=== PATIENT | female | born 1960 | race Caucasian/White ===

== ENCOUNTER → 2017-08-12 09:31 | Outpatient (CLI) | payer OTHER, SELFPAY ==
--- NOTE | 2017-08-12 10:00 | ECHOD_ITS ---
Reason For Study: Arryhthmia Procedure This was a 2D Doppler, Color Flow transthoracic echocardiogram. Exam performed in department. Left Ventricle Normal LV size. Left ventricular systolic function is normal. The estimated ejection fraction is 60 %. No regional wall motion abnormalities noted. Right Ventricle Normal RV size. Normal systolic function. Atria Normal left atrium. Normal right atrium. Mitral Valve Normal mitral valve. Tricuspid Valve Normal tricuspid valve. Aortic Valve Normal aortic valve. Trisinus/trileaflet aortic valve. Mild (1+) eccentric aortic valve insufficiency. Pulmonic Valve Normal pulmonic valve. Great Vessels Normal aortic root. The pulmonary artery is normal size. Normal inferior vena cava. Pericardium/Pleural No pericardial effusion. MMode/2D Measurements & Calculations LVIDd: 4.5 cm IVSd: 1.0 cm Ao root diam: 3.0 cm LVIDs: 3.2 cm LVPWd: 1.1 cm LA dimension: 3.4 cm RVDd: 2.8 cm FS: 29.5 % LAV(MOD-bp): 25.3 ml LA A4 area: 11.1 cm2 RA A4 area: 10.2 cm2 LAV(MOD-bp) Indexed: 14.0 ml/m2 LAV(MOD-sp2): 27.6 ml LAV(MOD-sp4): 23.0 ml Doppler Measurements & Calculations MV E max lloyd: 83.0 cm/sec Lat Peak E' Lloyd: 9.8 cm/sec Med Peak E' Lloyd: 7.6 cm/sec MV A max lloyd: 71.2 cm/sec E/E' lat: 8.5 E/E' med: 10.9 MV E/A: 1.2 Ao V2 max: 179.9 cm/sec AI max lloyd: 416.7 cm/sec LV V1 max: 126.9 cm/sec Ao max P.9 mmHg AI max P.5 mmHg LV V1 max P.4 mmHg Ao V2 mean: 124.8 cm/sec AI dec slope: 243.2 cm/sec2 Ao mean P.9 mmHg AI P1/2t: 501.8 msec Ao V2 VTI: 37.3 cm PA V2 max: 103.4 cm/sec Interpretation Summary Normal LV size. Left ventricular systolic function is normal. The estimated ejection fraction is 60 %. Mild (1+) eccentric aortic valve insufficiency. Ordering Physician: Santiago Hernandez Referring Physician: Momo Bucio Performed By: Brea Conte RDCS, RVT
== END ==
PROVIDERS: Family Provider Family Medicine; PCP Family Medicine; Visit Provider Internal Medicine Cardiovascular Disease
DX: R00.2 Palpitations (principal)
CPT/HCPCS: 93225; 93226; 93306

== ENCOUNTER → 2017-08-30 13:44 | Outpatient (CLI) | payer OTHER, SELFPAY ==
--- NOTE | 2017-08-30 13:46 | CT_ITS ---
STUDY: CTA NECK WITH CONTRAST REASON FOR EXAM: Female, 57 years old. CAROTID STENOSIS, DIZZY, F/U DOPPLER RADIATION DOSAGE (If Supplied By Facility): CTDIvol = ( 13.41 ) mGy, DLP = ( 612.69 ) mGycm TECHNIQUE: CT angiography with multi-detector data acquisition was performed from the aortic arch to the skull base following intravenous administration of 100 ml of Isovue 370 contrast. MIP images were reconstructed from the axial data set. Post-processing of the angiographic images was performed, with multiplanar reformation and 3D reconstruction. COMPARISON: None. FINDINGS: AORTIC ARCH: There is atherosclerotic calcific plaque formation of the aortic arch and great vessels arising from the aortic arch, without a hemodynamically significant stenosis. There is a normal origin of the brachiocephalic, left common carotid, and left subclavian arteries. Normal origins of the brachiocephalic, left common carotid, and left subclavian arteries. RIGHT CAROTID ARTERIES: Normal right common carotid artery (CCA). Normal right common carotid bulb. Normal origin of the right internal carotid (ICA) artery without a hemodynamically significant stenosis. Normal visualized cervical portion of the right internal carotid artery. Normal origin of the right external carotid artery (ECA). LEFT CAROTID ARTERIES: Normal left common carotid artery (CCA). Normal left common carotid bulb. Normal origin of the left internal carotid (ICA) artery without a hemodynamically significant stenosis. Normal visualized cervical portion of the left internal carotid artery. Normal origin of the left external carotid artery (ECA). 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 Normal-appearing right vertebral artery. 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 Normal-appearing right vertebral artery. There is no hemodynamically significant stenosis of the ICAs. Electronically Signed: En Maynard MD at 22:40 EST , Service support ,
== END ==
PROVIDERS: Family Provider Family Medicine; PCP Family Medicine; Visit Provider Family Medicine
DX: I65.22 Occlusion and stenosis of left carotid artery (principal)
CPT/HCPCS: 70498; Q9967

== ENCOUNTER → 2018-07-19 13:41 | Outpatient (CLI) | payer OTHER, SELFPAY ==
--- NOTE | 2018-07-19 14:24 | NEURO ---
NCS and/or EMG Patient Report Ordering Doctor: Alex Zendejas DATE OF SERVICE: 07/19/18 Vanessa Velez is a 57 year old female who presents for electrodiagnostic testing of the upper limbs. She has complaints of numbness in both hands and a burning pain in the left arm. Electrodiagnostic findings: Left median motor nerve demonstrates prolonged distal latency with normal amplitude and conduction velocity. Right median motor nerve demonstrates prolonged distal latency with normal amplitude and conduction velocity. Normal ulnar motor response bilaterally, including conduction across the elbow. Normal median and ulnar F waves. Prolonged median sensory latency is noted bilaterally. On needle EMG, 1+ fibrillations noted in the left pronator teres, left triceps and left lower cervical paraspinals. Motor unit action potentials are of normal amplitude and duration. Electrodiagnostic assessment: This is an abnormal study in the upper limbs. 1. Electrodiagnostic findings demonstrate bilateral median mononeuropathy. This is consistent with a mild bilateral carpal tunnel syndrome. 2. Letter diagnostic findings consistent with acute left-sided C7 radiculopathy. Consider correlation with cervical spine imaging. If there are any further questions, please do not hesitate to contact me.
== END ==
PROVIDERS: Family Provider Family Medicine; PCP Family Medicine; Referring Provider Physician Assistant Surgical; Visit Provider Physician Assistant Surgical
DX: R20.2 Paresthesia of skin (principal)
CPT/HCPCS: 95886; 95913

== ENCOUNTER → 2018-08-04 14:40 | Outpatient (CLI) | payer OTHER, SELFPAY ==
--- NOTE | 2018-08-04 14:46 | CT_ITS ---
CT of the temporal bones. CLINICAL HISTORY: Dizziness. PROCEDURE: The study was done without contrast and presented in 2 planes. FINDINGS: The right temporal bone: Normal except for earwax in the external auditory canal and occasional areas of mastoiditis The left temporal bone: External auditory canal: Canal size: Normal Canal lim: Normal. No erosions. Canal lumen: Clear. No abnormal attenuations Tympanic membrane: Intact. Scutum: Normal. No erosions Tympanic annulus: Normal Middle ear: Prussak's space: Clear Cochlear promontory: Normal Ossicular structures: Normal Tegmen tympani and arcuate eminence: Intact. No dehiscence. Tegmen mastoideum, aditus ad antrum, mastoid antrum and mastoid air cells:. Inflammatory changes involving some of the mastoid air cells. This is slightly more on the left than the right Facial recess,. pyramidal eminence, sinus tympani: Normal. Inner Ear: (Vestibulocochlear apparatus) Round window: Normal Oval window: Normal Semicircular canals: Normal Vestibule (utricle and sacule): Normal Vestibular aqueduct: Normal Cochlea: Normal. Internal auditory canal: Ann-Marie falciformis: Normal Internal auditory canal: No abnormal attenuation Cerebellopontine angle: Normal Facial nerve: Tympanic, labyrinthine and mastoid segments: Normal Petrous apex: Normal CT/Orb Sella Post Fossa Ear w/o IMPRESSION: The right temporal bone shows mild earwax in the right external auditory canal. Mild right-sided mastoiditis. A mild left-sided mastoiditis Electronically Signed: Domingo Welch MD at 2:01 EST Tel , Service support ,
--- NOTE | 2018-08-04 14:46 | CT_ITS ---
STUDY: CT BRAIN WITH AND WITHOUT CONTRAST REASON FOR EXAM: Female, 58 years old. Dizziness. Hypertension. RADIATION DOSAGE (If Supplied By Facility): CTDIvol = ( 52.52 ) mGy, DLP = ( 09897.79 ) mGycm TECHNIQUE: Transaxial CT imaging of the brain was performed pre and post contrast administration. The examination was performed with intravenous administration of 50ml ml of Isovue 370 contrast material. Individualized dose optimization techniques were used for this CT. COMPARISON: None. FINDINGS: Normal soft tissue structures. Normal calvarium. Normal size ventricles and extra-axial spaces for the patient's age. Normal white matter tracts of the cerebral hemispheres. Normal basal ganglia and thalami. Normal brainstem. Normal cerebellum. There is no intracranial hemorrhage. There are no findings of an acute ischemic infarction. Normal visualized paranasal sinuses. CT/Brain/Head W/WO Contrast IMPRESSION: Normal unenhanced and enhanced CT scan of the brain. Electronically Signed: Eren Trimble MD at 16:12 EST , Service support ,
--- OUTSIDE RECORDS SUMMARY | 2018-10-09 05:01 | XMS RPT_ITS ---
:1960 Author Organization OHIP Care Team Providers Name Role Phone JESSICA CROSS III Referring Unavailable SUZANNE CHANG (METAL TILE SETTER) Attending Unavailable CASSANDRA DUMONT (PT) Attending Unavailable CEBUL III, JESSICA A Referring Unavailable CEBUL III, JESSICA A Referring Unavailable CEBUL III, JESSICA A Referring Unavailable CEBUL III, JESSICA A Referring Unavailable CEBUL III, JESSICA A Referring Unavailable SALENA BURGOS (PA) Referring Unavailable CASSANDRA DUMONT (PT) Attending Unavailable CEBUL III, JESSICA A Referring Unavailable SUZANNE CHANG (METAL TILE SETTER) Attending Unavailable SUZANNE CHANG (METAL TILE SETTER) Attending Unavailable SUZANNE CHANG (METAL TILE SETTER) Referring Unavailable AURELIANOUSHA Godoy (BOTANY TECHNICIAN) Attending Unavailable USHA BEDOYA (BOTANY TECHNICIAN) Referring Unavailable CEBUL III, JESSICA A Attending Unavailable SUZANNE CHANG (METAL TILE SETTER) Referring Unavailable CEBUL III, JESSICA A Referring Unavailable CEBUL III, JESSICA A Attending Unavailable CEBUL III, JESSICA A Referring Unavailable CEBUL III, JESSICA A Referring Unavailable HERBERT THOMAS ([place]) Attending Unavailable EshenaurAlex PA-C Attending Unavailable Eshenaur, Alex OLIVO Referring Unavailable Cebul III, Jessica Primary Care Unavailable Gregory Sandoval Attending Unavailable Gregory Sandoval Referring Unavailable Cebul III, Jessica Primary Care Unavailable Santiago Hernandez Attending Unavailable Cebul III, Jessica Referring Unavailable Cebul III, Jessica Primary Care Unavailable [place], [place] Attending Unavailable Cebul III, Jessica Referring Unavailable Cebul III, Jessica Primary Care Unavailable Edouard Conte Attending Unavailable Cebul III, Jessica Referring Unavailable Cebul III, Jessica Attending Unavailable Cebul III, Jessica Referring Unavailable Cebul III, Jessica Primary Care Unavailable PROBLEMS PROBLEMS DATE TYPE CONDITION / CODE ATTENDING STATUS SOURCE 07/21/2018 Active Unknown / JON, Active [facility] UNK(Unknown) HERBERT ([place]) [facility] [place] Rep[facility] 06/06/2018 Active Other spondylosis NA Active [facility] with [facility] [place] radiculopathy, Repository thoracic region / M47.24(ICD-10) 05/22/2018 Active Encounter for NA Active [facility] therapeutic drug [facility] [place] level monitoring / Repository Z51.81(ICD-10) 04/06/2018 Unknown R00.2 - Mary, Santiago Active [facility] Palpitations / Community R00.2(ICD-10) Hospital Repository 04/06/2018 Unknown I10 - Essential Mary, [place] Active [facility] (primary) [facility] hypertension / Hospital I10(ICD-10) Repository 01/12/2018 Active Encounter for NA Active [facility] screening [facility] [place] mammogram for Repository malignant neoplasm of breast / Z12.31(ICD-10) 10/17/2017 Active Cough / NA Active [facility] R05(ICD-10) [facility] [place] Rep[facility] 08/16/2017 Active Paresthesia of NA Active [facility] skin / [facility] [place] R20.2(ICD-10) Repository 08/16/2017 Active Unspecified NA Active [facility] disturbances of [facility] [place] skin sensation / Repository R20.9(ICD-10) 07/29/2017 Unknown R07.89 - Other Mary, Santiago Active [facility] chest pain / Community R07.89(ICD-10) Hospital Repository 07/29/2017 Unknown R07.8 - Other Mary, [place] Active [facility] chest pain / Community R07.8(ICD-10) Hospital Repository PROCEDURES PROCEDURES No Procedure Records FoundRESULTS RESULTS BRAIN/HEAD W/WO Observed: 08/04/2018 Status: F Source: [place] CONTRAST 2:46 PM [facility] REPOSITORY [facility] Imaging Services [address] [place] [id number] Brain/Head W/WO Contrast MR#: [id number] Acct: [id number] Name: CHAPIN VELEZ V Rep #: [id number] : 1960 F 58 From: Eren Trimble MD PCP: Jessiac Cross III, MD Status: REG CLI Study: Brain/Head W/WO Contrast Date of Exam: 08/04/18 Exam# [id number] Ordering Dr: Gregory Sandoval MD STUDY: CT BRAIN WITH AND WITHOUT CONTRAST REASON FOR EXAM: Female, 58 years old. Dizziness. Hypertension. RADIATION DOSAGE (If Supplied By Facility): CTDIvol = ( 52.52 ) mGy, DLP = ( 56986.79 ) mGycm TECHNIQUE: Transaxial CT imaging of the brain was performed pre and post contrast administration. The examination was performed with intravenous administration of 50ml ml of Isovue 370 contrast material. Individualized dose optimization techniques were used for this CT. COMPARISON: None. FINDINGS: Normal soft tissue structures. Normal calvarium. Normal size ventricles and extra-axial spaces for the patient's age. Normal white matter tracts of the cerebral hemispheres. Normal basal ganglia and thalami. Normal brainstem. Normal cerebellum. There is no intracranial hemorrhage. There are no findings of an acute ischemic infarction. Normal visualized paranasal sinuses. CT/Brain/Head W/WO Contrast IMPRESSION: Normal unenhanced and enhanced CT scan of the brain. Electronically Signed: Eren Trimble MD at 16:12 EST , Service support , CC: Pj Sandoval MD; Jessica Cross III, MD Metal Dealer: Signed ORB SELLA POST Observed: 08/04/2018 Status: F Source: [place] EAR W/O 2:46 PM [facility] REPOSITORY [facility] Imaging Services [address] [place] [id number] Orb Sella Post Fossa Ear w/o MR#: [id number] Acct: [id number] Name: CHAPIN VELEZ V Rep #: [id number] : 1960 F 58 From: Domingo Welch MD PCP: Jessica Cross III, MD Status: REG CLI Study: Orb Sella Post Fossa Ear w/o Date of Exam: 08/04/18 Exam# [id number] Ordering Dr: Gregory Sandoval MD CT of the temporal bones. CLINICAL HISTORY: Dizziness. PROCEDURE: The study was done without contrast and presented in 2 planes. FINDINGS: The right temporal bone: Normal except for earwax in the external auditory canal and occasional areas of mastoiditis The left temporal bone: External auditory canal: Canal size: Normal Canal lim: Normal. No erosions. Canal lumen: Clear. No abnormal attenuations Tympanic membrane: Intact. Scutum: Normal. No erosions Tympanic annulus: Normal Middle ear: Prussak's space: Clear Cochlear promontory: Normal Ossicular structures: Normal Tegmen tympani and arcuate eminence: Intact. No dehiscence. Tegmen mastoideum, aditus ad antrum, mastoid antrum and mastoid air cells:. Inflammatory changes involving some of the mastoid air cells. This is slightly more on the left than the right Facial recess,. pyramidal eminence, sinus tympani: Normal. Inner Ear: (Vestibulocochlear apparatus) Round window: Normal Oval window: Normal Semicircular canals: Normal Vestibule (utricle and sacule): Normal Vestibular aqueduct: Normal Cochlea: Normal. Internal auditory canal: Ann-Marie falciformis: Normal Internal auditory canal: No abnormal attenuation Cerebellopontine angle: Normal Facial nerve: Tympanic, labyrinthine and mastoid segments: Normal Petrous apex: Normal CT/Orb Sella Post Fossa Ear w/o IMPRESSION: The right temporal bone shows mild earwax in the right external auditory canal. Mild right-sided mastoiditis. A mild left-sided mastoiditis Electronically Signed: Domingo Welch MD at 2:01 EST Tel , Service support , CC: Pj Sandoval MD; Jessica Cross III, MD Metal Dealer: Signed CNOV Observed: 07/21/2018 Status: COMPLETED Source: [place] 3:00 PM [facility] REPOSITORY Office Visit (FAMPWS) CHAPIN VELEZ V ([id number]) 1960 F Date Time Provider Department 07/21/18 3:00 PM CANDICE THOMAS) FAMPWS During your visit today, we recorded the following information about you: Temperature Pulse Respiration Blood pressure 97.2 degrees 72/minute 12/minute 138/70 Weight 73.5 kg HERBERT THOMAS PA-C 07/21/2018 3:31 PM Signed Chief Complaint Patient presents with: Dizziness: patient is here for dizziness/ no n/v; some vision changes; headaches behind her; saw eye doctors and everything checked out HPI Chapin Velez is a 57 year old female who presents here today for Above Complaints.. Patient has had these symptoms on and off for about a year. States that she will get episodes of lightheadedness and dizziness. In Jul 2017 she had Carotid artery US, EKG, and ECHO. Testing was overall normal. R carotid showed 20-40% stenosis. She has seen eye doctor who has ruled out vision related causes. She reports that over the past year she would have random symptoms however over the past month has been more consistent. Denies Earache Has hx of tinnitus No hearing loss. Some sinus symptoms that have improved. No chest pain or shortness of breath. Past medical history, appointments, medications, allergies reviewed. 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 10/26/2012 - Essential hypertension, benign 12/07/2013 - Lesion of pancreas 06/06/2018 7 mm lesion head of pancreas--unchanged between 2012 and Sep 06, 2016 - Lumbar degenerative disc disease 10/26/2012 - Lumbar disc disease with radiculopathy 12/07/2013 - Palpitations Previous Surgical History PAST SURGICAL HISTORY Procedure Laterality Date - COLONOSCOP W/ OR W/O BRSH SPEC 10/11/2013 Colonoscopy - EGD W/O OR W/BRUSH/WASH 05/05/15 EGD - INCISE FINGER TENDON SHEATH Left 10/13/2016 Left trigger thumb release - LAPAROSCOPIC CHOLEYCYSTECTOMY Cholecystectomy, lap - LIGATE FALLOPIAN TUBE Tubal ligation - TONSILLECTOMY HX unsure if adnoids removed - TYMPANOSTOMY LOCAL; UNILATERAL Family History FAMILY HISTORY Problem Relation Age of Onset - Diabetes Mother - Hypertension Mother - other (CHF) Mother - other (Pacemaker) Mother - Emphysema Father - Diabetes Sister - COPD Sister - COPD Paternal Aunt - Cancer Sister lymphoma - Breast Cancer Paternal Aunt - Ischemic Heart Disease Maternal Grandfather Patient Allergies ALLERGIES Allergen Reactions - Adhesive Tape (Nona* Hives Patient had reaction after trigger finger surgery. Coban specifically - Naproxen GI Upset Current Medications Current Outpatient Prescriptions on File Prior to Visit: losartan (COZAAR) 25 mg tablet Take 1 tablet by mouth once daily. Hydrochlorothiazide 12.5 mg capsule Take 1 capsule by mouth once daily. omeprazole (PRILOSEC) 20 mg capsule Take 1 capsule by mouth daily before breakfast. 1/2 hr before meal. hydrOXYzine HCl (ATARAX) 25 mg tablet Take 1 tablet by mouth every 6 hours as needed for Anxiety. ibuprofen (MOTRIN) 200 mg tablet Take 600 mg by mouth every 6 hours as needed for Pain. djkt-irlp-pnm#3-M-ncab-noah-bor (OSTEO BI-FLEX TRIPLE STRENGTH) 750 mg-644 mg- 30 mg-1 mg tab Take by mouth. MULTIVITAMIN TAB Take one(1) tablet daily. nystatin (MYCOSTATIN) 100,000 unit/mL suspension Take 5 mL by mouth four times daily. 1tsp swish in mouth for several minutes, then swallow (or expectorate) 4 times daily until gone. penicillin V potassium (V-CILLIN, VEETIDS) 500 mg tablet Take 1 tablet by mouth three times daily. (Patient not taking: Reported on 06/06/2018 ) albuterol (PROVENTIL) 2.5 mg /3 mL (0.083 %) nebulizer solution Use 3 mL via nebulizer one time only for 1 dose. Use over 5-15minutes. aspirin, enteric coated (ADULT ASPIRIN REGIMEN) 81 mg EC tablet Take 1 tablet by mouth once daily. No current facility-administered medications on file prior to visit. 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 General Appearance: Well appearing, alert, in no acute distress, well-hydrated, well nourished.. Eyes: Anicteric sclera. Pupils are equally round and reactive to light. Extraocular movements are intact. . Ears: External ears normal, canals clear, TMs with fluid and bulging b/l. Nose/Sinuses: Nares normal, septum midline, mucosa normal, no drainage or sinus tenderness. Oropharynx: Lips, mucosa, and tongue normal, teeth and gums normal, oropharynx normal. Neck: Supple, no adenopathy; thyroid symmetric, normal size, no bruits. Lungs: lungs clear to auscultation. No wheezing, rhonchi, rales. Heart: RRR without murmur, gallop, or rubs. No ectopy. Neurologic: Gait normal. Reflexes normal and symmetric. Sensation grossly intact.. sima hallpike neg. Health Maintenance List BP CONTROLLED (<130/80) due on 1979 ONE PNEUMOVAX PRIOR TO AGE 65 due on 1980 HEPATITIS C SCREENING due on 2005 DTAP,TDAP,TD(2 - Tdap) due on 10/05/2009 MAMMOGRAM due on 01/12/2019 ANNUAL PCP TEAM CHRONIC DISEASE VISIT due on 06/06/2019 PAP EVERY 5 YEARS due on 09/19/2019 HPV EVERY 5 YEARS due on 09/19/2019 DIABETES SCREEN due on 05/22/2021 LIPID SCREEN due on 08/02/2022 COLORECTAL CANCER SCREENING,SEE MODIFIER due on 10/12/2023 INFLUENZA Completed ASSESSMENT/PLAN: 1. Vertigo - ICD9: 780.4, ICD10: R42 Unclear etiology Will start medrol pack We discussed flonase- she has tried this in past but has hx of thrush. I asked patient to get rescheduled with her ENT for evaluation on her vertigo. Will follow up in 1 month or sooner if needed. HERBERT THOMAS PA-C Referring Provider: SELF [[id number]] Allergies As of Date: 07/21/2018 Noted Allergy Reaction ADHESIVE TAPE (ROSINS) 10/18/2016 4 - Hives Comments: Patient had reaction after trigger finger surgery. Coban specifically NAPROXEN 03/14/2015 8 - GI Upset Date Reviewed: 07/21/2018 Reviewed by: Neeta Brady Ma - Fully Assessed Reason for Visit: Dizziness [36] Cmt: patient is here for dizziness/ no n/v; some vision changes; headaches behind her; saw eye doctors and everything checked out Primary Visit Diagnosis:Vertigo [R42] Order(s):methylPREDNISolone (MEDROL, OLGA,) 4 mg Dose-PackFollow dosing instructions, take with food.Disp: 1 PackageRfl: 0 Prescriptions as of 07/21/2018 Sig: LOSARTAN 25 MG TABLET Take 1 tablet by mouth once d* HYDROCHLOROTHIAZIDE 12.5 MG C* Take 1 capsule by mouth once * OMEPRAZOLE 20 MG CAPSULE,JACQUES* Take 1 capsule by mouth daily* HYDROXYZINE HCL 25 MG TABLET Take 1 tablet by mouth every * IBUPROFEN 200 MG TABLET Take 600 mg by mouth every 6 * GLUCOSAMINE 750 MG-CHONDROITI* Take by mouth. * MULTIVITAMIN TABLET Take one(1) tablet daily. METHYLPREDNISOLONE 4 MG TABLE* Follow dosing instructions, t* NYSTATIN 100,000 UNIT/ML ORAL* Take 5 mL by mouth four times* PENICILLIN V POTASSIUM 500 MG* Take 1 tablet by mouth three * Patient not taking: Reported on 06/06/2018 ALBUTEROL SULFATE 2.5 MG/3 ML* Use 3 mL via nebulizer one ti* ASPIRIN 81 MG TABLET,DELAYED * Take 1 tablet by mouth once d* Problem List As Of Date 07/21/2018 Noted Resolved Palpitations [R00.2] INVALID FOR*06/06/2018 Dysmetabolic syndrome X [E88.81] INVALID FOR*06/06/2018 Plantar fasciitis [M72.2] INVALID FOR*06/06/2018 GERD (Gastroesophageal Reflux Disease) [K21.9] INVALID FOR* Tobacco Abuse [Z72.0] INVALID FOR* Calcaneal spur [M77.30] INVALID FOR*06/06/2018 Cervicalgia [M54.2] INVALID FOR*09/27/2012 Inclusion cyst of vulva [N90.7] INVALID FOR*06/06/2018 Cervical arthritis (HCC) [M47.812] INVALID FOR*10/01/2016 Microscopic hematuria [R31.29] INVALID FOR*10/01/2016 Adrenal adenoma [D35.00] INVALID FOR* More... Hematuria, microscopic [R31.29] INVALID FOR* Tobacco use disorder [F17.200] INVALID FOR* Urinary frequency [R35.0] INVALID FOR*06/06/2018 Urgency of urination [R39.15] INVALID FOR*06/06/2018 Degenerative arthritis of cervical spine with n*INVALID FOR* Lumbar degenerative disc disease [M51.36] INVALID FOR* PMB (postmenopausal bleeding) [N95.0] INVALID FOR*10/01/2016 Thickened endometrium [R93.89] INVALID FOR* Tongue coating [K14.3] INVALID FOR*06/06/2018 Glossitis [K14.0] INVALID FOR*06/06/2018 Degenerative arthritis of carpometacarpal joint*INVALID FOR* Essential hypertension, benign [I10] INVALID FOR* More... Lumbar disc disease with radiculopathy [M51.16] INVALID FOR*06/06/2018 Cervicalgia [M54.2] INVALID FOR*06/06/2018 Sciatica [M54.30] INVALID FOR*06/06/2018 Lumbar spondylosis [M47.816] INVALID FOR* Overactive bladder [N32.81] INVALID FOR*10/01/2016 NSAID induced gastritis [K29.60, T39.395A] INVALID FOR*06/06/2018 Hyperlipidemia [E78.5] INVALID FOR* Bilateral hand numbness [R20.0] INVALID FOR*06/06/2018 Trigger thumb of left hand [M65.312] INVALID FOR*06/06/2018 Chest pain [R07.9] INVALID FOR*06/06/2018 Chronic sinusitis [J32.9] INVALID FOR*06/06/2018 Lightheadedness [R42] INVALID FOR*06/06/2018 Harmful pattern of use of nicotine [Z72.0] INVALID FOR* Cervical radiculopathy [M54.12] INVALID FOR* Thoracic radiculopathy due to degenerative join*INVALID FOR* Lesion of pancreas [K86.9] INVALID FOR* More... Prescriptions ordered this encounter Disp Refills Start End METHYLPREDNISOLONE 4 MG TABLETS IN A* 1 Pa* 0 07/21/2018 07/27/2018 Sig: Follow dosing instructions, take with food. Disposition: Return in about 1 month (around 08/21/2018). Follow-up and Disposition History Recorded Encounter Status:Closed by HERBERT DOAN on 07/21/18 PROGRESS Observed: 07/21/2018 Status: COMPLETED Source: [place] 2:52 PM [facility] REPOSITORY HNO ID: [id number] Author: Nixon Thomas Service: (none) Author Type: Physician Alumina Refinery Operator Type: Progress Notes Filed: 07/21/2018 3:31 PM Note Text: Chief Complaint Patient presents with: Dizziness: patient is here for dizziness/ no n/v; some vision changes; headaches behind her; saw eye doctors and everything checked out HPI Chapin Velez is a 57 year old female who presents here today for Above Complaints.. Patient has had these symptoms on and off for about a year. States that she will get episodes of lightheadedness and dizziness. In Jul 2017 she had Carotid artery US, EKG, and ECHO. Testing was overall normal. R carotid showed 20-40% stenosis. She has seen eye doctor who has ruled out vision related causes. She reports that over the past year she would have random symptoms however over the past month has been more consistent. Denies Earache Has hx of tinnitus No hearing loss. Some sinus symptoms that have improved. No chest pain or shortness of breath. Past medical history, appointments, medications, allergies reviewed. 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 10/26/2012 - Essential hypertension, benign 12/07/2013 - Lesion of pancreas 06/06/2018 7 mm lesion head of pancreas--unchanged between 2012 and Sep 06, 2016 - Lumbar degenerative disc disease 10/26/2012 - Lumbar disc disease with radiculopathy 12/07/2013 - Palpitations Previous Surgical History PAST SURGICAL HISTORY Procedure Laterality Date - COLONOSCOP W/ OR W/O BRSH SPEC 10/11/2013 Colonoscopy - EGD W/O OR W/BRUSH/WASH 05/05/15 EGD - INCISE FINGER TENDON SHEATH Left 10/13/2016 Left trigger thumb release - LAPAROSCOPIC CHOLEYCYSTECTOMY Cholecystectomy, lap - LIGATE FALLOPIAN TUBE Tubal ligation - TONSILLECTOMY HX unsure if adnoids removed - TYMPANOSTOMY LOCAL; UNILATERAL Family History FAMILY HISTORY Problem Relation Age of Onset - Diabetes Mother - Hypertension Mother - other (CHF) Mother - other (Pacemaker) Mother - Emphysema Father - Diabetes Sister - COPD Sister - COPD Paternal Aunt - Cancer Sister lymphoma - Breast Cancer Paternal Aunt - Ischemic Heart Disease Maternal Grandfather Patient Allergies ALLERGIES Allergen Reactions - Adhesive Tape (Nona* Hives Patient had reaction after trigger finger surgery. Coban specifically - Naproxen GI Upset Current Medications Current Outpatient Prescriptions on File Prior to Visit: losartan (COZAAR) 25 mg tablet Take 1 tablet by mouth once daily. Hydrochlorothiazide 12.5 mg capsule Take 1 capsule by mouth once daily. omeprazole (PRILOSEC) 20 mg capsule Take 1 capsule by mouth daily before breakfast. 1/2 hr before meal. hydrOXYzine HCl (ATARAX) 25 mg tablet Take 1 tablet by mouth every 6 hours as needed for Anxiety. ibuprofen (MOTRIN) 200 mg tablet Take 600 mg by mouth every 6 hours as needed for Pain. vptt-yqas-ggj#6-C-lruz-noah-bor (OSTEO BI-FLEX TRIPLE STRENGTH) 750 mg-644 mg- 30 mg-1 mg tab Take by mouth. MULTIVITAMIN TAB Take one(1) tablet daily. nystatin (MYCOSTATIN) 100,000 unit/mL suspension Take 5 mL by mouth four times daily. 1tsp swish in mouth for several minutes, then swallow (or expectorate) 4 times daily until gone. penicillin V potassium (V-CILLIN, VEETIDS) 500 mg tablet Take 1 tablet by mouth three times daily. (Patient not taking: Reported on 06/06/2018 ) albuterol (PROVENTIL) 2.5 mg /3 mL (0.083 %) nebulizer solution Use 3 mL via nebulizer one time only for 1 dose. Use over 5-15minutes. aspirin, enteric coated (ADULT ASPIRIN REGIMEN) 81 mg EC tablet Take 1 tablet by mouth once daily. No current facility-administered medications on file prior to visit. 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 General Appearance: Well appearing, alert, in no acute distress, well-hydrated, well nourished.. Eyes: Anicteric sclera. Pupils are equally round and reactive to light. Extraocular movements are intact. . Ears: External ears normal, canals clear, TMs with fluid and bulging b/l. Nose/Sinuses: Nares normal, septum midline, mucosa normal, no drainage or sinus tenderness. Oropharynx: Lips, mucosa, and tongue normal, teeth and gums normal, oropharynx normal. Neck: Supple, no adenopathy; thyroid symmetric, normal size, no bruits. Lungs: lungs clear to auscultation. No wheezing, rhonchi, rales. Heart: RRR without murmur, gallop, or rubs. No ectopy. Neurologic: Gait normal. Reflexes normal and symmetric. Sensation grossly intact.. sima hallpike neg. Health Maintenance List BP CONTROLLED (<130/80) due on 1979 ONE PNEUMOVAX PRIOR TO AGE 65 due on 1980 HEPATITIS C SCREENING due on 2005 DTAP,TDAP,TD(2 - Tdap) due on 10/05/2009 MAMMOGRAM due on 01/12/2019 ANNUAL PCP TEAM CHRONIC DISEASE VISIT due on 06/06/2019 PAP EVERY 5 YEARS due on 09/19/2019 HPV EVERY 5 YEARS due on 09/19/2019 DIABETES SCREEN due on 05/22/2021 LIPID SCREEN due on 08/02/2022 COLORECTAL CANCER SCREENING,SEE MODIFIER due on 10/12/2023 INFLUENZA Completed ASSESSMENT/PLAN: 1. Vertigo - ICD9: 780.4, ICD10: R42 Unclear etiology Will start medrol pack We discussed flonase- she has tried this in past but has hx of thrush. I asked patient to get rescheduled with her ENT for evaluation on her vertigo. Will follow up in 1 month or sooner if needed. HERBERT THOMAS PA-C NCS AND/OR EMG Observed: 07/19/2018 Status: F Source: [place] PAT[place] 2:43 PM [facility] REPOSITORY [facility] Pulmonary Services/Neurology [address] [place] [address] MR#: [id number] Acct: [id number] Name: CHAPIN VELEZ V Rep #: [id number] : 1960 57 From: Michael Flores MD Referring Dr: Alex Mack Status: REG CLI Ordering Dr: Date: Location: N Sex: F C NCS and/or EMG Patient Report Ordering Doctor: Alex Zendejas DATE OF SERVICE: 07/19/18 Chapin Velez is a 57 year old female who presents for electrodiagnostic testing of the upper limbs. She has complaints of numbness in both hands and a burning pain in the left arm. Electrodiagnostic findings: Left median motor nerve demonstrates prolonged distal latency with normal amplitude and conduction velocity. Right median motor nerve demonstrates prolonged distal latency with normal amplitude and conduction velocity. Normal ulnar motor response bilaterally, including conduction across the elbow. Normal median and ulnar F waves. Prolonged median sensory latency is noted bilaterally. On needle EMG, 1+ fibrillations noted in the left pronator teres, left triceps and left lower cervical paraspinals. Motor unit action potentials are of normal amplitude and duration. Electrodiagnostic assessment: This is an abnormal study in the upper limbs. 1. Electrodiagnostic findings demonstrate bilateral median mononeuropathy. This is consistent with a mild bilateral carpal tunnel syndrome. 2. Letter diagnostic findings consistent with acute left- sided C7 radiculopathy. Consider correlation with cervical spine imaging. If there are any further questions, please do not hesitate to contact me. 07/19/18 7250 <Electronically signed by Michael Flores MD> Date Michael Flores MD CC: Michael Flores MD; Jessica Cross III, MD; Alex BABB Date Dictated: 07/19/18 1424 Date Transcribed: 07/19/18 1424 Metal Dealer: LILIBETH Signed PROGRESS Observed: 06/14/2018 Status: COMPLETED Source: [place] 6:41 PM [facility] [place] REPOSITORY HNO ID: [id number] Author: Jessica Cross III Service: (none) Author Type: Physician Type: Progress Notes Filed: 06/14/2018 6:41 PM Note Text: Chapin, there are degenerative changes seen at multiple levels of the spine. I suspect that you are experiencing nerve pain because of some of this degeneration. I recommend back stretching to improve the pain. If that is not successful, then I recommend evaluation by our physical therapist. Keep in touch as needed Jessica Cross III, MD, FAAFP XR THORACIC 3V Observed: 06/12/2018 Status: F Source: [place] AP/LAT/[place] 1:55 PM [facility] REPOSITORY * * *Final Report* * * DATE OF EXAM: Jun 12 2018 1:55PM WOX [id number] - XR THORACIC 3V AP/LAT/SWIMMERS / PROCEDURE REASON: Thoracic radiculopathy due to degenerative joint disease of spine * * * * Physician Interpretation * * * * PROCEDURE: Thoracic spine INDICATION: Thoracic radiculopathy due to degenerative joint disease of spine .Right sided upper back pain for years without injury. TECHNIQUE: XR THORACIC 3V AP/LAT/SWIMMERS COMPARISON: None FINDINGS: There is slight scoliotic curvature without fracture or subluxation. Mild vertebral body spurring is noted at most levels. Mild disc space narrowing at multiple levels in the lower thoracic spine. No pedicle erosion or paraspinal abnormality. Degenerative disc disease in the lower cervical spine. IMPRESSION: Degenerative changes Metal Dealer: ENDER Transcribe Date/Time: Jun 12 2018 2:44P Dictated by : NIALL GUPTA MD This examination was interpreted and the report reviewed and electronically signed by: NIALL GUPTA MD on Jun 12 2018 2:46PM EST [id number] PROGRESS Observed: 06/12/2018 Status: COMPLETED Source: [place] 1:44 PM [facility] [place] REPOSITORY HNO ID: [id number] Author: Sasha Farrell ([place] Service: (none) Author Type: Casino Gaming Inspector Type: Progress Notes Filed: 06/12/2018 1:55 PM Note Text: Radiology Service Progress Note PATIENT NAME: Chapin Velez DATE OF SERVICE: June 12, 2018 TIME: 1:44 PM PATIENT IDENTITY VERIFICATION COMPLETED USING TWO (2) METHODS: Patient confirmed name verbally and Date of . PATIENT GENDER DATA: Female. status: : No status: NO. PATIENT RELEVANT IMPLANT DATA REVIEWED: Not Applicable RADIOLOGY DEPARTMENT: General X-ray: Exam(s) Completed: Spine X-Ray(s): Thoracic PERIPHERAL IV DATA: Not applicable SIGNED BY: RT Alexx June 12, 2018 1:44 PM PROGRESS Observed: 06/06/2018 Status: COMPLETED Source: [place] 5:25 PM [facility] REPOSITORY O ID: [id number] Author: Jessica Cross III Service: (none) Author Type: Physician Type: Progress Notes Filed: 06/06/2018 8:44 PM Note Text: SUBJECTIVE: This is a 57 year old female that is here today for follow up radicular pain R ant -lat rib margin. Low-medium level aching, helped by ibuprofen. No rash and not tender to touch. Chart review shows that CT scan abdomen obtained 09/06/16 demonstrated a 7 mm lesion in the head of the pancreas that had not changed since 2012. Patient is also status post cholecystectomy. She denies pain in the lower thoracic spine area, though she does have pain in the upper back and in the lumbar region. He does a physical job and is also physically active with splitting wood and other physical outdoor work at home. She states that this discomfort in the right anterolateral rib margin does not feel like muscular strain. 2. Chart review as it she did have a CT angiogram of the neck in August, showing obstruction of the proximal left vertebral artery with reconstitution of normal flow. The right vertebral artery in both carotid arteries were patent. 3. CT angiogram of the chest (07/17/17) demonstrated thoracic degenerative disease but was not specific to the lower thoracic vertebrae ----- Results CT ABDOMEN W IVCON (Order [id number]) Patient Info Patient Name Sex Chapin Montero V ([id number]) Female 1960 09/06/2016 ?4:04 PM - Interface, Results In Impression IMPRESSION: No cause for left upper quadrant pain. Unchanged 7 mm low-attenuation lesion in pancreatic head which may represent sidebranch IPMN. Bilateral adrenal thickening with focal right nodule, unchanged. version 15 Metal Dealer: ENDER ? Transcribe Date/Time: Sep 06 2016 ?3:48P Dictated by : FRANKIE BRIONES MD This examination was interpreted and the report reviewed and electronically signed by: FRANKIE BRIONES MD on Sep 06 2016 ?3:58PM ?EST Results-Findings * * *Final Report* * * DATE OF EXAM: Sep 06 2016 ?3:36PM ? [facility] ? 0533 ?- ?CT ABDOMEN W IVCON ?/ PROCEDURE REASON: Left upper quadrant pain ?? ? * * * * Physician Interpretation * * * * RESULT: CT ABDOMEN WITH IV CONTRAST CLINICAL HISTORY: Left upper quadrant pain TECHNIQUE: CT of the abdomen was performed using standard technique. Contrast: IV: ?145 ml of Omnipaque 300 Oral: ?900 ml of 50ML Omnipaque [address] Radiation dose: Integrated Dose-length product (DLP) for this visit = ? 245 mGy*cm. COMPARISON: 10/06/2012 RESULT: Liver: No mass. Biliary: No bile duct dilation. ?Gallbladder is absent. Spleen: No mass. No splenomegaly. Pancreas: There is a 7 mm low-attenuation abnormality in the pancreatic head (3:45). ?This is unchanged from the prior exam. ?There is no pancreatic duct dilation. ?On coronal images, this appears to communicate with the pancreatic duct, suggesting that it represents a small IPMN. Adrenals: There is bilateral adrenal thickening. ?Focal nodule in the right lateral limb measures 1.4 x 0.9 cm (3:32) unchanged. ?Left adrenal is diffusely thickened. Kidneys: No mass or hydronephrosis.. There are subcentimeter probable renal cysts. ?As 1.4 cm unchanged lower pole cyst on the left. GI tract: No dilation or wall thickening. Lymph nodes: No abdominal lymphadenopathy. Mesentery/Peritoneum: No ascites or mass. Vasculature: ?The celiac axis and SMA are patent. The portal vein and branches, splenic vein, SMV, and hepatic veins are patent. Bones/Soft Tissues: No significant finding. Lung Bases: Unremarkable. Result History CT ABDOMEN W IVCON (Order #[id number]) on 09/06/2016 - Order Result History Report Current Outpatient Prescriptions on File Prior to Visit: nystatin (MYCOSTATIN) 100,000 unit/mL suspension Take 5 mL by mouth four times daily. 1tsp swish in mouth for several minutes, then swallow (or expectorate) 4 times daily until gone. losartan (COZAAR) 25 mg tablet Take 1 tablet by mouth once daily. Hydrochlorothiazide 12.5 mg capsule Take 1 capsule by mouth once daily. omeprazole (PRILOSEC) 20 mg capsule Take 1 capsule by mouth daily before breakfast. 1/2 hr before meal. hydrOXYzine HCl (ATARAX) 25 mg tablet Take 1 tablet by mouth every 6 hours as needed for Anxiety. aspirin, enteric coated (ADULT ASPIRIN REGIMEN) 81 mg EC tablet Take 1 tablet by mouth once daily. ibuprofen (MOTRIN) 200 mg tablet Take 600 mg by mouth every 6 hours as needed for Pain. woxd-rpus-pgr#2-T-hmvo-noah-bor (OSTEO BI-FLEX TRIPLE STRENGTH) 750 mg-644 mg- 30 mg-1 mg tab Take by mouth. MULTIVITAMIN TAB Take one(1) tablet daily. penicillin V potassium (V-CILLIN, VEETIDS) 500 mg tablet Take 1 tablet by mouth three times daily. (Patient not taking: Reported on 06/06/2018 ) albuterol (PROVENTIL) 2.5 mg /3 mL (0.083 %) nebulizer solution Use 3 mL via nebulizer one time only for 1 dose. Use over 5-15minutes. No current facility-administered medications on file prior to visit. PAST MEDICAL HISTORY Diagnosis Date - Adrenal adenoma 10/06/2012 bilateral--recheck CT in 1 yr - Cervical arthritis 09/27/2012 - Degenerative arthritis of carpometacarpal joint of thumb 12/07/2013 - Degenerative arthritis of cervical spine with nerve compression 10/26/2012 - Essential hypertension, benign 12/07/2013 - Lumbar degenerative disc disease 10/26/2012 - Lumbar disc disease with radiculopathy 12/07/2013 - Palpitations FAMILY HISTORY Problem Relation Age of Onset - Diabetes Mother - Hypertension Mother - other (CHF) Mother - other (Pacemaker) Mother - Emphysema Father - Diabetes Sister - COPD Sister - COPD Paternal Aunt - Cancer Sister lymphoma - Breast Cancer Paternal Aunt - Ischemic Heart Disease Maternal Grandfather Social History Substance Use Topics - Smoking status: Current Every Day Smoker Packs/day: 1.00 Types: Cigarettes Start date: 07/18/1977 - Smokeless tobacco: Never Used - Alcohol use No BP 136/72 Pulse 68 Resp 16 Wt 72.6 kg (160 lb) LMP 02/07/2012 BMI 26.22 kg/m? . OBJECTIVE: APPEARANCE Well appearing, alert, in no acute distress, well-hydrated, well nourished. NECK Supple, no adenopathy; thyroid symmetric, normal size, no bruits LUNG clear to auscultation. No tenderness along the right anterolateral rib margin. No localized tenderness of the lower thoracic vertebrae. No evidence of shingles. ABDOMEN soft, non-tender, non-distended, without organomegaly or palpable masses, , no tenderness to palpation ASSESSMENT: Radicular pain along the right anterolateral rib margin perhaps representing thoracic radiculopathy Suspect cervical degenerative disc disease with right cervical radiculopathy causing pain in the right upper extremity Arteriosclerosis of the proximal left vertebral artery with reconstitution?patient on chronic aspirin Hypertension?at goal Tobacco use disorder Nonspecific lesion of the head of the Pancreas?previously unchanging PLAN: thoracic xray consider CT abd to follow up 7 mm lesion head of pancreas(unchanged from 7015-2077) same medications await EMG results from ortho of C spine REMBERTO Emanuel MD, III MD CNOV Observed: 06/06/2018 Status: COMPLETED Source: [place] 4:40 PM [facility] REPOSITORY Office Visit (FAMPWS) CHAPIN VELEZ V ([id number]) 1960 F Date Time Provider Department 06/06/18 4:40 PM JESSICA CROSS III During your visit today, we recorded the following information about you: Pulse Respiration Blood pressure Weight 68/minute 16/minute 136/72 72.6 kg Jessica Cross III MD 06/06/2018 8:44 PM Signed SUBJECTIVE: This is a 57 year old female that is here today for follow up radicular pain R ant -lat rib margin. Low-medium level aching, helped by ibuprofen. No rash and not tender to touch. Chart review shows that CT scan abdomen obtained 09/06/16 demonstrated a 7 mm lesion in the head of the pancreas that had not changed since 2012. Patient is also status post cholecystectomy. She denies pain in the lower thoracic spine area, though she does have pain in the upper back and in the lumbar region. He does a physical job and is also physically active with splitting wood and other physical outdoor work at home. She states that this discomfort in the right anterolateral rib margin does not feel like muscular strain. 2. Chart review as it she did have a CT angiogram of the neck in August, showing obstruction of the proximal left vertebral artery with reconstitution of normal flow. The right vertebral artery in both carotid arteries were patent. 3. CT angiogram of the chest (07/17/17) demonstrated thoracic degenerative disease but was not specific to the lower thoracic vertebrae Results CT ABDOMEN W IVCON (Order [id number]) Patient Info Patient Name Sex Chapin Montero V ([id number]) Female 1960 09/06/2016 ?4:04 PM - Interface, Results In Impression IMPRESSION: No cause for left upper quadrant pain. Unchanged 7 mm low-attenuation lesion in pancreatic head which may represent sidebranch IPMN. Bilateral adrenal thickening with focal right nodule, unchanged. version 10.08.15 Metal Dealer: ENDER ? Transcribe Date/Time: Sep 06 2016 ?3:48P Dictated by : FRANKIE BRIONES MD This examination was interpreted and the report reviewed and electronically signed by: FRANKIE BRIONES MD on Sep 06 2016 ?3:58PM ?EST Results-Findings * * *Final Report* * * DATE OF EXAM: Sep 06 2016 ?3:36PM ? [facility] ? 0533 ?- ?CT ABDOMEN W IVCON ?/ PROCEDURE REASON: Left upper quadrant pain ?? ? * * * * Physician Interpretation * * * * RESULT: CT ABDOMEN WITH IV CONTRAST CLINICAL HISTORY: Left upper quadrant pain TECHNIQUE: CT of the abdomen was performed using standard technique. Contrast: IV: ?145 ml of Omnipaque 300 Oral: ?900 ml of 50ML Omnipaque [address] Radiation dose: Integrated Dose-length product (DLP) for this visit = ? 245 mGy*cm. COMPARISON: 10/06/2012 RESULT: Liver: No mass. Biliary: No bile duct dilation. ?Gallbladder is absent. Spleen: No mass. No splenomegaly. Pancreas: There is a 7 mm low-attenuation abnormality in the pancreatic head (3:45). ?This is unchanged from the prior exam. ?There is no pancreatic duct dilation. ?On coronal images, this appears to communicate with the pancreatic duct, suggesting that it represents a small IPMN. Adrenals: There is bilateral adrenal thickening. ?Focal nodule in the right lateral limb measures 1.4 x 0.9 cm (3:32) unchanged. ?Left adrenal is diffusely thickened. Kidneys: No mass or hydronephrosis.. There are subcentimeter probable renal cysts. ?As 1.4 cm unchanged lower pole cyst on the left. GI tract: No dilation or wall thickening. Lymph nodes: No abdominal lymphadenopathy. Mesentery/Peritoneum: No ascites or mass. Vasculature: ?The celiac axis and SMA are patent. The portal vein and branches, splenic vein, SMV, and hepatic veins are patent. Bones/Soft Tissues: No significant finding. Lung Bases: Unremarkable. Result History CT ABDOMEN W IVCON (Order #[id number]) on 09/06/2016 - Order Result History Report Current Outpatient Prescriptions on File Prior to Visit: nystatin (MYCOSTATIN) 100,000 unit/mL suspension Take 5 mL by mouth four times daily. 1tsp swish in mouth for several minutes, then swallow (or expectorate) 4 times daily until gone. losartan (COZAAR) 25 mg tablet Take 1 tablet by mouth once daily. Hydrochlorothiazide 12.5 mg capsule Take 1 capsule by mouth once daily. omeprazole (PRILOSEC) 20 mg capsule Take 1 capsule by mouth daily before breakfast. 1/2 hr before meal. hydrOXYzine HCl (ATARAX) 25 mg tablet Take 1 tablet by mouth every 6 hours as needed for Anxiety. aspirin, enteric coated (ADULT ASPIRIN REGIMEN) 81 mg EC tablet Take 1 tablet by mouth once daily. ibuprofen (MOTRIN) 200 mg tablet Take 600 mg by mouth every 6 hours as needed for Pain. yomt-kmjz-zvh#9-Z-zdkt-noah-bor (OSTEO BI-FLEX TRIPLE STRENGTH) 750 mg-644 mg- 30 mg-1 mg tab Take by mouth. MULTIVITAMIN TAB Take one(1) tablet daily. penicillin V potassium (V-CILLIN, VEETIDS) 500 mg tablet Take 1 tablet by mouth three times daily. (Patient not taking: Reported on 06/06/2018 ) albuterol (PROVENTIL) 2.5 mg /3 mL (0.083 %) nebulizer solution Use 3 mL via nebulizer one time only for 1 dose. Use over 5-15minutes. No current facility-administered medications on file prior to visit. PAST MEDICAL HISTORY Diagnosis Date - Adrenal adenoma 10/06/2012 bilateral--recheck CT in 1 yr - Cervical arthritis 09/27/2012 - Degenerative arthritis of carpometacarpal joint of thumb 12/07/2013 - Degenerative arthritis of cervical spine with nerve compression 10/26/2012 - Essential hypertension, benign 12/07/2013 - Lumbar degenerative disc disease 10/26/2012 - Lumbar disc disease with radiculopathy 12/07/2013 - Palpitations FAMILY HISTORY Problem Relation Age of Onset - Diabetes Mother - Hypertension Mother - other (CHF) Mother - other (Pacemaker) Mother - Emphysema Father - Diabetes Sister - COPD Sister - COPD Paternal Aunt - Cancer Sister lymphoma - Breast Cancer Paternal Aunt - Ischemic Heart Disease Maternal Grandfather Social History Substance Use Topics - Smoking status: Current Every Day Smoker Packs/day: 1.00 Types: Cigarettes Start date: 07/18/1977 - Smokeless tobacco: Never Used - Alcohol use No BP 136/72 Pulse 68 Resp 16 Wt 72.6 kg (160 lb) LMP 02/07/2012 BMI 26.22 kg/m? . OBJECTIVE: APPEARANCE Well appearing, alert, in no acute distress, well- hydrated, well nourished. NECK Supple, no adenopathy; thyroid symmetric, normal size, no bruits LUNG clear to auscultation. No tenderness along the right anterolateral rib margin. No localized tenderness of the lower thoracic vertebrae. No evidence of shingles. ABDOMEN soft, non-tender, non-distended, without organomegaly or palpable masses, , no tenderness to palpation ASSESSMENT: Radicular pain along the right anterolateral rib margin perhaps representing thoracic radiculopathy Suspect cervical degenerative disc disease with right cervical radiculopathy causing pain in the right upper extremity Arteriosclerosis of the proximal left vertebral artery with reconstitution?patient on chronic aspirin Hypertension?at goal Tobacco use disorder Nonspecific lesion of the head of the Pancreas?previously unchanging PLAN: thoracic xray consider CT abd to follow up 7 mm lesion head of pancreas(unchanged from ) same medications await EMG results from ortho of C spine REMBERTO Emanuel MD, III MD Frank A Cebul, III MD 06/06/2018 5:53 PM Signed PLAN: thoracic xray consider CT abd to follow up 7 mm lesion head of pancreas(unchanged from ) same medications await EMG results Jessica Cross III MD Referring Provider: JESSICA CROSS III [[id number]] Allergies As of Date: 06/06/2018 Noted Allergy Reaction ADHESIVE TAPE (ROSINS) 10/18/2016 4 - Hives Comments: Patient had reaction after trigger finger surgery. Coban specifically NAPROXEN 03/14/2015 8 - GI Upset Date Reviewed: 06/06/2018 Reviewed by: Dannielle ([facility]) ISSA Mathias - Fully Assessed Reason for Visit: Recheck [92] Cmt: Pain under armpit and on right ribcage Primary Visit Diagnosis:Thoracic radiculopathy due to degenerative joint disease of spine [M47.24] Other Visit Diagnoses:Essential hypertension, benign [I10] Lesion of pancreas [K86.9] Order(s):XR THORACIC GENERAL 3V AP/LAT/SWIMMERS [[id number]] Order #: [id number] FUTURE Prescriptions as of 06/06/2018 Sig: NYSTATIN 100,000 UNIT/ML ORAL* Take 5 mL by mouth four times* LOSARTAN 25 MG TABLET Take 1 tablet by mouth once d* HYDROCHLOROTHIAZIDE 12.5 MG C* Take 1 capsule by mouth once * OMEPRAZOLE 20 MG CAPSULE,JACQUES* Take 1 capsule by mouth daily* HYDROXYZINE HCL 25 MG TABLET Take 1 tablet by mouth every * ASPIRIN 81 MG TABLET,DELAYED * Take 1 tablet by mouth once d* IBUPROFEN 200 MG TABLET Take 600 mg by mouth every 6 * GLUCOSAMINE 750 MG-CHONDROITI* Take by mouth. * MULTIVITAMIN TABLET Take one(1) tablet daily. PENICILLIN V POTASSIUM 500 MG* Take 1 tablet by mouth three * Patient not taking: Reported on 06/06/2018 ALBUTEROL SULFATE 2.5 MG/3 ML* Use 3 mL via nebulizer one ti* Problem List As Of Date 06/06/2018 Noted Resolved Palpitations [R00.2] INVALID FOR*06/06/2018 Dysmetabolic syndrome X [E88.81] INVALID FOR*06/06/2018 Plantar fasciitis [M72.2] INVALID FOR*06/06/2018 GERD (Gastroesophageal Reflux Disease) [K21.9] INVALID FOR* Tobacco Abuse [Z72.0] INVALID FOR* Calcaneal spur [M77.30] INVALID FOR*06/06/2018 Cervicalgia [M54.2] INVALID FOR*09/27/2012 Inclusion cyst of vulva [N90.7] INVALID FOR*06/06/2018 Cervical arthritis (HCC) [M47.812] INVALID FOR*10/01/2016 Microscopic hematuria [R31.29] INVALID FOR*10/01/2016 Adrenal adenoma [D35.00] INVALID FOR* More... Hematuria, microscopic [R31.29] INVALID FOR* Tobacco use disorder [F17.200] INVALID FOR* Urinary frequency [R35.0] INVALID FOR*06/06/2018 Urgency of urination [R39.15] INVALID FOR*06/06/2018 Degenerative arthritis of cervical spine with n*INVALID FOR* Lumbar degenerative disc disease [M51.36] INVALID FOR* PMB (postmenopausal bleeding) [N95.0] INVALID FOR*10/01/2016 Thickened endometrium [R93.89] INVALID FOR* Tongue coating [K14.3] INVALID FOR*06/06/2018 Glossitis [K14.0] INVALID FOR*06/06/2018 Degenerative arthritis of carpometacarpal joint*INVALID FOR* Essential hypertension, benign [I10] INVALID FOR* More... Lumbar disc disease with radiculopathy [M51.16] INVALID FOR*06/06/2018 Cervicalgia [M54.2] INVALID FOR*06/06/2018 Sciatica [M54.30] INVALID FOR*06/06/2018 Lumbar spondylosis [M47.816] INVALID FOR* Overactive bladder [N32.81] INVALID FOR*10/01/2016 NSAID induced gastritis [K29.60, T39.395A] INVALID FOR*06/06/2018 Hyperlipidemia [E78.5] INVALID FOR* Bilateral hand numbness [R20.0] INVALID FOR*06/06/2018 Trigger thumb of left hand [M65.312] INVALID FOR*06/06/2018 Chest pain [R07.9] INVALID FOR*06/06/2018 Chronic sinusitis [J32.9] INVALID FOR*06/06/2018 Lightheadedness [R42] INVALID FOR*06/06/2018 Harmful pattern of use of nicotine [Z72.0] INVALID FOR* Cervical radiculopathy [M54.12] INVALID FOR* Thoracic radiculopathy due to degenerative join*INVALID FOR* Lesion of pancreas [K86.9] INVALID FOR* More... Other instructions from your clinician: PLAN: thoracic xray consider CT abd to follow up 7 mm lesion head of pancreas(unchanged from 9590-7798) same medications await EMG results Jessica Cross III MD Encounter Status:Closed by JESSICA CROSS III, MD on 06/06/18 PROGRESS Observed: 05/24/2018 Status: COMPLETED Source: [place] 1:50 PM [facility] [place] REPOSITORY HNO ID: [id number] Author: Jessica Cross III Service: (none) Author Type: Physician Type: Progress Notes Filed: 05/24/2018 1:50 PM Note Text: Chapin, The blood test results are fine. Jessica Cross III, MD, [facility] PROGRESS Observed: 05/24/2018 Status: COMPLETED Source: [place] 1:49 PM [facility] [place] REPOSITORY HNO ID: [id number] Author: Jessica Cross III Service: (none) Author Type: Physician Type: Progress Notes Filed: 05/24/2018 1:49 PM Note Text: Chapin, The urine is normal. Jessica Cross III, MD, FAAFP URINALYSIS WITH Collected: 05/22/2018 Status: F Source: [facility] 4:45 PM [facility] REPOSITORY TYPE CODE TESTS RESULT OUT OF RANGE REFERENCE UNITS LAB UCOL Yellow Color Yellow LAB [facility] Clear Clarity Clear LAB UGLUC Negative mg/dL Glucose, Urine Negative LAB UBIL Negative Bilirubin, Urine Negative LAB UKET Negative Ketones, Urine Negative LAB USPG 1.005-1.030 Specific Gilbert, Ur 1.005 LAB UHGB Negative Abnormal Hemoglobin/Blood, 1+ Alert Ur LAB UPH 4.5-8.0 pH 6.0 LAB UPROT Negative mg/dL Protein, Urine Negative LAB UUROB Normal Urobilinogen Normal LAB UNITR Negative Nitrites Negative LAB ULKEST Negative Leukest Negative LAB UCOM Comments SEE COMMENT Result Comment: N/A LAB UMCOM Urine SEE Lc Comment COMMENT Result Comment: N/A LAB UWBC 0-5 /HPF WBC 0-5 LAB URBC 0-3 /HPF RBC 0-3 Performed By: #### UAWMIC #### [facility] [address] [place] [address] COMP METABOLIC PANEL Collected: 05/22/2018 Status: F Source: [place] 4:40 PM [facility] REPOSITORY TYPE CODE TESTS RESULT OUT OF REFERENCE UNITS RANGE LAB TP 6.3-8.0 g/dL Protein, Total 7.6 LAB ALB 3.9-4.9 g/dL Albumin 4.5 LAB CA 8.5-10.2 mg/dL Calcium, Total 9.9 LAB TBIL 0.2-1.3 mg/dL Bilirubin, Total 0.3 LAB ALKP 34-123 U/L Alkaline Phosphatase 114 LAB AST 13-35 U/L AST 23 LAB GLU 74-99 mg/dL Low Glucose 73 Result Comment: The [place] [employer] (ADA) provides guidance for cutoff values for fasting glucose and random glucose. The ADA defines fasting as no caloric intake for at least 8 hours. Fas ting plasma glucose results between 100 to 125 mg/dL indicate increased risk for diabetes (prediabetes). Fasting plasma glucose results greater than or equal to 126 mg/dL meet the criteria for diagnosis of diabetes. In the absence of unequivocal hyperglycemia, results should be confirmed by repeat testing. In a patient with classic symptoms of hyperglycemia or hyperglycemic crisis, random plasma glucose results greater than or equal to 200 mg/dL meet the criteria for diagnosis of diabetes. Reference: Standards of Medical Care in Diabetes 2016, [place] [employer]. Diabetes Care. 2016.39(Suppl 1). LAB BUN 7-21 mg/dL BUN 12 LAB CRET 0.58-0.96 mg/dL Creatinine 0.73 LAB NA 136-144 mmol/L Sodium 142 LAB K 3.7-5.1 mmol/L Potassium 4.1 LAB CL 97-105 mmol/L Chloride High 106 LAB CO2 22-30 mmol/L Low CO2 21 LAB AGAP 9-18 mmol/L Anion Gap 15 LAB ALT 7-38 U/L ALT 14 LAB GFRAA eGFR- Amer. >60 LAB GFRNAA . eGFR-All Other Races >60 Result Comment: eGFR (Estimated GFR) Units of measure: mL/min/1.73 meters squared eGFR is derived from the reexpressed MDRD Study equation using the following parameters: serum creatinine, age, gender and race. The creatinine assay has been calibrated to be traceable to IDMS. An eGFR <60 mL/min/1.73m2 for >3 months is consistent with chronic kidney disease. Refer to KDOQI guidelines for clinical interpretation. In patients with unstable renal function, e.g. those with acute kidney injury, the eGFR may not accurately reflect actual GFR. Performed By: #### CMP #### [facility] [address], [place] [address] PROGRESS Observed: 05/22/2018 Status: COMPLETED Source: [place] 3:58 PM [facility] REPOSITORY HNO ID: [id number] Author: Jessica Cross III Service: (none) Author Type: Physician Type: Progress Notes Filed: 05/22/2018 7:16 PM Note Text: SUBJECTIVE: This is a 57 year old female that is here today for 1. hypertension--tolerates medication well 2. discussion re: ASA. No hx of ASHD, CVA, or angina 3. GERD on omeprazole for many yrs. 4. LUQ pain episodically with bloating that lasts for days. No specific food intolerance. Tried probiotics. Not assoc. with constip[ation or diarrhea. 5. raw feeling on the skin around R shoulder, R axilla--started in February. Seen in UC (note reviewed) with dx of shingles and tx with acyclovir--but no rash ever developed. Lots of heavy lifting at work and at home with cutting wood. 6. mild sinus congestion with pain in upper teeth, including with inhaling cool air. . Patric [facility] Gastrointestinal Endoscopy Patient Name: Chapin Velez Procedure Date: 10/11/2013 9:00 AM Date of : 1960 Admit Type: Ambulatory Age: 53 Gender: Female Note Status: Finalized Procedure: ? Colonoscopy Indications: ? Screening for colorectal malignant neoplasm, This is the ? patient's first colonoscopy Providers: ? Lan Ramachandran MD Referring Physician: abhijeet Allred MD Medicines: ? Fentanyl 50 micrograms IV, Midazolam 5 mg IV, ? Diphenhydramine 50 mg IV Complications: ? ? ? No immediate complications. Estimated blood loss: None. Requesting Provider: Procedure: ? Pre-Anesthesia Assessment: ? - Prior to the procedure, a History and Physical was ? performed, and patient medications and allergies were ? reviewed. The patient is competent. The risks and ? benefits of the procedure and the sedation options and ? risks were discussed with the patient. All questions ? were answered and informed consent was obtained. Patient ? identification and proposed procedure were verified by ? the physician in the procedure room. Mental Status ? Examination: normal. Airway Examination: normal ? oropharyngeal airway and neck mobility. Respiratory ? Examination: clear to auscultation. CV Examination: ? normal. Prophylactic Antibiotics: The patient does not ? require prophylactic antibiotics. Prior Anticoagulants: ? The patient has taken no previous anticoagulant or ? antiplatelet agents. ASA Grade Assessment: II - A ? patient with mild systemic disease. After reviewing the ? risks and benefits, the patient was deemed in ? satisfactory condition to undergo the procedure. The ? anesthesia plan was to use moderate sedation / analgesia ? (conscious sedation). Immediately prior to ? administration of medications, the patient was ? re-assessed for adequacy to receive sedatives. The heart ? rate, respiratory rate, oxygen saturations, blood ? pressure, adequacy of pulmonary ventilation, and ? response to care were monitored throughout the ? procedure. The physical status of the patient was ? re-assessed after the procedure. ? After I obtained informed consent, the scope was passed ? under direct vision. Throughout the procedure, the ? patient's blood pressure, pulse, and oxygen saturations ? were monitored continuously. The Colonoscope was ? introduced through the anus and advanced to the cecum, ? identified by appendiceal orifice and ileocecal valve. ? The colonoscopy was performed with ease. The patient ? tolerated the procedure well. The quality of the bowel ? preparation was excellent. Findings: ?? ? The colon (entire examined portion) appeared normal. Impression: ?- The entire examined colon is normal. Recommendation: ? ? ?- Discharge patient to home (ambulatory). ? - Repeat colonoscopy in 10 years for screening purposes. Attending Participation: ?? ? I personally performed the entire procedure. 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 losartan (COZAAR) 25 mg tablet Take 1 tablet by mouth once daily. hydrOXYzine HCl (ATARAX) 25 mg tablet Take 1 tablet by mouth every 6 hours as needed for Anxiety. aspirin, enteric coated (ADULT ASPIRIN REGIMEN) 81 mg EC tablet Take 1 tablet by mouth once daily. Hydrochlorothiazide 12.5 mg capsule Take 1 capsule by mouth once daily. ibuprofen (MOTRIN) 200 mg tablet Take 600 mg by mouth every 6 hours as needed for Pain. [id number]#6-M-akob-noah-bor (OSTEO BI-FLEX TRIPLE STRENGTH) 750 mg-644 mg- 30 mg-1 mg tab Take by mouth. MULTIVITAMIN TAB Take one(1) tablet daily. albuterol (PROVENTIL) 2.5 mg /3 mL (0.083 %) nebulizer solution Use 3 mL via nebulizer one time only for 1 dose. Use over 5-15minutes. No current facility-administered medications on file prior to visit. FAMILY HISTORY Problem Relation Age of Onset - Diabetes Mother - Hypertension Mother - other (CHF) Mother - other (Pacemaker) Mother - Emphysema Father - Diabetes Sister - COPD Sister - COPD Paternal Aunt - Cancer Sister lymphoma - Breast Cancer Paternal Aunt - Ischemic Heart Disease Maternal Grandfather Social History Substance Use Topics - Smoking status: Current Every Day Smoker Packs/day: 1.00 Types: Cigarettes Start date: 07/18/1977 - Smokeless tobacco: Never Used - Alcohol use No BP 136/86 Pulse 79 Resp 16 Ht 166.4 cm (5' 5.5) Wt 73.9 kg (163 lb) LMP 02/07/2012 BMI 26.71 kg/m? . OBJECTIVE: APPEARANCE Well appearing, alert, in no acute distress, well-hydrated, well nourished. EARS cerumen bilat. TMs normal NOSE/SINUS Nares normal. Septum midline. Mucosa normal. No drainage or sinus tenderness. THROAT normal, no erythema and recession of gums, some erythema of L upper gums NECK Supple, no adenopathy; thyroid symmetric, normal size, no bruits HEART RRR with normal S1 and S2, no murmurs, no gallops, no JVD appreciated LUNG clear to auscultation ABDOMEN soft, non-tender, non-distended, without organomegaly or palpable masses, no tenderness to palpation EXTREMITIES full painless ROM R shoulder . Normal right axilla without axillary nodes. No supraclavicular nodes bilaterally. ASSESSMENT: Suspect gingivitis and gum recession is caused of sinus/upper gum pain Right shoulder discomfort?possibly related to right cervical radiculopathy GERD?well controlled Hypertension?at goal Abdominal pain possibly related to diverticulosis, though colonoscopy normal 2013 PLAN: may try chlorhexidine containing mouth rinse for up to 4 wks penicillin VK 500mg three times/day x 10 days await EMG results regarding neck/shoulder pain reduce omeprazole 20mg daily--may be able to wean and discontinue omeprazole in the future. discontinue aspirin same other medications chew seeds and nuts thoroughly labs as ordered REMBERTO Emanuel MD Observed: 05/22/2018 Status: COMPLETED Source: [place] 3:20 PM [facility] REPOSITORY Office Visit (FAMPWS) CHAPIN VELEZ V ([id number]) 1960 F Date Time Provider Department 05/22/18 3:20 PM JESSICA CROSS III During your visit today, we recorded the following information about you: Pulse Respiration Blood pressure Weight 79/minute 16/minute 136/86 73.9 kg Height 1.664 m Jessica Cross III MD 05/22/2018 7:16 PM Signed SUBJECTIVE: This is a 57 year old female that is here today for 1. hypertension--tolerates medication well 2. discussion re: ASA. No hx of ASHD, CVA, or angina 3. GERD on omeprazole for many yrs. 4. LUQ pain episodically with bloating that lasts for days. No specific food intolerance. Tried probiotics. Not assoc. with constip[ation or diarrhea. 5. raw feeling on the skin around R shoulder, R axilla--started in February. Seen in UC (note reviewed) with dx of shingles and tx with acyclovir--but no rash ever developed. Lots of heavy lifting at work and at home with cutting wood. 6. mild sinus congestion with pain in upper teeth, including with inhaling cool air. . Patric [facility] Gastrointestinal Endoscopy Patient Name: Chapin Velez Procedure Date: 10/11/2013 9:00 AM Date of : 1960 Admit Type: Ambulatory Age: 53 Gender: Female Note Status: Finalized Procedure: ? Colonoscopy Indications: ? Screening for colorectal malignant neoplasm, This is the ? patient's first colonoscopy Providers: ? Lan Ramachandran MD Referring Physician: abhijeet Allred MD Medicines: ? Fentanyl 50 micrograms IV, Midazolam 5 mg IV, ? Diphenhydramine 50 mg IV Complications: ? ? ? No immediate complications. Estimated blood loss: None. Requesting Provider: Procedure: ? Pre-Anesthesia Assessment: ? - Prior to the procedure, a History and Physical was ? performed, and patient medications and allergies were ? reviewed. The patient is competent. The risks and ? benefits of the procedure and the sedation options and ? risks were discussed with the patient. All questions ? were answered and informed consent was obtained. Patient ? identification and proposed procedure were verified by ? the physician in the procedure room. Mental Status ? Examination: normal. Airway Examination: normal ? oropharyngeal airway and neck mobility. Respiratory ? Examination: clear to auscultation. CV Examination: ? normal. Prophylactic Antibiotics: The patient does not ? require prophylactic antibiotics. Prior Anticoagulants: ? The patient has taken no previous anticoagulant or ? antiplatelet agents. ASA Grade Assessment: II - A ? patient with mild systemic disease. After reviewing the ? risks and benefits, the patient was deemed in ? satisfactory condition to undergo the procedure. The ? anesthesia plan was to use moderate sedation / analgesia ? (conscious sedation). Immediately prior to ? administration of medications, the patient was ? re-assessed for adequacy to receive sedatives. The heart ? rate, respiratory rate, oxygen saturations, blood ? pressure, adequacy of pulmonary ventilation, and ? response to care were monitored throughout the ? procedure. The physical status of the patient was ? re-assessed after the procedure. ? After I obtained informed consent, the scope was passed ? under direct vision. Throughout the procedure, the ? patient's blood pressure, pulse, and oxygen saturations ? were monitored continuously. The Colonoscope was ? introduced through the anus and advanced to the cecum, ? identified by appendiceal orifice and ileocecal valve. ? The colonoscopy was performed with ease. The patient ? tolerated the procedure well. The quality of the bowel ? preparation was excellent. Findings: ?? ? The colon (entire examined portion) appeared normal. Impression: ?- The entire examined colon is normal. Recommendation: ? ? ?- Discharge patient to home (ambulatory). ? - Repeat colonoscopy in 10 years for screening purposes. Attending Participation: ?? ? I personally performed the entire procedure. 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 losartan (COZAAR) 25 mg tablet Take 1 tablet by mouth once daily. hydrOXYzine HCl (ATARAX) 25 mg tablet Take 1 tablet by mouth every 6 hours as needed for Anxiety. aspirin, enteric coated (ADULT ASPIRIN REGIMEN) 81 mg EC tablet Take 1 tablet by mouth once daily. Hydrochlorothiazide 12.5 mg capsule Take 1 capsule by mouth once daily. ibuprofen (MOTRIN) 200 mg tablet Take 600 mg by mouth every 6 hours as needed for Pain. [id number]-[id number]-[id number]#0-V-ebhs-noah-bor (OSTEO BI-FLEX TRIPLE STRENGTH) 750 mg-644 mg- 30 mg-1 mg tab Take by mouth. MULTIVITAMIN TAB Take one(1) tablet daily. albuterol (PROVENTIL) 2.5 mg /3 mL (0.083 %) nebulizer solution Use 3 mL via nebulizer one time only for 1 dose. Use over 5-15minutes. No current facility-administered medications on file prior to visit. FAMILY HISTORY Problem Relation Age of Onset - Diabetes Mother - Hypertension Mother - other (CHF) Mother - other (Pacemaker) Mother - Emphysema Father - Diabetes Sister - COPD Sister - COPD Paternal Aunt - Cancer Sister lymphoma - Breast Cancer Paternal Aunt - Ischemic Heart Disease Maternal Grandfather Social History Substance Use Topics - Smoking status: Current Every Day Smoker Packs/day: 1.00 Types: Cigarettes Start date: 07/18/1977 - Smokeless tobacco: Never Used - Alcohol use No BP 136/86 Pulse 79 Resp 16 Ht 166.4 cm (5' 5.5) Wt 73.9 kg (163 lb) LMP 02/07/2012 BMI 26.71 kg/m? . OBJECTIVE: APPEARANCE Well appearing, alert, in no acute distress, well- hydrated, well nourished. EARS cerumen bilat. TMs normal NOSE/SINUS Nares normal. Septum midline. Mucosa normal. No drainage or sinus tenderness. THROAT normal, no erythema and recession of gums, some erythema of L upper gums NECK Supple, no adenopathy; thyroid symmetric, normal size, no bruits HEART RRR with normal S1 and S2, no murmurs, no gallops, no JVD appreciated LUNG clear to auscultation ABDOMEN soft, non-tender, non-distended, without organomegaly or palpable masses, no tenderness to palpation EXTREMITIES full painless ROM R shoulder . Normal right axilla without axillary nodes. No supraclavicular nodes bilaterally. ASSESSMENT: Suspect gingivitis and gum recession is caused of sinus/upper gum pain Right shoulder discomfort?possibly related to right cervical radiculopathy GERD?well controlled Hypertension?at goal Abdominal pain possibly related to diverticulosis, though colonoscopy normal 2013 PLAN: may try chlorhexidine containing mouth rinse for up to 4 wks penicillin VK 500mg three times/day x 10 days await EMG results regarding neck/shoulder pain reduce omeprazole 20mg daily--may be able to wean and discontinue omeprazole in the future. discontinue aspirin same other medications chew seeds and nuts thoroughly labs as ordered REMBERTO Emanuel MD, III MD 05/22/2018 4:31 PM Signed PLAN: may try chlorhexidine containing mouth rinse for up to 4 wks penicillin VK 500mg three times/day x 10 days await EMG results regarding neck/shoulder pain reduce omeprazole 20mg daily discontinue aspirin same other medications chew seeds and nuts thoroughly labs as ordered Jessica Cross III MD Referring Provider: SUZANNE CHANG (METAL [employer]LE [employer]TER) [[id number]] Allergies As of Date: 05/22/2018 Noted Allergy Reaction ADHESIVE TAPE (ROSINS) 10/18/2016 4 - Hives Comments: Patient had reaction after trigger finger surgery. Coban specifically NAPROXEN 03/14/2015 8 - GI Upset Date Reviewed: 05/22/2018 Reviewed by: Dannielle ([facility]) ISSA Mathias - Fully Assessed Reason for Visit: F/U 6 months [1177] Cmt: BP Primary Visit Diagnosis:Essential hypertension, benign [I10] Other Visit Diagnoses:Gastroesophageal reflux disease, esophagitis presence not specified [K21.9] Medication monitoring encounter [Z51.81] Gingivitis [K05.10] Cervical radiculopathy [M54.12] Left upper quadrant pain [R10.12] Order(s):losartan (COZAAR) 25 mg tabletTake 1 tablet by mouth once daily.Disp: 30 tabletRfl: 11 Hydrochlorothiazide 12.5 mg capsuleTake 1 capsule by mouth once daily.Disp: 30 capsuleRfl: 11 COMP METABOLIC PANEL [SQCMP] Order #: [id number] FUTURE URINALYSIS WITH MICROSCOPIC [SQUAWMIC] Order #: [id number]. #:[id number] omeprazole (PRILOSEC) 20 mg capsuleTake 1 capsule by mouth daily before breakfast. 1/2 hr before meal.Disp: 30 capsuleRfl: 11 penicillin V potassium (V-CILLIN, VEETIDS) 500 mg tabletTake 1 tablet by mouth three times daily.Disp: 30 tabletRfl: 0 Prescriptions as of 05/22/2018 Sig: LOSARTAN 25 MG TABLET Take 1 tablet by mouth once d* HYDROCHLOROTHIAZIDE 12.5 MG C* Take 1 capsule by mouth once * HYDROXYZINE HCL 25 MG TABLET Take 1 tablet by mouth every * ASPIRIN 81 MG TABLET,DELAYED * Take 1 tablet by mouth once d* IBUPROFEN 200 MG TABLET Take 600 mg by mouth every 6 * GLUCOSAMINE 750 MG-CHONDROITI* Take by mouth. * MULTIVITAMIN TABLET Take one(1) tablet daily. OMEPRAZOLE 20 MG CAPSULE,JACQUES* Take 1 capsule by mouth daily* PENICILLIN V POTASSIUM 500 MG* Take 1 tablet by mouth three * ALBUTEROL SULFATE 2.5 MG/3 ML* Use 3 mL via nebulizer one ti* Problem List As Of Date 05/22/2018 Noted Resolved PALPITATIONS [R00.2] INVALID FOR* DYSMETABOLIC SYNDROME X [E88.81] INVALID FOR* Plantar Fasciitis [M72.2] INVALID FOR* GERD (Gastroesophageal Reflux Disease) [K21.9] INVALID FOR* Tobacco Abuse [Z72.0] INVALID FOR* Calcaneal spur [M77.30] INVALID FOR* Cervicalgia [M54.2] INVALID FOR*09/27/2012 Inclusion cyst of vulva [N90.7] INVALID FOR* Cervical arthritis (HCC) [M47.812] INVALID FOR*10/01/2016 Microscopic hematuria [R31.29] INVALID FOR*10/01/2016 Adrenal adenoma [D35.00] INVALID FOR* More... Hematuria, microscopic [R31.29] INVALID FOR* Tobacco use disorder [F17.200] INVALID FOR* Urinary frequency [R35.0] INVALID FOR* Urgency of urination [R39.15] INVALID FOR* Degenerative arthritis of cervical spine with n*INVALID FOR* Lumbar degenerative disc disease [M51.36] INVALID FOR* PMB (postmenopausal bleeding) [N95.0] INVALID FOR*10/01/2016 Thickened endometrium [R93.89] INVALID FOR* Tongue coating [K14.3] INVALID FOR* Glossitis [K14.0] INVALID FOR* Degenerative arthritis of carpometacarpal joint*INVALID FOR* Essential hypertension, benign [I10] INVALID FOR* More... Lumbar disc disease with radiculopathy [M51.16] INVALID FOR* Cervicalgia [M54.2] INVALID FOR* Sciatica [M54.30] INVALID FOR* Neck pain [M54.2] INVALID FOR* Cervical spondylosis without myelopathy [M47.81*INVALID FOR* Facet arthropathy, cervical [M47.812] INVALID FOR* Lumbosacral neuritis [M54.17] INVALID FOR* Lumbar spondylosis [M47.816] INVALID FOR* Overactive bladder [N32.81] INVALID FOR*10/01/2016 NSAID induced gastritis [K29.60, T39.395A] INVALID FOR* Hyperlipidemia [E78.5] INVALID FOR* Bilateral hand numbness [R20.0] INVALID FOR* Trigger thumb of left hand [M65.312] INVALID FOR* Arthritis of hand [M19.049] INVALID FOR* Chest pain [R07.9] INVALID FOR* Chronic sinusitis [J32.9] INVALID FOR* Lightheadedness [R42] INVALID FOR* Harmful pattern of use of nicotine [Z72.0] INVALID FOR* Other chest pain [R07.89] INVALID FOR* Cervical radiculopathy [M54.12] INVALID FOR* Other instructions from your clinician: PLAN: may try chlorhexidine containing mouth rinse for up to 4 wks penicillin VK 500mg three times/day x 10 days await EMG results regarding neck/shoulder pain reduce omeprazole 20mg daily discontinue aspirin same other medications chew seeds and nuts thoroughly labs as ordered Jessica Cross III MD Prescriptions ordered this encounter Disp Refills Start End LOSARTAN 25 MG TABLET 30 t* 11 05/22/2018 Route: ORAL Sig: Take 1 tablet by mouth once daily. HYDROCHLOROTHIAZIDE 12.5 MG CAPSULE 30 c* 11 05/22/2018 Route: ORAL Sig: Take 1 capsule by mouth once daily. OMEPRAZOLE 20 MG CAPSULE,DELAYED REL* 30 c* 11 05/22/2018 Route: ORAL Sig: Take 1 capsule by mouth daily before breakfast. 1/2 hr before meal. PENICILLIN V POTASSIUM 500 MG TABLET 30 t* 0 05/22/2018 Route: ORAL Sig: Take 1 tablet by mouth three times daily. Medications Discontinued During This Encounter Omeprazole (PRILOSEC) 40 mg capsule 30 c* 11 04/27/2018 05/22/2018 Route: ORAL Sig: Take 1 capsule by mouth once daily. Disc: Dosage adjustment losartan (COZAAR) 25 mg tablet 30 t* 5 11/17/2017 05/22/2018 Route: ORAL Sig: Take 1 tablet by mouth once daily. Disc: Reason for discontinue is not on file. Hydrochlorothiazide 12.5 mg capsule 30 c* 12 04/26/2017 05/22/2018 Route: ORAL Sig: Take 1 capsule by mouth once daily. Disc: Reason for discontinue is not on file. Encounter Status:Closed by JESSICA CROSS III, MD on 05/22/18 CARDIOLOGY VISIT Observed: 04/06/2018 Status: F Source: [facility] REPORT 1:46 PM [facility] REPOSITORY [facility] [address] [place] [address] OFFICE VISIT Date of Service: 04/06/18 MR#: [id number] Acct: [id number] Name: CHAPIN VELEZ V Rep #: [id number] : 1960 Provider: Santiago Hernandez MD Age/Sex: 57/F [place] [facility] [place] Status: Signed HPI HPI Chief Complaint: Follow-up visit. Details: CHAPIN VELEZ, is a 57 F who presents to the office today for a follow-up visit. She is a lady with a history of palpitations tobacco abuse who was previously evaluated with an echocardiogram demonstrating preserved ejection fraction and mild aortic regurgitation. She also had a moderate Holter monitor placed which did not reveal any concerning dysrhythmia. There was no atrial fibrillation noted of ventricular tachycardia. She says that she has had these palpitations on occasion the last up to 30 seconds there are no particular precipitating or relieving factors. She has not had any neck arm or jaw discomfort suggest angina. You do remember that she was on lisinopril for her high blood pressure which has been changed to losartan. She says these episodes of palpitations appear to be few and far between. Her physical exam today demonstrates clear lung mitchell regular rate and rhythm and no pedal edema. Intake Vital Signs04/06/18 Height 5 ft 6 in 04/06/18 Weight: 164 lb 04/06/18 Body Mass Index (BMI) 26.4 04/06/18 Blood Pressure 128/80 04/06/18 Blood Pressure Location Lt brachial Intake Visit Reasons: 6 M FU (pt r/s from -) Debubblizer Required: No Accompanied by: none Is patient in pain?: No Allergies No Known Allergies Allergy (Verified 09/05/17 14:10) Medications Hydrochlorothiazide [Hydrochlorothiazide] 12.5 mg PO DAILY 03/29/16 [History Confirmed 04/06/18] Omeprazole [Prilosec] 40 mg PO DAILY 03/29/16 [History Confirmed 04/06/18] glucosamine LCq-G5-Sjoigwdjb mercedez 1,500 mg-400 unit-100 mg tablet 1 tab PO QAM 07/27/17 [History Confirmed 04/06/18] inulin 2 gram chewable tablet g PO QDAY ea 07/27/17 [History Confirmed 04/06/18] lactobacillus combination no.4 3 billion cell capsule 3,000 mmu cells PO QDAY 07/27/17 [History Confirmed 04/06/18] multivitamin,ft-waxw-ellfyiva tablet 1 tab PO QDAY 07/27/17 [History Confirmed 04/06/18] aspirin 81 mg tablet,delayed release 81 mg PO QDAY tab 09/05/17 [History Confirmed 04/06/18] ibuprofen 200 mg tablet 600 mg PO TID PRN tab 09/05/17 [History Confirmed 04/06/18] PFSH Medical History Hypertension (Chronic) Nicotine abuse (Chronic) GERD (gastroesophageal reflux disease) (Chronic) Spinal stenosis (Chronic) Surgical History H/O tubal ligation (Chronic) Hx of cholecystectomy (Chronic) Status post trigger finger release (Chronic) history of epidural steroid injections (Chronic) Family History Mother CAD (coronary artery disease), Onset Age: 60 CHF CAD Stent Diabetes Sister Diabetes Sister Cancer Hx non Hodgkin's lymphoma Sister Fibromyalgia Social History Smoking Status: Current every day smoker alcohol intake: never substance use type: does not use caffeine: Yes (3 per day) Type: carbonated beverages what type of physical activity do you participate in: none seatbelt use: always do you feel safe at home: Yes ROS Const Const: Negative for fatigue, weakness, night sweats, excessive sweating, frequent falls, headache(s) or daytime sleepiness Eyes Eyes: Negative for loss of peripheral vision, transient loss of vision, blind spots, double vision or blurry vision ENT ENT: Negative for headache(s), dizziness, balance problems, Nosebleed/epistaxis, tongue swelling or lip swelling Cardio Chest Pain: No Palpitations: No Edema: None Muscle aches with walking: None Resp Respiratory: Negative for SOB at rest, SOB orthopnea\SOB lying down, Cough, paroxysmal nocturnal dyspnea or SOB with activity GI GI: Negative nausea, vomiting, heartburn, black,tarry stools or bright, red blood in stools : Negative for hematuria Musc Musc: Negative for balance problems, muscle aches/ myalgia, muscle weakness or joint pain Skin Skin: Negative non-healing lesions, unusual bruising or rash Neuro Neuro: Negative for weakness, frequent falls, headache(s), double vision, dizziness, lightheadedness, orthostatic symptoms, blurry vision or lack of coordination Brennen Hematologic/Lymphatic: Negative for easy bruising or easy bleeding Endo Endo: Negative for fatigue, excessive sweating, cold intolerance, heat intolerance, increased thirst/drinking or hair loss Psych Psych: Negative for anxiety or depression Allergy Allergy/Immunology: Negative for throat swelling, Negative for tongue swelling, Negative for hives, Negative for rash, Negative for lip swelling Cardiology Exam Const Appearance: cooperative, healthy appearing, well developed, well groomed and no acute distress Nutritional Appearance: well nourished and average body habitus Orientation: alert, awake and oriented x3 Head Head: normal to inspection, normocephalic and atraumatic Ears: hearing grossly normal bilaterally and external ears normal Nose: external nose normal, nasal mucous membranes and turbinates normal, nares normal, septum normal, no nasal discharge Face and Sinus: face symmetric Mouth: oral mucosae normal, tongue normal, oropharynx normal and moist mucous membranes Teeth and gingiva: dentition normal Throat: posterior oropharynx normal, tonsils normal and uvula midline Eyes General: appearance normal, both eyes and all related structures Eyelids: eyelids normal Conjunctivae: conjunctivae normal Pupils: PERRL, normal by confrontation and accommodation normal EOM: EOM intact bilaterally Neck Neck: normal visual inspection, trachea midline and no JVD JVD: +5 Carotids: normal carotid upstroke and bounding pulses Chest Chest inspection: normal inspection of the chest, symmetric chest movement and normal respiratory effort Auscultation: Bilateral: Clear to Auscultation Cardio Palpation: normal PMI Rate: regular rate Rhythm: regular rhythm Heart sounds: S1 normal, S2 normal and normal, physiologic split S2; negative rub, gallop or murmur GI GI: normal to inspection, soft, no hepatosplenomegaly and bowel sounds present Neuro General: alert, awake, oriented x3, no focal sensory deficit, gait normal and moves all extremities Skin Skin: no rashes or lesions noted Extremities Pulses: Normal: Right Femoral Pulse, Left Femoral Pulse, Right Dorsalis Pedis Pulse, Left Dorsalis Pedis Pulse, Right Posterior Tibial Pulse, Left Posterior Tibial Pulse, Right Radial Pulse, Left Radial Pulse Lower Extremity Edema: None: Bilateral Musculoskel Musculoskeletal: No joint tenderness Psych Psychological: normal affect Assessment AND Plan 1. Palpitations R00.2 Plan She continues unfortunately to have these palpitations albeit infrequently. With her preserved ejection fraction I am not inclined to work this up any further at this time. I have wondered whether some of this may be secondary to an adrenergic hyper drive. Due to the infrequency I would not place her on the beta-bryson for now but will continue to observe. Certainly if she has more episodes of the above she should not hesitate to get in contact with us. She does unfortunately consume a fair amount of Mountain Dew and have suggested that she reduce this amount and see whether to help with her symptoms. 2. Hypertension I10 Plan Her blood pressure appears to be under good control on her current ARB no changes will be made. I would like to see her again in approximately a year or sooner if she is having more symptoms. Plan Detail Follow Up 1 Year (jhr) Coding Level of Care Code Off vis,est,level 3 Diagnoses Palpitations R00.2 Hypertension I10 Coding Level of Care Code Off vis,est,level 3 Diagnoses Palpitations R00.2 Hypertension I10 04/06/18 1346 <Electronically signed by Santiago Hernandez MD> Date Santiago Hernandez MD Cosigner Signature: Date (if applicable) CC: Jessica Cross III, MD PROGRESS Observed: 02/24/2018 Status: COMPLETED Source: [place] 2:53 PM [facility] REPOSIT[facility] O ID: [id number] Author: Becky Damon Service: (none) Author Type: Nurse Practitioner Type: Progress Notes Filed: 02/24/2018 4:06 PM Note Text: Subjective HPI Pt presents with c/o burning/stinging feeling from right axilla to upper back. States felt like she had razor burn to right axilla but hadn't shaved. No rashes, redness or swelling noted. Pain then started to wrap around to back. Pain described as constant, deep, burning/stinging sensation. Touch, rubbing muscles does not reproduce pain. Denies recent/remote injury. No change in activity level. Denies fever, chills, myalgias. Hx chicken pox as a child. Has not received shingles vaccines. Review of Systems Constitutional: Negative for chills and fever. Respiratory: Negative for shortness of breath. Cardiovascular: Negative for chest pain and palpitations. Musculoskeletal: Negative for myalgias. Neurological: Negative for sensory change. Objective Physical Exam Constitutional: She is oriented to person, place, and time and well-developed, well-nourished, and in no distress. No distress. Musculoskeletal: Arms: No rash, erythema, heat, edema or muscle tightness/tenderness noted. Full ROM shoulder arm. Neurological: She is alert and oriented to person, place, and time. Skin: Skin is warm and dry. No rash noted. She is not diaphoretic. No erythema. BP 140/82 Pulse 84 Temp 36.6 ?C (97.8 ?F) (Tympanic) Wt 73.5 kg (162 lb) LMP 02/07/2012 BMI 26.55 kg/m? .Patient presents with: arm problem: RT arm amd RT armpit burning feeling X 3 days PAST MEDICAL HISTORY Diagnosis Date - Adrenal adenoma 10/06/2012 bilateral--recheck CT in 1 yr - Cervical arthritis (HCC) 09/27/2012 - Degenerative arthritis of carpometacarpal joint of thumb 12/07/2013 - Degenerative arthritis of cervical spine with nerve compression 10/26/2012 - Essential hypertension, benign 12/07/2013 - Lumbar degenerative disc disease 10/26/2012 - Lumbar disc disease with radiculopathy 12/07/2013 PAST SURGICAL HISTORY Procedure Laterality Date - [facility] Colonoscopy - EGD W/O OR W/BRUSH/WASH 05/05/15 EGD - INCISE FINGER TENDON SHEATH Left 10/13/2016 Left trigger thumb release - LAPAROSCOPIC CHOLEYCYSTECTOMY Cholecystectomy, lap - LIGATE FALLOPIAN TUBE Tubal ligation - TONSILLECTOMY HX unsure if adnoids removed - TYMPANOSTOMY LOCAL; UNILATERAL ALLERGIES Adhesive Tape (Rosins); Naproxen MEDICATIONS losartan (COZAAR) 25 mg tablet Take 1 tablet by mouth once daily. hydrOXYzine HCl (ATARAX) 25 mg tablet Take 1 tablet by mouth every 6 hours as needed for Anxiety. aspirin, enteric coated (ADULT ASPIRIN REGIMEN) 81 mg EC tablet Take 1 tablet by mouth once daily. Hydrochlorothiazide 12.5 mg capsule Take 1 capsule by mouth once daily. Omeprazole (PRILOSEC) 40 mg capsule Take 1 capsule by mouth once daily. ibuprofen (MOTRIN) 200 mg tablet Take 600 mg by mouth every 6 hours as needed for Pain. yufu-gaoq-ovc#7-L-smzp-noah-bor (OSTEO BI-FLEX TRIPLE STRENGTH) 750 mg-644 mg- 30 mg-1 mg tab Take by mouth. MULTIVITAMIN TAB Take one(1) tablet daily. acyclovir (ZOVIRAX) 800 mg tablet Take 1 tablet by mouth five times daily for 7 days. predniSONE (DELTASONE) 20 mg tablet Take 2 tablets by mouth once daily for 5 days. Take daily with food. albuterol (PROVENTIL) 2.5 mg /3 mL (0.083 %) nebulizer solution Use 3 mL via nebulizer one time only for 1 dose. Use over 5-15minutes. FAMILY HISTORY Problem Relation Age of Onset - Diabetes Mother - Hypertension Mother - CHF [OTHER] Mother - Pacemaker [OTHER] Mother - Emphysema Father - Diabetes Sister - COPD Sister - COPD Paternal Aunt - Cancer Sister lymphoma - Breast Cancer Paternal Aunt - Ischemic Heart Disease Maternal Grandfather Social History Substance Use Topics - Smoking status: Current Every Day Smoker Packs/day: 1.00 Types: Cigarettes Start date: 07/18/1977 - Smokeless tobacco: Never Used - Alcohol use No ASSESSMENT/PLAN: 1. Herpes zoster without complication - ICD9: 053.9, ICD10: B02.9 Suspect shinges. - ACYCLOVIR 800 MG TABLET - PREDNISONE 20 MG TABLET The patient is instructed to return or seek emergency treatment if symptoms become worse or with any acute change in condition. The patient verbalizes understanding and is in agreement with plan of care. Becky Damon CNP CNOV Observed: 02/24/2018 Status: COMPLETED Source: [place] 2:00 PM [facility] REPOSITORY Office Visit (WSTR) CHAPIN VELEZ V ([id number]) 1960 F Date Time Provider Department 02/24/18 2:00 PM BECKY DAMON [facility] During your visit today, we recorded the following information about you: Temperature Pulse Blood pressure Weight 97.8 degrees 84/minute 140/82 73.5 kg Becky Damon APRN.BOTANY TECHNICIAN 02/24/2018 2:24 PM Signed Herpes Zoster Infection (Shingles) Herpes zoster infection, also called shingles, is caused by the chickenpox virus. When a person has chickenpox, he or she is never completely cured of the virus. The virus lives at the base of nerves under the skin, and the body's immune system usually keeps the infection confined there. However, sometimes the virus becomes active again, and produces blisters. Pain is usually the first sign of shingles, followed by blisters most often located over one side of the chest and back, or on one side of the face or neck. However, shingles can occur almost anywhere on the body. The blisters of shingles usually heal in about 3 weeks. Several medications can hasten healing slightly if given within the first 2 to 3 days. These medications are acyclovir (Zovirax), famcyclovir (Famvir), and valacyclovir (Valtrex). Occasionally, the pain of shingles lasts after the skin has healed. This is called postherpetic neuralgia. People over about 60 years of age are at greatest risk of this. Postherpetic neuralgia can be treated with oral medications for pain, a cream called Zosqix, and tricyclic antidepressants such as amitriptyline (Elavil). These tricyclic antidepressants are not used for their antidepressant actions, but rather for their beneficial effects on healing inflamed nerves. Postherpetic neuralgia usually disappears within six months. Becky Damon APRN.BOTANY TECHNICIAN 02/24/2018 4:06 PM Signed Subjective HPI Pt presents with c/o burning/stinging feeling from right axilla to upper back. States felt like she had razor burn to right axilla but hadn't shaved. No rashes, redness or swelling noted. Pain then started to wrap around to back. Pain described as constant, deep, burning/stinging sensation. Touch, rubbing muscles does not reproduce pain. Denies recent/remote injury. No change in activity level. Denies fever, chills, myalgias. Hx chicken pox as a child. Has not received shingles vaccines. Review of Systems Constitutional: Negative for chills and fever. Respiratory: Negative for shortness of breath. Cardiovascular: Negative for chest pain and palpitations. Musculoskeletal: Negative for myalgias. Neurological: Negative for sensory change. Objective Physical Exam Constitutional: She is oriented to person, place, and time and well-developed, well-nourished, and in no distress. No distress. Musculoskeletal: Arms: No rash, erythema, heat, edema or muscle tightness/tenderness noted. Full ROM shoulder arm. Neurological: She is alert and oriented to person, place, and time. Skin: Skin is warm and dry. No rash noted. She is not diaphoretic. No erythema. BP 140/82 Pulse 84 Temp 36.6 ?C (97.8 ?F) (Tympanic) Wt 73.5 kg (162 lb) LMP 02/07/2012 BMI 26.55 kg/m? .Patient presents with: arm problem: RT arm amd RT armpit burning feeling X 3 days PAST MEDICAL HISTORY Diagnosis Date - Adrenal adenoma 10/06/2012 bilateral--recheck CT in 1 yr - Cervical arthritis (HCC) 09/27/2012 - Degenerative arthritis of carpometacarpal joint of thumb 12/07/2013 - Degenerative arthritis of cervical spine with nerve compression 10/26/2012 - Essential hypertension, benign 12/07/2013 - Lumbar degenerative disc disease 10/26/2012 - Lumbar disc disease with radiculopathy 12/07/2013 PAST SURGICAL HISTORY Procedure Laterality Date - COLONOSCOP W/ OR W/O [facility] SPEC 10/11/2013 Colonoscopy - EGD W/O OR W/BRUSH/WASH 05/05/15 EGD - INCISE FINGER TENDON SHEATH Left 10/13/2016 Left trigger thumb release - LAPAROSCOPIC CHOLEYCYSTECTOMY Cholecystectomy, lap - LIGATE FALLOPIAN TUBE Tubal ligation - TONSILLECTOMY HX unsure if adnoids removed - TYMPANOSTOMY LOCAL; UNILATERAL ALLERGIES Adhesive Tape (Rosins); Naproxen MEDICATIONS losartan (COZAAR) 25 mg tablet Take 1 tablet by mouth once daily. hydrOXYzine HCl (ATARAX) 25 mg tablet Take 1 tablet by mouth every 6 hours as needed for Anxiety. aspirin, enteric coated (ADULT ASPIRIN REGIMEN) 81 mg EC tablet Take 1 tablet by mouth once daily. Hydrochlorothiazide 12.5 mg capsule Take 1 capsule by mouth once daily. Omeprazole (PRILOSEC) 40 mg capsule Take 1 capsule by mouth once daily. ibuprofen (MOTRIN) 200 mg tablet Take 600 mg by mouth every 6 hours as needed for Pain. jnjm-recx-tre#2-D-orqf-noah-bor (OSTEO BI-FLEX TRIPLE STRENGTH) 750 mg-644 mg- 30 mg-1 mg tab Take by mouth. MULTIVITAMIN TAB Take one(1) tablet daily. acyclovir (ZOVIRAX) 800 mg tablet Take 1 tablet by mouth five times daily for 7 days. predniSONE (DELTASONE) 20 mg tablet Take 2 tablets by mouth once daily for 5 days. Take daily with food. albuterol (PROVENTIL) 2.5 mg /3 mL (0.083 %) nebulizer solution Use 3 mL via nebulizer one time only for 1 dose. Use over 5-15minutes. FAMILY HISTORY Problem Relation Age of Onset - Diabetes Mother - Hypertension Mother - CHF [OTHER] Mother - Pacemaker [OTHER] Mother - Emphysema Father - Diabetes Sister - COPD Sister - COPD Paternal Aunt - Cancer Sister lymphoma - Breast Cancer Paternal Aunt - Ischemic Heart Disease Maternal Grandfather Social History Substance Use Topics - Smoking status: Current Every Day Smoker Packs/day: 1.00 Types: Cigarettes Start date: 07/18/1977 - Smokeless tobacco: Never Used - Alcohol use No ASSESSMENT/PLAN: 1. Herpes zoster without complication - ICD9: 053.9, ICD10: B02.9 Suspect shinges. - ACYCLOVIR 800 MG TABLET - PREDNISONE 20 MG TABLET The patient is instructed to return or seek emergency treatment if symptoms become worse or with any acute change in condition. The patient verbalizes understanding and is in agreement with plan of care. Becky Damon, SYED Referring Provider: SELF [[id number]] Allergies As of Date: 02/24/2018 Noted Allergy Reaction ADHESIVE TAPE (ROSINS) 10/18/2016 4 - Hives Comments: Patient had reaction after trigger finger surgery. Coban specifically NAPROXEN 03/14/2015 8 - GI Upset Date Reviewed: 02/24/2018 Reviewed by: Mercedes Phillips Ma - Fully Assessed Reason for Visit: arm problem [Other] Cmt: RT arm amd RT armpit burning feeling X 3 days Reason For Visit History Recorded Primary Visit Diagnosis:Herpes zoster without complication [B02.9] Order(s):acyclovir (ZOVIRAX) 800 mg tabletTake 1 tablet by mouth five times daily for 7 days.Disp: 35 tabletRfl: 0 predniSONE (DELTASONE) 20 mg tabletTake 2 tablets by mouth once daily for 5 days. Take daily with food.Disp: 10 tabletRfl: 0 Prescriptions as of 02/24/2018 Sig: LOSARTAN 25 MG TABLET Take 1 tablet by mouth once d* HYDROXYZINE HCL 25 MG TABLET Take 1 tablet by mouth every * ASPIRIN 81 MG TABLET,DELAYED * Take 1 tablet by mouth once d* HYDROCHLOROTHIAZIDE 12.5 MG C* Take 1 capsule by mouth once * OMEPRAZOLE 40 MG CAPSULE,JACQUES* Take 1 capsule by mouth once * IBUPROFEN 200 MG TABLET Take 600 mg by mouth every 6 * GLUCOSAMINE 750 MG-CHONDROITI* Take by mouth. * MULTIVITAMIN TABLET Take one(1) tablet daily. ACYCLOVIR 800 MG TABLET Take 1 tablet by mouth five t* PREDNISONE 20 MG TABLET Take 2 tablets by mouth once * ALBUTEROL SULFATE 2.5 MG/3 ML* Use 3 mL via nebulizer one ti* Problem List As Of Date 02/24/2018 Noted Resolved PALPITATIONS [R00.2] INVALID FOR* DYSMETABOLIC SYNDROME X [E88.81] INVALID FOR* Plantar Fasciitis [M72.2] INVALID FOR* GERD (Gastroesophageal Reflux Disease) [K21.9] INVALID FOR* Tobacco Abuse [Z72.0] INVALID FOR* Calcaneal spur [M77.30] INVALID FOR* Cervicalgia [M54.2] INVALID FOR*09/27/2012 Inclusion cyst of vulva [N90.7] INVALID FOR* Cervical arthritis (HCC) [M46.92] INVALID FOR*10/01/2016 Microscopic hematuria [R31.29] INVALID FOR*10/01/2016 Adrenal adenoma [D35.00] INVALID FOR* More... Hematuria, microscopic [R31.29] INVALID FOR* Tobacco use disorder [F17.200] INVALID FOR* Urinary frequency [R35.0] INVALID FOR* Urgency of urination [R39.15] INVALID FOR* Degenerative arthritis of cervical spine with n*INVALID FOR* Lumbar degenerative disc disease [M51.36] INVALID FOR* PMB (postmenopausal bleeding) [N95.0] INVALID FOR*10/01/2016 Thickened endometrium [R93.8] INVALID FOR* Tongue coating [K14.3] INVALID FOR* Glossitis [K14.0] INVALID FOR* Degenerative arthritis of carpometacarpal joint*INVALID FOR* Essential hypertension, benign [I10] INVALID FOR* More... Lumbar disc disease with radiculopathy [M51.16] INVALID FOR* Cervicalgia [M54.2] INVALID FOR* Sciatica [M54.30] INVALID FOR* Neck pain [M54.2] INVALID FOR* Cervical spondylosis without myelopathy [M47.81*INVALID FOR* Facet arthropathy, cervical [M46.92] INVALID FOR* Lumbosacral neuritis [M54.17] INVALID FOR* Lumbar spondylosis [M47.816] INVALID FOR* Overactive bladder [N32.81] INVALID FOR*10/01/2016 NSAID induced gastritis [K29.60, T39.395A] INVALID FOR* Hyperlipidemia [E78.5] INVALID FOR* Bilateral hand numbness [R20.0] INVALID FOR* Trigger thumb of left hand [M65.312] INVALID FOR* Arthritis of hand [M19.049] INVALID FOR* Chest pain [R07.9] INVALID FOR* Chronic sinusitis [J32.9] INVALID FOR* Lightheadedness [R42] INVALID FOR* Harmful pattern of use of nicotine [Z72.0] INVALID FOR* Other chest pain [R07.89] INVALID FOR* Other instructions from your clinician: Herpes Zoster Infection (Shingles) Herpes zoster infection, also called shingles, is caused by the chickenpox virus. When a person has chickenpox, he or she is never completely cured of the virus. The virus lives at the base of nerves under the skin, and the body's immune system usually keeps the infection confined there. However, sometimes the virus becomes active again, and produces blisters. Pain is usually the first sign of shingles, followed by blisters most often located over one side of the chest and back, or on one side of the face or neck. However, shingles can occur almost anywhere on the body. The blisters of shingles usually heal in about 3 weeks. Several medications can hasten healing slightly if given within the first 2 to 3 days. These medications are acyclovir (Zovirax), famcyclovir (Famvir), and valacyclovir (Valtrex). Occasionally, the pain of shingles lasts after the skin has healed. This is called postherpetic neuralgia. People over about 60 years of age are at greatest risk of this. Postherpetic neuralgia can be treated with oral medications for pain, a cream called Zosqix, and tricyclic antidepressants such as amitriptyline (Elavil). These tricyclic antidepressants are not used for their antidepressant actions, but rather for their beneficial effects on healing inflamed nerves. Postherpetic neuralgia usually disappears within six months. Prescriptions ordered this encounter Disp Refills Start End ACYCLOVIR 800 MG TABLET 35 t* 0 02/24/2018 03/03/2018 Route: ORAL Sig: Take 1 tablet by mouth five times daily for 7 days. PREDNISONE 20 MG TABLET 10 t* 0 02/24/2018 03/01/2018 Route: ORAL Sig: Take 2 tablets by mouth once daily for 5 days. Take daily with food. Encounter Status:Closed by BECKY DAMON CNP on 02/24/18 CNCO Observed: 01/12/2018 Status: COMPLETED Source: [place] 11:47 AM [facility] REPOSITORY [facility] ID: [id number] Author: Mammography Coordinator Service: (none) Author Type: Physician Type: Letter Filed: 01/16/2018 11:31 PM Note Text: January 12, 2018 PID: [id number] Chapin Velez [address] [place] [address] Dear Ms. Velez, We are pleased to inform you that the results of your recent breast imaging exam on 01/12/2018 are normal. Early detection of cancer is very important. We also understand recommendations regarding breast cancer screening are controversial. Please discuss with your primary care provider which strategy is best for you and whether a mammogram is right for you. Your imaging studies and report will be kept on file at [facility] as part of your permanent medical record and are available for your continuing care. Thank you for allowing us to help in meeting your health care needs. Sincerely, Dr. Shaw Interpreting Radiologist [facility] (Normal over 40) [facility] SCREENING Observed: 01/12/2018 Status: F Source: [place] 9:28 AM [facility] REPOSITORY * * *Final Report* * * DATE OF EXAM: Jan 12 2018 9:28AM W [id number] - [facility] SCREENING / PROCEDURE REASON: Encounter for screening mammogram for malignant neoplasm of breast * * * * Physician Interpretation * * * * RESULT: #[id number] - [facility] SCREENING BILATERAL DIGITAL SCREENING MAMMOGRAM WITH CAD: 01/12/2018 HISTORY: Encounter For Screening Mammogram For Malignant Neoplasm Of Breast /Screening Mammogram - patient reports NO breast symptoms /Priors available for comparison. RESULT: TECHNIQUE: The study was acquired using full field digital technology and interpreted from soft copy. Current study was also evaluated with a Computer Aided Detection (CAD). Comparison is made to exams dated: 12/29/2016 mammogram - [facility], 12/02/2016 mammogram, 10/01/2015 mammogram, and 09/18/2014 mammogram - [facility]. There are scattered fibroglandular elements in both breasts. No significant masses, calcifications, or other findings are seen in either breast. There has been no significant interval change. IMPRESSION: NEGATIVE There is no mammographic evidence of malignancy.A 1 year screening mammogram is recommended. Deborah Shaw M.D., mc/jeovanny:01/12/2018 11:47:44 Dean For Student Affairs: [place] DOLAN)(Pranav), [facility] letter sent: Normal over 41 Mammogram BI-RADS: 1 Negative Metal Dealer: Jeovanny Transcribe Date/Time: Jan 12 2018 9:05A Dictated by: DEBORAH ONEIL MD This examination was interpreted and the report reviewed and electronically signed by: DEBORAH ONEIL MD on Jan 12 2018 11:47AM EST [id number] PROGRESS Observed: 01/12/2018 Status: COMPLETED Source: [place] 8:01 AM [facility] [place] REPOSITORY HNO ID: [id number] Author: Usha Bedoya Service: (none) Author Type: Nurse Practitioner Type: Progress Notes Filed: 01/12/2018 8:30 AM Note Text: Chapin Velez is a 57 year old who presents for her annual gynecologic exam without complaints. Postmenopausal: Yes HRT use: No. Last Pap: 2014 normal HPV: 2014 negative History of abnormal pap: Yes Last mammogram: 2016 abnormal benign History of abnormal mammogram: Yes Sexually active: Yes Pain with intercourse: Yes Postcoital bleeding: No Hot flashes: Yes Night sweats: Yes Vaginal dryness: Yes Obstetric History T0 L3 SAB1 TAB0 Ectopic0 Multiple0 Live Births0 PAST MEDICAL HISTORY Diagnosis Date - Adrenal adenoma 10/06/2012 bilateral--recheck CT in 1 yr - Cervical arthritis (HCC) 09/27/2012 - Degenerative arthritis of carpometacarpal joint of thumb 12/07/2013 - Degenerative arthritis of cervical spine with nerve compression 10/26/2012 - Essential hypertension, benign 12/07/2013 - Lumbar degenerative disc disease 10/26/2012 - Lumbar disc disease with radiculopathy 12/07/2013 PAST SURGICAL HISTORY Procedure Laterality Date - COLONOSCOP W/ OR W/O BRSH SPEC 10/11/2013 Colonoscopy - COLONOSCOP W/ OR W/O BRSH SPEC Colonoscopy - EGD W/O OR W/BRUSH/WASH 05/05/15 EGD - INCISE FINGER TENDON SHEATH Left 10/13/2016 Left trigger thumb release - LAPAROSCOPIC CHOLEYCYSTECTOMY Cholecystectomy, lap - LIGATE FALLOPIAN TUBE Tubal ligation - TONSILLECTOMY HX unsure if adnoids removed - TYMPANOSTOMY LOCAL; UNILATERAL FAMILY HISTORY Problem Relation Age of Onset - Diabetes Mother - Hypertension Mother - CHF [OTHER] Mother - Pacemaker [OTHER] Mother - Emphysema Father - Diabetes Sister - COPD Sister - COPD Paternal Aunt - Cancer Sister lymphoma - Breast Cancer Paternal Aunt - Ischemic Heart Disease Maternal Grandfather SOCIAL HISTORY Social History Substance Use Topics - Smoking status: Current Every Day Smoker Packs/day: 1.00 Types: Cigarettes Start date: 07/18/1977 - Smokeless tobacco: Never Used - Alcohol use No REVIEW OF SYSTEMS Abdomen: No abdominal pain, nausea, vomiting, diarrhea, or constipation. No bloating, early satiety, indigestion, or increased flatulence. IBS issue Bladder: No dysuria, gross hematuria, urinary urgency, or incontinence. Urinary frequency Breast: No breast lumps, nipple d/c, overlying skin changes, redness or skin retraction Allergies and current medication updated:Yes EXAM: LMP 02/07/2012 GENERAL: pleasant, female in no apparent distress HEENT: Normocephalic, atraumatic, mucus membranes moist and no lesions NECK: Supple, full range of motion, no adenopathy and thyroid normal DERMATOLOGY: Normal, without lesions, non-icteric and non-hirsute BREAST: soft, non-tender, symmetric, no dominant mass, normal nipple-areolar complex, no lymphadenopathy and no nipple discharge CHEST: Normal inspiratory effort ABDOMEN: soft, non-tender and no masses PELVIC: external genitalia normal, normal Bartholin's glands, urethra, Alger's glands, no vulvar lesions, no cervical lesions, good vaginal support, physiologic discharge present, normal appearing perineal body and perianal region, well estrogenized BIMANUAL: uterus normal size, shape and consistency, no adnexal masses, non-tender and no cervical motion tenderness RECTOVAGINAL: deferred. NEURO: alert and oriented x3,exam grossly non-focal EXTREMITIES: normal ASSESSMENT/PLAN: 1) Health maintenance: Pap/HPV up to date. Mammogram ordered Nutrition, exercise and routine health maintenance exams reviewed. Calcium/Vitamin D supplementation information provided. 2) Follow up one year or sooner as needed Usha Bedoya APRN.SYED CNOV Observed: 01/12/2018 Status: COMPLETED Source: [place] 8:00 AM [facility] REPOSITORY Office Visit (WOOB) CHAPIN VELEZ V ([id number]) 1960 F Date Time Provider Department 01/12/18 8:00 AM USHA BEDOYA) WOOB During your visit today, we recorded the following information about you: Blood pressure Weight Height 138/84 75.7 kg 1.664 m Usha Bedoya APRN.CNP 01/12/2018 8:30 AM Signed Chapin Velez is a 57 year old who presents for her annual gynecologic exam without complaints. Postmenopausal: Yes HRT use: No. Last Pap: 2014 normal HPV: 2014 negative History of abnormal pap: Yes Last mammogram: 2016 abnormal benign History of abnormal mammogram: Yes Sexually active: Yes Pain with intercourse: Yes Postcoital bleeding: No Hot flashes: Yes Night sweats: Yes Vaginal dryness: Yes Obstetric History T0 L3 SAB1 TAB0 Ectopic0 Multiple0 Live Births0 PAST MEDICAL HISTORY Diagnosis Date - Adrenal adenoma 10/06/2012 bilateral--recheck CT in 1 yr - Cervical arthritis (HCC) 09/27/2012 - Degenerative arthritis of carpometacarpal joint of thumb 12/07/2013 - Degenerative arthritis of cervical spine with nerve compression 10/26/2012 - Essential hypertension, benign 12/07/2013 - Lumbar degenerative disc disease 10/26/2012 - Lumbar disc disease with radiculopathy 12/07/2013 PAST SURGICAL HISTORY Procedure Laterality Date - COLONOSCOP W/ OR W/O BRSH SPEC 10/11/2013 Colonoscopy - COLONOSCOP W/ OR W/O [facility] SPEC Colonoscopy - EGD W/O OR W/BRUSH/WASH 05/05/15 EGD - INCISE FINGER TENDON SHEATH Left 10/13/2016 Left trigger thumb release - LAPAROSCOPIC CHOLEYCYSTECTOMY Cholecystectomy, lap - LIGATE FALLOPIAN TUBE Tubal ligation - TONSILLECTOMY HX unsure if adnoids removed - TYMPANOSTOMY LOCAL; UNILATERAL FAMILY HISTORY Problem Relation Age of Onset - Diabetes Mother - Hypertension Mother - CHF [OTHER] Mother - Pacemaker [OTHER] Mother - Emphysema Father - Diabetes Sister - COPD Sister - COPD Paternal Aunt - Cancer Sister lymphoma - Breast Cancer Paternal Aunt - Ischemic Heart Disease Maternal Grandfather SOCIAL HISTORY Social History Substance Use Topics - Smoking status: Current Every Day Smoker Packs/day: 1.00 Types: Cigarettes Start date: 07/18/1977 - Smokeless tobacco: Never Used - Alcohol use No REVIEW OF SYSTEMS Abdomen: No abdominal pain, nausea, vomiting, diarrhea, or constipation. No bloating, early satiety, indigestion, or increased flatulence. IBS issue Bladder: No dysuria, gross hematuria, urinary urgency, or incontinence. Urinary frequency Breast: No breast lumps, nipple d/c, overlying skin changes, redness or skin retraction Allergies and current medication updated:Yes EXAM: LMP 02/07/2012 GENERAL: pleasant, female in no apparent distress HEENT: Normocephalic, atraumatic, mucus membranes moist and no lesions NECK: Supple, full range of motion, no adenopathy and thyroid normal DERMATOLOGY: Normal, without lesions, non-icteric and non-hirsute BREAST: soft, non-tender, symmetric, no dominant mass, normal nipple-areolar complex, no lymphadenopathy and no nipple discharge CHEST: Normal inspiratory effort ABDOMEN: soft, non-tender and no masses PELVIC: external genitalia normal, normal Bartholin's glands, urethra, Alger's glands, no vulvar lesions, no cervical lesions, good vaginal support, physiologic discharge present, normal appearing perineal body and perianal region, well estrogenized BIMANUAL: uterus normal size, shape and consistency, no adnexal masses, non-tender and no cervical motion tenderness RECTOVAGINAL: deferred. NEURO: alert and oriented x3,exam grossly non-focal EXTREMITIES: normal ASSESSMENT/PLAN: 1) Health maintenance: Pap/HPV up to date. Mammogram ordered Nutrition, exercise and routine health maintenance exams reviewed. Calcium/Vitamin D supplementation information provided. 2) Follow up one year or sooner as needed Usha Bedoya, ASAD.SYED Referring Provider: SELF [[id number]] Allergies As of Date: 01/12/2018 Noted Allergy Reaction ADHESIVE TAPE (ROSINS) 10/18/2016 4 - Hives Comments: Patient had reaction after trigger finger surgery. Coban specifically NAPROXEN 03/14/2015 8 - GI Upset Date Reviewed: 01/12/2018 Reviewed by: Usha (Syed) Aureliano - Fully Assessed Reason for Visit: Well Woman [[id number]] Primary Visit Diagnosis:Encounter for gynecological examination (general) (routine) without abnormal findings [Z01.419] Other Visit Diagnosis:Visit for screening mammogram [Z12.31] Order(s):[facility] SCREENING [[id number]] Order #: [id number] FUTURE Prescriptions as of 01/12/2018 Sig: LOSARTAN 25 MG TABLET Take 1 tablet by mouth once d* HYDROXYZINE HCL 25 MG TABLET Take 1 tablet by mouth every * ASPIRIN 81 MG TABLET,DELAYED * Take 1 tablet by mouth once d* HYDROCHLOROTHIAZIDE 12.5 MG C* Take 1 capsule by mouth once * OMEPRAZOLE 40 MG CAPSULE,JACQUES* Take 1 capsule by mouth once * IBUPROFEN 200 MG TABLET Take 600 mg by mouth every 6 * GLUCOSAMINE 750 MG-CHONDROITI* Take by mouth. * MULTIVITAMIN TABLET Take one(1) tablet daily. ALBUTEROL SULFATE 2.5 MG/3 ML* Use 3 mL via nebulizer one ti* Problem List As Of Date 01/12/2018 Noted Resolved PALPITATIONS [R00.2] INVALID FOR* DYSMETABOLIC SYNDROME X [E88.81] INVALID FOR* Plantar Fasciitis [M72.2] INVALID FOR* GERD (Gastroesophageal Reflux Disease) [K21.9] INVALID FOR* Tobacco Abuse [Z72.0] INVALID FOR* Calcaneal spur [M77.30] INVALID FOR* Cervicalgia [M54.2] INVALID FOR*09/27/2012 Inclusion cyst of vulva [N90.7] INVALID FOR* Cervical arthritis (HCC) [M46.92] INVALID FOR*10/01/2016 Microscopic hematuria [R31.29] INVALID FOR*10/01/2016 Adrenal adenoma [D35.00] INVALID FOR* More... Hematuria, microscopic [R31.29] INVALID FOR* Tobacco use disorder [F17.200] INVALID FOR* Urinary frequency [R35.0] INVALID FOR* Urgency of urination [R39.15] INVALID FOR* Degenerative arthritis of cervical spine with n*INVALID FOR* Lumbar degenerative disc disease [M51.36] INVALID FOR* PMB (postmenopausal bleeding) [N95.0] INVALID FOR*10/01/2016 Thickened endometrium [R93.8] INVALID FOR* Tongue coating [K14.3] INVALID FOR* Glossitis [K14.0] INVALID FOR* Degenerative arthritis of carpometacarpal joint*INVALID FOR* Essential hypertension, benign [I10] INVALID FOR* More... Lumbar disc disease with radiculopathy [M51.16] INVALID FOR* Cervicalgia [M54.2] INVALID FOR* Sciatica [M54.30] INVALID FOR* Neck pain [M54.2] INVALID FOR* Cervical spondylosis without myelopathy [M47.81*INVALID FOR* Facet arthropathy, cervical [M46.92] INVALID FOR* Lumbosacral neuritis [M54.17] INVALID FOR* Lumbar spondylosis [M47.816] INVALID FOR* Overactive bladder [N32.81] INVALID FOR*10/01/2016 NSAID induced gastritis [K29.60, T39.395A] INVALID FOR* Hyperlipidemia [E78.5] INVALID FOR* Bilateral hand numbness [R20.0] INVALID FOR* Trigger thumb of left hand [M65.312] INVALID FOR* Arthritis of hand [M19.049] INVALID FOR* Chest pain [R07.9] INVALID FOR* Chronic sinusitis [J32.9] INVALID FOR* Lightheadedness [R42] INVALID FOR* Harmful pattern of use of nicotine [Z72.0] INVALID FOR* Other chest pain [R07.89] INVALID FOR* Medications Discontinued During This Encounter albuterol HFA (VENTOLIN HFA) 90 mcg/* 1 In* 0 10/18/2017 01/12/2018 Route: INHALATION Sig: Inhale 2 Puffs as instructed every 4 hours as needed for Wheezing/Shortness of Breath. Patient not taking: Reported on 01/12/2018 Disc: Reason for discontinue is not on file. estradiol (ESTRACE) 0.01 % (0.1 mg/g* 1 Tu* 0 09/18/2014 01/12/2018 Sig: Use 1 gram vaginally at night for two weeks, then use 1/2gram 1-3 times weekly for maintenance therapy. Patient not taking: Reported on 01/12/2018 Disc: Reason for discontinue is not on file. fluticasone (FLONASE) 50 mcg/actuati* 1 [place]* 11 10/25/2017 01/12/2018 Route: EACH NOSTRIL Sig: Use 2 Sprays in each nostril once daily. Rinse mouth after use. Patient not taking: Reported on 01/12/2018 Disc: Reason for discontinue is not on file. Disposition: Return in 1 year (on 01/12/2019) for Annual Exam. Follow-up and Disposition History Recorded Encounter Status:Closed by USHA BEDOYA on 01/12/18 PROGRESS Observed: 11/17/2017 Status: COMPLETED Source: [place] 3:45 PM [facility] RE[facility] HNO ID: [id number] Author: Suzanne Chang (Pony Cylinder Press Operator) Service: (none) Author Type: Nurse Practitioner Type: Progress Notes Filed: 11/17/2017 4:49 PM Note Text: Patient presents with: Recheck: follow up medication change Chapin Velez is a 57 year old female who presents in follow up of HTN and was last seen 3 weeks ago. BP med switched from Lisinopril to Losartan due to persistent cough. Reports cough has completely resolved. Did have URI sx same time, however after sx resolved cough persisted and is now resolved. HTN: Ms. Velez indicates that she is feeling well and denies any symptoms referable to elevated blood pressure. Specifically denies headache, chest pain, palpitations, dyspnea and peripheral edema. Patient denies any side effects of her medication(s) and is compliant with their regimen. She does check BP's away from this office with average BP's in the 120-130/70-80 range. Chapin gets minimal exercise. She watches her diet for sodium, low fat and low cholesterol some of the time. Last 3 Encounter BP Readings: Date: BP: 11/17/2017 118/80 10/25/2017 130/74 10/17/2017 132/72 Also still having left ear pain with discomfort noted down into her neck. Pointing to eustachian tube area. + PND. She stopped flonase while on Prednisone. Has not resumed Also due to OA in hips she has started taking Extra-strength Tylenol 2 tabs and one 200 mg Ibuprofen 2-3 times/day with benefit. Wanting to know if OK. Past Medical, Surgical, Family and Social Histories reviewed and updated today in the History tab of [facility]. Current Medications and allergies reviewed. PAST MEDICAL HISTORY Diagnosis Date - Adrenal adenoma 10/06/2012 bilateral--recheck CT in 1 yr - Cervical arthritis (HCC) 09/27/2012 - Degenerative arthritis of carpometacarpal joint of thumb 12/07/2013 - Degenerative arthritis of cervical spine with nerve compression 10/26/2012 - Essential hypertension, benign 12/07/2013 - Lumbar degenerative disc disease 10/26/2012 - Lumbar disc disease with radiculopathy 12/07/2013 PAST SURGICAL HISTORY Procedure Laterality Date - COLONOSCOP W/ OR W/O [facility] SPEC 10/11/2013 Colonoscopy - COLONOSCOP W/ OR W/O [facility] SPEC Colonoscopy - EGD W/O OR W/BRUSH/WASH 05/05/15 EGD - INCISE FINGER TENDON SHEATH Left 10/13/2016 Left trigger thumb release - LAPAROSCOPIC CHOLEYCYSTECTOMY Cholecystectomy, lap - LIGATE FALLOPIAN TUBE Tubal ligation - TONSILLECTOMY HX unsure if adnoids removed - TYMPANOSTOMY LOCAL; UNILATERAL ACTIVE PROBLEM LIST Palpitations Dysmetabolic Syndrome X Plantar Fasciitis Gerd (Gastroesophageal Reflux Disease) Tobacco Abuse Calcaneal Spur Inclusion Cyst of Vulva Adrenal Adenoma Hematuria, Microscopic Tobacco Use Disorder Urinary Frequency Urgency of Urination Degenerative Arthritis of Cervical Spine With Nerve Compression Lumbar Degenerative Disc Disease Thickened Endometrium Tongue Coating Glossitis Degenerative Arthritis of Carpometacarpal Joint of Thumb Essential Hypertension, Benign Lumbar Disc Disease With Radiculopathy Cervicalgia Sciatica Neck Pain Cervical Spondylosis Without Myelopathy Facet Arthropathy, Cervical (Hcc) Lumbosacral Neuritis Lumbar Spondylosis Nsaid Induced Gastritis Hyperlipidemia Bilateral Hand Numbness Trigger Thumb of Left Hand Arthritis of Hand Chest Pain Chronic Sinusitis Lightheadedness Harmful Pattern of Use of Nicotine Other Chest Pain ALLERGIES: Adhesive Tape (Rosins); Naproxen PHYSICAL EXAM: BP 118/80 (BP Site: Left Arm, BP Position: Sitting, BP Cuff Size: Regular Adult) Pulse 76 Temp 36.8 ?C (98.2 ?F) (Tympanic) Resp 16 Wt 74.4 kg (164 lb) LMP 02/07/2012 BMI 26.47 kg/m? General appearance: healthy, Alert, cooperative, pleasant, in no acute distress Head: Normocephalic, atraumatic Eyes: conjunctiva/corneas normal, PERRL, EOMI Oropharynx: moist without lesions, teeth in good repair Nose/Sinuses: Nares normal, septum midline, mucosa normal, no drainage or sinus tenderness, Positive findings: nasal septal deviation to Left. Neck: supple, no adenopathy, thyroid normal size, non-tender, without nodularity and no bruits Heart: regular rate and rhythm, without murmur Lungs: clear to auscultation, without rales or wheeze, good air exchange ASSESSMENT/PLAN: 1. Essential hypertension, benign - ICD9: 401.1, ICD10: I10 (primary diagnosis) - good control - Continue current medication(s) - Recommended regular aerobic exercise. - Recommend home blood pressure monitoring, to bring results in on next visit - Recheck in 6 months, sooner should new symptoms or problems arise. - Goal of BP <130/80 - LOSARTAN 25 MG TABLET - COMP METABOLIC PANEL 2. Eustachian tube dysfunction, left - ICD9: 381.81, ICD10: H69.82 - she will resume Flonase and use regularly for next month. If still having pain then will refer to ENT. Has seen Dr. Roman in the past 3. Osteoarthritis of both hips, unspecified osteoarthritis type - ICD9: 715.95, ICD10: M16.0 -Reassured, Current Tylenol and Ibuprofen regimen is OK, not to exceed 3000 mg in 24 hours. 4. Cough - ICD9: 786.2, ICD10: R05 Likely due to ACEI. Will stay off Lisinopril. Suzanne Chang, MSN TECHNOLOGY ASSISTANT.BOTANY TECHNICIAN CNOV Observed: 11/17/2017 Status: COMPLETED Source: [place] 3:20 PM [facility] REPOSITORY Office Visit (FAMPWS) CHAPIN VELEZ V ([id number]) 1960 F Date Time Provider Department 11/17/17 3:20 PM SUZANNE CHANG (METAL TILE SETTER) FAMPWS During your visit today, we recorded the following information about you: Temperature Pulse Respiration Blood pressure 98.2 degrees 76/minute 16/minute 118/80 Weight 74.4 kg Suzanne Chang (Pony Cylinder Press Operator) 11/17/2017 4:49 PM Signed Patient presents with: Recheck: follow up medication change Chapin Velez is a 57 year old female who presents in follow up of HTN and was last seen 3 weeks ago. BP med switched from Lisinopril to Losartan due to persistent cough. Reports cough has completely resolved. Did have URI sx same time, however after sx resolved cough persisted and is now resolved. HTN: Ms. Velez indicates that she is feeling well and denies any symptoms referable to elevated blood pressure. Specifically denies headache, chest pain, palpitations, dyspnea and peripheral edema. Patient denies any side effects of her medication(s) and is compliant with their regimen. She does check BP's away from this office with average BP's in the 120-130/70-80 range. Chapin gets minimal exercise. She watches her diet for sodium, low fat and low cholesterol some of the time. Last 3 Encounter BP Readings: Date: BP: 11/17/2017 118/80 10/25/2017 130/74 10/17/2017 132/72 Also still having left ear pain with discomfort noted down into her neck. Pointing to eustachian tube area. + PND. She stopped flonase while on Prednisone. Has not resumed Also due to OA in hips she has started taking Extra-strength Tylenol 2 tabs and one 200 mg Ibuprofen 2-3 times/day with benefit. Wanting to know if OK. Past Medical, Surgical, Family and Social Histories reviewed and updated today in the History tab of [facility]. Current Medications and allergies reviewed. PAST MEDICAL HISTORY Diagnosis Date - Adrenal adenoma 10/06/2012 bilateral--recheck CT in 1 yr - Cervical arthritis (HCC) 09/27/2012 - Degenerative arthritis of carpometacarpal joint of thumb 12/07/2013 - Degenerative arthritis of cervical spine with nerve compression 10/26/2012 - Essential hypertension, benign 12/07/2013 - Lumbar degenerative disc disease 10/26/2012 - Lumbar disc disease with radiculopathy 12/07/2013 PAST SURGICAL HISTORY Procedure Laterality Date - COLONOSCOP W/ OR W/O [facility] SPEC 10/11/2013 Colonoscopy - COLONOSCOP W/ OR W/O [facility] SPEC Colonoscopy - EGD W/O OR W/BRUSH/WASH 05/05/15 EGD - INCISE FINGER TENDON SHEATH Left 10/13/2016 Left trigger thumb release - LAPAROSCOPIC CHOLEYCYSTECTOMY Cholecystectomy, lap - LIGATE FALLOPIAN TUBE Tubal ligation - TONSILLECTOMY HX unsure if adnoids removed - TYMPANOSTOMY LOCAL; UNILATERAL ACTIVE PROBLEM LIST Palpitations Dysmetabolic Syndrome X Plantar Fasciitis Gerd (Gastroesophageal Reflux Disease) Tobacco Abuse Calcaneal Spur Inclusion Cyst of Vulva Adrenal Adenoma Hematuria, Microscopic Tobacco Use Disorder Urinary Frequency Urgency of Urination Degenerative Arthritis of Cervical Spine With Nerve Compression Lumbar Degenerative Disc Disease Thickened Endometrium Tongue Coating Glossitis Degenerative Arthritis of Carpometacarpal Joint of Thumb Essential Hypertension, Benign Lumbar Disc Disease With Radiculopathy Cervicalgia Sciatica Neck Pain Cervical Spondylosis Without Myelopathy Facet Arthropathy, Cervical (Hcc) Lumbosacral Neuritis Lumbar Spondylosis Nsaid Induced Gastritis Hyperlipidemia Bilateral Hand Numbness Trigger Thumb of Left Hand Arthritis of Hand Chest Pain Chronic Sinusitis Lightheadedness Harmful Pattern of Use of Nicotine Other Chest Pain ALLERGIES: Adhesive Tape (Rosins); Naproxen PHYSICAL EXAM: BP 118/80 (BP Site: Left Arm, BP Position: Sitting, BP Cuff Size: Regular Adult) Pulse 76 Temp 36.8 ?C (98.2 ?F) (Tympanic) Resp 16 Wt 74.4 kg (164 lb) LMP 02/07/2012 BMI 26.47 kg/m? General appearance: healthy, Alert, cooperative, pleasant, in no acute distress Head: Normocephalic, atraumatic Eyes: conjunctiva/corneas normal, PERRL, EOMI Oropharynx: moist without lesions, teeth in good repair Nose/Sinuses: Nares normal, septum midline, mucosa normal, no drainage or sinus tenderness, Positive findings: nasal septal deviation to Left. Neck: supple, no adenopathy, thyroid normal size, non-tender, without nodularity and no bruits Heart: regular rate and rhythm, without murmur Lungs: clear to auscultation, without rales or wheeze, good air exchange ASSESSMENT/PLAN: 1. Essential hypertension, benign - ICD9: 401.1, ICD10: I10 (primary diagnosis) - good control - Continue current medication(s) - Recommended regular aerobic exercise. - Recommend home blood pressure monitoring, to bring results in on next visit - Recheck in 6 months, sooner should new symptoms or problems arise. - Goal of BP <130/80 - LOSARTAN 25 MG TABLET - COMP METABOLIC PANEL 2. Eustachian tube dysfunction, left - ICD9: 381.81, ICD10: H69.82 - she will resume Flonase and use regularly for next month. If still having pain then will refer to ENT. Has seen Dr. Roman in the past 3. Osteoarthritis of both hips, unspecified osteoarthritis type - ICD9: 715.95, ICD10: M16.0 -Reassured, Current Tylenol and Ibuprofen regimen is OK, not to exceed 3000 mg in 24 hours. 4. Cough - ICD9: 786.2, ICD10: R05 Likely due to ACEI. Will stay off Lisinopril. Suzanne Chang, MSN TECHNOLOGY ASSISTANT.BOTANY TECHNICIAN Referring Provider: SUZANNE CHANG (METAL TILE SETTER) [[id number]] Allergies As of Date: 11/17/2017 Noted Allergy Reaction ADHESIVE TAPE (ROSINS) 10/18/2016 4 - Hives Comments: Patient had reaction after trigger finger surgery. Coban specifically NAPROXEN 03/14/2015 8 - GI Upset Date Reviewed: 11/17/2017 Reviewed by: Suzanne Chang (Pony Cylinder Press Operator) - Fully Assessed Reason for Visit: Recheck [92] Cmt: follow up medication change Primary Visit Diagnosis:Essential hypertension, benign [I10] Other Visit Diagnoses:Eustachian tube dysfunction, left [H69.82] Osteoarthritis of both hips, unspecified osteoarthritis type [M16.0] Cough [R05] Order(s):losartan (COZAAR) 25 mg tabletTake 1 tablet by mouth once daily.Disp: 30 tabletRfl: 5 COMP METABOLIC PANEL [SQCMP] Order #: [id number] FUTURE Prescriptions as of 11/17/2017 Sig: LOSARTAN 25 MG TABLET Take 1 tablet by mouth once d* FLUTICASONE 50 MCG/ACTUATION * Use 2 Sprays in each nostril * ALBUTEROL SULFATE HFA 90 MCG/* Inhale 2 Puffs as instructed * HYDROXYZINE HCL 25 MG TABLET Take 1 tablet by mouth every * ASPIRIN 81 MG TABLET,DELAYED * Take 1 tablet by mouth once d* HYDROCHLOROTHIAZIDE 12.5 MG C* Take 1 capsule by mouth once * OMEPRAZOLE 40 MG CAPSULE,JACQUES* Take 1 capsule by mouth once * IBUPROFEN 200 MG TABLET Take 600 mg by mouth every 6 * GLUCOSAMINE 750 MG-CHONDROITI* Take by mouth. ESTRADIOL 0.01% (0.1 MG/GRAM)* Use 1 gram vaginally at night* * MULTIVITAMIN TABLET Take one(1) tablet daily. ALBUTEROL SULFATE 2.5 MG/3 ML* Use 3 mL via nebulizer one ti* Problem List As Of Date 11/17/2017 Noted Resolved PALPITATIONS [R00.2] INVALID FOR* DYSMETABOLIC SYNDROME X [E88.81] INVALID FOR* Plantar Fasciitis [M72.2] INVALID FOR* GERD (Gastroesophageal Reflux Disease) [K21.9] INVALID FOR* Tobacco Abuse [Z72.0] INVALID FOR* Calcaneal spur [M77.30] INVALID FOR* Cervicalgia [M54.2] INVALID FOR*09/27/2012 Inclusion cyst of vulva [N90.7] INVALID FOR* Cervical arthritis (HCC) [M46.92] INVALID FOR*10/01/2016 Microscopic hematuria [R31.29] INVALID FOR*10/01/2016 Adrenal adenoma [D35.00] INVALID FOR* More... Hematuria, microscopic [R31.29] INVALID FOR* Tobacco use disorder [F17.200] INVALID FOR* Urinary frequency [R35.0] INVALID FOR* Urgency of urination [R39.15] INVALID FOR* Degenerative arthritis of cervical spine with n*INVALID FOR* Lumbar degenerative disc disease [M51.36] INVALID FOR* PMB (postmenopausal bleeding) [N95.0] INVALID FOR*10/01/2016 Thickened endometrium [R93.8] INVALID FOR* Tongue coating [K14.3] INVALID FOR* Glossitis [K14.0] INVALID FOR* Degenerative arthritis of carpometacarpal joint*INVALID FOR* Essential hypertension, benign [I10] INVALID FOR* More... Lumbar disc disease with radiculopathy [M51.16] INVALID FOR* Cervicalgia [M54.2] INVALID FOR* Sciatica [M54.30] INVALID FOR* Neck pain [M54.2] INVALID FOR* Cervical spondylosis without myelopathy [M47.81*INVALID FOR* Facet arthropathy, cervical [M46.92] INVALID FOR* Lumbosacral neuritis [M54.17] INVALID FOR* Lumbar spondylosis [M47.816] INVALID FOR* Overactive bladder [N32.81] INVALID FOR*10/01/2016 NSAID induced gastritis [K29.60, T39.395A] INVALID FOR* Hyperlipidemia [E78.5] INVALID FOR* Bilateral hand numbness [R20.0] INVALID FOR* Trigger thumb of left hand [M65.312] INVALID FOR* Arthritis of hand [M19.049] INVALID FOR* Chest pain [R07.9] INVALID FOR* Chronic sinusitis [J32.9] INVALID FOR* Lightheadedness [R42] INVALID FOR* Harmful pattern of use of nicotine [Z72.0] INVALID FOR* Other chest pain [R07.89] INVALID FOR* Prescriptions ordered this encounter Disp Refills Start End LOSARTAN 25 MG TABLET 30 t* 5 11/17/2017 Route: ORAL Sig: Take 1 tablet by mouth once daily. Medications Discontinued During This Encounter losartan (COZAAR) 25 mg tablet 30 t* 0 11/01/2017 11/17/2017 Route: ORAL Sig: Take 1 tablet by mouth once daily. Disc: Reason for discontinue is not on file. Disposition: Return in about 6 months (around 05/20/2018). Follow-up and Disposition History Recorded Encounter Status:Closed by SUZANNE CHANG BOTANY TECHNICIAN on 11/17/17 PROGRESS Observed: 10/25/2017 Status: COMPLETED Source: [place] 7:49 AM [facility] REPOSITORY HNO ID: [id number] Author: Suzanne Awan (Pony Cylinder Press Operator) Bernardo Service: (none) Author Type: Nurse Practitioner Type: Progress Notes Filed: 10/25/2017 9:35 AM Note Text: Chief Complaint Patient presents with: Recheck HPI Chapin Velez is a 57 year old female who presents here today for follow up UC with CC of cough. Has had dry, hacky cough for 3+ months. She was seen and treated for otitis media with Augmentin which she continues. She notes her cough is >75% improved. Still occasional loose cough which she attributes to smoking. No longer the constant, irritating cough that led to the visit in UC. She continues to smoke, considering quitting. BLADE cough was consideration due to length of time she has been coughing. CXR was clear. She denies any chest pain, SOB or wheezing. Does note intermittent eustachian tube discomfort bilaterally which is also better since taking Augmentin. Has had ENT eval due to pain, CT sinuses were reportedly OK. Past medical history, appointments, medications, allergies reviewed. Previous Medical History PAST MEDICAL HISTORY Diagnosis Date - Adrenal adenoma 10/06/2012 bilateral--recheck CT in 1 yr - Cervical arthritis (HCC) 09/27/2012 - Degenerative arthritis of carpometacarpal joint of thumb 12/07/2013 - Degenerative arthritis of cervical spine with nerve compression 10/26/2012 - Essential hypertension, benign 12/07/2013 - Lumbar degenerative disc disease 10/26/2012 - Lumbar disc disease with radiculopathy 12/07/2013 Previous Surgical History PAST SURGICAL HISTORY Procedure Laterality Date - COLONOSCOP W/ OR W/O [facility] SPEC 10/11/2013 Colonoscopy - COLONOSCOP W/ OR W/O [facility] SPEC Colonoscopy - EGD W/O OR W/BRUSH/WASH 05/05/15 EGD - INCISE FINGER TENDON SHEATH Left 10/13/2016 Left trigger thumb release - LAPAROSCOPIC CHOLEYCYSTECTOMY Cholecystectomy, lap - LIGATE FALLOPIAN TUBE Tubal ligation - TONSILLECTOMY HX unsure if adnoids removed - TYMPANOSTOMY LOCAL; UNILATERAL Family History FAMILY HISTORY Problem Relation Age of Onset - Diabetes Mother - Hypertension Mother - CHF [OTHER] Mother - Pacemaker [OTHER] Mother - Emphysema Father - Diabetes Sister - COPD Sister - COPD Paternal Aunt - Cancer Sister lymphoma - Breast Cancer Paternal Aunt - Ischemic Heart Disease Maternal Grandfather Patient Allergies ALLERGIES Allergen Reactions - Adhesive Tape (Nona* Hives Patient had reaction after trigger finger surgery. Coban specifically - Naproxen GI Upset Current Medications Current Outpatient Prescriptions on File Prior to Visit: albuterol HFA (VENTOLIN HFA) 90 mcg/actuation inhaler Inhale 2 Puffs as instructed every 4 hours as needed for Wheezing/Shortness of Breath. amoxicillin-clavulanic acid (AUGMENTIN) 875-125 mg per tablet Take 1 tablet by mouth twice daily for 10 days. albuterol (PROVENTIL) 2.5 mg /3 mL (0.083 %) nebulizer solution Use 3 mL via nebulizer one time only for 1 dose. Use over 5-15minutes. hydrOXYzine HCl (ATARAX) 25 mg tablet Take 1 tablet by mouth every 6 hours as needed for Anxiety. lisinopril (ZESTRIL, PRINIVIL) 20 mg tablet Take 0.5 tablets by mouth once daily. aspirin, enteric coated (ADULT ASPIRIN REGIMEN) 81 mg EC tablet Take 1 tablet by mouth once daily. Hydrochlorothiazide 12.5 mg capsule Take 1 capsule by mouth once daily. Omeprazole (PRILOSEC) 40 mg capsule Take 1 capsule by mouth once daily. ibuprofen (MOTRIN) 200 mg tablet Take 600 mg by mouth every 6 hours as needed for Pain. [id number]-awkm-klz#4-H-qlix-noah-bor (OSTEO BI-FLEX TRIPLE STRENGTH) 750 mg-644 mg- 30 mg-1 mg tab Take by mouth. MULTIVITAMIN TAB Take one(1) tablet daily. estradiol (ESTRACE) 0.01 % (0.1 mg/gram) vaginal cream Use 1 gram vaginally at night for two weeks, then use 1/2gram 1-3 times weekly for maintenance therapy. No current facility-administered medications on file prior to visit. 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 [employer] Social History Main Topics Smoking status: Current Every Day Smoker Packs/day: 1.00 Years: 0.00 Types: Cigarettes Start date: 07/18/1977 Smokeless status: Never Used Alcohol use: No Drug use: No Sexual activity: Yes Partners with: Male control/protection: Tubal Ligation Review of Symptoms REVIEW OF SYSTEMS GENERAL: No weight loss, malaise or fevers HEENT: Negative for frequent or significant headaches, No changes in hearing or vision, no nose bleeds or other nasal problems RESPIRATORY: Negative for cough, hemoptysis, wheezing, COPD, dyspnea or shortness of breath CARDIOVASCULAR: Negative for chest pain, leg swelling, hypertension, CHF or palpitations EXAM: BP 130/74 Pulse 84 Temp 36.4 ?C (97.6 ?F) (Tympanic) Resp 14 Wt 74.8 kg (165 lb) LMP 02/07/2012 BMI 26.63 kg/m2 General Appearance: Well appearing, alert, in no acute distress, well-hydrated, well nourished.. Eyes: Anicteric sclera. Pupils are equally round and reactive to light. Extraocular movements are intact. . Ears: External ears normal, canals clear, Positive findings: R TM: retracted and otosclerosis, L TM: dull, irregular and injected. Nose/Sinuses: Nares normal, septum midline, mucosa normal, no drainage or sinus tenderness, Positive findings: mucosa erythematous and swollen, nasal septal deviation to Left, clear rhinorrhea. Oropharynx: Lips, mucosa, and tongue normal, teeth and gums normal, oropharynx normal. Neck: Supple, no adenopathy; thyroid symmetric, normal size, no bruits. Lungs: Lungs clear to auscultation. No wheezing, rhonchi, rales. Heart: RRR without murmur, gallop, or rubs. No ectopy. Health Maintenance List ONE PNEUMOVAX PRIOR TO AGE 65 due on 1980 HEPATITIS C SCREENING due on 2005 TETANUS due on 10/05/2009 MAMMOGRAM due on 12/02/2017 DIABETES SCREEN due on 08/26/2019 PAP EVERY 5 YEARS due on 09/19/2019 HPV EVERY 5 YEARS due on 09/19/2019 LIPID SCREEN due on 08/02/2022 COLORECTAL CANCER SCREENING,SEE MODIFIER due on 10/12/2023 INFLUENZA Completed Data reviewed 10/17/2017 ?4:40 PM - Interface, Results In Impression IMPRESSION: No acute radiographic abnormality. 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 Transcribe Date/Time: Oct ?4:37P Dictated by : OLIVIER JACOBSON MD This examination was interpreted and the report reviewed and electronically signed by: OLIVIER JACOBSON MD on Oct ?4:38PM ?EST Results-Findings * * *Final Report* * * DATE OF EXAM: Oct ?4:35PM ? WOX ? [id number] ?- ?XR CHEST 2V FRONTAL/LAT ?/ PROCEDURE REASON: Cough ?? ? * * * * Physician Interpretation * * * * ?EXAMINATION: ?CHEST RADIOGRAPH (2 VIEW FRONTAL AND LATERAL) Clinical History: ?Cough MQ: ?XC2_5 Comparison: ?None RESULT: Lines, tubes, and devices: ?None. Lungs and pleura: ?No consolidation. No lung mass. No pleural effusion. Cardiomediastinal silhouette: ?Normal cardiomediastinal silhouette. Other: ?. Result History ASSESSMENT/PLAN: 1. Essential hypertension, benign - ICD9: 401.1, ICD10: I10 (primary diagnosis) - good control - Continue current medication(s) - Recommended regular aerobic exercise. - Recommend home blood pressure monitoring, to bring results in on next visit - Goal of BP <130/80 - LISINOPRIL 10 MG TABLET 2. Cough - ICD9: 786.2, ICD10: R05 - Improved with Augmentin, will add flonase nasal spray qhs to see if that helps. - She is instructed to call office if cough worsens. Would then change medications to Losartan - FLUTICASONE 50 MCG/ACTUATION NASAL SPRAY,SUSPENSION 3. Acute otitis media, left - ICD9: 382.9, ICD10: H66.92 - Resolving. Finish out Augmentin and will add Flonase as above. - FLUTICASONE 50 MCG/ACTUATION NASAL SPRAY,SUSPENSION Health Maintenance Addressed: Declines Pneumovax at this time. Suzanne Chang, MSN TECHNOLOGY ASSISTANT.SYED YOUSIFOV Observed: 10/25/2017 Status: COMPLETED Source: [place] 7:40 AM [facility] REPOSITORY Office Visit (FAMPWS) CHAPIN VELEZ V ([id number]) 1960 F Date Time Provider Department 10/25/17 7:40 AM SUZANNE CHANG (METAL TILE SETTER) [facility] During your visit today, we recorded the following information about you: Temperature Pulse Respiration Blood pressure 97.6 degrees 84/minute 14/minute 130/74 Weight 74.8 kg Suzanne Chang, MSN TECHNOLOGY ASSISTANT.BOTANY TECHNICIAN 10/25/2017 9:35 AM Signed Chief Complaint Patient presents with: Recheck HPI Chapin Grace Agustin is a 57 year old female who presents here today for follow up UC with CC of cough. Has had dry, hacky cough for 3+ months. She was seen and treated for otitis media with Augmentin which she continues. She notes her cough is ANDgt;75% improved. Still occasional loose cough which she attributes to smoking. No longer the constant, irritating cough that led to the visit in UC. She continues to smoke, considering quitting. BLADE cough was consideration due to length of time she has been coughing. CXR was clear. She denies any chest pain, SOB or wheezing. Does note intermittent eustachian tube discomfort bilaterally which is also better since taking Augmentin. Has had ENT eval due to pain, CT sinuses were reportedly ANDquot;OKANDquot;. Past medical history, appointments, medications, allergies reviewed. Previous Medical History PAST MEDICAL HISTORY Diagnosis Date - Adrenal adenoma 10/06/2012 bilateral--recheck CT in 1 yr - Cervical arthritis (HCC) 09/27/2012 - Degenerative arthritis of carpometacarpal joint of thumb 12/07/2013 - Degenerative arthritis of cervical spine with nerve compression 10/26/2012 - Essential hypertension, benign 12/07/2013 - Lumbar degenerative disc disease 10/26/2012 - Lumbar disc disease with radiculopathy 12/07/2013 Previous Surgical History PAST SURGICAL HISTORY Procedure Laterality Date - COLONOSCOP W/ OR W/O [facility] SPEC 10/11/2013 Colonoscopy - COLONOSCOP W/ OR W/O [facility] SPEC Colonoscopy - EGD W/O OR W/BRUSH/WASH 05/05/15 EGD - INCISE FINGER TENDON SHEATH Left 10/13/2016 Left trigger thumb release - LAPAROSCOPIC CHOLEYCYSTECTOMY Cholecystectomy, lap - LIGATE FALLOPIAN TUBE Tubal ligation - TONSILLECTOMY HX unsure if adnoids removed - TYMPANOSTOMY LOCAL; UNILATERAL Family History FAMILY HISTORY Problem Relation Age of Onset - Diabetes Mother - Hypertension Mother - CHF [OTHER] Mother - Pacemaker [OTHER] Mother - Emphysema Father - Diabetes Sister - COPD Sister - COPD Paternal Aunt - Cancer Sister lymphoma - Breast Cancer Paternal Aunt - Ischemic Heart Disease Maternal Grandfather Patient Allergies ALLERGIES Allergen Reactions - Adhesive Tape (Nona* Hives Patient had reaction after trigger finger surgery. Coban specifically - Naproxen GI Upset Current Medications Current Outpatient Prescriptions on File Prior to Visit: albuterol HFA (VENTOLIN HFA) 90 mcg/actuation inhaler Inhale 2 Puffs as instructed every 4 hours as needed for Wheezing/Shortness of Breath. amoxicillin-clavulanic acid (AUGMENTIN) 875-125 mg per tablet Take 1 tablet by mouth twice daily for 10 days. albuterol (PROVENTIL) 2.5 mg /3 mL (0.083 %) nebulizer solution Use 3 mL via nebulizer one time only for 1 dose. Use over 5-15minutes. hydrOXYzine HCl (ATARAX) 25 mg tablet Take 1 tablet by mouth every 6 hours as needed for Anxiety. lisinopril (ZESTRIL, PRINIVIL) 20 mg tablet Take 0.5 tablets by mouth once daily. aspirin, enteric coated (ADULT ASPIRIN REGIMEN) 81 mg EC tablet Take 1 tablet by mouth once daily. Hydrochlorothiazide 12.5 mg capsule Take 1 capsule by mouth once daily. Omeprazole (PRILOSEC) 40 mg capsule Take 1 capsule by mouth once daily. ibuprofen (MOTRIN) 200 mg tablet Take 600 mg by mouth every 6 hours as needed for Pain. lvhs-oquz-xny#2-F-lipc-noah-bor (OSTEO BI-FLEX TRIPLE STRENGTH) 750 mg-644 mg- 30 mg-1 mg tab Take by mouth. MULTIVITAMIN TAB Take one(1) tablet daily. estradiol (ESTRACE) 0.01 % (0.1 mg/gram) vaginal cream Use 1 gram vaginally at night for two weeks, then use 1/2gram 1-3 times weekly for maintenance therapy. No current facility-administered medications on file prior to visit. 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 [employer] Social History Main Topics Smoking status: Current Every Day Smoker Packs/day: 1.00 Years: 0.00 Types: Cigarettes Start date: 07/18/1977 Smokeless status: Never Used Alcohol use: No Drug use: No Sexual activity: Yes Partners with: Male control/protection: Tubal Ligation Review of Symptoms REVIEW OF SYSTEMS GENERAL: No weight loss, malaise or fevers HEENT: Negative for frequent or significant headaches, No changes in hearing or vision, no nose bleeds or other nasal problems RESPIRATORY: Negative for cough, hemoptysis, wheezing, COPD, dyspnea or shortness of breath CARDIOVASCULAR: Negative for chest pain, leg swelling, hypertension, CHF or palpitations EXAM: BP 130/74 Pulse 84 Temp 36.4 ?C (97.6 ?F) (Tympanic) Resp 14 Wt 74.8 kg (165 lb) LMP 02/07/2012 BMI 26.63 kg/m2 General Appearance: Well appearing, alert, in no acute distress, well-hydrated, well nourished.. Eyes: Anicteric sclera. Pupils are equally round and reactive to light. Extraocular movements are intact. . Ears: External ears normal, canals clear, Positive findings: R TM: retracted and otosclerosis, L TM: dull, irregular and injected. Nose/Sinuses: Nares normal, septum midline, mucosa normal, no drainage or sinus tenderness, Positive findings: mucosa erythematous and swollen, nasal septal deviation to Left, clear rhinorrhea. Oropharynx: Lips, mucosa, and tongue normal, teeth and gums normal, oropharynx normal. Neck: Supple, no adenopathy; thyroid symmetric, normal size, no bruits. Lungs: Lungs clear to auscultation. No wheezing, rhonchi, rales. Heart: RRR without murmur, gallop, or rubs. No ectopy. Health Maintenance List ONE PNEUMOVAX PRIOR TO AGE 65 due on 1980 HEPATITIS C SCREENING due on 2005 TETANUS due on 10/05/2009 MAMMOGRAM due on 12/02/2017 DIABETES SCREEN due on 08/26/2019 PAP EVERY 5 YEARS due on 09/19/2019 HPV EVERY 5 YEARS due on 09/19/2019 LIPID SCREEN due on 08/02/2022 COLORECTAL CANCER SCREENING,SEE MODIFIER due on 10/12/2023 INFLUENZA Completed Data reviewed 10/17/2017 ?4:40 PM - Interface, Results In Impression IMPRESSION: No acute radiographic abnormality. 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 Transcribe Date/Time: Oct ?4:37P Dictated by : OLIVIER JACOBSON MD This examination was interpreted and the report reviewed and electronically signed by: OLIVIER JACOBSON MD on Oct ?4:38PM ?EST Results-Findings * * *Final Report* * * DATE OF EXAM: Oct ?4:35PM ? WOX ? [id number] ?- ?XR CHEST 2V FRONTAL/LAT ?/ PROCEDURE REASON: Cough ?? ? * * * * Physician Interpretation * * * * ?EXAMINATION: ?CHEST RADIOGRAPH (2 VIEW FRONTAL ANDamp; LATERAL) Clinical History: ?Cough MQ: ?XC2_5 Comparison: ?None RESULT: Lines, tubes, and devices: ?None. Lungs and pleura: ?No consolidation. No lung mass. No pleural effusion. Cardiomediastinal silhouette: ?Normal cardiomediastinal silhouette. Other: ?. Result History ASSESSMENT/PLAN: 1. Essential hypertension, benign - ICD9: 401.1, ICD10: I10 (primary diagnosis) - good control - Continue current medication(s) - Recommended regular aerobic exercise. - Recommend home blood pressure monitoring, to bring results in on next visit - Goal of BP ANDlt;130/80 - LISINOPRIL 10 MG TABLET 2. Cough - ICD9: 786.2, ICD10: R05 - Improved with Augmentin, will add flonase nasal spray qhs to see if that helps. - She is instructed to call office if cough worsens. Would then change medications to Losartan - FLUTICASONE 50 MCG/ACTUATION NASAL SPRAY,SUSPENSION 3. Acute otitis media, left - ICD9: 382.9, ICD10: H66.92 - Resolving. Finish out Augmentin and will add Flonase as above. - FLUTICASONE 50 MCG/ACTUATION NASAL SPRAY,SUSPENSION Health Maintenance Addressed: Declines Pneumovax at this time. Suzanne Chang, MSN TECHNOLOGY ASSISTANT.BOTANY TECHNICIAN Suzanne Chang, MSN TECHNOLOGY ASSISTANT.BOTANY TECHNICIAN 10/25/2017 8:06 AM Signed SMOKING CESSATION Stopping smoking is the most important thing you can do to protect your current and future health, as well as that of your family. It is the most potent risk factor for the future development of coronary artery disease and heart attacks. Smoking is both an addiction and a learned behavior. The nicotine withdrawal takes anywhere from 2-4 weeks and results in symptoms such as irritability, fatigue, insomnia, coughing, dizziness, poor concentration, hunger and cigarette cravings. After the nicotine withdrawal period, the learned linkage between certain acts or situations and cigarette use remain. Strategies to deal with these must be developed along with new behaviors to ensure successful smoking cessation. STRATEGIES TOWARD SMOKING CESSATION - Make a list of the reasons why you want to quit, plus the benefits to be gained, and compare them to the reasons why you should continue to smoke. - Pick a specific quit date. - If you are interested in using nicotine patches or gum to assist with the nicotine withdrawal, let the staff know. - Inform friends, family, and co-workers that you are quitting and when your quit date is. Ask for their understanding and support. - Prepare your environment by removing all cigarettes prior to your quit date. - Prior to your quit date, avoid smoking in places where you spend a lot of time (such as the house, work, car). - From previous quit attempts, identify what helped you to stop smoking. - From previous quit attempts, identify what triggered relapse. How can you avoid that again? - What things (situations, emotions) do you anticipate will be most challenging, especially in the first few weeks, to your quitting effort? - What can you do to address these challenges? - Avoid (or limit) alcohol consumption during the quitting process. - If your spouse or close coworker currently smoke, consider quitting together or at the very least, develop specific plans to maintain your cigarette abstinence while in the home or at work. - Take each day, each hour, each craving, one at a time. Every step or action you take toward smoking cessation is a success. The only failure is the failure to try. - The health of you and your family, is worth the effort. STOP SMOKING CHECK LIST Preparing to Quit: ___ Make a personal pact with yourself to quit. ___ Pick a date for quitting completely. (My date to quit is ____.) ___ Write down on a card the three most important reasons for quitting. Carry the card with you from now on. Look at it several times a day. ___ Prior to quitting, eliminate smoking completely in 2 or 3 of your high risk situations. ___ Reduce consumption to one pack per day or less. ___ Change to a less desirable brand of cigarettes. ___ Discard your typewriter assembler. Use matches. Carry your cigarettes in a different place. ___ Spend a little time each day picturing in your mind stressful events occurring in the future and you not smoking. Actual Quitting: The First Two Weeks ___ Get rid of all cigarettes. Put away all smoking related objects such as ashtrays. Ask the people you live with not to smoke in your presence for the first two weeks. ___ Spend as much time as possible with non-smoking people. ___ Keep busy, especially on evenings and weekends. ___ Avoid high risk situations (large parties, bars, etc.). ___ Spend lots of time in places that prohibit or discourage smoking (e.g., theaters, libraries.) ___ Drink plenty of fluids. ___ Don't substitute food or sugar based products for cigarettes. Use approved substitutions. (... ice water, high bulk/low calorie foods, sugarless gum, mouthwash, brushing teeth.) ___ Begin or increase regular exercise program. ___ When experiencing withdrawal effects: 1. Remind yourself why you are quitting (from your card). 2. Remind yourself that whatever discomfort you are experiencing is only a tiny fraction of the probable discomfort associated with continued smoking. 3. Practice deep breathing or other relaxation techniques - tapes. ___ Remind yourself that you can free yourself from this unhealthy, expensive, messy habit and become a non-smoker. Maintenance of Quitting: After two weeks ___ Remind yourself that the desire to smoke is linked to a great many situations, people and emotional stress. ___ When you do have a desire to smoke, remember that it only lasts a few seconds: distract yourself and leave the situation if necessary. ___ After each desire to smoke has passed, pat yourself on the back, you have just made progress in breaking the habit forever. ___ Save the money on wasted on cigarettes in a ANDquot;special fundANDquot; and buy yourself something nice. Maintenance of Quitting: After Two Months ___ Be particularly vigilant when unusual life events occur. (.. weddings, holidays, vacations.) ___ Be particularly vigilant when stressful life events occur (e.g., relationship problems, financial or work problems.) ___ Remind yourself regularly that not smoking is completely within your personal control. ___ Never lull yourself into thinking you are out of danger and you can safely have a cigarette or two. -- you cannot!!!!! ___ If, by chance, you do slip and have one or more cigarettes, do not conclude that ANDquot;all is lostANDquot;. Return to complete abstinence immediately and learn from your experience. ___ If you have gained significant weight since quitting, now is the time to do something about it. ___ Each time you see a cigarettes advertisement, remind yourself of why you quit. Also remember that a powerful industry spends billions of dollars each year trying to get people like yourself ANDquot;re-hookedANDquot;. Recommend: [place] Tobacco Quit Line: 4-238-Yfxu-Now ( ) Or [place] [employer]: for help and tips to quit smoking Referring Provider: SELF [200] Allergies As of Date: 10/25/2017 Noted Allergy Reaction ADHESIVE TAPE (ROSINS) 10/18/2016 4 - Hives Comments: Patient had reaction after trigger finger surgery. Coban specifically NAPROXEN 03/14/2015 8 - GI Upset Date Reviewed: 10/25/2017 Reviewed by: Suzanne Awan (Rosaline) Bernardo - Fully Assessed Reason for Visit: Recheck [92] Primary Visit Diagnosis:Essential hypertension, benign [I10] Other Visit Diagnoses:Cough [R05] Acute otitis media, left [H66.92] Order(s):lisinopril (PRINIVIL) 10 mg tabletTake 1 tablet by mouth once daily.Disp: 30 tabletRfl: 11 fluticasone (FLONASE) 50 mcg/actuation nasal sprayUse 2 Sprays in each nostril once daily. Rinse mouth after use.Disp: 1 BottleRfl: 11 Prescriptions as of 10/25/2017 Sig: ALBUTEROL SULFATE HFA 90 MCG/* Inhale 2 Puffs as instructed * AMOXICILLIN 875 MG-POTASSIUM * Take 1 tablet by mouth twice * ALBUTEROL SULFATE 2.5 MG/3 ML* Use 3 mL via nebulizer one ti* HYDROXYZINE HCL 25 MG TABLET Take 1 tablet by mouth every * ASPIRIN 81 MG TABLET,DELAYED * Take 1 tablet by mouth once d* HYDROCHLOROTHIAZIDE 12.5 MG C* Take 1 capsule by mouth once * OMEPRAZOLE 40 MG CAPSULE,JACQUES* Take 1 capsule by mouth once * IBUPROFEN 200 MG TABLET Take 600 mg by mouth every 6 * GLUCOSAMINE 750 MG-CHONDROITI* Take by mouth. * MULTIVITAMIN TABLET Take one(1) tablet daily. LISINOPRIL 10 MG TABLET Take 1 tablet by mouth once d* FLUTICASONE 50 MCG/ACTUATION * Use 2 Sprays in each nostril * ESTRADIOL 0.01% (0.1 MG/GRAM)* Use 1 gram vaginally at night* Problem List As Of Date 10/25/2017 Noted Resolved PALPITATIONS [R00.2] INVALID FOR* DYSMETABOLIC SYNDROME X [E88.81] INVALID FOR* Plantar Fasciitis [M72.2] INVALID FOR* GERD (Gastroesophageal Reflux Disease) [K21.9] INVALID FOR* Tobacco Abuse [Z72.0] INVALID FOR* Calcaneal spur [M77.30] INVALID FOR* Cervicalgia [M54.2] INVALID FOR*09/27/2012 Inclusion cyst of vulva [N90.7] INVALID FOR* Cervical arthritis (HCC) [M46.92] INVALID FOR*10/01/2016 Microscopic hematuria [R31.29] INVALID FOR*10/01/2016 Adrenal adenoma [D35.00] INVALID FOR* More... Hematuria, microscopic [R31.29] INVALID FOR* Tobacco use disorder [F17.200] INVALID FOR* Urinary frequency [R35.0] INVALID FOR* Urgency of urination [R39.15] INVALID FOR* Degenerative arthritis of cervical spine with n*INVALID FOR* Lumbar degenerative disc disease [M51.36] INVALID FOR* PMB (postmenopausal bleeding) [N95.0] INVALID FOR*10/01/2016 Thickened endometrium [R93.8] INVALID FOR* Tongue coating [K14.3] INVALID FOR* Glossitis [K14.0] INVALID FOR* Degenerative arthritis of carpometacarpal joint*INVALID FOR* Essential hypertension, benign [I10] INVALID FOR* More... Lumbar disc disease with radiculopathy [M51.16] INVALID FOR* Cervicalgia [M54.2] INVALID FOR* Sciatica [M54.30] INVALID FOR* Neck pain [M54.2] INVALID FOR* Cervical spondylosis without myelopathy [M47.81*INVALID FOR* Facet arthropathy, cervical [M46.92] INVALID FOR* Lumbosacral neuritis [M54.17] INVALID FOR* Lumbar spondylosis [M47.816] INVALID FOR* Overactive bladder [N32.81] INVALID FOR*10/01/2016 NSAID induced gastritis [K29.60, T39.395A] INVALID FOR* Hyperlipidemia [E78.5] INVALID FOR* Bilateral hand numbness [R20.0] INVALID FOR* Trigger thumb of left hand [M65.312] INVALID FOR* Arthritis of hand [M19.049] INVALID FOR* Chest pain [R07.9] INVALID FOR* Chronic sinusitis [J32.9] INVALID FOR* Lightheadedness [R42] INVALID FOR* Harmful pattern of use of nicotine [Z72.0] INVALID FOR* Other chest pain [R07.89] INVALID FOR* Other instructions from your clinician: SMOKING CESSATION Stopping smoking is the most important thing you can do to protect your current and future health, as well as that of your family. It is the most potent risk factor for the future development of coronary artery disease and heart attacks. Smoking is both an addiction and a learned behavior. The nicotine withdrawal takes anywhere from 2-4 weeks and results in symptoms such as irritability, fatigue, insomnia, coughing, dizziness, poor concentration, hunger and cigarette cravings. After the nicotine withdrawal period, the learned linkage between certain acts or situations and cigarette use remain. Strategies to deal with these must be developed along with new behaviors to ensure successful smoking cessation. STRATEGIES TOWARD SMOKING CESSATION - Make a list of the reasons why you want to quit, plus the benefits to be gained, and compare them to the reasons why you should continue to smoke. - Pick a specific quit date. - If you are interested in using nicotine patches or gum to assist with the nicotine withdrawal, let the staff know. - Inform friends, family, and co-workers that you are quitting and when your quit date is. Ask for their understanding and support. - Prepare your environment by removing all cigarettes prior to your quit date. - Prior to your quit date, avoid smoking in places where you spend a lot of time (such as the house, work, car). - From previous quit attempts, identify what helped you to stop smoking. - From previous quit attempts, identify what triggered relapse. How can you avoid that again? - What things (situations, emotions) do you anticipate will be most challenging, especially in the first few weeks, to your quitting effort? - What can you do to address these challenges? - Avoid (or limit) alcohol consumption during the quitting process. - If your spouse or close coworker currently smoke, consider quitting together or at the very least, develop specific plans to maintain your cigarette abstinence while in the home or at work. - Take each day, each hour, each craving, one at a time. Every step or action you take toward smoking cessation is a success. The only failure is the failure to try. - The health of you and your family, is worth the effort. STOP SMOKING CHECK LIST Preparing to Quit: ___ Make a personal pact with yourself to quit. ___ Pick a date for quitting completely. (My date to quit is ____.) ___ Write down on a card the three most important reasons for quitting. Carry the card with you from now on. Look at it several times a day. ___ Prior to quitting, eliminate smoking completely in 2 or 3 of your high risk situations. ___ Reduce consumption to one pack per day or less. ___ Change to a less desirable brand of cigarettes. ___ Discard your typewriter assembler. Use matches. Carry your cigarettes in a different place. ___ Spend a little time each day picturing in your mind stressful events occurring in the future and you not smoking. Actual Quitting: The First Two Weeks ___ Get rid of all cigarettes. Put away all smoking related objects such as ashtrays. Ask the people you live with not to smoke in your presence for the first two weeks. ___ Spend as much time as possible with non-smoking people. ___ Keep busy, especially on evenings and weekends. ___ Avoid high risk situations (large parties, bars, etc.). ___ Spend lots of time in places that prohibit or discourage smoking (e.g., theaters, libraries.) ___ Drink plenty of fluids. ___ Don't substitute food or sugar based products for cigarettes. Use approved substitutions. (... ice water, high bulk/low calorie foods, sugarless gum, mouthwash, brushing teeth.) ___ Begin or increase regular exercise program. ___ When experiencing withdrawal effects: 1. Remind yourself why you are quitting (from your card). 2. Remind yourself that whatever discomfort you are experiencing is only a tiny fraction of the probable discomfort associated with continued smoking. 3. Practice deep breathing or other relaxation techniques - tapes. ___ Remind yourself that you can free yourself from this unhealthy, expensive, messy habit and become a non-smoker. Maintenance of Quitting: After two weeks ___ Remind yourself that the desire to smoke is linked to a great many situations, people and emotional stress. ___ When you do have a desire to smoke, remember that it only lasts a few seconds: distract yourself and leave the situation if necessary. ___ After each desire to smoke has passed, pat yourself on the back, you have just made progress in breaking the habit forever. ___ Save the money on wasted on cigarettes in a special fund and buy yourself something nice. Maintenance of Quitting: After Two Months ___ Be particularly vigilant when unusual life events occur. (.. weddings, holidays, vacations.) ___ Be particularly vigilant when stressful life events occur (e.g., relationship problems, financial or work problems.) ___ Remind yourself regularly that not smoking is completely within your personal control. ___ Never lull yourself into thinking you are out of danger and you can safely have a cigarette or two. -- you cannot!!!!! ___ If, by chance, you do slip and have one or more cigarettes, do not conclude that all is lost. Return to complete abstinence immediately and learn from your experience. ___ If you have gained significant weight since quitting, now is the time to do something about it. ___ Each time you see a cigarettes advertisement, remind yourself of why you quit. Also remember that a [employer] spends billions of dollars each year trying to get people like yourself re-hooked. Recommend: [place] Tobacco Quit Line: 2-091-Bjrk-Now ( ) Or [place] [employer]: for help and tips to quit smoking Prescriptions ordered this encounter Disp Refills Start End LISINOPRIL 10 MG TABLET 30 t* 11 10/25/2017 Route: ORAL Sig: Take 1 tablet by mouth once daily. FLUTICASONE 50 MCG/ACTUATION NASAL S* 1 [place]* 11 10/25/2017 Route: EACH NOSTRIL Sig: Use 2 Sprays in each nostril once daily. Rinse mouth after use. Medications Discontinued During This Encounter lisinopril (ZESTRIL, PRINIVIL) 20 mg* 30 t* 2 08/29/2017 10/25/2017 Class: Med Update Route: ORAL Sig: Take 0.5 tablets by mouth once daily. Disc: Changing Therapy/Dosage Form Encounter Status:Closed by SUZANNE CHANG CNP on 10/25/17 PROGRESS Observed: 10/19/2017 Status: COMPLETED Source: [place] 6:13 PM [facility] REPOSITORY HNO ID: [id number] Author: Cassandra (Pt) Tim Service: (none) Author Type: Physical Therapist Type: Progress Notes Filed: 10/19/2017 6:21 PM Note Text: Episode Visit Count: 5 Therapist That Will Oversee The Plan Of Care: Cassandra Dumont PT Start of Care Date: 09/22/17 Onset Date: 09/22/13 REHABILITATION AND SPORTS THERAPY PHYSICAL THERAPY DISCONTINUANCE OF CARE PLAN OF CARE UPDATE: Assessment: Chapin Velez is discontinued from Physical Therapy services due to maximal benefit.. Patient was seen for 5 visits from Start of Care Date: 09/22/17 to 10/19/2017 and treatment included: Therapeutic exercise, Manual therapy and Patient/Family/Caregiver Education. Patient has made minimal changes in her neck ROM and flexibility. She reports decreases in numbness and tingling of both arms. The neck pain still persists but it is not as intense. Patient to continue with her HEP independently. Goals updated on 10/19/2017. Wake in home exercise program.--MET Patient will decrease pain rating by 2 points to meet minimal clinical important difference for numeric pain rating scale.(Goal: 10/25)--MET Patient will increase active ROM of neck to minimal for cervical rotation and sidebending to allow pt to to achieve neutral postural alignment and improved performance of ADLs.--Not MET Patient will increase active ROM of R shoulder to equal L shoulder to allow pt to improved performance of ADLs. --PROGRESSING Patient will increase strength of shoulder muscles to 5/5 to allow for return to prior functional status and perform ADLs.--MET Perform sleeping with arm above head without pain.--MET Demonstrate improvement on functional score: Patient will improve his/her score on the Neck Disability Index by 7 points (14%) to indicate a Minimal Clinical Important Difference. (Goal: 2%)--Not MET SUBJECTIVE: Numbness and tingling less in both arms. Neck pain is still present, but feels the stretching exercises have helped. Working 12 hour shifts causes irritation of neck. Over Weekend was not as faithful in performing exercises and could tell, so returned to doing exercises. Started prednesione on Tuesday and feels better on the medication. Pain Score: 07/27 Pain Location: Neck - Right;Neck - Left Description: Sore Frequency: Continuous Post Treatment Pain Score: (Patient reported feeling looser) OBJECTIVE MEASURES WITH LEVEL OF FUNCTION: Cervical Spine AROM Cervical Protrusion: Normal Cervical Retraction: Minimal limitation Cervical Flexion: Normal Cervical Extension: Moderate limitation Cervical Side-Bend Right: Moderate limitation Cervical Side-Bend Left: Moderate limitation Cervical Rotation Right: Moderate limitation Cervical Rotation Left: Moderate limitataion UE AROM R Shoulder Flex: 125 Degrees R Shoulder ABduction: 128 Degrees R Shoulder External Rotation: (T2) UE Strength R Shoulder Abduction (C5): 5/5 R Shoulder External Rotation: 5/5 L Shoulder Flexion: 5/5 L Shoulder Abduction (C5): 5/5 TREATMENT: Therapeutic Exercise: 9: Clockwork without band x5 caused discomfort in R shoulder, so discontineud 10: *Bilateral ER x10 with no band 11: Verbally reviewed HEP: posterior shoulder rolls, scapular squeezes, B UT stretch, B levator scap stretch, cervical retraction, resistive scapular squeezes with blue theraband Skilled Intervention: Patient was educated in proper exercise technique and purpose for exercises. Reviewed and educated patient on additions/changes for home exercise program as above (*) Skilled judgment was provided in selection of appropriate interventions. Manual Therapy: 1: Lacrosse ball mobs B cervical , UT and levator scapular region with patient seated upright x 8 minutes. 2: Manual cervical traction x 10 minutes with pull to patient tolerance. 3: Suboccipital release x 10 minutes to patient tolerance. Skilled Intervention: Manual skills to improve joint mobility, ROM, and decrease pain. Utilized anatomy knowledge of the therapist, and assessment of patient's response to intervention. Billing: [facility]: Therapeutic Exercise ([id number]): 1:1 time: 12 minutes (1 unit: 8-22 mins) Manual Therapy ([id number]): 1:1 time: 28 minutes (2 units: 23- 37 mins) Total time: 40 minutes Cassandra Dumont PT CNTHERAPY Observed: 10/19/2017 Status: COMPLETED Source: [place] 3:30 PM [facility] REPOSITORY OT/PT/Speech Visit (PTWS) CHAPIN VELEZ V ([id number]) 1960 F Date Time Provider Department 10/19/17 3:30 PM CASSANDRA DUMONT (PT) PTWS Date Time Provider Department Center 10/19/2017 3:30 PM [id number], DIANA (PT)PTWS [facility] Reason for Visit: PT Progress Note [7056] PT Discharge [752] Reason For Visit History Recorded Primary Visit Diagnosis:Neck pain [M54.2] Allergies As of Date: 10/19/2017 Noted Allergy Reaction ADHESIVE TAPE (ROSINS) 10/18/2016 4 - Hives Comments: Patient had reaction after trigger finger surgery. Coban specifically NAPROXEN 03/14/2015 8 - GI Upset Date Reviewed: 10/17/2017 Reviewed by: Salena ([facility]) - Fully Assessed Prescriptions as of 10/19/2017 Sig: ALBUTEROL SULFATE HFA 90 MCG/* Inhale 2 Puffs as instructed * AMOXICILLIN 875 MG-POTASSIUM * Take 1 tablet by mouth twice * PREDNISONE 20 MG TABLET Take 2 tablets by mouth once * ALBUTEROL SULFATE 2.5 MG/3 ML* Use 3 mL via nebulizer one ti* HYDROXYZINE HCL 25 MG TABLET Take 1 tablet by mouth every * LISINOPRIL 20 MG TABLET Take 0.5 tablets by mouth onc* ASPIRIN 81 MG TABLET,DELAYED * Take 1 tablet by mouth once d* HYDROCHLOROTHIAZIDE 12.5 MG C* Take 1 capsule by mouth once * OMEPRAZOLE 40 MG CAPSULE,JACQUES* Take 1 capsule by mouth once * IBUPROFEN 200 MG TABLET Take 600 mg by mouth every 6 * GLUCOSAMINE 750 MG-CHONDROITI* Take by mouth. ESTRADIOL 0.01% (0.1 MG/GRAM)* Use 1 gram vaginally at night* * MULTIVITAMIN TABLET Take one(1) tablet daily. Progress Notes: Cassandra Dumont PT 10/19/2017 6:21 PM Signed Episode Visit Count: 5 Therapist That Will Oversee The Plan Of Care: Cassandra Dumont PT Start of Care Date: 09/22/17 Onset Date: 09/22/13 REHABILITATION AND SPORTS THERAPY PHYSICAL THERAPY DISCONTINUANCE OF CARE PLAN OF CARE UPDATE: Assessment: Chapin Velez is discontinued from Physical Therapy services due to maximal benefit.. Patient was seen for 5 visits from Start of Care Date: 09/22/17 to 10/19/2017 and treatment included: Therapeutic exercise, Manual therapy and Patient/Family/Caregiver Education. Patient has made minimal changes in her neck ROM and flexibility. She reports decreases in numbness and tingling of both arms. The neck pain still persists but it is not as intense. Patient to continue with her HEP independently. Goals updated on 10/19/2017. Wake in home exercise program.--MET Patient will decrease pain rating by 2 points to meet minimal clinical important difference for numeric pain rating scale.(Goal: 10/25)--MET Patient will increase active ROM of neck to minimal for cervical rotation and sidebending to allow pt to to achieve neutral postural alignment and improved performance of ADLs.--Not MET Patient will increase active ROM of R shoulder to equal L shoulder to allow pt to improved performance of ADLs. --PROGRESSING Patient will increase strength of shoulder muscles to 5/5 to allow for return to prior functional status and perform ADLs.--MET Perform sleeping with arm above head without pain.--MET Demonstrate improvement on functional score: Patient will improve his/her score on the Neck Disability Index by 7 points (14%) to indicate a Minimal Clinical Important Difference. (Goal: 2%)--Not MET SUBJECTIVE: Numbness and tingling less in both arms. Neck pain is still present, but feels the stretching exercises have helped. Working 12 hour shifts causes irritation of neck. Over Weekend was not as faithful in performing exercises and could tell, so returned to doing exercises. Started prednesione on Tuesday and feels better on the medication. Pain Score: 07/27 Pain Location: Neck - Right;Neck - Left Description: Sore Frequency: Continuous Post Treatment Pain Score: (Patient reported feeling looser) OBJECTIVE MEASURES WITH LEVEL OF FUNCTION: Cervical Spine AROM Cervical Protrusion: Normal Cervical Retraction: Minimal limitation Cervical Flexion: Normal Cervical Extension: Moderate limitation Cervical Side-Bend Right: Moderate limitation Cervical Side-Bend Left: Moderate limitation Cervical Rotation Right: Moderate limitation Cervical Rotation Left: Moderate limitataion UE AROM R Shoulder Flex: 125 Degrees R Shoulder ABduction: 128 Degrees R Shoulder External Rotation: (T2) UE Strength R Shoulder Abduction (C5): 5/5 R Shoulder External Rotation: 5/5 L Shoulder Flexion: 5/5 L Shoulder Abduction (C5): 5/5 TREATMENT: Therapeutic Exercise: 9: Clockwork without band x5 caused discomfort in R shoulder, so discontineud 10: *Bilateral ER x10 with no band 11: Verbally reviewed HEP: posterior shoulder rolls, scapular squeezes, B UT stretch, B levator scap stretch, cervical retraction, resistive scapular squeezes with blue theraband Skilled Intervention: Patient was educated in proper exercise technique and purpose for exercises. Reviewed and educated patient on additions/changes for home exercise program as above (*) Skilled judgment was provided in selection of appropriate interventions. Manual Therapy: 1: Lacrosse ball mobs B cervical , UT and levator scapular region with patient seated upright x 8 minutes. 2: Manual cervical traction x 10 minutes with pull to patient tolerance. 3: Suboccipital release x 10 minutes to patient tolerance. Skilled Intervention: Manual skills to improve joint mobility, ROM, and decrease pain. Utilized anatomy knowledge of the therapist, and assessment of patient's response to intervention. Billing: [facility]: Therapeutic Exercise ([id number]): 1:1 time: 12 minutes (1 unit: 8-22 mins) Manual Therapy ([id number]): 1:1 time: 28 minutes (2 units: 23- 37 mins) Total time: 40 minutes Cassandra Dumont PT XR CHEST 2V FRONTAL/LAT Observed: 10/17/2017 Status: F Source: [place] 4:35 PM [facility] REPOSITORY * * *Final Report* * * DATE OF EXAM: Oct 17 2017 4:35PM WOX [id number] - XR CHEST 2V FRONTAL/LAT / PROCEDURE REASON: Cough * * * * Physician Interpretation * * * * EXAMINATION: CHEST RADIOGRAPH (2 VIEW FRONTAL and LATERAL) Clinical History: Cough MQ: XC2_5 Comparison: None RESULT: Lines, tubes, and devices: None. Lungs and pleura: No consolidation. No lung mass. No pleural effusion. Cardiomediastinal silhouette: Normal cardiomediastinal silhouette. Other: . IMPRESSION: No acute radiographic abnormality. Metal Dealer: ENDER Transcribe Date/Time: Oct 17 2017 4:37P Dictated by : OLIVIER JACOBSON MD This examination was interpreted and the report reviewed and electronically signed by: OLIVIER JACOBSON MD on Oct 17 2017 4:38PM EST [id number] Observed: 10/17/2017 Status: COMPLETED Source: [place] 4:28 PM [facility] REPOSITORY HNO ID: [id number] Author: Merry Mcallister (Rt) Service: (none) Author Type: Casino Gaming Inspector Type: Progress Notes Filed: 10/17/2017 4:35 PM Note Text: Radiology Service Progress Note PATIENT NAME: Chapin Velez DATE OF SERVICE: October 17, 2017 TIME: 4:28 PM PATIENT IDENTITY VERIFICATION COMPLETED USING TWO (2) METHODS: Patient confirmed name verbally and Date of . PATIENT GENDER DATA: Female. status: : No status: NO. PATIENT RELEVANT IMPLANT DATA REVIEWED: Not Applicable RADIOLOGY DEPARTMENT: General X-ray: Exam(s) Completed: Chest X-Ray PERIPHERAL IV DATA: Not applicable SIGNED BY: RT Ary October 17, 2017 4:28 PM PROGRESS Observed: 10/17/2017 Status: COMPLETED Source: [place] 4:08 PM [facility] REPOSITORY HNO ID: [id number] Author: Salena Burgos Service: (none) Author Type: Nurse Practitioner Type: Progress Notes Filed: 10/17/2017 5:15 PM Note Text: Subjective HPI HPI Chapin Velez is a 57 year old female who presents today for CC of cough. This started 3 months ago. Has tried otc medications. Symptoms are worsened by nothing. Risk factors patient is long time smoker. .Patient presents with: Cough: x 3 months cough and chest discomfort Ear Pain: x 3 months PAST MEDICAL HISTORY Diagnosis Date - Adrenal adenoma 10/06/2012 bilateral--recheck CT in 1 yr - Cervical arthritis (HCC) 09/27/2012 - Degenerative arthritis of carpometacarpal joint of thumb 12/07/2013 - Degenerative arthritis of cervical spine with nerve compression 10/26/2012 - Essential hypertension, benign 12/07/2013 - Lumbar degenerative disc disease 10/26/2012 - Lumbar disc disease with radiculopathy 12/07/2013 PAST SURGICAL HISTORY Procedure Laterality Date - COLONOSCOP W/ OR W/O BRSH SPEC 10/11/2013 Colonoscopy - COLONOSCOP W/ OR W/O BRSH SPEC Colonoscopy - EGD W/O OR W/BRUSH/WASH 05/05/15 EGD - INCISE FINGER TENDON SHEATH Left 10/13/2016 Left trigger thumb release - LAPAROSCOPIC CHOLEYCYSTECTOMY Cholecystectomy, lap - LIGATE FALLOPIAN TUBE Tubal ligation - TONSILLECTOMY HX unsure if adnoids removed - TYMPANOSTOMY LOCAL; UNILATERAL ALLERGIES Adhesive Tape (Rosins); Naproxen MEDICATIONS hydrOXYzine HCl (ATARAX) 25 mg tablet Take 1 tablet by mouth every 6 hours as needed for Anxiety. lisinopril (ZESTRIL, PRINIVIL) 20 mg tablet Take 0.5 tablets by mouth once daily. aspirin, enteric coated (ADULT ASPIRIN REGIMEN) 81 mg EC tablet Take 1 tablet by mouth once daily. Hydrochlorothiazide 12.5 mg capsule Take 1 capsule by mouth once daily. Omeprazole (PRILOSEC) 40 mg capsule Take 1 capsule by mouth once daily. ibuprofen (MOTRIN) 200 mg tablet Take 600 mg by mouth every 6 hours as needed for Pain. odzb-mfxi-bnc#9-S-fhgn-noah-bor (OSTEO BI-FLEX TRIPLE STRENGTH) 750 mg-644 mg- 30 mg-1 mg tab Take by mouth. estradiol (ESTRACE) 0.01 % (0.1 mg/gram) vaginal cream Use 1 gram vaginally at night for two weeks, then use 1/2gram 1-3 times weekly for maintenance therapy. MULTIVITAMIN TAB Take one(1) tablet daily. FAMILY HISTORY Problem Relation Age of Onset - Diabetes Mother - Hypertension Mother - CHF [OTHER] Mother - Pacemaker [OTHER] Mother - Emphysema Father - Diabetes Sister - COPD Sister - COPD Paternal Aunt - Cancer Sister lymphoma - Breast Cancer Paternal Aunt - Ischemic Heart Disease Maternal Grandfather Social History Substance Use Topics - Smoking status: Current Every Day Smoker Packs/day: 1.00 Types: Cigarettes Start date: 07/18/1977 - Smokeless tobacco: Never Used - Alcohol use No Review of Systems Constitutional: Negative for chills, fever and weight loss. HENT: Positive for congestion and ear pain. Negative for nosebleeds and sore throat. Respiratory: Positive for cough. Negative for shortness of breath and wheezing. Musculoskeletal: Negative for neck pain. Objective Blood pressure 132/72, pulse 72, temperature 36.9 ?C (98.5 ?F), temperature source Left Tympanic, resp. rate 16, weight 74.8 kg (165 lb), last menstrual period 02/07/2012, SpO2 100 %. Physical Exam Constitutional: She is oriented to person, place, and time and well-developed, well-nourished, and in no distress. Non-toxic appearance. She does not have a sickly appearance. No distress. HENT: Head: Normocephalic and atraumatic. Right Ear: Hearing, tympanic membrane, external ear and ear canal normal. Left Ear: Hearing, external ear and ear canal normal. Tympanic membrane is erythematous and bulging. Tympanic membrane is not perforated. Nose: Nose normal. Mouth/Throat: Uvula is midline, oropharynx is clear and moist and mucous membranes are normal. Eyes: Conjunctivae and lids are normal. Pupils are equal, round, and reactive to light. Right eye exhibits no discharge. Left eye exhibits no discharge. No scleral icterus. Neck: Trachea normal and normal range of motion. Neck supple. Cardiovascular: Normal rate, regular rhythm and normal heart sounds. Pulmonary/Chest: Effort normal and breath sounds normal. Lymphadenopathy: She has no cervical adenopathy. Neurological: She is alert and oriented to person, place, and time. Skin: No rash noted. She is not diaphoretic. ASSESSMENT/PLAN: 1. Cough - ICD9: 786.2, ICD10: R05 (primary diagnosis) Xray clear -concerns are raised with recent initiation of BLADE inhibitor vs penitentiary hx of smoking -treat as below -will schedule f/u with pcp in 7 days for recheck -If you experience chest pain/shortness of breath go to ER - XR CHEST 2V FRONTAL/LAT - Dictated by : OLIVIER JACOBSON MD IMPRESSION: No acute radiographic abnormality. - PREDNISONE 20 MG TABLET - ALBUTEROL SULFATE 2.5 MG/3 ML (0.083 %) SOLUTION FOR NEBULIZATION 2. Acute otitis media, left - ICD9: 382.9, ICD10: H66.92 - Will begin treatment with Augmentin 875 mg PO BID for 10 days - Supportive care with plenty of fluids, rest, and analgesia prn. - Follow up in 3-5 days if symptoms persist or worsen. - AMOXICILLIN 875 MG-POTASSIUM CLAVULANATE 125 MG TABLET Prescription instructions reviewed with patient as applicable. Patient advised if symptoms do not improve or if symptoms worsen sooner, to contact the office for further evaluation by their primary care physician. Potential red flag symptoms discussed with the patient. Reviewed appropriate action plan to take if red flag symptoms occur. Patient agreeable to treatment plan. Salena Burgos APRN.SYED CNOV Observed: 10/17/2017 Status: COMPLETED Source: [place] 4:00 PM [facility] REPOSITORY Office Visit (WSTR) CHAPIN VELEZ V ([id number]) 1960 F Date Time Provider Department 10/17/17 4:00 PM SALENA BURGOS (SYED) [facility] During your visit today, we recorded the following information about you: Temperature Pulse Respiration Blood pressure 98.5 degrees 72/minute 16/minute 132/72 Weight 74.8 kg Salena Burgos APRN.CNP 10/17/2017 5:15 PM Signed Subjective HPI HPI Chapin Donatoadia is a 57 year old female who presents today for CC of cough. This started 3 months ago. Has tried otc medications. Symptoms are worsened by nothing. Risk factors patient is long time smoker. .Patient presents with: Cough: x 3 months cough and chest discomfort Ear Pain: x 3 months PAST MEDICAL HISTORY Diagnosis Date - Adrenal adenoma 10/06/2012 bilateral--recheck CT in 1 yr - Cervical arthritis (HCC) 09/27/2012 - Degenerative arthritis of carpometacarpal joint of thumb 12/07/2013 - Degenerative arthritis of cervical spine with nerve compression 10/26/2012 - Essential hypertension, benign 12/07/2013 - Lumbar degenerative disc disease 10/26/2012 - Lumbar disc disease with radiculopathy 12/07/2013 PAST SURGICAL HISTORY Procedure Laterality Date - COLONOSCOP W/ OR W/O BRSH SPEC 10/11/2013 Colonoscopy - COLONOSCOP W/ OR W/O BRSH SPEC Colonoscopy - EGD W/O OR W/BRUSH/WASH 05/05/15 EGD - INCISE FINGER TENDON SHEATH Left 10/13/2016 Left trigger thumb release - LAPAROSCOPIC CHOLEYCYSTECTOMY Cholecystectomy, lap - LIGATE FALLOPIAN TUBE Tubal ligation - TONSILLECTOMY HX unsure if adnoids removed - TYMPANOSTOMY LOCAL; UNILATERAL ALLERGIES Adhesive Tape (Rosins); Naproxen MEDICATIONS hydrOXYzine HCl (ATARAX) 25 mg tablet Take 1 tablet by mouth every 6 hours as needed for Anxiety. lisinopril (ZESTRIL, PRINIVIL) 20 mg tablet Take 0.5 tablets by mouth once daily. aspirin, enteric coated (ADULT ASPIRIN REGIMEN) 81 mg EC tablet Take 1 tablet by mouth once daily. Hydrochlorothiazide 12.5 mg capsule Take 1 capsule by mouth once daily. Omeprazole (PRILOSEC) 40 mg capsule Take 1 capsule by mouth once daily. ibuprofen (MOTRIN) 200 mg tablet Take 600 mg by mouth every 6 hours as needed for Pain. blrt-vkab-[id number]#6-A-kpju-noah-bor (OSTEO BI-FLEX TRIPLE STRENGTH) 750 mg-644 mg- 30 mg-1 mg tab Take by mouth. estradiol (ESTRACE) 0.01 % (0.1 mg/gram) vaginal cream Use 1 gram vaginally at night for two weeks, then use 1/2gram 1-3 times weekly for maintenance therapy. MULTIVITAMIN TAB Take one(1) tablet daily. FAMILY HISTORY Problem Relation Age of Onset - Diabetes Mother - Hypertension Mother - CHF [OTHER] Mother - Pacemaker [OTHER] Mother - Emphysema Father - Diabetes Sister - COPD Sister - COPD Paternal Aunt - Cancer Sister lymphoma - Breast Cancer Paternal Aunt - Ischemic Heart Disease Maternal Grandfather Social History Substance Use Topics - Smoking status: Current Every Day Smoker Packs/day: 1.00 Types: Cigarettes Start date: 07/18/1977 - Smokeless tobacco: Never Used - Alcohol use No Review of Systems Constitutional: Negative for chills, fever and weight loss. HENT: Positive for congestion and ear pain. Negative for nosebleeds and sore throat. Respiratory: Positive for cough. Negative for shortness of breath and wheezing. Musculoskeletal: Negative for neck pain. Objective Blood pressure 132/72, pulse 72, temperature 36.9 ?C (98.5 ?F), temperature source Left Tympanic, resp. rate 16, weight 74.8 kg (165 lb), last menstrual period 02/07/2012, SpO2 100 %. Physical Exam Constitutional: She is oriented to person, place, and time and well-developed, well-nourished, and in no distress. Non-toxic appearance. She does not have a sickly appearance. No distress. HENT: Head: Normocephalic and atraumatic. Right Ear: Hearing, tympanic membrane, external ear and ear canal normal. Left Ear: Hearing, external ear and ear canal normal. Tympanic membrane is erythematous and bulging. Tympanic membrane is not perforated. Nose: Nose normal. Mouth/Throat: Uvula is midline, oropharynx is clear and moist and mucous membranes are normal. Eyes: Conjunctivae and lids are normal. Pupils are equal, round, and reactive to light. Right eye exhibits no discharge. Left eye exhibits no discharge. No scleral icterus. Neck: Trachea normal and normal range of motion. Neck supple. Cardiovascular: Normal rate, regular rhythm and normal heart sounds. Pulmonary/Chest: Effort normal and breath sounds normal. Lymphadenopathy: She has no cervical adenopathy. Neurological: She is alert and oriented to person, place, and time. Skin: No rash noted. She is not diaphoretic. ASSESSMENT/PLAN: 1. Cough - ICD9: 786.2, ICD10: R05 (primary diagnosis) Xray clear -concerns are raised with recent initiation of BLADE inhibitor vs penitentiary hx of smoking -treat as below -will schedule f/u with pcp in 7 days for recheck -If you experience chest pain/shortness of breath go to ER - XR CHEST 2V FRONTAL/LAT - Dictated by : OLIVIER JACOBSON MD IMPRESSION: No acute radiographic abnormality. - PREDNISONE 20 MG TABLET - ALBUTEROL SULFATE 2.5 MG/3 ML (0.083 %) SOLUTION FOR NEBULIZATION 2. Acute otitis media, left - ICD9: 382.9, ICD10: H66.92 - Will begin treatment with Augmentin 875 mg PO BID for 10 days - Supportive care with plenty of fluids, rest, and analgesia prn. - Follow up in 3-5 days if symptoms persist or worsen. - AMOXICILLIN 875 MG-POTASSIUM CLAVULANATE 125 MG TABLET Prescription instructions reviewed with patient as applicable. Patient advised if symptoms do not improve or if symptoms worsen sooner, to contact the office for further evaluation by their primary care physician. Potential red flag symptoms discussed with the patient. Reviewed appropriate action plan to take if red flag symptoms occur. Patient agreeable to treatment plan. Salena Burgos APRN.SYED Burgos APRN.CNP 10/17/2017 4:56 PM Signed OTITIS MEDIA GENERAL INFORMATION: Otitis media is an infection of the middle ear. The middle ear sits behind the eardrum. This infection may be caused by a virus or bacteria and often follows a cold. Children often have repeat ear infections. Otitis media is not contagious. INSTRUCTIONS: 1. An antibiotic has been prescribed. It should be taken exactly as prescribed. Do not stop the medicine even if the symptoms go away. 2. Dldy-mwh-dzhkocg pain medication may be taken or other pain medication as prescribed by the doctor. 3. Nothing should be placed in the ear unless instructed by your doctor. 4. The patient may return to school/daycare or work when the temperature is normal (98.6 F or 37 C). 5. The patient should not swim while the ear is infected. CONTACT YOUR DOCTOR IF YOU OR YOUR CHILD: 1. Does not feel better within 36 hours. 2. Develops a temperature over 102E F (39E C). 3. Starts vomiting or has diarrhea. 4. Develops drainage from the affected ear. 5. Has any new problem that may be related to the medicine prescribed. RETURN TO THE ED IF: 1. You or your child has a severe headache or pain around the ear. 2. You or your child notice swelling around the ear. 3. You or your child has a seizure (convulsion), twitching of the facial muscles, or passes out. 4. You or your child is dizzy, has a stiff neck, or cannot walk or talk normally. 5. Your child becomes more irritable or listless (not interested in his or her surroundings, does not get soothed by you holding him or her). Referring Provider: JESSICA CROSS III [[id number]] Allergies As of Date: 10/17/2017 Noted Allergy Reaction ADHESIVE TAPE (ROSINS) 10/18/2016 4 - Hives Comments: Patient had reaction after trigger finger surgery. Coban specifically NAPROXEN 03/14/2015 8 - GI Upset Date Reviewed: 10/17/2017 Reviewed by: Salena (Syed) - Fully Assessed Reason for Visit: Cough [28] Cmt: x 3 months cough and chest discomfort Ear Pain [817] Cmt: x 3 months Primary Visit Diagnosis:Cough [R05] Other Visit Diagnosis:Acute otitis media, left [H66.92] Order(s):XR CHEST 2V FRONTAL/LAT [[id number]] Order #: [id number] FUTURE amoxicillin-clavulanic acid (AUGMENTIN) 875-125 mg per tabletTake 1 tablet by mouth twice daily for 10 days.Disp: 20 tabletRfl: 0 predniSONE (DELTASONE) 20 mg tabletTake 2 tablets by mouth once daily for 5 days.Disp: 10 tabletRfl: 0 albuterol (PROVENTIL) 2.5 mg /3 mL (0.083 %) nebulizer solutionUse 3 mL via nebulizer one time only for 1 dose. Use over 5-15minutes.Disp: 3 mLRfl: 0 Prescriptions as of 10/17/2017 Sig: HYDROXYZINE HCL 25 MG TABLET Take 1 tablet by mouth every * LISINOPRIL 20 MG TABLET Take 0.5 tablets by mouth onc* ASPIRIN 81 MG TABLET,DELAYED * Take 1 tablet by mouth once d* HYDROCHLOROTHIAZIDE 12.5 MG C* Take 1 capsule by mouth once * OMEPRAZOLE 40 MG CAPSULE,JACQUES* Take 1 capsule by mouth once * IBUPROFEN 200 MG TABLET Take 600 mg by mouth every 6 * GLUCOSAMINE 750 MG-CHONDROITI* Take by mouth. ESTRADIOL 0.01% (0.1 MG/GRAM)* Use 1 gram vaginally at night* * MULTIVITAMIN TABLET Take one(1) tablet daily. AMOXICILLIN 875 MG-POTASSIUM * Take 1 tablet by mouth twice * PREDNISONE 20 MG TABLET Take 2 tablets by mouth once * ALBUTEROL SULFATE 2.5 MG/3 ML* Use 3 mL via nebulizer one ti* Problem List As Of Date 10/17/2017 Noted Resolved PALPITATIONS [R00.2] INVALID FOR* DYSMETABOLIC SYNDROME X [E88.81] INVALID FOR* Plantar Fasciitis [M72.2] INVALID FOR* GERD (Gastroesophageal Reflux Disease) [K21.9] INVALID FOR* Tobacco Abuse [Z72.0] INVALID FOR* Calcaneal spur [M77.30] INVALID FOR* Cervicalgia [M54.2] INVALID FOR*09/27/2012 Inclusion cyst of vulva [N90.7] INVALID FOR* Cervical arthritis (HCC) [M46.92] INVALID FOR*10/01/2016 Microscopic hematuria [R31.29] INVALID FOR*10/01/2016 Adrenal adenoma [D35.00] INVALID FOR* More... Hematuria, microscopic [R31.29] INVALID FOR* Tobacco use disorder [F17.200] INVALID FOR* Urinary frequency [R35.0] INVALID FOR* Urgency of urination [R39.15] INVALID FOR* Degenerative arthritis of cervical spine with n*INVALID FOR* Lumbar degenerative disc disease [M51.36] INVALID FOR* PMB (postmenopausal bleeding) [N95.0] INVALID FOR*10/01/2016 Thickened endometrium [R93.8] INVALID FOR* Tongue coating [K14.3] INVALID FOR* Glossitis [K14.0] INVALID FOR* Degenerative arthritis of carpometacarpal joint*INVALID FOR* Essential hypertension, benign [I10] INVALID FOR* More... Lumbar disc disease with radiculopathy [M51.16] INVALID FOR* Cervicalgia [M54.2] INVALID FOR* Sciatica [M54.30] INVALID FOR* Neck pain [M54.2] INVALID FOR* Cervical spondylosis without myelopathy [M47.81*INVALID FOR* Facet arthropathy, cervical [M46.92] INVALID FOR* Lumbosacral neuritis [M54.17] INVALID FOR* Lumbar spondylosis [M47.816] INVALID FOR* Overactive bladder [N32.81] INVALID FOR*10/01/2016 NSAID induced gastritis [K29.60, T39.395A] INVALID FOR* Hyperlipidemia [E78.5] INVALID FOR* Bilateral hand numbness [R20.0] INVALID FOR* Trigger thumb of left hand [M65.312] INVALID FOR* Arthritis of hand [M19.049] INVALID FOR* Chest pain [R07.9] INVALID FOR* Chronic sinusitis [J32.9] INVALID FOR* Lightheadedness [R42] INVALID FOR* Harmful pattern of use of nicotine [Z72.0] INVALID FOR* Other chest pain [R07.89] INVALID FOR* Other instructions from your clinician: OTITIS MEDIA GENERAL INFORMATION: Otitis media is an infection of the middle ear. The middle ear sits behind the eardrum. This infection may be caused by a virus or bacteria and often follows a cold. Children often have repeat ear infections. Otitis media is not contagious. INSTRUCTIONS: 1. An antibiotic has been prescribed. It should be taken exactly as prescribed. Do not stop the medicine even if the symptoms go away. 2. Bbgs-etb-ojnwrxu pain medication may be taken or other pain medication as prescribed by the doctor. 3. Nothing should be placed in the ear unless instructed by your doctor. 4. The patient may return to school/daycare or work when the temperature is normal (98.6 F or 37 C). 5. The patient should not swim while the ear is infected. CONTACT YOUR DOCTOR IF YOU OR YOUR CHILD: 1. Does not feel better within 36 hours. 2. Develops a temperature over 102E F (39E C). 3. Starts vomiting or has diarrhea. 4. Develops drainage from the affected ear. 5. Has any new problem that may be related to the medicine prescribed. RETURN TO THE ED IF: 1. You or your child has a severe headache or pain around the ear. 2. You or your child notice swelling around the ear. 3. You or your child has a seizure (convulsion), twitching of the facial muscles, or passes out. 4. You or your child is dizzy, has a stiff neck, or cannot walk or talk normally. 5. Your child becomes more irritable or listless (not interested in his or her surroundings, does not get soothed by you holding him or her). Prescriptions ordered this encounter Disp Refills Start End AMOXICILLIN 875 MG-POTASSIUM CLAVULA* 20 t* 0 10/17/2017 10/27/2017 Route: ORAL Sig: Take 1 tablet by mouth twice daily for 10 days. PREDNISONE 20 MG TABLET 10 t* 0 10/17/2017 10/22/2017 Route: ORAL Sig: Take 2 tablets by mouth once daily for 5 days. ALBUTEROL SULFATE 2.5 MG/3 ML (0.083* 3 mL 0 10/17/2017 10/17/2017 Class: In Office Route: NEBULIZATION Sig: Use 3 mL via nebulizer one time only for 1 dose. Use over 5-15minutes. Encounter Status:Closed by SALENA BURGOS CNP on 10/17/17 PROGRESS Observed: 10/10/2017 Status: COMPLETED Source: [place] 4:31 PM [facility] [place] REPOSITORY HNO ID: [id number] Author: Cassandra (Pt) Tim Service: (none) Author Type: Physical Therapist Type: Progress Notes Filed: 10/11/2017 2:36 PM Note Text: Episode Visit Count: 4 Therapist That Will Oversee The Plan Of Care: Cassandra Dumont PT Start of Care Date: 09/22/17 Onset Date: 09/22/13 [facility] PHYSICAL THERAPY TREATMENT NOTE ASSESSMENT: Chapin Velez demonstrated improvements in pain with return to work after being off for 7 days. She had no increase pain with work the past 3 days. Patient continues to have tightness B upper trap region. The patient will continue to benefit from continued skilled physical therapy for postural strength, Cervical ROM and manual techniques for pain control. PLAN FOR NEXT VISIT: Add clockwork ex next visit. POC Update: 10/19/2017 SUBJECTIVE: Patient reports feeling better.She reports feeling really good after last therapy. She reports decrease numbness and tingling into arms. Patient reports working last 3 days after being off for 7 days and did not have increase pain. Pain Score: 4/10 Pain Location: Neck - Right;Neck - Left Description: Sore Frequency: Continuous Post Treatment Pain Score: No Change Post Treatment Pain Description: (looser with still 4/10 pain.) OBJECTIVE MEASURES WITH LEVEL OF FUNCTION: B upper trap with palpable tightness. TREATMENT: Therapeutic Exercise: 1: Posterior Shoulder rolls 1x15. 2: Scapular squeezes x10. 3: B UT stretch 2x30 seconds. 4: B levator scapula stretch 2x30 seconds. 5: B shoulder gordon flexion and abduction 2x10 in pain free range. 6: Cervical retraction 1x10. 7: UBE seat height 2, seat 5, legs 5 x 5 minutes. Spoke with patient regarding progression of exercise during this time. 8: Resistive scapular retraction with blue band 2x15 reps. Skilled Intervention: Patient was educated in proper exercise technique and purpose for exercises. Skilled judgment was provided in selection of appropriate interventions. Correct performance of therapeutic exercises was facilitated with verbal cuing. Manual Therapy: 1: Lacrosse ball mobs B cervical , UT and levator scapular region with patient seated upright x 8 minutes. 2: Manual cervical traction x 5 minutes with pull to patient tolerance. 3: Suboccipital release x 5 minutes to patient tolerance. Skilled Intervention: Manual skills to improve joint mobility, ROM, and decrease pain. Utilized anatomy knowledge of the therapist, and assessment of patient's response to intervention. Billing: [facility]: Therapeutic Exercise ([id number]): 1:1 time: 30 minutes (2 units: 23-37 mins) Manual Therapy ([id number]): 1:1 time: 18 minutes (1 unit: 8-22 mins) Total time: 48 minutes AWILDA Brooke PT CNTHERAPY Observed: 10/10/2017 Status: COMPLETED Source: [place] 3:30 PM [facility] REPOSITORY OT/PT/Speech Visit (PTWS) CHAPIN VELEZ V ([id number]) 1960 F Date Time Provider Department 10/10/17 3:30 PM TOM ORDOÑEZ (ASSISTANT PRODUCER) PTWS Date Time Provider Department Center 10/10/2017 3:30 PM [id number], NANCY (ASSISTANT PRODUCER) PTWS [facility] Reason for Visit: Physical Therapy [503] Primary Visit Diagnosis:Neck pain [M54.2] Allergies As of Date: 10/10/2017 Noted Allergy Reaction ADHESIVE TAPE (ROSINS) 10/18/2016 4 - Hives Comments: Patient had reaction after trigger finger surgery. Coban specifically NAPROXEN 03/14/2015 8 - GI Upset Date Reviewed: 09/16/2017 Reviewed by: Sally Lopes Program Associate - Fully Assessed Prescriptions as of 10/10/2017 Sig: HYDROXYZINE HCL 25 MG TABLET Take 1 tablet by mouth every * LISINOPRIL 20 MG TABLET Take 0.5 tablets by mouth onc* ASPIRIN 81 MG TABLET,DELAYED * Take 1 tablet by mouth once d* HYDROCHLOROTHIAZIDE 12.5 MG C* Take 1 capsule by mouth once * OMEPRAZOLE 40 MG CAPSULE,JACQUES* Take 1 capsule by mouth once * IBUPROFEN 200 MG TABLET Take 600 mg by mouth every 6 * GLUCOSAMINE 750 MG-CHONDROITI* Take by mouth. ESTRADIOL 0.01% (0.1 MG/GRAM)* Use 1 gram vaginally at night* * MULTIVITAMIN TABLET Take one(1) tablet daily. Progress Notes: Cassandra Dumont, PT 10/11/2017 2:36 PM Signed Episode Visit Count: 4 Therapist That Will Oversee The Plan Of Care: Cassandra Dumont PT Start of Care Date: 09/22/17 Onset Date: 09/22/13 RE[facility]ABIL[facility]ATION [facility]ORTS [facility]ERAP[facility] PHYSICAL THERAPY TREATMENT NOTE ASSESSMENT: Chapin Velez demonstrated improvements in pain with return to work after being off for 7 days. She had no increase pain with work the past 3 days. Patient continues to have tightness B upper trap region. The patient will continue to benefit from continued skilled physical therapy for postural strength, Cervical ROM and manual techniques for pain control. PLAN FOR NEXT VISIT: Add clockwork ex next visit. POC Update: 10/19/2017 SUBJECTIVE: Patient reports feeling better.She reports feeling really good after last therapy. She reports decrease numbness and tingling into arms. Patient reports working last 3 days after being off for 7 days and did not have increase pain. Pain Score: 4/10 Pain Location: Neck - Right;Neck - Left Description: Sore Frequency: Continuous Post Treatment Pain Score: No Change Post Treatment Pain Description: (looser with still 4/10 pain.) OBJECTIVE MEASURES WITH LEVEL OF FUNCTION: B upper trap with palpable tightness. TREATMENT: Therapeutic Exercise: 1: Posterior Shoulder rolls 1x15. 2: Scapular squeezes x10. 3: B UT stretch 2x30 seconds. 4: B levator scapula stretch 2x30 seconds. 5: B shoulder gordon flexion and abduction 2x10 in pain free range. 6: Cervical retraction 1x10. 7: UBE seat height 2, seat 5, legs 5 x 5 minutes. Spoke with patient regarding progression of exercise during this time. 8: Resistive scapular retraction with blue band 2x15 reps. Skilled Intervention: Patient was educated in proper exercise technique and purpose for exercises. Skilled judgment was provided in selection of appropriate interventions. Correct performance of therapeutic exercises was facilitated with verbal cuing. Manual Therapy: 1: Lacrosse ball mobs B cervical , UT and levator scapular region with patient seated upright x 8 minutes. 2: Manual cervical traction x 5 minutes with pull to patient tolerance. 3: Suboccipital release x 5 minutes to patient tolerance. Skilled Intervention: Manual skills to improve joint mobility, ROM, and decrease pain. Utilized anatomy knowledge of the therapist, and assessment of patient's response to intervention. Billing: [facility]: Therapeutic Exercise ([id number]): 1:1 time: 30 minutes (2 units: 23-37 mins) Manual Therapy ([id number]): 1:1 time: 18 minutes (1 unit: 8-22 mins) Total time: 48 minutes Tom Ordoñez PT-Jeremy Dumont PT Previous Version Follow-up and Disposition History Recorded CARDIOLOGY VISIT Observed: 10/05/2017 Status: F Source: [place] REPORT 3:58 PM [facility] REPOSITORY [facility] [address] [place] [address] OFFICE VISIT Date of Service: 07/27/17 MR#: [id number] Acct: [id number] Name: CHAPIN VELEZ V Rep #: [id number] : 1960 Provider: Santiago Hernandez MD Age/Sex: 57/F Location: [facility] Status: Signed HPI [facility] 07/15/17: Details: CHAPIN VELEZ, is a 57 F who presents to the office today for Intake Vital Signs07/27/17 Body Mass Index (BMI) 25.4 Intake Visit Reasons: [facility] 07/15/17 Allergies No Known Allergies Allergy (Verified 09/05/17 14:10) Medications Hydrochlorothiazide [Hydrochlorothiazide] 12.5 mg PO DAILY 03/29/16 [History Confirmed 09/05/17] Omeprazole [Prilosec] 40 mg PO DAILY 03/29/16 [History Confirmed 09/05/17] glucosamine [id number] mercedez 1,500 mg-400 unit-100 mg tablet 1 tab PO QAM 07/27/17 [History Confirmed 09/05/17] inulin 2 gram chewable tablet g PO QDAY ea 01/10/18 [History Confirmed 09/05/17] lactobacillus combination no.4 3 billion cell capsule 3,000 mmu cells PO QDAY 07/27/17 [History Confirmed 09/05/17] multivitamin,tm-sdbo-dvgnyuhi tablet 1 tab PO QDAY 07/27/17 [History Confirmed 09/05/17] aspirin 81 mg tablet,delayed release 81 mg PO QDAY tab 09/05/17 [History Confirmed 09/05/17] ibuprofen 200 mg tablet 600 mg PO TID PRN tab 09/05/17 [History Confirmed 09/05/17] lisinopril 20 mg tablet 10 mg PO DAILY tab 09/05/17 [History Confirmed 09/05/17] PFSH Medical History Lightheadedness (Acute) Hypertension (Chronic) Nicotine abuse (Chronic) Chest pain (Acute) Palpitations (Acute) GERD (gastroesophageal reflux disease) (Chronic) Spinal stenosis (Chronic) Palpitations (Inactive) Surgical History H/O tubal ligation (Chronic) Hx of cholecystectomy (Chronic) Status post trigger finger release (Chronic) history of epidural steroid injections (Chronic) Family History Mother CAD (coronary artery disease), Onset Age: 60 CHF CAD Stent Diabetes Sister Diabetes Social History Smoking Status: Current every day smoker alcohol intake: never substance use type: does not use caffeine: Yes (3 per day) Type: carbonated beverages what type of physical activity do you participate in: none seatbelt use: always do you feel safe at home: Yes ROS Const Const: Positive for other (Recently diagnosed with HTN 07/05/17); negative for fatigue, weakness, difficulty sleeping, frequent falls, headache(s) or excessive sweating Eyes Eyes: Negative for loss of peripheral vision, transient loss of vision or blurry vision ENT ENT: Negative for headache(s), Negative for balance problems Cardio Chest Pain: No Palpitations: Positive for Yes (new onset palpatations, chest tightness and lightheadedness) Edema: None Muscle aches with walking: None Resp Respiratory: Negative for SOB with activity, SOB at rest, SOB orthopnea\SOB lying down or paroxysmal nocturnal dyspnea Additional Details: Presently being treated for sinus infection GI GI: Negative nausea or heartburn : Negative for hematuria Musc Musc: Negative for muscle aches/ myalgia, muscle weakness, joint pain or balance problems Skin Skin: Negative non-healing lesions, unusual bruising or rash Neuro Neuro: Negative for weakness, Negative for frequent falls, Negative for headache(s), Negative for blurry vision Brennen Hematologic/Lymphatic: Negative for easy bruising Endo Endo: Negative for fatigue or excessive sweating Psych Psych: Negative for anxiety or depression Allergy Allergy/Immunology: Negative for hives, Negative for rash Assessment AND Plan Orders Orders: Plan Detail Follow Up 6 Weeks (mmm) Coding Level of Care Code Off vis,est,level 3 Coding Level of Care Code Off vis,est,level 3 10/05/17 1558 <Electronically signed by Santiago Hernandez MD> Date [facility] Signature: Date (if applicable) CC: Jessica Cross III, MD PROGRESS Observed: 10/05/2017 Status: COMPLETED Source: [place] 3:53 PM [facility] [place] REPOSITORY HNO ID: [id number] Author: Cassandra (Pt) Tim Service: (none) Author Type: Physical Therapist Type: Progress Notes Filed: 10/06/2017 11:21 AM Note Text: Episode Visit Count: 3 Therapist That Will Oversee The Plan Of Care: Cassandra Dumont PT Start of Care Date: 09/22/17 Onset Date: 09/22/13 REHABILITATION AND SPORTS THERAPY PHYSICAL THERAPY TREATMENT NOTE ASSESSMENT: Chapin Velez demonstrated difficulty with levator scapula stretch if she pushed too far with pain on contralateral side. Instructed patient to go in smaller ROM and this exercise was tolerated better with less discomfort. Advanced scapular stabilization and added manual cervical traction and suboccipital release with a reduction in pain noted by patient with active cervical movements. The patient will continue to benefit from continued skilled physical therapy for ROM, strengthening and manual therapy for pain control of cervical region. PLAN FOR NEXT VISIT: See if patient had longer lasting relief of pain with addition of manual cervical traction and suboccipital release. Continue with ROM and postural strengthening ex. SUBJECTIVE: Patient reports the neck is still sore. Patient reports she has been doing some painting and did not have increase pain with this. Patient reports no left arm symptoms recently. Pain Score: 5/10 Pain Location: Neck - Right;Neck - Left Description: Sore (with movement and no pain at rest) Frequency: Intermittent Post Treatment Pain Score: 3/10 Post Treatment Pain Description: Sore OBJECTIVE MEASURES WITH LEVEL OF FUNCTION: Improved B levator scapula stretch at end of therapy with decrease pain. TREATMENT: Therapeutic Exercise: 1: Posterior Shoulder rolls 1x15. 2: Scapular squeezes x10. 3: B UT stretch 2x30 seconds. 4: B levator scapula stretch 2x30 seconds. 5: B shoulder gordon flexion and abduction 2x10 in pain free range. 6: Cervical retraction 1x10. 7: UBE seat height 2, seat 5, legs 5 x 5 minutes. Spoke with patient regarding progression of exercise during this time. 8: *Resistive scapular retraction with orange Rep band 1x10, green 1x10 and blue 1x10. Vended blue band for HEP. Skilled Intervention: Patient was educated in proper exercise technique and purpose for exercises. Reviewed and educated patient on additions/changes for home exercise program as above (*) Skilled judgment was provided in selection of appropriate interventions. Manual Therapy: 1: Lacrosse ball mobs B cervical , UT and levator scapular region with patient seated upright x 8 minutes. 2: Manual cervical traction x 5 minutes with pull to patient tolerance. 3: Suboccipital release x 5 minutes to patient tolerance. Skilled Intervention: Manual skills to improve joint mobility, ROM, and decrease pain. Utilized anatomy knowledge of the therapist, and assessment of patient's response to intervention. 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 Coban specifically NAPROXEN 03/14/2015 8 - GI Upset Date Reviewed: 09/16/2017 Reviewed by: Sally Lopes Program Associate - Fully Assessed Prescriptions as of 10/05/2017 Sig: HYDROXYZINE HCL 25 MG TABLET Take 1 tablet by mouth every * LISINOPRIL 20 MG TABLET Take 0.5 tablets by mouth onc* ASPIRIN 81 MG TABLET,DELAYED * Take 1 tablet by mouth once d* HYDROCHLOROTHIAZIDE 12.5 MG C* Take 1 capsule by mouth once * OMEPRAZOLE 40 MG CAPSULE,JACQUES* Take 1 capsule by mouth once * IBUPROFEN 200 MG TABLET Take 600 mg by mouth every 6 * GLUCOSAMINE 750 MG-CHONDROITI* Take by mouth. ESTRADIOL 0.01% (0.1 MG/GRAM)* Use 1 gram vaginally at night* * MULTIVITAMIN TABLET Take one(1) tablet daily. Progress Notes: Cassandra Dumont PT 10/06/2017 11:21 AM Signed Episode Visit Count: 3 Therapist That Will Oversee The Plan Of Care: Cassandra Dumont PT Start of Care Date: 09/22/17 Onset Date: 09/22/13 REHABILITATION AND SPORTS THERAPY PHYSICAL THERAPY TREATMENT NOTE ASSESSMENT: Chapin Velez demonstrated difficulty with levator scapula stretch if she pushed too far with pain on contralateral side. Instructed patient to go in smaller ROM and this exercise was tolerated better with less discomfort. Advanced scapular stabilization and added manual cervical traction and suboccipital release with a reduction in pain noted by patient with active cervical movements. The patient will continue to benefit from continued skilled physical therapy for ROM, strengthening and manual therapy for pain control of cervical region. PLAN FOR NEXT VISIT: See if patient had longer lasting relief of pain with addition of manual cervical traction and suboccipital release. Continue with ROM and postural strengthening ex. SUBJECTIVE: Patient reports the neck is still sore. Patient reports she has been doing some painting and did not have increase pain with this. Patient reports no left arm symptoms recently. Pain Score: 5/10 Pain Location: Neck - Right;Neck - Left Description: Sore (with movement and no pain at rest) Frequency: Intermittent Post Treatment Pain Score: 3/10 Post Treatment Pain Description: Sore OBJECTIVE MEASURES WITH LEVEL OF FUNCTION: Improved B levator scapula stretch at end of therapy with decrease pain. TREATMENT: Therapeutic Exercise: 1: Posterior Shoulder rolls 1x15. 2: Scapular squeezes x10. 3: B UT stretch 2x30 seconds. 4: B levator scapula stretch 2x30 seconds. 5: B shoulder gordon flexion and abduction 2x10 in pain free range. 6: Cervical retraction 1x10. 7: UBE seat height 2, seat 5, legs 5 x 5 minutes. Spoke with patient regarding progression of exercise during this time. 8: *Resistive scapular retraction with orange Rep band 1x10, green 1x10 and blue 1x10. Vended blue band for HEP. Skilled Intervention: Patient was educated in proper exercise technique and purpose for exercises. Reviewed and educated patient on additions/changes for home exercise program as above (*) Skilled judgment was provided in selection of appropriate interventions. Manual Therapy: 1: Lacrosse ball mobs B cervical , UT and levator scapular region with patient seated upright x 8 minutes. 2: Manual cervical traction x 5 minutes with pull to patient tolerance. 3: Suboccipital release x 5 minutes to patient tolerance. Skilled Intervention: Manual skills to improve joint mobility, ROM, and decrease pain. Utilized anatomy knowledge of the therapist, and assessment of patient's response to intervention. Billing: [facility]: Therapeutic Exercise ([id number]): 1:1 time: 30 minutes (2 units: 23-37 mins) Manual Therapy ([id number]): 1:1 time: 18 minutes (1 unit: 8-22 mins) Total time: 48 minutes AWILDA Brooke PT Previous Version Follow-up and Disposition History Recorded PROGRESS Observed: 09/26/2017 Status: COMPLETED Source: [place] 4:25 PM [facility] [place] REPOSITORY HNO ID: [id number] Author: Cassandra (Pt) Tim Service: (none) Author Type: Physical Therapist Type: Progress Notes Filed: 09/26/2017 6:33 PM Note Text: Episode Visit Count: 2 Therapist That Will Oversee The Plan Of Care: Cassandra Dumont PT Start of Care Date: 09/22/17 Onset Date: 09/22/13 Patient Identified by Name and Date of : Yes REHABILITATION AND SPORTS THERAPY PHYSICAL THERAPY TREATMENT NOTE ASSESSMENT: Chapin Velez demonstrated improvements in tolerance for stretching and strengthening exercise today. No referred pain into arms today during treatment. Patient felt looser after exercise and lacrosse ball mobs. The patient will continue to benefit from continued skilled physical therapy for cervical ROM, postural strength, right shoulder ROM and pain control with manual therapy or possibly US. PLAN FOR NEXT VISIT: Monitor response to new ex, see how lacrosse mobs felt later in evening. Progress per patient tolerance. SUBJECTIVE: Patient reports her neck is sore today. Patient reports doing previously instructed ex off and on during the day at work. Pain Score: 5/10 Pain Location: Neck - Right;Neck - Left Description: Sore Frequency: Continuous Post Treatment Pain Score: 4/10 Post Treatment Pain Description: (looser and slight reduction in pain) OBJECTIVE MEASURES WITH LEVEL OF FUNCTION: Palpable tightness right upper trap and levator scapula region. TREATMENT: Therapeutic Exercise: 1: Posterior Shoulder rolls 1x15. 2: Scapular squeezes x10. 3: *B UT stretch 3x30 seconds. 4: *B levator scapula stretch 3x30 seconds. 5: B shoulder gordon flexion and abduction 2x10 in pain free range. 6: *Cervical retraction 1x10. 7: UBE seat height 2, seat 5, legs 5 x 5 minutes. Education on purpose of this exercise. Skilled Intervention: Patient was educated in proper exercise technique and purpose for exercises. Reviewed and educated patient on additions/changes for home exercise program as above (*) Skilled judgment was provided in selection of appropriate interventions. Provided written instruction for home exercise program to facilitate proper performance and compliance. Correct performance of therapeutic exercises was facilitated with verbal and visual cuing. Manual Therapy: 1: Lacrosse ball mobs B cervical , UT and levator scapular region with patient seated upright x 10 minutes. Skilled Intervention: Manual skills to improve joint mobility, ROM, and decrease pain. Utilized anatomy knowledge of the therapist, and assessment of patient's response to intervention. Billing: [facility]: Therapeutic Exercise ([id number]): 1:1 time: 32 minutes (2 units: 23-37 mins) Manual Therapy ([id number]): 1:1 time: 10 minutes (1 unit: 8-22 mins) Total time: 42 minutes AWILDA Brooke PT CNTHERAPY Observed: 09/26/2017 Status: COMPLETED Source: [place] 3:30 PM [facility] REPOSITORY OT/PT/Speech Visit (PTWS) CHAPIN VELEZ V ([id number]) 1960 F Date Time Provider Department 09/26/17 3:30 PM TOM ORDOÑEZ (ASSISTANT PRODUCER) PTWS Date Time Provider Department Center 09/26/2017 3:30 PM [id number], NANCY (ASSISTANT PRODUCER) PTWS [facility] Reason for Visit: Physical Therapy [503] Primary Visit Diagnosis:Neck pain [M54.2] Allergies As of Date: 09/26/2017 Noted Allergy Reaction ADHESIVE TAPE (ROSINS) 10/18/2016 4 - Hives Comments: Patient had reaction after trigger finger surgery. Coban specifically NAPROXEN 03/14/2015 8 - GI Upset Date Reviewed: 09/16/2017 Reviewed by: Sally Lopes Program Associate - Fully Assessed Prescriptions as of 09/26/2017 Sig: HYDROXYZINE HCL 25 MG TABLET Take 1 tablet by mouth every * LISINOPRIL 20 MG TABLET Take 0.5 tablets by mouth onc* ASPIRIN 81 MG TABLET,DELAYED * Take 1 tablet by mouth once d* HYDROCHLOROTHIAZIDE 12.5 MG C* Take 1 capsule by mouth once * OMEPRAZOLE 40 MG CAPSULE,JACQUES* Take 1 capsule by mouth once * IBUPROFEN 200 MG TABLET Take 600 mg by mouth every 6 * GLUCOSAMINE 750 MG-CHONDROITI* Take by mouth. ESTRADIOL 0.01% (0.1 MG/GRAM)* Use 1 gram vaginally at night* * MULTIVITAMIN TABLET Take one(1) tablet daily. Progress Notes: Cassandra Dumont PT 09/26/2017 6:33 PM Signed Episode Visit Count: 2 Therapist That Will Oversee The Plan Of Care: Cassandra Dumont PT Start of Care Date: 09/22/17 Onset Date: 09/22/13 Patient Identified by Name and Date of : Yes REHABILITATION AND SPORTS THERAPY PHYSICAL THERAPY TREATMENT NOTE ASSESSMENT: Chpain Velez demonstrated improvements in tolerance for stretching and strengthening exercise today. No referred pain into arms today during treatment. Patient felt looser after exercise and lacrosse ball mobs. The patient will continue to benefit from continued skilled physical therapy for cervical ROM, postural strength, right shoulder ROM and pain control with manual therapy or possibly US. PLAN FOR NEXT VISIT: Monitor response to new ex, see how lacrosse mobs felt later in evening. Progress per patient tolerance. SUBJECTIVE: Patient reports her neck is sore today. Patient reports doing previously instructed ex off and on during the day at work. Pain Score: 5/10 Pain Location: Neck - Right;Neck - Left Description: Sore Frequency: Continuous Post Treatment Pain Score: 4/10 Post Treatment Pain Description: (looser and slight reduction in pain) OBJECTIVE MEASURES WITH LEVEL OF FUNCTION: Palpable tightness right upper trap and levator scapula region. TREATMENT: Therapeutic Exercise: 1: Posterior Shoulder rolls 1x15. 2: Scapular squeezes x10. 3: *B UT stretch 3x30 seconds. 4: *B levator scapula stretch 3x30 seconds. 5: B shoulder gordon flexion and abduction 2x10 in pain free range. 6: *Cervical retraction 1x10. 7: UBE seat height 2, seat 5, legs 5 x 5 minutes. Education on purpose of this exercise. Skilled Intervention: Patient was educated in proper exercise technique and purpose for exercises. Reviewed and educated patient on additions/changes for home exercise program as above (*) Skilled judgment was provided in selection of appropriate interventions. Provided written instruction for home exercise program to facilitate proper performance and compliance. Correct performance of therapeutic exercises was facilitated with verbal and visual cuing. Manual Therapy: 1: Lacrosse ball mobs B cervical , UT and levator scapular region with patient seated upright x 10 minutes. Skilled Intervention: Manual skills to improve joint mobility, ROM, and decrease pain. Utilized anatomy knowledge of the therapist, and assessment of patient's response to intervention. Billing: [facility]: Therapeutic Exercise ([id number]): 1:1 time: 32 minutes (2 units: 23-37 mins) Manual Therapy ([id number]): 1:1 time: 10 minutes (1 unit: 8-22 mins) Total time: 42 minutes Tom Ordoñez PT-Jeremy Dumont PT Previous Version Follow-up and Disposition History Recorded PROGRESS Observed: 09/24/2017 Status: COMPLETED Source: [place] 8:31 PM [facility] [place] REPOSITORY HNO ID: [id number] Author: Cassandra Dumont Service: (none) Author Type: Physical Therapist Type: Progress Notes Filed: 09/24/2017 8:42 PM Note Text: Episode Visit Count: 1 Therapist That Will Oversee The Plan Of Care: Cassandra Dumont PT Start of Care Date: 09/22/17 Onset Date: 09/22/13 Patient Identified by Name and Date of : Yes REHABILITATION AND SPORTS THERAPY PHYSICAL THERAPY EVALUATION PLAN OF CARE: Assessment: Chapin Velez presents with the chief complaint of neck pain. She presents with impairments of ROM of neck, ROM of R shoulder, strength, and posture. She may benefit from skilled therapy services to improve impairments to sleep and turn head. Prognosis: Fair Fair due to: chronic nature of impairments;clinical presentation Goals for Episode of Care: created on 09/22/17 through 12/03/17 Wake in home exercise program. Patient will decrease pain rating by 2 points to meet minimal clinical important difference for numeric pain rating scale. Patient will increase active ROM of neck to minimal for cervical rotation and sidebending to allow pt to to achieve neutral postural alignment and improved performance of ADLs. Patient will increase active ROM of R shoulder to equal L shoulder to allow pt to improved performance of ADLs. Patient will increase strength of shoulder muscles to 5/5 to allow for return to prior functional status and perform ADLs. Perform sleeping with arm above head without pain. Demonstrate improvement on functional score: Improve Modified Oswestry Pain Demonstrate improvement on functional score: Patient will improve his/her score on the Neck Disability Index by 7 points (14%) to indicate a Minimal Clinical Important Difference. (Goal: 2%) Planned Interventions, Frequency, and Duration: Current Frequency: (1-2x a week based on pts work schedule) Duration: 10 weeks Total Number of Visits Planned: 9 Patient to be see for Planned Treatment Interventions: Therapeutic exercise;Neuromuscular re-education;Manual therapy;Therapeutic activities;Self-senior living management;Patient/Family/Caregiver Education;Modalities;Functional training;General Conditioning Modalities: Ultrasound PLAN FOR NEXT VISIT: see how exercises went, ROM for shoulder/neck, Ultrasound Patient demonstrates good understanding of plan of care and treatment. The above goals and plan of care were discussed and agreed upon by patient/family. SUBJECTIVE: Chapin Velez is a 57 year old female seen today for neck pain. Has had neck pain for 3-4 years. Came to PT for neck pain when first began. Did see a chiropractor for a while but has stopped due to increased soreness in neck. Has symptoms going down arms L>R. Has numbness and tingling in arms. For job has to do a lot of lifting and rasing arms to shoulder for the past 30 years. 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 Waking in the morning feels stiffness in neck with movement and chin tucks. Increased numbness and tingling over the last few months. Hot showers makes her feel good. Right handed; she also has R shoulder pain. Functional Limitations: (Can't sleep with arm up above head; turning head) Patient Goals: to get neck feeling better Intake Information: Prescription present Pain Score: 6/10 Pain Location: Neck (back of neck and upper traps) Description: Stiffness;Stabbing Frequency: Continuous (The sx in arms come and goes when relaxing/sitting) Post Treatment Pain Score: No Change OBJECTIVE MEASURES WITH LEVEL OF FUNCTION: Posture / Alignment Posture: Elevated shoulder -left;Rounded shoulders;Forward head Spine Observations Spine presents with: tightness of B Upper traps Cervical Spine AROM Cervical Protrusion: Normal Cervical Retraction: Minimal limitation Cervical Flexion: Normal Cervical Extension: Moderate limitation Cervical Side-Bend Right: Moderate limitation (pulling of muscles noted) Cervical Side-Bend Left: Moderate limitation (pulling of muscles noted) Cervical Rotation Right: Moderate limitation (pulling of muscles noted) Cervical Rotation Left: Moderate limitataion (pulling of muscles noted) UE AROM R Shoulder Flex: 90 Degrees (with tightness/pain) R Shoulder ABduction: 120 Degrees (tightness/pain) R Shoulder Internal Rotation: (L4) R Shoulder External Rotation: (T2--not a smooth motion) L Shoulder Flex: 180 Degrees L Shoulder ABduction: 180 Degrees L Shoulder Internal Rotation: (T9) L Shoulder External Rotation: (T2) UE Strength R Shoulder Shrug (C4): 5/5 R Shoulder Flexion: 5/5 R Shoulder Abduction (C5): 4/5 R Shoulder Internal Rotation: 5/5 R Shoulder External Rotation: 4/5 L Shoulder Shrug (C4): 5/5 L Shoulder Flexion: 4/5 L Shoulder Abduction (C5): 4/5 L Shoulder Internal Rotation: 5/5 L Shoulder External Rotation: 5/5 Special Tests - Cervical Cervical Special Tests: Cervical Compression;Cervical Distraction;Spurling Cervical Compression: Left Negative;Right Negative Cervical Distraction: Negative Spurling: Right Positive;Left Negative Education: Education Learning Preferences: Demonstration;Explanation;Performance;Printed Materials Barriers: None Learning/educational needs: Home exercise program;Plan of Care Education Provided: Yes, see treatment interventions for education provided Education Provided To: Patient Education Mode/Type: Demonstration;Explanation/Discussion;Literature/Printed Materials;Performance Response to Education/Teach Back: States/Identifies TREATMENT: Evaluation Therapeutic Exercise: 1: *Posterior Shoulder rolls x10 every hour 2: *Scapular squeezes x10 every hour 3: education oin the importance of posture when sitting or standing. Patinet to be more aware of her posture by keeing her shoulder blades in her back pocket. Skilled Intervention: Patient was educated in proper exercise technique and purpose for exercises. Reviewed and educated patient on additions/changes for home exercise program as above (*) Skilled judgment was provided in selection of appropriate interventions. Provided written instruction for home exercise program to facilitate proper performance and compliance. Correct performance of therapeutic exercises was facilitated with verbal, visual and tactile cuing. Patient education as noted. Billing: [facility]: Evaluation - Moderate Complexity ([id number]) Therapeutic Exercise ([id number]): 1:1 time: 25 minutes (2 units: 23-37 mins) Total time: 50 minutes Cassandra Dumont PT CNTHERAPY Observed: 09/22/2017 Status: COMPLETED Source: [place] 2:00 PM [facility] HOSPITAL REPOSITORY OT/PT/Speech Visit (PTWS) CHAPIN VELEZ V ([id number]) 1960 F Date Time Provider Department 09/22/17 2:00 PM CASSANDRA DUMONT (PT) PTWS Date Time Provider Department Center 09/22/2017 2:00 PM [id number], DIANA (PT)PTWS [facility] Reason for Visit: PT Eval [747] Patient Education [91] Primary Visit Diagnosis:Neck pain [M54.2] Allergies As of Date: 09/22/2017 Noted Allergy Reaction ADHESIVE TAPE (ROSINS) 10/18/2016 4 - Hives Comments: Patient had reaction after trigger finger surgery. Coban specifically NAPROXEN 03/14/2015 8 - GI Upset Date Reviewed: 09/16/2017 Reviewed by: Sally Lopes Program Associate - Fully Assessed Prescriptions as of 09/22/2017 Sig: HYDROXYZINE HCL 25 MG TABLET Take 1 tablet by mouth every * LISINOPRIL 20 MG TABLET Take 0.5 tablets by mouth onc* ASPIRIN 81 MG TABLET,DELAYED * Take 1 tablet by mouth once d* HYDROCHLOROTHIAZIDE 12.5 MG C* Take 1 capsule by mouth once * OMEPRAZOLE 40 MG CAPSULE,JACQUES* Take 1 capsule by mouth once * IBUPROFEN 200 MG TABLET Take 600 mg by mouth every 6 * GLUCOSAMINE 750 MG-CHONDROITI* Take by mouth. ESTRADIOL 0.01% (0.1 MG/GRAM)* Use 1 gram vaginally at night* * MULTIVITAMIN TABLET Take one(1) tablet daily. Progress Notes: Cassandra Dumont PT 09/24/2017 8:42 PM Signed Episode Visit Count: 1 Therapist That Will Oversee The Plan Of Care: Cassandra Dumont PT Start of Care Date: 09/22/17 Onset Date: 09/22/13 Patient Identified by Name and Date of : Yes REHABILITATION AND SPORTS THERAPY PHYSICAL THERAPY EVALUATION PLAN OF CARE: Assessment: Chapin Velez presents with the chief complaint of neck pain. She presents with impairments of ROM of neck, ROM of R shoulder, strength, and posture. She may benefit from skilled therapy services to improve impairments to sleep and turn head. Prognosis: Fair Fair due to: chronic nature of impairments;clinical presentation Goals for Episode of Care: created on 09/22/17 through 12/03/17 Wake in home exercise program. Patient will decrease pain rating by 2 points to meet minimal clinical important difference for numeric pain rating scale. Patient will increase active ROM of neck to minimal for cervical rotation and sidebending to allow pt to to achieve neutral postural alignment and improved performance of ADLs. Patient will increase active ROM of R shoulder to equal L shoulder to allow pt to improved performance of ADLs. Patient will increase strength of shoulder muscles to 5/5 to allow for return to prior functional status and perform ADLs. Perform sleeping with arm above head without pain. Demonstrate improvement on functional score: Improve Modified Oswestry Pain Demonstrate improvement on functional score: Patient will improve his/her score on the Neck Disability Index by 7 points (14%) to indicate a Minimal Clinical Important Difference. (Goal: 2%) Planned Interventions, Frequency, and Duration: Current Frequency: (1-2x a week based on pts work schedule) Duration: 10 weeks Total Number of Visits Planned: 9 Patient to be see for Planned Treatment Interventions: Therapeutic exercise;Neuromuscular re-education;Manual therapy;Therapeutic activities;Self-senior living management;Patient/Family/Caregiver Education;Modalities;Functional training;General Conditioning Modalities: Ultrasound PLAN FOR NEXT VISIT: see how exercises went, ROM for shoulder/neck, Ultrasound Patient demonstrates good understanding of plan of care and treatment. The above goals and plan of care were discussed and agreed upon by patient/family. SUBJECTIVE: Chapin Velez is a 57 year old female seen today for neck pain. Has had neck pain for 3-4 years. Came to PT for neck pain when first began. Did see a chiropractor for a while but has stopped due to increased soreness in neck. Has symptoms going down arms L>R. Has numbness and tingling in arms. For job has to do a lot of lifting and rasing arms to shoulder for the past 30 years. 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 Waking in the morning feels stiffness in neck with movement and chin tucks. Increased numbness and tingling over the last few months. Hot showers makes her feel good. Right handed; she also has R shoulder pain. Functional Limitations: (Can't sleep with arm up above head; turning head) Patient Goals: to get neck feeling better Intake Information: Prescription present Pain Score: 6/10 Pain Location: Neck (back of neck and upper traps) Description: Stiffness;Stabbing Frequency: Continuous (The sx in arms come and goes when relaxing/sitting) Post Treatment Pain Score: No Change OBJECTIVE MEASURES WITH LEVEL OF FUNCTION: Posture / Alignment Posture: Elevated shoulder -left;Rounded shoulders;Forward head Spine Observations Spine presents with: tightness of B Upper traps Cervical Spine AROM Cervical Protrusion: Normal Cervical Retraction: Minimal limitation Cervical Flexion: Normal Cervical Extension: Moderate limitation Cervical Side-Bend Right: Moderate limitation (pulling of muscles noted) Cervical Side-Bend Left: Moderate limitation (pulling of muscles noted) Cervical Rotation Right: Moderate limitation (pulling of muscles noted) Cervical Rotation Left: Moderate limitataion (pulling of muscles noted) UE AROM R Shoulder Flex: 90 Degrees (with tightness/pain) R Shoulder ABduction: 120 Degrees (tightness/pain) R Shoulder Internal Rotation: (L4) R Shoulder External Rotation: (T2--not a smooth motion) L Shoulder Flex: 180 Degrees L Shoulder ABduction: 180 Degrees L Shoulder Internal Rotation: (T9) L Shoulder External Rotation: (T2) UE Strength R Shoulder Shrug (C4): 5/5 R Shoulder Flexion: 5/5 R Shoulder Abduction (C5): 4/5 R Shoulder Internal Rotation: 5/5 R Shoulder External Rotation: 4/5 L Shoulder Shrug (C4): 5/5 L Shoulder Flexion: 4/5 L Shoulder Abduction (C5): 4/5 L Shoulder Internal Rotation: 5/5 L Shoulder External Rotation: 5/5 Special Tests - Cervical Cervical Special Tests: Cervical Compression;Cervical Distraction;Spurling Cervical Compression: Left Negative;Right Negative Cervical Distraction: Negative Spurling: Right Positive;Left Negative Education: Education Learning Preferences: Demonstration;Explanation;Performance;Printed Materials Barriers: None Learning/educational needs: Home exercise program;Plan of Care Education Provided: Yes, see treatment interventions for education provided Education Provided To: Patient Education Mode/Type: Demonstration;Explanation/Discussion;Literature/Printed Materials;Performance Response to Education/Teach Back: States/Identifies TREATMENT: Evaluation Therapeutic Exercise: 1: *Posterior Shoulder rolls x10 every hour 2: *Scapular squeezes x10 every hour 3: education oin the importance of posture when sitting or standing. Patinet to be more aware of her posture by keeing her shoulder blades in her back pocket. Skilled Intervention: Patient was educated in proper exercise technique and purpose for exercises. Reviewed and educated patient on additions/changes for home exercise program as above (*) Skilled judgment was provided in selection of appropriate interventions. Provided written instruction for home exercise program to facilitate proper performance and compliance. Correct performance of therapeutic exercises was facilitated with verbal, visual and tactile cuing. Patient education as noted. Billing: [facility]: Evaluation - Moderate Complexity ([id number]) Therapeutic Exercise ([id number]): 1:1 time: 25 minutes (2 units: 23-37 mins) Total time: 50 minutes Cassandra Dumont PT PROGRESS Observed: 09/16/2017 Status: COMPLETED Source: [place] 2:40 PM [facility] REPOSITORY HNO ID: [id number] Author: Suzanne Chang Service: (none) Author Type: Nurse Practitioner Type: Progress Notes Filed: 09/18/2017 11:42 AM Note Text: Chief Complaint Patient presents with: Recheck: F/U from Dr. Cross on 08.10.17 Dizziness: x 4 months HPI Chapin Velez is a 57 year old female who presents here today along with for follow up CTA neck results. Has several questions. Having intermittent anxious feeling, difficult to explain, describes as all over warm sensation and overwhelming feeling throughout her body. States only way to describe as feeling anxious. Sx have caused her to stop driving. She's had intermittent dizziness, denies true vertigo, intermittent left arm tingling and left arm weakness. Has had outpatient Cardiology eval with ECHO and Holter monitor for ongoing palpitations, light headedness. All evaluation has been unremarkable to date and has been cleared from Cardiology standpoint with continued observation of BP and smoking cessation recommended. 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 Normal appearing right vertebral artery. Known cervical disc disease, MRI reviewed from 10/2016. Previously under care of Spine Medicine. Provider has since left the practice. Report reviewed. The patient is RHD, notes left arm weakness is intermittent. Admits she is not sleeping well, anxious about testing and results. Daughter has h/o panic attacks and wonders if her sx due to anxiety. Past medical history, appointments, medications, allergies reviewed. Previous Medical History PAST MEDICAL HISTORY Diagnosis Date - Adrenal adenoma 10/06/2012 bilateral--recheck CT in 1 yr - Cervical arthritis (HCC) 09/27/2012 - Degenerative arthritis of carpometacarpal joint of thumb 12/07/2013 - Degenerative arthritis of cervical spine with nerve compression 10/26/2012 - Essential hypertension, benign 12/07/2013 - Lumbar degenerative disc disease 10/26/2012 - Lumbar disc disease with radiculopathy 12/07/2013 Previous Surgical History PAST SURGICAL HISTORY Procedure Laterality Date - COLONOSCOP W/ OR W/O BRSH SPEC 10/11/2013 Colonoscopy - COLONOSCOP W/ OR W/O BRSH SPEC Colonoscopy - EGD W/O OR W/BRUSH/WASH 05/05/15 EGD - INCISE FINGER TENDON SHEATH Left 10/13/2016 Left trigger thumb release - LAPAROSCOPIC CHOLEYCYSTECTOMY Cholecystectomy, lap - LIGATE FALLOPIAN TUBE Tubal ligation - TONSILLECTOMY HX unsure if adnoids removed - TYMPANOSTOMY LOCAL; UNILATERAL Family History FAMILY HISTORY Problem Relation Age of Onset - Diabetes Mother - Hypertension Mother - CHF [OTHER] Mother - Pacemaker [OTHER] Mother - Emphysema Father - Diabetes Sister - COPD Sister - COPD Paternal Aunt - Cancer Sister lymphoma - Breast Cancer Paternal Aunt - Ischemic Heart Disease Maternal Grandfather Patient Allergies ALLERGIES Allergen Reactions - Adhesive Tape (Nona* Hives Patient had reaction after trigger finger surgery. Coban specifically - Naproxen GI Upset Current Medications Current Outpatient Prescriptions on File Prior to Visit: lisinopril (ZESTRIL, PRINIVIL) 20 mg tablet Take 0.5 tablets by mouth once daily. aspirin, enteric coated (ADULT ASPIRIN REGIMEN) 81 mg EC tablet Take 1 tablet by mouth once daily. Hydrochlorothiazide 12.5 mg capsule Take 1 capsule by mouth once daily. Omeprazole (PRILOSEC) 40 mg capsule Take 1 capsule by mouth once daily. ibuprofen (MOTRIN) 200 mg tablet Take 600 mg by mouth every 6 hours as needed for Pain. azwr-zhfl-ctm#0-E-sqqm-noah-bor (OSTEO BI-FLEX TRIPLE STRENGTH) 750 mg-644 mg- 30 mg-1 mg tab Take by mouth. MULTIVITAMIN TAB Take one(1) tablet daily. fwupgpxcpam-Z6-Wokthzibe serr 1,500-400-100 mg-unit-mg tab EVERY MORNING inulin 2 gram chew every day levoFLOXacin (LEVAQUIN) 500 mg tablet Q24H dicyclomine (BENTYL) 20 mg tablet Take 1 tablet by mouth three times daily before meals. solifenacin (VESICARE) 10 mg tablet Take 1 tablet by mouth once daily. estradiol (ESTRACE) 0.01 % (0.1 mg/gram) vaginal cream Use 1 gram vaginally at night for two weeks, then use 1/2gram 1-3 times weekly for maintenance therapy. No current facility-administered medications on file prior to visit. 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 [employer] Social History Main Topics Smoking status: Current Every Day Smoker Packs/day: 1.00 Years: 0.00 Types: Cigarettes Start date: 07/18/1977 Smokeless status: Never Used Alcohol use: No Drug use: No Sexual activity: Yes Partners with: Male control/protection: Tubal Ligation Review of Symptoms REVIEW OF SYSTEMS GENERAL: No weight loss, malaise or fevers HEENT: Negative for frequent or significant headaches, No changes in hearing or vision, no nose bleeds or other nasal problems NECK: See HPI RESPIRATORY: Negative for cough, hemoptysis, wheezing, COPD, dyspnea or shortness of breath CARDIOVASCULAR: Negative for chest pain, leg swelling, hypertension, CHF or palpitations MUSCULOSKELETAL: Negative for joint pain or swelling, back pain or muscle pain EXAM: BP 102/69 Pulse 73 Temp 36.7 ?C (98 ?F) (Tympanic) Resp 14 Wt 72.8 kg (160 lb 9.6 oz) LMP 02/07/2012 BMI 25.92 kg/m2 General Appearance: Well appearing, alert, in no acute distress, well-hydrated, well nourished.. Eyes: Anicteric sclera. Pupils are equally round and reactive to light. Extraocular movements are intact. . Ears: External ears normal, canals clear, Positive findings: otosclerosis noted on left. Neck: Supple, no adenopathy; thyroid symmetric, normal size, no bruits. Full RANGE OF MOTION noted, however notes cracking in cervical spine with movement of her head/neck. Lungs: Lungs clear to auscultation. No wheezing, rhonchi, rales. Heart: RRR without murmur, gallop, or rubs. No ectopy. Neurologic: Gait normal. Reflexes normal and symmetric. Sensation grossly intact., Positive findings: reflexes - biceps: 2+/2+, motor strength symmetrical and 4/5 bilaterally. Health Maintenance List ONE PNEUMOVAX PRIOR TO AGE 65 due on 1980 HEPATITIS C SCREENING due on 2005 TETANUS due on 10/05/2009 MAMMOGRAM due on 12/02/2017 DIABETES SCREEN due on 08/26/2019 PAP EVERY 5 YEARS due on 09/19/2019 HPV EVERY 5 YEARS due on 09/19/2019 LIPID SCREEN due on 08/02/2022 COLORECTAL CANCER SCREENING,SEE MODIFIER due on 10/12/2023 INFLUENZA Completed Data reviewed CTA Neck with Contrast-08/30/17 10/28/2016 ?8:35 AM - Interface, Results In Impression IMPRESSION: Multilevel discogenic and facet and uncovertebral hypertrophic degenerative change as described above most pronounced at C4-C5 and C5-C6 where disc flattens the cord without evidence of cord edema or myelomalacia. ?Findings appear slightly progressed. Metal Dealer: ENDER ? Transcribe Date/Time: Oct 28 2016 ?8:21A Dictated by : YUDI AUGUSTE MD This examination was interpreted and the report reviewed and electronically signed by: YUDI AUGUSTE MD on Oct 28 2016 ?8:29AM ?EST Results-Findings * * *Final Report* * * DATE OF EXAM: Oct 28 2016 ?8:20AM ? WRM ? [id number] ?- ?MRI CERVICAL SPINE WO IVCON ?/ PROCEDURE REASON: multiple diagnoses ?? ? * * * * Physician Interpretation * * * * RESULT: EXAMINATION: ?MRI CERVICAL SPINE WO IVCON 10/28/2016 CLINICAL HISTORY: ?56-year-old female cervicalgia spondylosis without myelopathy or radiculopathy of the cervical region, anesthesia of skin TECHNIQUE: Routine cervical spine MR protocol without gadolinium. COMPARISON: MRI cervical spine 01/31/2014 showed degenerative change at multiple levels most pronounced at C4-C5. RESULT: Counting reference: ?Craniocervical junction. Alignment: ? ?Grade 1 anterolisthesis of C4 relative to C5 and retrolisthesis of C6 relative to C7 with resultant mild kyphosis, slightly progressed.. Craniocervical junction: ? ?Craniocervical junction is normal. Cord: ?The visualized cord is within normal limits of signal intensity and morphology except for the extradural defects detailed below. Bone marrow signal/fracture: ? ?No evidence of pathologic marrow infiltration. ?No evidence of prior fracture. Cervical soft tissues: ? ?The paraspinal soft tissues are within normal limits. Disc desiccation throughout the imaged spine. C2-C3: Tiny left central disc protrusion without significant canal stenosis. ?Uncovertebral hypertrophy with mild left foraminal narrowing, stable. C3-C4: Disc osteophyte complex flattens the ventral thecal sac without significant canal stenosis. ?Facet and uncovertebral hypertrophy mildly to moderately narrow the right and mildly narrow the left neural foramen without significant interval change. C4-C5: Disc osteophyte complex with central disc herniation flattens the ventral cord minimally. ?There is CSF posterior to the cord. ?Facet and uncovertebral hypertrophy moderately narrow the right foramen. ?Left foramen is patent. C5-C6: Disc osteophyte complex minimally flattens the left ventral cord with mild to moderate canal stenosis. ?Facet and uncovertebral hypertrophy are associated with moderate left foraminal stenosis. ?Right foramen is patent. ?Findings are slightly progressed. C6-C7: Disc osteophyte complex with right central disc herniation is slightly progressed and contacts but does not definitely compress or flatten the ventral cord. ?Disc and facet and uncovertebral hypertrophy and ligamentum flavum hypertrophy mildly to moderately narrow the canal. ? Foramina are patent. C7-T1: Canal and foramina are patent. Result History MRI CERVICAL SPINE [facility] ([place]) (Order #[id number]) on 10/28/2016 - Order Result History Report ASSESSMENT/PLAN: 1. Cervical radiculopathy - ICD9: 723.4, ICD10: M54.12 (primary diagnosis) - Discussed treatment options, including PHYSICAL THERAPY, pain management, vs returning to spine medicine. At this time patient wishes to resume PHYSICAL THERAPY, She will follow up as needed. 2. Anxiety - ICD9: 300.00, ICD10: F41.9 - Discussed options of treatment including counseling, prn medication with Hydroxyzine (warned of drowsy side effects), as well as adding SSRI to help control anxiety sx. Patient at this time wishes to try prn Hydroxyzine. She will contact the office if she wishes further treatment. Reviewed signs and sx of anxiety. - HYDROXYZINE HCL 25 MG TABLET During this patient visit I have spent approximately 40 minutes in counseling and/or education regarding treatment options, medications and test results and coordinating care. Suzanne Chang, MSN BOTANY TECHNICIAN CNOV Observed: 09/16/2017 Status: COMPLETED Source: [place] 2:20 PM [facility] REPOSITORY Office Visit (FAMPWS) CHAPIN VELEZ V ([id number]) 1960 F Date Time Provider Department 09/16/17 2:20 PM SUZANNE CHANG (METAL TILE SETTER) FAMPWS During your visit today, we recorded the following information about you: Temperature Pulse Respiration Blood pressure 98 degrees 73/minute 14/minute 102/69 Weight 72.8 kg Suzanne Chang, MSN BOTANY TECHNICIAN 09/18/2017 11:42 AM Signed Chief Complaint Patient presents with: Recheck: F/U from Dr. Cross on 08.10.17 Dizziness: x 4 months HPI Chapin Velez is a 57 year old female who presents here today along with for follow up CTA neck results. Has several questions. Having intermittent anxious feeling, difficult to explain, describes as all over warm sensation and overwhelming feeling throughout her body. States only way to describe as feeling anxious. Sx have caused her to stop driving. She's had intermittent dizziness, denies true vertigo, intermittent left arm tingling and left arm weakness. Has had outpatient Cardiology eval with ECHO and Holter monitor for ongoing palpitations, light headedness. All evaluation has been unremarkable to date and has been cleared from Cardiology standpoint with continued observation of BP and smoking cessation recommended. 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 Normal appearing right vertebral artery.ANDquot; Known cervical disc disease, MRI reviewed from 10/2016. Previously under care of Spine Medicine. Provider has since left the practice. Report reviewed. The patient is RHD, notes left arm weakness is intermittent. Admits she is not sleeping well, anxious about testing and results. Daughter has h/o panic attacks and wonders if her sx due to anxiety. Past medical history, appointments, medications, allergies reviewed. Previous Medical History PAST MEDICAL HISTORY Diagnosis Date - Adrenal adenoma 10/06/2012 bilateral--recheck CT in 1 yr - Cervical arthritis (HCC) 09/27/2012 - Degenerative arthritis of carpometacarpal joint of thumb 12/07/2013 - Degenerative arthritis of cervical spine with nerve compression 10/26/2012 - Essential hypertension, benign 12/07/2013 - Lumbar degenerative disc disease 10/26/2012 - Lumbar disc disease with radiculopathy 12/07/2013 Previous Surgical History PAST SURGICAL HISTORY Procedure Laterality Date - COLONOSCOP W/ OR W/O BRSH SPEC 10/11/2013 Colonoscopy - COLONOSCOP W/ OR W/O BRSH SPEC Colonoscopy - EGD W/O OR W/BRUSH/WASH 05/05/15 EGD - INCISE FINGER TENDON SHEATH Left 10/13/2016 Left trigger thumb release - LAPAROSCOPIC CHOLEYCYSTECTOMY Cholecystectomy, lap - LIGATE FALLOPIAN TUBE Tubal ligation - TONSILLECTOMY HX unsure if adnoids removed - TYMPANOSTOMY LOCAL; UNILATERAL Family History FAMILY HISTORY Problem Relation Age of Onset - Diabetes Mother - Hypertension Mother - CHF [OTHER] Mother - Pacemaker [OTHER] Mother - Emphysema Father - Diabetes Sister - COPD Sister - COPD Paternal Aunt - Cancer Sister lymphoma - Breast Cancer Paternal Aunt - Ischemic Heart Disease Maternal Grandfather Patient Allergies ALLERGIES Allergen Reactions - Adhesive Tape (Nona* Hives Patient had reaction after trigger finger surgery. Coban specifically - Naproxen GI Upset Current Medications Current Outpatient Prescriptions on File Prior to Visit: lisinopril (ZESTRIL, PRINIVIL) 20 mg tablet Take 0.5 tablets by mouth once daily. aspirin, enteric coated (ADULT ASPIRIN REGIMEN) 81 mg EC tablet Take 1 tablet by mouth once daily. Hydrochlorothiazide 12.5 mg capsule Take 1 capsule by mouth once daily. Omeprazole (PRILOSEC) 40 mg capsule Take 1 capsule by mouth once daily. ibuprofen (MOTRIN) 200 mg tablet Take 600 mg by mouth every 6 hours as needed for Pain. brdq-nnpc-lgu#0-V-kzwu-noah-bor (OSTEO BI-FLEX TRIPLE STRENGTH) 750 mg-644 mg- 30 mg-1 mg tab Take by mouth. MULTIVITAMIN TAB Take one(1) tablet daily. pobawtwzvsy-I7-Xwjqgpdvc serr 1,500-400-100 mg-unit-mg tab EVERY MORNING inulin 2 gram chew every day levoFLOXacin (LEVAQUIN) 500 mg tablet Q24H dicyclomine (BENTYL) 20 mg tablet Take 1 tablet by mouth three times daily before meals. solifenacin (VESICARE) 10 mg tablet Take 1 tablet by mouth once daily. estradiol (ESTRACE) 0.01 % (0.1 mg/gram) vaginal cream Use 1 gram vaginally at night for two weeks, then use 1/2gram 1-3 times weekly for maintenance therapy. No current facility-administered medications on file prior to visit. 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 [employer] Social History Main Topics Smoking status: Current Every Day Smoker Packs/day: 1.00 Years: 0.00 Types: Cigarettes Start date: 07/18/1977 Smokeless status: Never Used Alcohol use: No Drug use: No Sexual activity: Yes Partners with: Male control/protection: Tubal Ligation Review of Symptoms REVIEW OF SYSTEMS GENERAL: No weight loss, malaise or fevers HEENT: Negative for frequent or significant headaches, No changes in hearing or vision, no nose bleeds or other nasal problems NECK: See HPI RESPIRATORY: Negative for cough, hemoptysis, wheezing, COPD, dyspnea or shortness of breath CARDIOVASCULAR: Negative for chest pain, leg swelling, hypertension, CHF or palpitations MUSCULOSKELETAL: Negative for joint pain or swelling, back pain or muscle pain EXAM: BP 102/69 Pulse 73 Temp 36.7 ?C (98 ?F) (Tympanic) Resp 14 Wt 72.8 kg (160 lb 9.6 oz) LMP 02/07/2012 BMI 25.92 kg/m2 General Appearance: Well appearing, alert, in no acute distress, well-hydrated, well nourished.. Eyes: Anicteric sclera. Pupils are equally round and reactive to light. Extraocular movements are intact. . Ears: External ears normal, canals clear, Positive findings: otosclerosis noted on left. Neck: Supple, no adenopathy; thyroid symmetric, normal size, no bruits. Full RANGE OF MOTION noted, however notes cracking in cervical spine with movement of her head/neck. Lungs: Lungs clear to auscultation. No wheezing, rhonchi, rales. Heart: RRR without murmur, gallop, or rubs. No ectopy. Neurologic: Gait normal. Reflexes normal and symmetric. Sensation grossly intact., Positive findings: reflexes - biceps: 2+/2+, motor strength symmetrical and 4/5 bilaterally. Health Maintenance List ONE PNEUMOVAX PRIOR TO AGE 65 due on 1980 HEPATITIS C SCREENING due on 2005 TETANUS due on 10/05/2009 MAMMOGRAM due on 12/02/2017 DIABETES SCREEN due on 08/26/2019 PAP EVERY 5 YEARS due on 09/19/2019 HPV EVERY 5 YEARS due on 09/19/2019 LIPID SCREEN due on 08/02/2022 COLORECTAL CANCER SCREENING,SEE MODIFIER due on 10/12/2023 INFLUENZA Completed Data reviewed CTA Neck with Contrast-08/30/17 10/28/2016 ?8:35 AM - Interface, Results In Impression IMPRESSION: Multilevel discogenic and facet and uncovertebral hypertrophic degenerative change as described above most pronounced at C4-C5 and C5-C6 where disc flattens the cord without evidence of cord edema or myelomalacia. ?Findings appear slightly progressed. 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 Transcribe Date/Time: Oct 28 2016 ?8:21A Dictated by : YUDI AUGUSTE MD This examination was interpreted and the report reviewed and electronically signed by: YUDI AUGUSTE MD on Oct 28 2016 ?8:29AM ?EST Results-Findings * * *Final Report* * * DATE OF EXAM: Oct 28 2016 ?8:20AM ? WRM ? 0297 ?- ?MRI CERVICAL SPINE WO IVCON ?/ PROCEDURE REASON: multiple diagnoses ?? ? * * * * Physician Interpretation * * * * RESULT: EXAMINATION: ?MRI CERVICAL SPINE WO IVCON 10/28/2016 CLINICAL HISTORY: ?56-year-old female cervicalgia spondylosis without myelopathy or radiculopathy of the cervical region, anesthesia of skin TECHNIQUE: Routine cervical spine MR protocol without gadolinium. COMPARISON: MRI cervical spine 01/31/2014 showed degenerative change at multiple levels most pronounced at C4-C5. RESULT: Counting reference: ?Craniocervical junction. Alignment: ? ?Grade 1 anterolisthesis of C4 relative to C5 and retrolisthesis of C6 relative to C7 with resultant mild kyphosis, slightly progressed.. Craniocervical junction: ? ?Craniocervical junction is normal. Cord: ?The visualized cord is within normal limits of signal intensity and morphology except for the extradural defects detailed below. Bone marrow signal/fracture: ? ?No evidence of pathologic marrow infiltration. ?No evidence of prior fracture. Cervical soft tissues: ? ?The paraspinal soft tissues are within normal limits. Disc desiccation throughout the imaged spine. C2-C3: Tiny left central disc protrusion without significant canal stenosis. ?Uncovertebral hypertrophy with mild left foraminal narrowing, stable. C3-C4: Disc osteophyte complex flattens the ventral thecal sac without significant canal stenosis. ?Facet and uncovertebral hypertrophy mildly to moderately narrow the right and mildly narrow the left neural foramen without significant interval change. C4-C5: Disc osteophyte complex with central disc herniation flattens the ventral cord minimally. ?There is CSF posterior to the cord. ?Facet and uncovertebral hypertrophy moderately narrow the right foramen. ?Left foramen is patent. C5-C6: Disc osteophyte complex minimally flattens the left ventral cord with mild to moderate canal stenosis. ?Facet and uncovertebral hypertrophy are associated with moderate left foraminal stenosis. ?Right foramen is patent. ?Findings are slightly progressed. C6-C7: Disc osteophyte complex with right central disc herniation is slightly progressed and contacts but does not definitely compress or flatten the ventral cord. ?Disc and facet and uncovertebral hypertrophy and ligamentum flavum hypertrophy mildly to moderately narrow the canal. ? Foramina are patent. C7-T1: Canal and foramina are patent. Result History MRI CERVICAL SPINE [facility]AB[facility] [place] ([place]) (Order #[id number]) on 10/28/2016 - Order Result History Report ASSESSMENT/PLAN: 1. Cervical radiculopathy - ICD9: 723.4, ICD10: M54.12 (primary diagnosis) - Discussed treatment options, including PHYSICAL THERAPY, pain management, vs returning to spine medicine. At this time patient wishes to resume PHYSICAL THERAPY, She will follow up as needed. 2. Anxiety - ICD9: 300.00, ICD10: F41.9 - Discussed options of treatment including counseling, prn medication with Hydroxyzine (warned of drowsy side effects), as well as adding SSRI to help control anxiety sx. Patient at this time wishes to try prn Hydroxyzine. She will contact the office if she wishes further treatment. Reviewed signs and sx of anxiety. - HYDROXYZINE HCL 25 MG TABLET During this patient visit I have spent approximately 40 minutes in counseling and/or education regarding treatment options, medications and test results and coordinating care. Suzanne Chang, MSN BOTANY TECHNICIAN Referring Provider: SELF [200] Allergies As of Date: 09/16/2017 Noted Allergy Reaction ADHESIVE TAPE (ROSINS) 10/18/2016 4 - Hives Comments: Patient had reaction after trigger finger surgery. Coban specifically NAPROXEN 03/14/2015 8 - GI Upset Date Reviewed: 09/16/2017 Reviewed by: Sally Lopes Program Associate - Fully Assessed Reason for Visit: Recheck [92] Cmt: F/U from Dr. Cross on 08.10.17 Dizziness [36] Cmt: x 4 months Reason For Visit History Recorded Primary Visit Diagnosis:Cervical radiculopathy [M54.12] Other Visit Diagnosis:Anxiety [F41.9] Order(s):hydrOXYzine HCl (ATARAX) 25 mg tabletTake 1 tablet by mouth every 6 hours as needed for Anxiety.Disp: 20 tabletRfl: 1 Prescriptions as of 09/16/2017 Sig: LISINOPRIL 20 MG TABLET Take 0.5 tablets by mouth onc* ASPIRIN 81 MG TABLET,DELAYED * Take 1 tablet by mouth once d* HYDROCHLOROTHIAZIDE 12.5 MG C* Take 1 capsule by mouth once * OMEPRAZOLE 40 MG CAPSULE,JACQUES* Take 1 capsule by mouth once * IBUPROFEN 200 MG TABLET Take 600 mg by mouth every 6 * GLUCOSAMINE 750 MG-CHONDROITI* Take by mouth. * MULTIVITAMIN TABLET Take one(1) tablet daily. HYDROXYZINE HCL 25 MG TABLET Take 1 tablet by mouth every * ESTRADIOL 0.01% (0.1 MG/GRAM)* Use 1 gram vaginally at night* Problem List As Of Date 09/16/2017 Noted Resolved PALPITATIONS [R00.2] INVALID FOR* DYSMETABOLIC SYNDROME X [E88.81] INVALID FOR* Plantar Fasciitis [M72.2] INVALID FOR* GERD (Gastroesophageal Reflux Disease) [K21.9] INVALID FOR* Tobacco Abuse [Z72.0] INVALID FOR* Calcaneal spur [M77.30] INVALID FOR* Cervicalgia [M54.2] INVALID FOR*09/27/2012 Inclusion cyst of vulva [N90.7] INVALID FOR* Cervical arthritis (HCC) [M46.92] INVALID FOR*10/01/2016 Microscopic hematuria [R31.29] INVALID FOR*10/01/2016 Adrenal adenoma [D35.00] INVALID FOR* More... Hematuria, microscopic [R31.29] INVALID FOR* Tobacco use disorder [F17.200] INVALID FOR* Urinary frequency [R35.0] INVALID FOR* Urgency of urination [R39.15] INVALID FOR* Degenerative arthritis of cervical spine with n*INVALID FOR* Lumbar degenerative disc disease [M51.36] INVALID FOR* PMB (postmenopausal bleeding) [N95.0] INVALID FOR*10/01/2016 Thickened endometrium [R93.8] INVALID FOR* Tongue coating [K14.3] INVALID FOR* Glossitis [K14.0] INVALID FOR* Degenerative arthritis of carpometacarpal joint*INVALID FOR* Essential hypertension, benign [I10] INVALID FOR* More... Lumbar disc disease with radiculopathy [M51.16] INVALID FOR* Cervicalgia [M54.2] INVALID FOR* Sciatica [M54.30] INVALID FOR* Neck pain [M54.2] INVALID FOR* Cervical spondylosis without myelopathy [M47.81*INVALID FOR* Facet arthropathy, cervical [M46.92] INVALID FOR* Lumbosacral neuritis [M54.17] INVALID FOR* Lumbar spondylosis [M47.816] INVALID FOR* Overactive bladder [N32.81] INVALID FOR*10/01/2016 NSAID induced gastritis [K29.60, T39.395A] INVALID FOR* Hyperlipidemia [E78.5] INVALID FOR* Bilateral hand numbness [R20.0] INVALID FOR* Trigger thumb of left hand [M65.312] INVALID FOR* Arthritis of hand [M19.049] INVALID FOR* Chest pain [R07.9] INVALID FOR* Chronic sinusitis [J32.9] INVALID FOR* Lightheadedness [R42] INVALID FOR* Harmful pattern of use of nicotine [Z72.0] INVALID FOR* Other chest pain [R07.89] INVALID FOR* Prescriptions ordered this encounter Disp Refills Start End HYDROXYZINE HCL 25 MG TABLET 20 t* 1 09/16/2017 Route: ORAL Sig: Take 1 tablet by mouth every 6 hours as needed for Anxiety. Medications Discontinued During This Encounter levoFLOXacin (LEVAQUIN) 500 mg tablet 07/27/2017 09/16/2017 Class: Historical Med Sig: Q24H Disc: Course of therapy completed [id number]-T0-Dslrbvzsv serr 1,500-* 07/27/2017 09/16/2017 Class: Historical Med Sig: EVERY MORNING Disc: Duplicate Entry dicyclomine (BENTYL) 20 mg tablet 90 t* 3 08/26/2016 09/16/2017 Route: ORAL Sig: Take 1 tablet by mouth three times daily before meals. Disc: Discontinued by Patient solifenacin (VESICARE) 10 mg tablet 90 t* 4 06/18/2016 09/16/2017 Route: ORAL Sig: Take 1 tablet by mouth once daily. Disc: Discontinued by Patient inulin 2 gram chew 07/27/2017 09/16/2017 Class: Historical Med Sig: every day Disc: Course of therapy completed Disposition: Return if symptoms worsen or fail to improve. Follow-up and Disposition History Recorded Encounter Status:Closed by SUZANNE CHANG CNP on 09/18/17 CARDIOLOGY VISIT Observed: 09/07/2017 Status: F Source: [place] REPORT 11:35 AM [facility] REPOSITORY [facility] [address] [place] [address] OFFICE VISIT Date of Service: 09/05/17 MR#: [id number] Acct: [id number] Name: CHAPIN VELEZ V Rep #: [id number] : 1960 Provider: ROSALINE Conte Age/Sex: 57/F [place] [facility] [place] Status: Signed HPI HPI Details: CHAPIN VELEZ, is a 57 F who presents to the office today for a cardiovascular outpatient follow-up. Patient has a history of atypical chest pain, palpitations, and tobacco abuse. After last office visit she underwent echocardiogram which showed a preserved ejection fraction and mild aortic valve insufficiency. Her Holter monitor did not reveal any concerning dysrhythmia and was negative for atrial fibrillation and ventricular tachycardia. Pt. continues to have palpitations. She denies any secondary symptoms during these episodes. She states these occur at random times. She notices chest pain at intermittent times in the past, but has not had any episodes since last office visit. Pt denies arm, jaw, or neck discomfort. Her exercise tolerance is stable. Pt denies symptoms of CHF, dizziness, near syncopal or syncopal episodes. Pt denies edema or claudication issues. Pt. denies orthopnea, PND, fever, chills, blood in urine, blood in stool, myalgia, or unexplainable fatigue. She notices lightheadedness at random times. She states seeing a neurologist in the past for left arm numbness/weakness and was told that she had spinal stenosis. Intake Vital Signs09/05/17 Height 5 ft 6 in 09/05/17 Weight: 162 lb 02/19/18 Body Mass Index (BMI) 26.1 09/05/17 Blood Pressure 132/82 09/05/17 Blood Pressure Location Rt brachial Intake Visit Reasons: 6 W FU Debubblizer Required: No Accompanied by: Is patient in pain?: No Allergies No Known Allergies Allergy (Verified 09/05/17 14:10) Medications Hydrochlorothiazide [Hydrochlorothiazide] 12.5 mg PO DAILY 03/29/16 [History Confirmed 09/05/17] Omeprazole [Prilosec] 40 mg PO DAILY 03/29/16 [History Confirmed 09/05/17] glucosamine UYm-V8-Hbpvikiam mercedez 1,500 mg-400 unit-100 mg tablet 1 tab PO QAM 07/27/17 [History Confirmed 09/05/17] inulin 2 gram chewable tablet g PO QDAY ea 07/27/17 [History Confirmed 09/05/17] lactobacillus combination no.4 3 billion cell capsule 3,000 mmu cells PO QDAY 07/27/17 [History Confirmed 09/05/17] multivitamin,mu-hkkf-wnyerdgd tablet 1 tab PO QDAY 07/27/17 [History Confirmed 09/05/17] aspirin 81 mg tablet,delayed release 81 mg PO QDAY tab 09/05/17 [History Confirmed 09/05/17] ibuprofen 200 mg tablet 600 mg PO TID PRN tab 09/05/17 [History Confirmed 09/05/17] lisinopril 20 mg tablet 10 mg PO DAILY tab 09/05/17 [History Confirmed 09/05/17] Ejection fraction %: 60 to 64 PFSH Medical History Hypertension (Chronic) Nicotine abuse (Chronic) GERD (gastroesophageal reflux disease) (Chronic) Spinal stenosis (Chronic) Surgical History H/O tubal ligation (Chronic) Hx of cholecystectomy (Chronic) Status post trigger finger release (Chronic) history of epidural steroid injections (Chronic) Family History Mother CAD (coronary artery disease), Onset Age: 60 CHF CAD Stent Diabetes Sister Diabetes Sister Cancer Hx non Hodgkin's lymphoma Sister Fibromyalgia Social History Smoking Status: Current every day smoker alcohol intake: never substance use type: does not use caffeine: Yes (3 per day) Type: carbonated beverages what type of physical activity do you participate in: none seatbelt use: always do you feel safe at home: Yes ROS Const Const: Negative for weakness, body ache, fever(s), chills or fatigue ENT ENT: Negative for dizziness Cardio Chest Pain: No Frequency: weekly (previous CP) Character: sharp (Previous CP) Palpitations: Positive for Yes Edema: None Muscle aches with walking: None Resp Respiratory: Negative for SOB with activity, SOB at rest, SOB orthopnea\SOB lying down or paroxysmal nocturnal dyspnea GI GI: Negative nausea, black,tarry stools, bright, red blood in stools or vomiting blood/hematemesis : Negative for hematuria or frequent nighttime urination/ nocturia Musc Musc: Negative for muscle aches/ myalgia Neuro Neuro: Positive for lightheadedness, Negative for near syncope, Negative for syncope, Negative for orthostatic symptoms, Negative for weakness, Negative for dizziness Endo Endo: Negative for fatigue Cardiology Exam Const Appearance: cooperative, healthy appearing, comfortable and no acute distress Orientation: alert, awake and oriented x3 Head Head: normal to inspection Mouth: oral mucosae normal Neck Neck: no JVD and normal visual inspection Carotids: normal carotid upstroke Chest Chest inspection: normal inspection of the chest and normal respiratory effort Auscultation: Bilateral: Clear to Auscultation Cardio Rate: regular rate Rhythm: regular rhythm Heart sounds: S1 normal and S2 normal; negative rub or gallop GI GI: normal to inspection Neuro General: alert, awake, oriented x3 and CN's II-XI intact bilaterally Skin Skin: no rashes or lesions noted Extremities Pulses: Normal: Right Posterior Tibial Pulse, Left Posterior Tibial Pulse, Right Radial Pulse, Left Radial Pulse Lower Extremity Edema: None: Bilateral Psych Psychological: normal affect Assessment AND Plan 1. Palpitations R00.2 Plan - CLARE Rodriguez Patient's Holter monitor from July 2017 is negative for concern dysrhythmia. We will continue to monitor her palpitations. We will not initiate medications at this time. She is instructed to contact our office if she notices increase in palpitation frequency. 2. Other chest pain R07.89 Sony - CLARE Rodriguez Patient's chest pain appears atypical. Her echocardiogram showed a preserved ejection fraction and no wall motion abnormalities. Her activity level has remained stable. We will continue to monitor this. She was instructed to contact our office if she notices any worsening chest pain and/or worsening symptoms with exertion. If this be the case, we can consider doing a stress test for further evaluation. 3. Essential hypertension I10 Plan - CLARE Rodriguez Patient's blood pressure is well-controlled today in the office. We will continue to monitor this. We will not make any medication regimen changes. 4. Lightheadedness R42 Plan - CLARE Rodriguez This has been further evaluated with a neck CTA by PCP. 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 She was asked to continue to follow-up with primary care physician for further treatment/recommendation for this. 5. Nicotine abuse Z72.0 Plan - CLARE Rodriguez Patient does continue to smoke. She was reminded of the importance of smoking cessation in relation to cardiovascular health. We will continue to promote and support smoking cessation. Plan Detail Additional Comments - CLARE Rodriguez Discussed the above patient with Dr. Dumont in Dr. Hernandez's absence, he agrees with the plan of care. Thank you for allowing us to participate in the patients plan of care, if you have any questions please do not hesitate to call. This note was generated using a voice recognition system and there may be incorrect words, spelling or punctuation that were not noted when reviewing the office note prior to saving. 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) Coding Level of Care Code Off vis,est,level 3 Diagnoses Palpitations R00.2 Other chest pain R07.89 Chest pain type: other chest pain Essential hypertension I10 Hypertension type: essential hypertension Lightheadedness R42 Nicotine abuse Z72.0 Coding Level of Care Code Off vis,est,level 3 Diagnoses Palpitations R00.2 Other chest pain R07.89 Chest pain type: other chest pain Essential hypertension I10 Hypertension type: essential hypertension Lightheadedness R42 Nicotine abuse Z72.0 09/05/17 1527 <Electronically signed by Edouard SPARKS> Date Edouard SPARKS 09/07/17 1135<Electronically signed by Osvaldo Dumont MD> Cosigner Signature: Date (if applicable) Osvaldo Dumont MD CC: Jessica OLIVO Observed: 09/05/2017 Status: COMPLETED Source: [place] 12:00 AM [facility] REPOSITORY Telephone ([facility]) CHAPIN VELEZ V ([id number]) 1960 F Date Time Provider Department 09/05/17 JESSICA CROSS III During your visit today, we recorded the following information about you: Erica Hughes, RN, RN 09/05/2017 4:02 PM Signed Pt called to report that she is still having symptoms of numbness in arm,jaw pain that switches from side to side. Pt did have the CT Angio done and pt also seen Dr Hernandez today and per pt was ANDquot;given clean [employer].ANDquot; Pt is wondering is there any further testing that should be done for her symptoms. Nelly Turk LPN 09/13/2017 2:06 PM Signed Patient is still having the same issues. Asking what PCP would recommend her to do. Patient did schedule an appt on 09/16 with Suzanne. Suzanne Chang, MSN BOTANY TECHNICIAN 09/13/2017 3:12 PM Signed Will review at OV. Sx may be related to cervical disc. Suzanne Chang, MSN BOTANY TECHNICIAN [place]in [place] Ma 09/13/2017 3:23 PM Signed Pt notified. Jessica Cross III MD 09/13/2017 5:17 PM Signed Knowing that the patient's symptoms are not caused by heart disease or TIA, and knowing that she has documented degenerative arthritis of the cervical spine on imaging from October,, I suspect that her symptoms are caused by nerve entrapment from the cervical spine. I would recommend physical therapy to help address neck symptoms. Order has been entered. Keep upcoming appointment with Suzanne Chang. Jessica Cross III, MD, FAAFP Jessica Cross III MD 09/13/2017 5:18 PM Signed Addended by: JESSICA CROSS III, MD on: 09/13/2017 05:18 PM Modules accepted: Orders Dannielle Mathias CMA, ISSA 09/13/2017 6:24 PM Signed Patient notified, will keep appointment on 09/16 with Suzanne, wants to hold off on scheduling physical therapy until after talking with Suzanne. Dannielle Mathias CMA Allergies As of Date: 09/05/2017 Noted Allergy Reaction ADHESIVE TAPE (ROSINS) 10/18/2016 4 - Hives Comments: Patient had reaction after trigger finger surgery. Coban specifically NAPROXEN 03/14/2015 8 - GI Upset Date Reviewed: 08/10/2017 Reviewed by: Rakesh Pina - Fully Assessed Reason for Visit: Patient Update [1234] Primary Visit Diagnosis:Degenerative arthritis of cervical spine with nerve compression [M47.22] Order(s):CONSULT TO PHYSICAL THERAPY [9032] Order #: [id number]: 1 Prescriptions as of 09/05/2017 Sig: LISINOPRIL 20 MG TABLET Take 0.5 tablets by mouth onc* GLUCOSAMINE [id number] * EVERY MORNING INULIN 2 GRAM CHEWABLE TABLET every day LEVOFLOXACIN 500 MG TABLET Q24H ASPIRIN 81 MG TABLET,DELAYED * Take 1 tablet by mouth once d* HYDROCHLOROTHIAZIDE 12.5 MG C* Take 1 capsule by mouth once * OMEPRAZOLE 40 MG CAPSULE,JACQUES* Take 1 capsule by mouth once * IBUPROFEN 200 MG TABLET Take 600 mg by mouth every 6 * DICYCLOMINE 20 MG TABLET Take 1 tablet by mouth three * SOLIFENACIN 10 MG TABLET Take 1 tablet by mouth once d* GLUCOSAMINE 750 MG-CHONDROITI* Take by mouth. ESTRADIOL 0.01% (0.1 MG/GRAM)* Use 1 gram vaginally at night* * MULTIVITAMIN TABLET Take one(1) tablet daily. Problem List As Of Date 09/05/2017 Noted Resolved PALPITATIONS [R00.2] INVALID FOR* DYSMETABOLIC SYNDROME X [E88.81] INVALID FOR* Plantar Fasciitis [M72.2] INVALID FOR* GERD (Gastroesophageal Reflux Disease) [K21.9] INVALID FOR* Tobacco Abuse [Z72.0] INVALID FOR* Calcaneal spur [M77.30] INVALID FOR* Cervicalgia [M54.2] INVALID FOR*09/27/2012 Inclusion cyst of vulva [N90.7] INVALID FOR* Cervical arthritis (HCC) [M46.92] INVALID FOR*10/01/2016 Microscopic hematuria [R31.29] INVALID FOR*10/01/2016 Adrenal adenoma [D35.00] INVALID FOR* More... Hematuria, microscopic [R31.29] INVALID FOR* Tobacco use disorder [F17.200] INVALID FOR* Urinary frequency [R35.0] INVALID FOR* Urgency of urination [R39.15] INVALID FOR* Degenerative arthritis of cervical spine with n*INVALID FOR* Lumbar degenerative disc disease [M51.36] INVALID FOR* PMB (postmenopausal bleeding) [N95.0] INVALID FOR*10/01/2016 Thickened endometrium [R93.8] INVALID FOR* Tongue coating [K14.3] INVALID FOR* Glossitis [K14.0] INVALID FOR* Degenerative arthritis of carpometacarpal joint*INVALID FOR* Essential hypertension, benign [I10] INVALID FOR* More... Lumbar disc disease with radiculopathy [M51.16] INVALID FOR* Cervicalgia [M54.2] INVALID FOR* Sciatica [M54.30] INVALID FOR* Neck pain [M54.2] INVALID FOR* Cervical spondylosis without myelopathy [M47.81*INVALID FOR* Facet arthropathy, cervical [M46.92] INVALID FOR* Lumbosacral neuritis [M54.17] INVALID FOR* Lumbar spondylosis [M47.816] INVALID FOR* Overactive bladder [N32.81] INVALID FOR*10/01/2016 NSAID induced gastritis [K29.60, T39.395A] INVALID FOR* Hyperlipidemia [E78.5] INVALID FOR* Bilateral hand numbness [R20.0] INVALID FOR* Trigger thumb of left hand [M65.312] INVALID FOR* Arthritis of hand [M19.049] INVALID FOR* Chest pain [R07.9] INVALID FOR* Chronic sinusitis [J32.9] INVALID FOR* Lightheadedness [R42] INVALID FOR* Harmful pattern of use of nicotine [Z72.0] INVALID FOR* Other chest pain [R07.89] INVALID FOR* Encounter Status:Closed by NAZANIN SPRNIG MA on 09/13/17 CTA NECK W/WO Observed: 08/30/2017 Status: F Source: [place] [facility]AST 1:46 PM [facility] REPOSITORY [facility] Imaging Services [address] [place] [address] CTA Neck W/WO Contrast MR#: [id number] Acct: [id number] Name: CHAPIN VELEZ V Rep #: [id number] : 1960 F 57 From: En Maynard MD PCP: Jessica Cross III, MD Status: REG CLI Study: CTA Neck W/WO Contrast Date of Exam: 08/30/17 Exam# [id number] Ordering Dr: Jessica Cross III, MD STUDY: CTA NECK WITH CONTRAST REASON FOR EXAM: Female, 57 years old. CAROTID STENOSIS, DIZZY, F/U DOPPLER RADIATION DOSAGE (If Supplied By Facility): CTDIvol = ( 13.41 ) mGy, DLP = ( 612.69 ) mGycm TECHNIQUE: CT angiography with multi-detector data acquisition was performed from the aortic arch to the skull base following intravenous administration of 100 ml of Isovue 370 contrast. MIP images were reconstructed from the axial data set. Post-processing of the angiographic images was performed, with multiplanar reformation and 3D reconstruction. COMPARISON: None. FINDINGS: AORTIC ARCH: There is atherosclerotic calcific plaque formation of the aortic arch and great vessels arising from the aortic arch, without a hemodynamically significant stenosis. There is a normal origin of the brachiocephalic, left common carotid, and left subclavian arteries. Normal origins of the brachiocephalic, left common carotid, and left subclavian arteries. RIGHT CAROTID ARTERIES: Normal right common carotid artery (CCA). Normal right common carotid bulb. Normal origin of the right internal carotid (ICA) artery without a hemodynamically significant stenosis. Normal visualized cervical portion of the right internal carotid artery. Normal origin of the right external carotid artery (ECA). LEFT CAROTID ARTERIES: Normal left common carotid artery (CCA). Normal left common carotid bulb. Normal origin of the left internal carotid (ICA) artery without a hemodynamically significant stenosis. Normal visualized cervical portion of the left internal carotid artery. Normal origin of the left external carotid artery (ECA). 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 Normal-appearing right vertebral artery. 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 Normal-appearing right vertebral artery. There is no hemodynamically significant stenosis of the ICAs. 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 I recommend further evaluation with CT angiogram which will be scheduled at [facility]. My staff will contact you regarding scheduling. You must start taking aspirin 81 mg daily as we discussed at the recent appointment. I will contact you when we receive the results. Jessica Cross III, MD, [facility] CARDIOLOGY VISIT Observed: 07/27/2017 Status: F Source: [place] REPORT 5:35 PM [facility] REPOSITORY [facility] [address] [place] [address] OFFICE VISIT Date of Service: 07/27/17 MR#: [id number] Acct: [id number] Name: CHAPIN VELEZ V Rep #: [id number] : 1960 Provider: Santiago Hernandez MD Age/Sex: 57/F [place] [facility] Status: Signed [facility] ER 07/15/17: Chief Complaint: Palpitations Details: CHAPIN VELEZ, is a 57 F who presents to the office today for a visit. She had presented to the emergency room with palpitations on at least 2 occasions. She says that these have been fairly continuous may be associated with mild lightheadedness. She unfortunately continues to smoke and she also uses Mountain Dew products. In the emergency room she was evaluated and EKG was done which did not demonstrate any significant abnormality and blood work and electrolytes were all noted to be normal. She was asked to see us in cardiology. She has had mild dizziness but no jessica syncopal episodes she is also had occasional chest pain which does not necessarily appear to be related to these palpitations. She says that she does not appear to be under any significant amount of stress. Her physical exam demonstrates clear lung mitchell regular rate and rhythm and no pedal edema Intake Vital Signs07/27/17 Body Mass Index (BMI) 25.4 Intake Visit Reasons: [facility] ER 07/15/17 Allergies No Known Allergies Allergy (Verified 07/27/17 17:10) Medications Hydrochlorothiazide [Hydrochlorothiazide] 12.5 mg PO DAILY 03/29/16 [History Confirmed 07/27/17] Omeprazole [Prilosec] 40 mg PO DAILY 03/29/16 [History Confirmed 07/27/17] Lisinopril [Lisinopril] 20 mg PO DAILY 07/15/17 [History Confirmed 07/27/17] glucosamine TUs-X5-Urchuwlwt mercedez 1,500 mg-400 unit-100 mg tablet 1 tab PO QAM 07/27/17 [History Confirmed 07/27/17] inulin 2 gram chewable tablet g PO QDAY ea 07/27/17 [History Confirmed 07/27/17] lactobacillus combination no.4 3 billion cell capsule 3,000 mmu cells PO QDAY 07/27/17 [History Confirmed 07/27/17] levofloxacin 500 mg tablet 500 mg PO Q24H 07/27/17 [History Confirmed 07/27/17] multivitamin,ye-hboj-wcdyfijy tablet 1 tab PO QDAY 07/27/17 [History Confirmed 07/27/17] PFS Medical History Lightheadedness (Acute) Hypertension (Chronic) Nicotine abuse (Chronic) Chest pain (Acute) Palpitations (Acute) GERD (gastroesophageal reflux disease) (Chronic) Spinal stenosis (Chronic) Palpitations (Inactive) Surgical History H/O tubal ligation (Chronic) Hx of cholecystectomy (Chronic) Status post trigger finger release (Chronic) history of epidural steroid injections (Chronic) Family History Mother CAD (coronary artery disease), Onset Age: 60 CHF CAD Stent Diabetes Sister Diabetes Social History Smoking Status: Current every day smoker caffeine: Yes (3 per day) Type: carbonated beverages ROS Cardio Chest Pain: Yes Frequency: weekly Character: sharp Palpitations: Positive for Yes Cardiology Exam Const Appearance: cooperative, healthy appearing, well developed, well groomed and no acute distress Nutritional Appearance: well nourished and average body habitus Orientation: alert, awake and oriented x3 Head Head: normal to inspection, normocephalic and atraumatic Ears: hearing grossly normal bilaterally and external ears normal Nose: external nose normal, nasal mucous membranes and turbinates normal, nares normal, septum normal, no nasal discharge Face and Sinus: face symmetric Mouth: oral mucosae normal, tongue normal, oropharynx normal and moist mucous membranes Teeth and gingiva: dentition normal Throat: posterior oropharynx normal, tonsils normal and uvula midline Eyes General: appearance normal, both eyes and all related structures Eyelids: eyelids normal Conjunctivae: conjunctivae normal Pupils: PERRL, normal by confrontation and accommodation normal EOM: EOM intact bilaterally Neck Neck: normal visual inspection, trachea midline and no JVD JVD: +5 Carotids: normal carotid upstroke and bounding pulses Chest Chest inspection: normal inspection of the chest, symmetric chest movement and normal respiratory effort Auscultation: Bilateral: Clear to Auscultation Cardio Palpation: normal PMI Rate: regular rate Rhythm: regular rhythm Heart sounds: S1 normal, S2 normal and normal, physiologic split S2; negative rub, gallop or murmur GI GI: normal to inspection, soft, no hepatosplenomegaly and bowel sounds present Neuro General: alert, awake, oriented x3, no focal sensory deficit, gait normal and moves all extremities Skin Skin: no rashes or lesions noted Extremities Pulses: Normal: Right Femoral Pulse, Left Femoral Pulse, Right Dorsalis Pedis Pulse, Left Dorsalis Pedis Pulse, Right Posterior Tibial Pulse, Left Posterior Tibial Pulse, Right Radial Pulse, Left Radial Pulse Lower Extremity Edema: None: Bilateral Musculoskel Musculoskeletal: No joint tenderness Psych Psychological: normal affect Assessment AND Plan 1. Palpitations R00.2 Plan She continues to have these episodes of palpitations though no arrhythmia has been documented. My recommendation will be to obtain a 24 Holter monitor as well as an echocardiogram to assess her left ventricular function. Depending on the findings further recommendations will be made. I do not think that she is having significant supraventricular or ventricular tachyarrhythmias. I have also advised her to cut down on her tobacco use as well as her Mountain Dew caffeinated products. Orders Orders: 2. Other chest pain R07.89; R07.89; R07.8 Plan Her chest pain appears to be atypical and not wait to see the results of the Holter monitor as well as the echocardiogram before making any final decisions. 3. Essential hypertension I10; I10; I10 Plan Her blood pressure appears to be under good control on the current medical therapy and I would not suggest making any changes. She will remain on the lisinopril as well as the hydrochlorothiazide. Her electrolytes obtained in the emergency room were noted to be normal. Thank you for allowing me to participate in the care of your patient. Please don't hesitate to call if any issues arise Plan Detail Follow Up 6 Weeks (mmm) 07/27/17 3052 <Electronically signed by Santiago Hernandez MD> Date Santiago Hernandez MD Cosigner Signature: Date (if applicable) CC: Jessica Cross III, MD CARDIOLOGY VISIT Observed: 07/27/2017 Status: F Source: [place] REPORT 3:04 PM [facility] REPOSITORY [facility] [address] [place] [address] [address] [place] [address] OFFICE VISIT Date of Service: 07/27/17 MR#: [id number] Acct: [id number] Name: CHAPIN VELEZ V Rep #: [id number] : 1960 Provider: Santiago Hernandez MD Age/Sex: 57/F [place] [facility] [place] [facility] Status: Signed HPI [facility] ER 07/15/17: Details: CHAPIN VELEZ, is a 57 F who presents to the office today for Intake Vital Signs07/27/17 Height 5 ft 6 in 07/27/17 Weight: 158 lb 07/27/17 Body Mass Index (BMI) 25.4 07/27/17 Blood Pressure 118/62 07/27/17 Respiratory Rate 18 07/27/17 Pulse Rate 78 Intake Visit Reasons: [facility] ER 07/15/17 Allergies No Known Allergies Allergy (Verified 07/27/17 14:22) Medications Hydrochlorothiazide [Hydrochlorothiazide] 12.5 mg PO DAILY 03/29/16 [History Confirmed 07/17/17] Omeprazole [Prilosec] 40 mg PO DAILY 03/29/16 [History Confirmed 07/17/17] Lisinopril [Lisinopril] 20 mg PO DAILY 07/15/17 [History Confirmed 07/17/17] glucosamine GIj-A2-Egajgxgjk mercedez 1,500 mg-400 unit-100 mg tablet 1 tab PO QAM 07/27/17 [History Confirmed 07/27/17] inulin 2 gram chewable tablet g PO QDAY ea 07/27/17 [History Confirmed 07/27/17] lactobacillus combination no.4 3 billion cell capsule 3,000 mmu cells PO QDAY 07/27/17 [History Confirmed 07/27/17] levofloxacin 500 mg tablet 500 mg PO Q24H 07/27/17 [History Confirmed 07/27/17] multivitamin,ko-unyj-dgttgesb tablet 1 tab PO QDAY 07/27/17 [History Confirmed 07/27/17] [facility]LY [facility], [facility] Medical History Lightheadedness (Acute) Hypertension (Chronic) Nicotine abuse (Chronic) Chest pain (Acute) Palpitations (Acute) GERD (gastroesophageal reflux disease) (Chronic) Spinal stenosis (Chronic) Palpitations (Inactive) Surgical History H/O tubal ligation (Chronic) Hx of cholecystectomy (Chronic) Status post trigger finger release (Chronic) history of epidural steroid injections (Chronic) Family History Mother CAD (coronary artery disease), Onset Age: 60 CHF CAD Stent Diabetes Sister Diabetes Social History Smoking Status: Current every day smoker caffeine: Yes (3 per day) Type: carbonated beverages ROS Const Const: Positive for other (Recently diagnosed with HTN 07/05/17); negative for fatigue, weakness, difficulty sleeping, frequent falls, headache(s) or excessive sweating Eyes Eyes: Negative for loss of peripheral vision, transient loss of vision, blurry vision or double vision ENT ENT: Negative for headache(s), Negative for dizziness, Negative for Nosebleed/epistaxis, Negative for balance problems Cardio Chest Pain: Yes (New onset of palpitations, chest tightness and lightheadedness) Frequency: daily Character: tightness (burning) Onset: at rest Location: mid sternal, left chest, other (radiates to her left arm) Palpitations: Positive for Yes Edema: None Muscle aches with walking: None Resp Respiratory: Negative for SOB with activity, SOB at rest, SOB orthopnea\SOB lying down or paroxysmal nocturnal dyspnea Additional Details: Presently being treated for a sinus infection GI GI: Negative nausea or heartburn : Negative for hematuria Musc Musc: Negative for muscle aches/ myalgia, muscle weakness, joint pain or balance problems Skin Skin: Negative non-healing lesions, unusual bruising or rash Neuro Neuro: Negative for weakness, Negative for frequent falls, Negative for blurry vision, Negative for headache(s), Negative for dizziness, Negative for lightheadedness, Negative for orthostatic symptoms, Negative for double vision Brennen Hematologic/Lymphatic: Negative for easy bruising Endo Endo: Negative for fatigue, excessive sweating or increased thirst/drinking Psych Psych: Negative for anxiety or depression Allergy Allergy/Immunology: Negative for hives, Negative for rash Assessment AND Plan Orders Orders: Plan Detail Follow Up 6 Weeks (mmm) 07/27/17 2637 <Electronically signed by Santiago Hernandez MD> Date Santiago Hernandez MD Cosigner Signature: Date (if applicable) CC: Jessica Cross III, MD ALLERGIES ALLERGIES DATE TYPE / CODE NAME / CODE REACTION SEVERITY SOURCE 09/05/2017 Drug No Known Unknown [facility] Allergy/416 Allergies/F0019 [facility] 215227(SNOM 12003(RXNORM) Repository ED CT) 10/18/2016 Chemical/42 ADHESIVE TAPE HIVES [facility] [id number](SNO (ROSINS) [facility] [place] [facility]) Repository 03/14/2015 DRUG NAPROXEN GI UPSET [facility] INGREDI/419 [place] 654924(SNOM Repository ED CT) ENCOUNTERS ENCOUNTERS ADMIT/DISCHARGE ACCOUNT ADMITTING ENCOUNTER LOCATION SOURCE NUMBER CLASS 08/04/2018 [id number] Ambulatory [facility] ing:CT Repository 07/21/2018/07/24/19 [id number] Ambulatory [address] Repository 07/19/2018 [id number] Ambulatory [facility] ing:PSN Repository 06/12/2018/06/12/20 [id number] Ambulatory [address] Repository 06/06/2018/06/07/20 [id number] Ambulatory [address] Repository 05/22/2018/05/22/20 [id number] Ambulatory [address] Repository 05/22/2018/05/23/20 [id number] Ambulatory [address] [place] Repository 04/06/2018/04/06/20 [id number] Ambulatory BMSBuilding:B [place] [address] Repository 02/24/2018/02/28/20 [id number] Ambulatory [address] Repository 01/12/2018/01/13/20 [id number] Ambulatory [address] Repository 01/12/2018/01/14/20 [id number] Ambulatory [address] Repository 11/17/2017/11/19/19 [id number] Ambulatory [address] Repository 10/25/2017/04/11 [id number] Ambulatory [facility] [place] Repository 10/19/2017/10/21/19 [id number] Ambulatory [place] 18 [facility] [place] Repository 10/17/2017/10/18/19 [id number] Ambulatory [address] [place] Repository 10/17/2017/10/19/19 [id number] Ambulatory [address] [place] Repository 10/10/2017/10/12/19 [id number] Ambulatory [address] [place] Repository 10/05/2017/10/07/19 [id number] Ambulatory [address] [place] Repository 09/26/2017/09/29/19 [id number] Ambulatory [place] 18 [facility] [place] Repository 09/22/2017/09/28/19 [id number] Ambulatory [address] [place] Repository 09/16/2017/09/20/19 [id number] Ambulatory [address] [place] Repository 09/05/2017/09/05/19 [id number] Ambulatory BMSBuilding:Nathaly Spive[place] [address] [facility] Repository 08/30/2017 [id number] Ambulatory [facility] ing:CT Repository 08/16/2017/08/16/19 [id number] Ambulatory [address] [place] Repository 07/27/2017/07/27/19 [id number] Ambulatory BMSBuilding:Nathaly Spivey [address] [facility] Repository PAYERS PAYERS ENCOUNTER GUARANTOR PAYER SUBSCRIBER SOURCE 08/04/2018 KENNETH [id number] N Insurance:[facility] RENEJEEVAN: [facility] Number: [id number], [place] [id number] Repository [address]Sjw: 330) Date:2541-64-33[phone] () [id number], [place] [address]XG: 08/04/2018 Secondary NOT GIVENLENNY [place] Insurance:SELF PAY [facility] Number: Effective Repository Date:2018 07/19/2018 KENNETH [id number] N Insurance[facility] PEGUERO: [facility] Number: [id number] Agatha, [place] [id number] Repository [address]Udj: (330) Date:7795-14-29YK [phone] (HP) [id number], [place] [address]ER: 07/19/2018 Secondary NOT GIVENUNK [place] Insurance:SELF PAY [facility] Number: Effective Repository Date:2018-04-24 04/06/2018 Kenneth J Primary CHAPIN V Patric [id number] N Insurance:GPATPA KREMPELDOB: [facility] Number: [id number], [place] [id number] Repository [address]Ybf: (330) Date:2336-57-10WT [phone] (HP) [phone], [place] [address]DL: 04/06/2018 Secondary NOT GIVENUNK Pat[place] Insurance:SELF PAY [facility] Number: Effective Repository Date:2018-03-14 09/05/2017 Kenneth J Primary CHAPIN V [place] [id number] N Insurance:GPATPA KREMPELDOB: [facility] Number: [id number], [place] [id number] Repository [address]Qgt: (330) Date:5716-33-40VH [phone] (HP) 268681RRJBRJKALIDA, [place] [address]TD: 09/05/2017 Secondary NOT GIVENUNK [place] Insurance:SELF PAY [facility] Number: Effective Repository Date:2017-07-27 08/30/2017 Kenneth J Primary CHAPIN V [place] [id number] [address] Insurance:GPATPA KREMPELDOB: [facility] Number: [id number], [place] [id number] Repository [address]Hbx: (330) Date:3289-42-31WE [phone] (HP) [id number], [place] [address]GQ: 08/30/2017 Secondary NOT GIVENUNK [place] Insurance:SELF PAY [facility] Number: Effective Repository Date:2017-08-19 07/27/2017 CHAPIN V Primary CHAPIN V [place] [id number] N Insurance:GPATPA HERACLIOOB: [facility] Number: [id number] Agatha, [place] [id number] Repository [address]Lmb: (330) Date:7713-95-78XQ [phone] () [id number], [place] [address]ME: 07/27/2017 Secondary NOT GIVENUNK Pat[place] Insurance:SELF PAY [facility] Number: Effective Repository Date:2017-07-15
== END ==
PROVIDERS: Family Provider Family Medicine; PCP Family Medicine; Referring Provider Otolaryngology; Visit Provider Otolaryngology
DX: R42 Dizziness and giddiness (principal)
CPT/HCPCS: 70470; 70480; Q9967; A4216

== ENCOUNTER → 2018-09-22 11:01 | Outpatient (CLI) | payer OTHER, SELFPAY ==
[2018-04-06 13:24] VITALS: BMI 26.4
--- NOTE | 2018-09-22 11:27 | EKG12_ITS ---
Test Reason : PREOP Blood Pressure : / mmHG Vent. Rate : 063 BPM Atrial Rate : 063 BPM P-R Int : 150 ms QRS Dur : 080 ms QT Int : 414 ms P-R-T Axes : 077 033 045 degrees QTc Int : 423 ms Normal sinus rhythm Normal ECG Confirmed by AZUL FITCH, BEULAH ([id number]), editorial assistant SALLIE WHITTINGTON ([id number] on 09/26/2018 9:45:38 AM Referred By: Jimi Marques Confirmed By:BEULAH LIANG MD
[2018-09-22 11:56] LABS: Hematocrit 44.2 % (37-47); Hemoglobin 14.4 g/dl (12.0-15.0); Mean Corp Hgb Conc 32.6 g/gl (32-36); Mean Corpuscular Hgb 31.2 pg (27.0-32.0); Mean Corpuscular Volume 95.9 fL (81-99); Mean Platelet Vol. 12.1 fl (6.2-12.0); Platelet Count 269 K/mm3 (150-450); RBC Distribution Width CV 12.7 % (11.6-14.6); Red Blood Count 4.61 M/mm3 (4.2-5.4); White Blood Count 8.6 K/mm3 (4.4-11.0)
[2018-09-22 11:59] LABS: Scan Indicated on CBC? Y/N NO
[2018-09-22 12:15] LABS: Anion Gap 6 (5-15); BUN 10 mg/dL (7-18); BUN/Creat Ratio 12.3 RATIO (10-20); Calcium,Total 9.1 mg/dL (8.5-10.1); Chloride 108 mmol/L (98-107); Creatinine, Serum 0.82 mg/dL (0.55-1.02); EST Glomerular Filtration Rate 77 mL/min (>60); Est Glom Filt Rate - Afr Amer 93 mL/min (>60); Glucose 98 mg/dL (74-106); Sodium Level 140 mmol/L (136-145)
== END ==
PROVIDERS: Family Provider Family Medicine; PCP Family Medicine; Referring Provider Specialist; Visit Provider Specialist
DX: Z01.818 Encounter for other preprocedural examination (principal); Z01.810 Encounter for preprocedural cardiovascular examination
CPT/HCPCS: 36415; 80048; 85027; 93005

== ENCOUNTER → 2019-01-31 15:46 | Outpatient (CLI) | payer OTHER, SELFPAY ==
--- NOTE | 2019-01-31 15:52 | MRI_ITS ---
STUDY: MRI BRAIN WITHOUT CONTRAST REASON FOR EXAM: Female, 58 years old. Headaches and blurred vision TECHNIQUE: Standardized multiplanar fat and water weighted pulse sequences were obtained. COMPARISON: MRA brain from today and CT brain August 04, 2018 FINDINGS: There is mild cerebral atrophy with widening of the extra-axial spaces and ventricular dilatation. Normal white matter tracts of the supratentorial brain. There is no evidence for recent intracranial ischemia or other cause of cytotoxic edema on diffusion weighted imaging (DWI). Normal bilateral basal ganglia. Normal thalami. There is no extra-axial fluid accumulation. Normal flow voids within the major intracranial circulation suggesting patency by spin echo criteria. Normal sella turcica, pituitary gland, infundibular stalk, optic chiasm and hypothalamus. Normal tectal plate and pineal gland. Normal midbrain, javed and medulla. Normal cerebellum. Normal basal cisterns. There is mild chronic otomastoiditis of the bilateral temporal bones. Normal bilateral internal auditory canals. No demonstrated orbital abnormality, within the constraints of a routine brain study. Normal visualized paranasal sinuses. Normal calvarium and skull base. Normal visualized soft tissue structures. Normal visualized upper cervical spine. IMPRESSION: Mild bilateral mastoid effusions otherwise Normal unenhanced MRI of the brain. Electronically Signed: Jourdan Weinberg MD at 22:40 EDT , Service support , MRI/Brain without Contrast
--- NOTE | 2019-01-31 15:53 | MRI_ITS ---
STUDY: MRI CERVICAL SPINE WITHOUT CONTRAST REASON FOR EXAM: Female, 58 years old. Frequent headaches and blurred vision TECHNIQUE: Standardized fat and water weighted pulse sequences were obtained in the sagittal and axial planes. COMPARISON: CTA carotids August 30 2017 FINDINGS: Normal foramen magnum and brainstem-cervical cord junction. Normal craniovertebral junction. Normal anterior atlantoaxial articulation. Normal odontoid process. Normal cervical lordosis. Normal vertebral bodies and posterior osseous elements. C2-3: Normal endplates. Normal disc height, signal and morphology. Normal central canal and intervertebral neural foramina. C3-4: Normal endplates. Normal disc height, signal and morphology. Normal central canal and moderate narrowing right intervertebral neural foramina. C4-5: Normal endplates. Normal disc height, signal and morphology. Normal central canal and severe narrowing right intervertebral neural foramina. Small posterior central disc marginal osteophyte. Slight anterior subluxation. C5-6: Normal endplates. Normal disc height, signal and morphology. Normal central canal and moderate narrowing left intervertebral neural foramina. C6-7: Normal endplates. Normal disc height, signal and morphology. Normal central canal and intervertebral neural foramina. Small posterior broad-based disc marginal osteophyte. C7-T1: Normal endplates. Normal disc height, signal and morphology. Normal central canal and intervertebral neural foramina. Normal cervical cord. 10 mm nodule right thyroid lobe. Normal visualized soft tissue structures. MRI/Spine Cervical (Routine) IMPRESSION: Slight anterior subluxation C4-5. Right thyroid nodule. Recommend follow-up nonemergent thyroid ultrasound. Electronically Signed: Jourdan Weinberg MD at 22:54 EDT , Service support ,
--- NOTE | 2019-01-31 15:53 | MRI_ITS ---
STUDY: MRA OF THE HEAD WITHOUT CONTRAST REASON FOR EXAM: Female, 58 years old. Headache and blurred vision TECHNIQUE: 3-D [id number] (TOF) imaging was performed with MIPs. The study was performed unenhanced. COMPARISON: CT brain August 04, 2018 FINDINGS: Normal bilateral petrous carotid arteries. Normal right cavernous carotid artery with a normal supraclinoid bifurcation. Normal left cavernous carotid artery with a normal supraclinoid bifurcation. Normal right A1 segments of the anterior cerebral artery. Normal left A1 segments of the anterior cerebral artery. Normal intact anterior communicating artery (ACOM). Normal bilateral A2 segments of the anterior cerebral arteries. Normal right M1 and M2 segments of the middle cerebral arteries, with a normal M1 bifurcation. Normal left M1 and M2 segments of the middle cerebral arteries, with a normal M1 bifurcation. There is a persistent origin of the right posterior cerebral artery with absence of the P1 segment of the right posterior cerebral artery. There is non-visualization of the left posterior communicating artery (PCOM). Normal bilateral vertebral arteries. Normal basilar artery with a normal basilar bifurcation. The visualized bilateral superior cerebellar (SCA) arteries are normal. Normal bilateral P1, P2 and visualized P3 segments of the posterior cerebral arteries. There is no demonstrated aneurysm of the [place]. There is no major vessel occlusion or hemodynamically significant stenosis. There is no demonstrated abnormality of the visualized brain. MRI/MRA Head ONLY without Contrast IMPRESSION: Normal MRA of the head Electronically Signed: Jourdan Weinberg MD at 22:07 EDT , Service support ,
== END ==
PROVIDERS: Family Provider Family Medicine; PCP Family Medicine; Referring Provider Psychiatry & Neurology Neurology; Visit Provider Psychiatry & Neurology Neurology
DX: R42 Dizziness and giddiness (principal); G45.0 Vertebro-basilar artery syndrome
CPT/HCPCS: 70544; 70551; 72141

== ENCOUNTER → 2019-02-09 13:46 | Outpatient (CLI) | payer OTHER, SELFPAY ==
--- NOTE | 2019-02-09 13:50 | US_ITS ---
ACR Level 3 findings have been noted. An addendum which confirms receipt of the report will follow. HISTORY: NODULE SEEN ON MRI EXAMINATION: US Thyroid (eg thyroid, parathyroid, parotid) TECHNIQUE: Venegas scale and color doppler imaging was performed of the thyroid gland. COMPARISON: 01/31/19 MRI cervical spine. FINDINGS: RIGHT THYROID LOBE: 4.8 x 1.9 x 2.0 cm. . Homogeneous echotexture with normal vascularity. Nodule 1: Solid, hypoechoic with microcalcifications and small cystic areas, well-defined with internal vascularity, 1.3 x 1.2 x 1.0 cm, mid pole. Nodule 2: 0.4 cm avascular well-defined cystic nodule. LEFT THYROID LOBE: 4.6 x 1.8 x 1.6 cm. Homogeneous echotexture with normal vascularity. Nodule 1: 0.3 cm diameter, isoechoic to thyroid parenchyma with regular margins and sandi-nodular vascularity. Nodule 2: 0.3 cm diameter, cystic, well-defined with. Nodular vascularity. ISTHMUS: 0.2 cm thick. No isthmus nodules are present. US/Thyroid IMPRESSION: Nodule #1 in the right lobe has high suspicion ultrasound pattern for malignancy. Biopsy recommended. at 0337 Reported and signed by: Kain Escobar MD Electronically Signed: Kain Escobar, at 3:36 EDT Tel , Service support ,
== END ==
PROVIDERS: Family Provider Family Medicine; PCP Family Medicine; Referring Provider Family Medicine; Visit Provider Family Medicine
DX: E04.1 Nontoxic single thyroid nodule (principal)
CPT/HCPCS: 76536

== ENCOUNTER → 2019-02-22 16:02 | Outpatient (CLI) | payer OTHER, SELFPAY ==
[2018-04-06 13:24] VITALS: BMI 26.4
== END ==
PROVIDERS: Family Provider Family Medicine; PCP Family Medicine; Referring Provider Otolaryngology; Visit Provider Otolaryngology
DX: J02.9 Acute pharyngitis, unspecified (principal)
CPT/HCPCS: 87070; 87205

== ENCOUNTER → 2019-09-20 15:38 | Outpatient (CLI) | payer OTHER, SELFPAY ==
[2019-07-06 08:46] VITALS: BMI 26.3
[2019-09-26 09:08] LABS: Age Gdln ACOG Testing 30-65 (.)
[2019-09-26 13:04] LABS: HPV APTIMA, High Risk Negative (Negative)
[2019-09-26 13:19] LABS: HPV Reflexed? YES, CHARGE PATIENT
== END ==
PROVIDERS: PCP Family Medicine; Referring Provider Otolaryngology; Visit Provider Otolaryngology
DX: J02.9 Acute pharyngitis, unspecified (principal); Z12.4 Encounter for screening for malignant neoplasm of cervix
CPT/HCPCS: 87070; 87624; 88175; G0145

== ENCOUNTER → 2019-09-26 13:01 | Outpatient (CLI) | payer OTHER, SELFPAY ==
[2019-07-06 08:46] VITALS: BMI 26.3
--- NOTE | 2019-09-26 13:04 | BI_ITS ---
MAMMOGRAPHY - BILATERAL SCREENING REASON FOR EXAM: Female, 59 years old. Routine annual screening examination. PERTINENT HISTORY: Aunt with breast cancer. TECHNIQUE: Digital bilateral breast vilma (3D mammographic acquisition) in the CC and MLO projections. 2-D mediolateral oblique (MLO) and craniocaudad (CC) views of both breasts were obtained. CAD: Full Field Digital Mammography with Computer Added Detection was performed. COMPARISON: Comparison is made with prior examination dated January 12, 2018. FINDINGS: Breast Composition: There are scattered areas of fibroglandular density. There are no dominant masses or suspicious calcifications. Stable benign-appearing bilateral axillary lymph nodes. No other significant abnormalities are identified. There has been no significant change since the prior study. BI/SCREEN MAMM (CAD) W/VILMA BILAT IMPRESSION: Stable bilateral screening mammogram. Yearly follow-up mammogram recommended. (A) ASSESSMENT CATEGORY: BIRADS Category 2: Benign. A letter regarding these results will be sent to the patient by the facility within 30 days. Approximately 10% of breast cancers are not detected by mammography. A normal mammogram should not delay biopsy of a clinically suspicious abnormality. [id number] Electronically Signed: Geoffrey Richardson, at 13:55 EDT , Service support ,
[2019-09-26 14:21] LABS: Anion Gap 3 (5-15); BUN 13 mg/dL (7-18); BUN/Creat Ratio 15.3 RATIO (10-20); Calcium,Total 9.6 mg/dL (8.5-10.1); Chloride 104 mmol/L (98-107); Creatinine, Serum 0.85 mg/dL (0.55-1.02); EST Glomerular Filtration Rate 73 mL/min (>60); Est Glom Filt Rate - Afr Amer 88 mL/min (>60); Glucose 77 mg/dL (74-106); Potassium 3.7 mmol/L (3.5-5.1); Sodium Level 138 mmol/L (136-145); T4 Free Direct 1.28 ng/dL (0.76-1.46); Thyroid Stim Hormone (TSH) 0.31 uIU/mL (0.358-3.74)
== END ==
PROVIDERS: Internal Medicine Endocrinology, Diabetes & Metabolism; PCP Family Medicine; Referring Provider Obstetrics & Gynecology; Visit Provider Obstetrics & Gynecology
DX: Z12.31 Encounter for screening mammogram for malignant neoplasm of breast (principal); C73 Malignant neoplasm of thyroid gland
CPT/HCPCS: 36415; 77063; 77067; 80048; 84439; 84443

== ENCOUNTER → 2020-05-15 11:48 | Outpatient (CLI) | payer OTHER, SELFPAY ==
[2019-07-06 08:46] VITALS: BMI 26.3
[2020-05-15 15:47] LABS: Anion Gap 5 (5-15); BUN 11 mg/dL (7-18); Calcium,Total 9.5 mg/dL (8.5-10.1); Chloride 106 mmol/L (98-107); Creatinine, Serum 0.78 mg/dL (0.55-1.02); EST Glomerular Filtration Rate 80 mL/min (>60); Est Glom Filt Rate - Afr Amer 97 mL/min (>60); Glucose 81 mg/dL (74-106); Sodium Level 138 mmol/L (136-145); Thyroid Stim Hormone (TSH) 0.12 uIU/mL (0.358-3.74)
[2020-05-16 08:20] LABS: PTHIN 48.6 pg/mL (18.4-80.1)
== END ==
PROVIDERS: PCP Family Medicine; Visit Provider Family Medicine
DX: C73 Malignant neoplasm of thyroid gland (principal); I10 Essential (primary) hypertension
CPT/HCPCS: 36415; 80048; 83970; 84443

== ENCOUNTER → 2020-07-25 14:19 | Outpatient (CLI) | payer OTHER, SELFPAY ==
[2020-07-04 16:11] VITALS: BMI 27.0
--- NOTE | 2020-07-25 14:22 | US_ITS ---
HISTORY: Thyroid cancer. Right lobe thyroid resection 2018. Assess remaining lobe. 54 images. Comparison imaging most recently is a thyroid ultrasound from February 09, 2019. Additional comparison is an MRI of the cervical spine from January 31, 2019 Findings: The right lobe of the thyroid gland has been resected. The thyroid isthmus is 2 mm thick. A benign-appearing lymph node is present within the right neck measuring 17 x 7 x 13 mm. It has a fatty hilum. The left lobe of the thyroid gland measures 1.3 x 4.3 x 1.4 cm. The left lobe of the thyroid gland is homogeneous. Color Doppler imaging the left lobe of thyroid gland demonstrates flow. Some tiny hypodense areas are present within the left lobe of the thyroid gland. One of these measures 3 x 2 x 3 mm and likely represents a cyst. Posteriorly, within the midportion of left lobe of the thyroid gland there is a nodule. It measures 4 x 3 x 4 mm It is solid. It is isoechoic. It is wider than tall. It has ill-defined margins. There are no associated calcifications. It is not vascular on color Doppler imaging. This has a TI- RADS score of 3. This is mildly suspicious.. The cystic lesion was also similar to the previous study, and unchanged The solid lesion was present on the previous study, and was similar in size US/Thyroid IMPRESSION: Right lobe thyroidectomy. Benign-appearing right neck lymph node. 4 x 3 x 4 mm solid nodule posteriorly within the left lobe of the thyroid gland similar in appearance to the previous study of February 09, 2019. Absence of significant change in over a year is highly suggestive of benignity. at 0225 Reported and signed by: Steven Cobb MD Electronically Signed: Steven Cobb MD at 2:24 EST Tel , Service support ,
[2020-07-25 17:33] LABS: Vitamin B12 994 pg/mL (211-911)
[2020-07-25 17:38] LABS: T4 Free Direct 1.17 ng/dL (0.76-1.46); Thyroid Stim Hormone (TSH) 0.88 uIU/mL (0.358-3.74)
[2020-07-28 20:49] LABS: Anti-Thyroglobulin AB < 1.0 IU/mL (0.0-0.9); Thyroglobulin, Serum Qt. 10.1 ng/mL (1.5-38.5)
== END ==
PROVIDERS: PCP Family Medicine; Referring Provider Internal Medicine Endocrinology, Diabetes & Metabolism; Visit Provider Internal Medicine Endocrinology, Diabetes & Metabolism
DX: C73 Malignant neoplasm of thyroid gland (principal)
CPT/HCPCS: 36415; 76536; 82607; 84432; 84439; 84443; 86800

== ENCOUNTER → 2020-09-15 16:33 | Outpatient (CLI) | payer OTHER, SELFPAY ==
[2020-07-04 16:11] VITALS: BMI 27.0
[2020-09-19 16:28] LABS: HPV APTIMA, High Risk Negative (Negative)
== END ==
PROVIDERS: PCP Family Medicine; Visit Provider Obstetrics & Gynecology
DX: Z12.4 Encounter for screening for malignant neoplasm of cervix (principal)
CPT/HCPCS: 87624; 88175; G0145

== ENCOUNTER → 2020-09-29 11:51 | Outpatient (CLI) | payer OTHER, SELFPAY ==
[2020-07-04 16:11] VITALS: BMI 27.0
--- NOTE | 2020-09-29 11:52 | BI_ITS ---
MAMMOGRAPHY - BILATERAL SCREENING REASON FOR EXAM: Female, 60 years old. Routine annual screening examination. PERTINENT HISTORY: Aunts with breast cancer. TECHNIQUE: Digital bilateral breast vilma (3D mammographic acquisition) in the CC and MLO projections. 2-D mediolateral oblique (MLO) and craniocaudad (CC) views of both breasts were obtained. CAD: Full Field Digital Mammography with Computer Added Detection was performed. COMPARISON: Comparison is made with prior study of 09/26/2019. FINDINGS: Breast Composition: There are scattered areas of fibroglandular density. There are no dominant masses or suspicious calcifications. Stable small benign appearing bilateral axillary nodes. No other significant abnormalities are identified. There has been no significant change since the prior study. BI/SCRN MAMM (CAD)W/VILMA BILAT IMPRESSION: Stable bilateral screening mammogram. Yearly follow-up mammogram recommended. (A) ASSESSMENT CATEGORY: BIRADS Category 2: Benign. A letter regarding these results will be sent to the patient by the facility within 30 days. Approximately 10% of breast cancers are not detected by mammography. A normal mammogram should not delay biopsy of a clinically suspicious abnormality. [id number] Electronically Signed: Geoffrey Richardson MD at 14:46 EDT , Service support ,
== END ==
PROVIDERS: PCP Family Medicine; Referring Provider Obstetrics & Gynecology; Visit Provider Obstetrics & Gynecology
DX: Z12.31 Encounter for screening mammogram for malignant neoplasm of breast (principal)
CPT/HCPCS: 77063; 77067

== ENCOUNTER → 2020-10-04 15:03 | Outpatient (CLI) | payer OTHER, SELFPAY ==
[2020-10-04 08:36] VITALS: BMI 27.5
[2020-10-04 15:05] LABS: Bacteria 0 SEEN /hpf (None Seen); Mucous, Urine 0 SEEN /hpf (<or=2+); Red Blood Cells-Urine 0 SEEN /hpf (0-5)
[2020-10-04 15:09] LABS: Color, Urine Straw (Yellow); Glucose, Dipstick Normal (Normal); Ketone-Dipstick Negative (Negative); Leukocyte Esterase-Dipstick 25 /ul (Negative); Nitrite-Dipstick Negative (Negative); Occult Blood-Urine 10 /ul (Negative); Protein-Dipstick Negative (Negative); Urine Bilirubin Dipstick Negative (Negative); Urine Clarity Clear (Clear); Urine Urobilinogen Normal (Normal)
[2020-10-04 15:16] LABS: Squamous Epithelial Cells - UA 0-5 SEEN /hpf (5-10); White Blood Cells 0-5 SEEN /hpf (0-5)
== END ==
PROVIDERS: PCP Family Medicine; Visit Provider Nurse Practitioner Family
DX: R10.9 Unspecified abdominal pain (principal)
CPT/HCPCS: 81001; 87086

== ENCOUNTER → 2021-03-17 16:43 | Outpatient (CLI) | payer OTHER, SELFPAY | PROVIDERS: PCP Family Medicine; Visit Provider Family Medicine | DX: Z20.828 Contact with and (suspected) exposure to other viral communicable diseases (principal) | CPT/HCPCS: 87635; U0005; U0003 ==

== ENCOUNTER → 2021-06-30 10:19 | Outpatient (CLI) | payer OTHER, SELFPAY ==
[2021-06-30 11:38] LABS: T4 Free Direct 1.28 ng/dL (0.76-1.46); Thyroid Stim Hormone (TSH) 0.49 uIU/mL (0.358-3.74)
[2021-07-01 19:18] LABS: Anti-Thyroglobulin AB < 1.0 IU/mL (0.0-0.9); Thyroglobulin, Serum Qt. 5.7 ng/mL (1.5-38.5)
== END ==
PROVIDERS: PCP Family Medicine; Referring Provider Internal Medicine Endocrinology, Diabetes & Metabolism; Visit Provider Internal Medicine Endocrinology, Diabetes & Metabolism
DX: C73 Malignant neoplasm of thyroid gland (principal)
CPT/HCPCS: 36415; 84432; 84439; 84443; 86800

== ENCOUNTER 2021-09-17 10:02 | Outpatient (CLI) | payer OTHER, SELFPAY ==
--- NOTE | 2021-09-17 10:37 | RAD_ITS ---
STUDY: X-RAY - THORACIC SPINE REASON FOR EXAM: Female, 61 years old. Pain. TECHNIQUE: 2 view(s) of the thoracic spine were obtained on 3 images. COMPARISON: None. FINDINGS: Osteopenia. Normal kyphosis of the thoracic spine. There is no substantial scoliosis. Normal thoracic vertebrae and endplates. Mild diffuse intervertebral disc space narrowing with small osteophytes. Cholecystectomy clips. RAD/Thoracic Spine 3 Views IMPRESSION: Osteopenia with diffuse mild thoracolumbar spondylosis. No acute finding, evidence of erosive changes or fusion. Electronically Signed: Dmitriy Adair MD at 14:06 EST ,
--- NOTE | 2021-09-17 10:38 | RAD_ITS ---
STUDY: X-RAY - LUMBAR SPINE REASON FOR EXAM: Female, 61 years old. Pain. TECHNIQUE: 5 view(s) of the lumbar spine were obtained. COMPARISON: None FINDINGS: Normal lumbar lordosis. Mild rotatory dextroscoliosis. There is a normal alignment of the vertebrae. Diffuse facet sclerosis. Diffuse mild intervertebral disc space narrowing with osteophyte formation most marked at L1-2, L2-3 and L3-4. The soft tissue structures are unremarkable. RAD/L/S Spine Min 4 Views IMPRESSION: Osteopenia with mild diffuse thoracolumbar spondylosis as described. No acute abnormality, erosive changes or evidence of fusion. Electronically Signed: Dmitriy Adair MD at 13:55 EST ,
--- NOTE | 2021-09-17 10:39 | RAD_ITS ---
STUDY: X-RAY - PELVIS AND BILATERAL HIPS REASON FOR EXAM: Female, 61 years old. Pain. TECHNIQUE: AP view of the pelvis.? 2 views of the right hip, and 2 views of the left hip were obtained. COMPARISON: None. FINDINGS: There is a non-specific bowel gas pattern. Tubal ligation clips. Phleboliths. Mild osteopenia. Normal bilateral iliac wings, sacroiliac joints and visualized sacrum. Normal bilateral superior and inferior pubic rami. Normal pubic symphysis. Normal bilateral ischial tuberosities. Mild arthrosis of both hips. RAD/Hips B/L min 2 views w/ Pelvis IMPRESSION: Osteopenia with mild arthrosis of both hips. No acute abnormality, evidence of erosions or fusion. Electronically Signed: Dmitriy Adair MD at 13:54 EST ,
[2021-09-17 11:28] LABS: Absolute Lymphocyte Count 1.65 X10^3/uL (0.83-4.51); Absolute Neutrophil Count 9.2 X10^3/uL (2.0-7.7); Basophil% 0.9 % (0-1); Eosinophil# 0.37 X10^3/uL; Eosinophils% 3.1 % (0-5); Hematocrit 45.5 % (37-47); Lymphocyte # 1.65 X10^3/ul (0.83-4.51); Mean Corpuscular Hgb 30.3 pg (27.0-32.0); Mean Corpuscular Volume 91.9 fL (81-99); Mean Platelet Vol. 11.5 fl (6.2-12.0); Monocyte# 0.44 X10^3/uL; Monocyte% 3.7 % (0-10); NRBC Flagged by Analyzer 0 % (0-5); Neutrophil # 9.15 X10^3/uL (2.7-7.7); Platelet Count 290 K/mm3 (150-450); RBC Distribution Width SD 43.5 fl (35.1-43.9); Red Blood Count 4.95 M/mm3 (4.2-5.4); White Blood Count 11.8 K/mm3 (4.4-11.0)
[2021-09-17 11:59] LABS: ALB/GLOB Ratio 0.8 RATIO (0.9-2.4); AST(SGOT) 13 U/L (15-37); Alanine Aminotransfer ALT/SGPT 18 U/L (13-56); Albumin, Serum 3.6 g/dL (3.2-5.0); Alkaline Phosphatase 132 U/L (45-117); Anion Gap 4 (5-15); BUN 13 mg/dL (7-18); Calcium,Total 9.7 mg/dL (8.5-10.1); Chloride 106 mmol/L (98-107); Cholesterol 249 mg/dL (200); Creatinine, Serum 0.81 mg/dL (0.55-1.02); EST Glomerular Filtration Rate 76 mL/min (>60); Est Glom Filt Rate - Afr Amer 92 mL/min (>60); Globulin 4.6 g/dL (2.2-4.2); Glucose 90 mg/dL (74-106); High Density Lipoprotein 47 mg/dL; Potassium 3.7 mmol/L (3.5-5.1); Protein, Total 8.2 g/dL (6.4-8.2); Sodium Level 139 mmol/L (136-145); Triglycerides 322 mg/dL; Very Low Density Lipoprotein 64 mg/dL (5-40)
== END 2021-09-17 23:59 | disposition home or self-care (01) ==
LOC: LAB 10:04
PROVIDERS: PCP Family Medicine; Referring Provider Family Medicine; Visit Provider Family Medicine
DX: Z00.00 Encounter for general adult medical examination without abnormal findings (principal); I10 Essential (primary) hypertension; K21.9 Gastro-esophageal reflux disease without esophagitis; M41.9 Scoliosis, unspecified; M25.559 Pain in unspecified hip
CPT/HCPCS: 36415; 72072; 72110; 73521; 80053; 80061; 85025

== ENCOUNTER 2021-10-06 13:33 | Outpatient (CLI) | payer OTHER, SELFPAY ==
--- NOTE | 2021-10-06 13:35 | BI_ITS ---
MAMMOGRAPHY - BILATERAL SCREENING REASON FOR EXAM: Female, 61 years old. Routine annual screening examination. PERTINENT HISTORY: Aunts with breast cancer. TECHNIQUE: Digital bilateral breast vilma (3D mammographic acquisition) in the CC and MLO projections. 2-D mediolateral oblique (MLO) and craniocaudad (CC) views of both breasts were obtained. CAD: Full Field Digital Mammography with Computer Added Detection was performed. COMPARISON: Comparison is made with prior study of 09/29/2020 and 09/26/2019. FINDINGS: Breast Composition: There are scattered areas of fibroglandular density. There are no dominant masses or suspicious calcifications. Stable small benign-appearing bilateral axillary lymph nodes. No other significant abnormalities are identified. There has been no significant change since the prior study. BI/SCRN MAMM (CAD)W/VILMA BILAT IMPRESSION: Stable bilateral screening mammogram. Yearly follow-up mammogram recommended. (A) ASSESSMENT CATEGORY: BIRADS Category 2: Benign. A letter regarding these results will be sent to the patient by the facility within 30 days. Approximately 10% of breast cancers are not detected by mammography. A normal mammogram should not delay biopsy of a clinically suspicious abnormality. [id number] Electronically Signed: Geoffrey Richardson MD at 14:32 EDT ,
== END 2021-10-06 23:59 | disposition home or self-care (01) ==
LOC: OPBI 13:34
PROVIDERS: PCP Family Medicine; Visit Provider Family Medicine
DX: Z12.31 Encounter for screening mammogram for malignant neoplasm of breast (principal)
CPT/HCPCS: 77063; 77067

== ENCOUNTER 2021-10-10 07:47 | Outpatient (CLI) | payer OTHER, SELFPAY ==
--- NOTE | 2021-10-10 07:54 | CT_ITS ---
STUDY: LOW DOSE CT LUNG CANCER SCREENING REASON FOR EXAM: Female, 61 years old. Current smoker, 1 pack per day x40 years RADIATION DOSAGE (If Supplied By Facility): CTDIvol = ( 2.01 ) mGy, DLP = ( 67.20 ) mGycm TECHNIQUE: No contrast was administered. Low dose technique was utilized (average mAS-38 and kVp 120). 1.25 mm axial source images with a slice interval of 1.25-mm were reconstructed in lung windows. 2.5 mm axial source images with a slice interval of 2.5-mm were reconstructed in lung windows. 5.0 mm axial source images with a slice interval of 5.0-mm were reconstructed in soft tissue windows. Nodule measured using lung windows on PACS and/or independent workstation with automated measurement of minimum and maximum diameter. Nodule measurement reported as average diameter rounded to the nearest whole number. Growth is defined as an increase ins size of greater than 1.5 mm. COMPARISON: 2016 FINDINGS: Lung windows show underlying emphysema with nonspecific pleural thickening at both apices and nonspecific pleural thickening in both hemithoraces. Emphysematous blebs noted in both upper lung mitchell. No suspicious noncalcified mass or nodule is noted. No organized infiltrate or effusion there are scattered calcified granulomata. Soft tissue windows show a normal-appearing thyroid gland. There are scattered subcentimeter axillary and mediastinal lymph nodes. No calcified coronary vessels. Bony structures show degenerative change. Limited cuts through the upper abdomen do not show a suspicious abnormality CT/Low Dose CT Lung Screening IMPRESSION: Lung-RADS category 2 - Continue annual screening with LDCT in 12 months. IMPORTANT NOTES FOR USE: ACR Lung-RADS Version 1.1 Assessment Categories Release Date: 2018 Category: Coded 0-4 bases on nodule(s) with highest degree of suspicion. Negative screen is defined as categories 1 and 2; a positive screen is defined as categories 3 and 4. Category 3 and 4A nodules that are unchanged on interval CT should be coded as category 2, and individuals returned to screening in 12 months. Category 4X: Category 3 or 4 nodules with additional imaging findings that increase the suspicion of lung cancer, such as spiculation, GGN that doubles in size in 1 year, enlarged lymph notes, etc. Category Modifiers: S (significant finding unrelated to lung cancer) Electronically Signed: Kvng Henson MD at 9:51 EDT ,
== END 2021-10-10 23:59 | disposition home or self-care (01) ==
PROVIDERS: PCP Family Medicine; Referring Provider Family Medicine; Visit Provider Family Medicine
DX: F17.200 Nicotine dependence, unspecified, uncomplicated (principal)
CPT/HCPCS: 71271

== ENCOUNTER 2021-10-21 05:58 | Outpatient (CLI) | payer OTHER, SELFPAY ==
--- NOTE | 2021-10-21 12:30 | STRESSREP ---
Stress Test Report Exercise myocardial perfusion stress test. 61-year-old lady with a history of chest pain. Stress protocol: Resting KG demonstrates sinus bradycardia with a rate of 59 bpm. Resting blood pressure is 140/68 mmHg. The patient exercised according to regular Joshua protocol for total duration of 7 minutes and 30 seconds. The maximum heart rate attained was 142 bpm which was 88% of max impact at heart rate maximum workload was 10.1 metabolic equivalents. Patient completed 1 minute and 30 seconds into stage III of the Joshua protocol. At rest there were no ST or T wave changes noted to suggest ischemia and at peak exercise upsloping ST changes were noted with did not meet the criteria for ischemia. No clinical angina was noted. The test was terminated due to target heart rate being achieved. Myocardial perfusion protocol. 11.3 mCi of technetium 99m sestamibi was injected at rest. The patient exercised according to regular Joshua protocol for total duration of 7 minutes and 30 seconds and at peak exercise 33.9 mCi of technetium 99m sestamibi was injected stress images were obtained stress and rest images were reconstructed and compared in the short axis vertical long and horizontal long axis. Gated images were also obtained. Perfusion SPECT analysis: Review of the stress images demonstrate normal uptake of tracer noted in all areas of the myocardium. The resting images similarly demonstrate normal uptake of tracer noted in all areas of the myocardium. No areas of reversibility are noted suggest ischemia and no previous infarct is noted. Gated SPECT analysis: The gated ejection fraction is noted to be 60%. Conclusion: Normal exercise myocardial perfusion stress test at a high workload. Preserved ejection fraction.
== END 2021-10-21 23:59 | disposition home or self-care (01) ==
LOC: CVS 05:59
PROVIDERS: PCP Family Medicine; Referring Provider Nurse Practitioner Family; Visit Provider Nurse Practitioner Family
DX: R07.9 Chest pain, unspecified (principal); I10 Essential (primary) hypertension; Z72.0 Tobacco use
CPT/HCPCS: 78452; 93017; A9500; A4216

== ENCOUNTER 2021-12-17 09:41 | Observation (INO) | payer OTHER, SELFPAY ==
[2021-12-17] VITALS (15 sets, daily range): BP systolic 99–149; BP diastolic 72–91; PULSE 70–155; RESP 14–18; TEMP 36.3–37.2; O2SAT 96–99; BMI 24.3
--- NOTE | 2021-12-17 10:07 | RAD_ITS ---
STUDY: X-RAY CHEST REASON FOR EXAM: Female, 61 years old. palpitations TECHNIQUE: Single AP portable view of the chest. COMPARISON: Comparison is made with prior study dated 04/15/2017. FINDINGS: EKG electrodes are seen. Hyperinflation. The lungs are clear. There is no demonstrated pleural abnormality. Normal size heart. Normal mediastinum and chrystal. Normal visualized pulmonary arteries. There is atherosclerotic tortuosity of the aortic arch and descending thoracic aorta. There are diffuse degenerative changes of the visualized thoracic spine. Dextroscoliosis. Normal visualized ribs, clavicles, and shoulders. There is no demonstrated abnormality of the visualized soft tissue structures of the upper abdomen. RAD/Chest 1 View (Portable) IMPRESSION: Hyperinflation. The lungs are clear. Electronically Signed: Geoffrey Richardson MD at 10:38 EDT ,
--- NOTE | 2021-12-17 10:07 | EKG12_ITS ---
Test Reason : PALPS Blood Pressure : / mmHG Vent. Rate : 141 BPM Atrial Rate : 282 BPM P-R Int : 000 ms QRS Dur : 082 ms QT Int : 264 ms P-R-T Axes : 263 022 -36 degrees QTc Int : 404 ms Atrial flutter with variable A-V block Marked ST abnormality, possible inferior subendocardial injury Abnormal ECG Confirmed by SARAH FITCH, FRANCESCA ([id number]), graphics editor ELIZABETH DING ([id number]) on 12/21/2021 12:46:41 PM Referred By: VIVIEN Confirmed By:FRANCESCA SMITH MD
[2021-12-17 10:17] LABS: Absolute Lymphocyte Count 1.66 X10^3/uL (0.83-4.51); Absolute Neutrophil Count 9.2 X10^3/uL (2.0-7.7); Basophil# 0.05 X10^3/uL; Basophil% 0.4 % (0-1); Eosinophil# 0.11 X10^3/uL; Hematocrit 38.5 % (37-47); Hemoglobin 13.3 g/dL (12.0-15.0); Lymphocyte # 1.66 X10^3/ul (0.83-4.51); Lymphocyte % 14.4 % (19-41); Mean Corp Hgb Conc 34.5 g/dL (32-36); Mean Corpuscular Hgb 31.7 pg (27.0-32.0); Mean Corpuscular Volume 91.9 fL (81-99); Mean Platelet Vol. 10.8 fl (6.2-12.0); Monocyte# 0.42 X10^3/uL; Monocyte% 3.6 % (0-10); NRBC Flagged by Analyzer 0 % (0-5); Neutrophil # 9.23 X10^3/uL (2.7-7.7); Neutrophil % 80.3 % (47-70); Platelet Count 333 K/mm3 (150-450); RBC Distribution Width CV 12.2 % (11.6-14.6); RBC Distribution Width SD 41.4 fl (35.1-43.9); Red Blood Count 4.19 M/mm3 (4.2-5.4); White Blood Count 11.5 K/mm3 (4.4-11.0)
[2021-12-17] MEDS: Metoprolol Tartrate 5 MG/5 ML Vial IV ×3 (10:17→10:35)
[2021-12-17 10:26] LABS: International Normalized Ratio 1.1
--- NOTE | 2021-12-17 10:26 | EDS_ITS ---
HPI History of Present Illness Chief Complaint: Palpitations Informant: patient and spouse/S.O. Narrative Narrative: Presents with worsening palpitations 4:30 AM this morning while at work. She works third shift. She reports had mild symptoms yesterday at 6:30 AM been intermittent. Had mild chest discomfort then. States had blood pressure of the low, however was not lightheaded, she did not take her blood pressure medicines because of her low blood pressure. She is doing fine throughout the day works overnight had worsening symptoms 4:30 AM. No history of any cardiac dysrhythmias. History of hypertension, GERD, hypothyroidism. No recent adjustments of her thyroid medications. She has seen cardiology Dr. Hernandez in the past for her blood pressure. No CHF or coronary disease history. Tobacco history. Chronic cough secondary to smoking. No fevers. No vomiting or diarrhea. Prior similar symptoms: No PFSH PFSH Medical History Acute maxillary sinusitis, unspecified Cervical radiculopathy at C7 Encounter for screening for COVID-19 Essential (primary) hypertension GERD (gastroesophageal reflux disease) IBS (irritable bowel syndrome) Malignant neoplasm of thyroid gland Nicotine abuse Postoperative primary hypothyroidism Spinal stenosis Home Medications glucosamine [id number]-[id number]-Biwrnrvkh mercedez 1,500 mg-400 unit-100 mg tablet 1 tab PO QAM 07/27/17 [History Last Taken 12/16/21] lactobacillus combination no.4 3 billion cell capsule 3,000 mmu cells PO QDAY 07/27/17 [History Last Taken 12/16/21] multivitamin,vn-ojic-fmkilrms 1 tab PO QDAY 07/27/17 [History Last Taken 12/16/21] aspirin 81 mg tablet,delayed release 81 mg PO QDAY tab 09/05/17 [History Last Taken 12/16/21] simethicone 125 mg chewable tablet 125 mg PO BID-QID PRN #30 tablet 10/04/20 [Rx Last Taken 12/16/21] losartan 100 mg tablet 100 mg PO DAILY #30 tab 04/21/21 [Rx Last Taken 12/16/21] levothyroxine 100 mcg tablet 100 mcg PO .COMPLEX #90 tab 08/03/21 [Rx Last Taken 12/17/21] ascorbic acid (vitamin C) 500 mg tablet 500 mg PO DAILY 09/22/21 [History Last Taken 12/16/21] hydrochlorothiazide 12.5 mg tablet 12.5 mg PO DAILY tab 09/22/21 [History Last Taken 12/16/21] omeprazole 20 mg capsule,delayed release 20 mg PO DAILY cap 09/22/21 [History Last Taken 12/16/21] omega 4-huz-thq-fish oil [Fish Oil] 1 cap PO DAILY 12/17/21 [History Last Taken 12/16/21] Allergy/AdvReac Type Severity Reaction Status Date / Time adhesive tape Allergy Mild Rash Verified 12/17/21 09:44 lisinopril AdvReac Mild Other Verified 12/17/21 09:44 Family History Mother CAD (coronary artery disease), Onset Age: 60 CHF CAD Stent Diabetes Arthritis Alcoholism Heart disease Hypertension Hyperlipidemia Thyroid disorder Sister Diabetes Thyroid disorder Fibromyalgia Non-Hodgkin lymphoma Father Respiratory disease Grandmother Alcoholism Liver disease Grandfather Stomach ulcer Aunt Breast cancer Cervical cancer Ovarian cancer Respiratory disease Parkinsons disease Uncle Respiratory disease Unknown Breast cancer Surgical History H/O tubal ligation History of bilateral carpal tunnel release history of epidural steroid injections History of thyroidectomy Hx of cholecystectomy Status post trigger finger release Social History Smoking Status: Current every day smoker tobacco type: cigarettes alcohol intake: never substance use type: does not use caffeine: Yes Type: carbonated beverages Number of servings: 5 what type of physical activity do you participate in: none seatbelt use: always do you feel safe at home: Yes ROS ROS ED Constitutional Constitutional ED: Denies chills, fever(s) or sweats Eyes Eyes: Denies change in vision ENT ENT ED: Denies dysphagia or sore throat Cardiovascular Cardiovascular: Reports chest pain and palpitations; Denies leg edema or racing heartbeat Respiratory/Chest Respiratory/Chest: Denies cough, dyspnea or dyspnea on exertion Gastrointestinal Gastrointestinal: Denies abdominal pain, diarrhea, nausea or vomiting Genitourinary Genitourinary ED: Denies dysuria, hematuria or urinary frequency Musculoskeletal Musculoskeletal: Denies back pain, extremity pain or neck pain Integumentary Denies rash or wounds Neurologic Neurologic: Denies headache(s), paresthesias or weakness EXAM Physical Exam Const Vital Signs: 12/17/21 09:42 12/17/21 10:08 12/17/21 10:29 Temperature 97.3 F L Temperature Source Temporal Pulse Rate 149 H 155 H 119 H Respiratory Rate 16 18 18 Respiratory Effort Normal Non-Labored Blood Pressure 149/88 H 121/84 H 119/75 Blood Pressure Mean 108 96 89 Pulse Ox 99 99 98 Oxygen Delivery Method Room Air Room Air Room Air 12/17/21 10:35 12/17/21 11:02 12/17/21 12:00 Temperature 98.9 F Temperature Source Temporal Pulse Rate 113 H 126 H 116 H Respiratory Rate 18 17 14 Respiratory Effort Blood Pressure 105/85 H 117/86 H 132/91 H Blood Pressure Mean 91 96 104 Pulse Ox 98 96 98 Oxygen Delivery Method Room Air Room Air Room Air Positive well nourished and well developed General Appearance ED: well developed and NAD HEENT Reports moist mucous membranes normocephalic and atraumatic Eyes PERRL, EOMs intact bilaterally and conjunctivae normal General Eye ED: Yes normal appearance of both eyes Neck no lymphadenopathy and supple General: Negative for tenderness Chest Wall Chest: Negative for tenderness Resp normal respiratory effort and normal air movement Effort and Inspection: symmetric chest movement; Negative for respiratory distress Cardio regular rhythm and no murmurs Rhythm: abnormal rhythm Peripheral Pulses: pulses 2+ throughout GI normal to inspection, nondistended, normoactive bowel sounds and non-tender Palpation: Negative for guarding or rebound tenderness present Back/Spine no CVA tenderness and no thoracic nor lumbar tenderness Extremity normal to inspection General Extremety ED: Negative for edema or tenderness General Extremity: Negative for edema Neuro oriented x3 and no sensory deficits noted Sensorium / Orientation: awake and alert Skin no rashes or lesions noted and no wounds MDM MDM MDM Narrative Medical decision making narrative: Patient presents with tachycardia narrow complex on EKG with concerns for a flutter versus slow SVT. There was slight ST depressions on lateral leads likely demand ischemia. No current chest pains. However on the cardiac cath technician she had abnormal runs of rhythms appeared more atrial fibrillation I would go back and forth into sinus rhythm. This is being recorded on the monitor. Systolic blood pressure 120. Labs will be drawn, will give IV Lopressor and will reevaluate. 1200: After 3 doses IV Lopressor heart rate low 100s to 120s primarily in the 110s. Labs potassium 3.2 orally replaced. T4 level slightly elevated at 1.54. Chest x-ray 1 view reviewed by myself and read by radiology shows no acute process hyperinflated lungs. She is ordered for 50 of p.o. metoprolol. [id number] score is a 2. She takes baby aspirin at home. Patient to A. fib with RVR, I do feel she would benefit from hospitalization specially from her initial rhythm that would go in and out of atrial fibrillation. It has been more persistent A. fib on reevaluation. I spoke with hospitalist Dr. Pichardo who would like to give her 10 of IV Cardizem with the p.o. metoprolol. This is ordered. He asked that I speak with cardiology who is currently on page to follow-up in the hospital. 1230: Prior to IV Cardizem patient's heart rate went down to 70s 80s on the m onitor. To be sinus rhythm with occasional runs of atrial tachycardia. Repeat EKG confirms back to normal sinus rhythm at 1220. IV Cardizem held she was given oral metoprolol to sustain her heart rate. Dr. Pichardo did see the patient concerns for blood pressure that was low yesterday had ordered for bilateral blood pressures upper arms right arm systolic 122, left arm systolic 99. With the discrepancy more 20 he had like a CT of the chest to rule out dissection prior to going upstairs. This was discussed with the patient. Scan was ordered. Cardiology Dr. Arreola return phone call update on patient's history findings concerns agrees with fluctuating rhythm for observations if CT is negative. CTA of the chest returned negative. Patient admitted to PCU. Lab Data Attestation: I reviewed the patient's lab results. Labs: Laboratory Results - last 24 hr 12/17/21 12/17/21 12/17/21 10:07 10:07 10:07 WBC 11.5 H RBC 4.19 L Hgb 13.3 Hct 38.5 MCV 91.9 MCH 31.7 MCHC 34.5 RDW Std Deviation 41.4 RDW Coeff of [place] 12.2 Plt Count 333 MPV 10.8 Immature Gran % (Auto) 0.300 Neut % (Auto) 80.3 H Lymph % (Auto) 14.4 L [place] % (Auto) 3.6 Eos % (Auto) 1.0 Baso % (Auto) 0.4 Absolute Neuts (auto) 9.2 H Absolute Lymphs (auto) 1.66 Nucleated RBC % 0 PT 14.0 INR 1.1 APTT 96.8 H* Sodium 137 Potassium 3.2 L Chloride 104 Carbon Dioxide 26.0 Anion Gap 7 BUN 11 Creatinine 0.88 Estim Creat Clear Calc 61.17 Est GFR (MDRD) Af Amer 84 Est GFR (MDRD) Non-Af 70 BUN/Creatinine Ratio 12.5 Glucose 120 H Calcium 9.8 Phosphorus Magnesium 1.8 Troponin I High Sens 46 Free T4 1.54 H 12/17/21 10:07 WBC RBC Hgb Hct MCV MCH MCHC RDW Std Deviation RDW Coeff of [place] Plt Count MPV Immature Gran % (Auto) Neut % (Auto) Lymph % (Auto) [place] % (Auto) Eos % (Auto) Baso % (Auto) Absolute Neuts (auto) Absolute Lymphs (auto) Nucleated RBC % PT INR APTT Sodium Potassium Chloride Carbon Dioxide Anion Gap BUN Creatinine Estim Creat Clear Calc Est GFR (MDRD) Af Amer Est GFR (MDRD) Non-Af BUN/Creatinine Ratio Glucose Calcium Phosphorus 4.0 Magnesium Troponin I High Sens Free T4 Radiography Chest X-Ray - ED: 1 View, Read by ED Physician and Read by Radiologist Diagnostic Testing: Clinical Impression(s) from Imaging Studies Chest X-Ray 12/17/21 10:07 IMPRESSION: Hyperinflation. The lungs are clear. Electronically Signed: Geoffrey Richardson MD at 10:38 EDT , EKG Initial EKG: Attestation: I personally reviewed and interpreted this EKG as follows: Comments: Narrow complex tachycardia rate of 141, slight ST depressions V3 through V6, there is no elevations. Follow-up EKG: Attestation: I personally reviewed and interpreted this EKG as follows: Comments: At 1220: Sinus rate of 68, PAC noted, no ST or T wave changes. Resolved ST depressions. Discharge Plan Dx/Rx/DC Orders Clinical Impression: Atrial fibrillation, new onset, Palpitations, Acute hypokalemia Disposition Disposition: Acute Care Hospital [facility] Discharge Date/Time: 12/17/21 13:51
[2021-12-17 10:32] LABS: Partial Thromboplast Time 96.8 Seconds (24.1-36.2)
[2021-12-17 10:35] LABS: Anion Gap 7 (5-15); BUN 11 mg/dL (7-18); BUN/Creat Ratio 12.5 RATIO (10-20); Calcium,Total 9.8 mg/dL (8.5-10.1); Chloride 104 mmol/L (98-107); Creatinine, Serum 0.88 mg/dL (0.55-1.02); EST Glomerular Filtration Rate 70 mL/min (>60); Est Glom Filt Rate - Afr Amer 84 mL/min (>60); Estimated Creatinine Clearance 61.17 ml/min; Glucose 120 mg/dL (74-106); Magnesium 1.8 mg/dL (1.6-2.6); Potassium 3.2 mmol/L (3.5-5.1); Sodium Level 137 mmol/L (136-145); T4 Free Direct 1.54 ng/dL (0.76-1.46); Troponin-I HS 46 pg/mL (3.0-54.0)
[2021-12-17] MEDS: Potassium Chloride Oral Tablet 20 MEQ 40 MEQ PO (11:47)
--- NOTE | 2021-12-17 11:58 | HP.PCM.HOS_ITS ---
HPI - General General Date of Admission: 12/17/21 Date of Service: 12/17/21 Chief Complaint: Palpitation and atypical chest pain, left shoulder and neck. HPI Narrative CHAPIN RODGERS, is a 61 F with history of hypertension and atypical chest pain in the past, follows Dr. Hernandez came to ED for palpitation. This started with left shoulder pain which moved to left neck and then left-sided chest pressure. She took Advil that relieved her left shoulder and neck pain but chest pressure persisted. This was not associated with shortness of breath, dizziness lightheadedness or syncope. 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 In the morning, about 4:30 AM she had palpitation which persisted. It is not relieved with deep breathing therefore came to the ER. In the ER she was found to have atrial flutter at 141 bpm. She is never diagnosed with any dysrhythmia. She had palpitation for last 3 years but on previous EKG she is normal sinus rhythm on September 22, 2018. She also said her blood pressure was low in the 90s yesterday she drank a lot of water. And she noticed her blood pressure in left arm was in 90s and right 133. In the ED patient had 3 consecutive doses of metoprolol 5 mg IV and she got converted to sinus rhythm at 68 bpm after third dose. Cardizem 10 mg IV bolus discontinued. Currently blood pressure is 99/73. Potassium 3.2. Magnesium and phosphorus normal. Glucose 120. Free T4 1.54. BP taken in both arms shows right 1 systolic 122, left systolic 99. CTPA chest ordered by ER physician. [facility] Medical History Acute maxillary sinusitis, unspecified Cervical radiculopathy at C7 Encounter for screening for COVID-19 Essential (primary) hypertension GERD (gastroesophageal reflux disease) IBS (irritable bowel syndrome) Malignant neoplasm of thyroid gland Nicotine abuse Postoperative primary hypothyroidism Spinal stenosis Home Medications glucosamine [id number]-Grvdeqaip mercedez 1,500 mg-400 unit-100 mg tablet 1 tab PO QAM 07/27/17 [History Last Taken Unknown] lactobacillus combination no.4 3 billion cell capsule 3,000 mmu cells PO QDAY 07/27/17 [History Last Taken Unknown] multivitamin,ra-pzdx-mgeuiaaj 1 tab PO QDAY 07/27/17 [History Last Taken Unknown] aspirin 81 mg tablet,delayed release 81 mg PO QDAY tab 09/05/17 [History Last Taken Unknown] simethicone 125 mg chewable tablet 125 mg PO BID-QID PRN #30 tablet 10/04/20 [Rx Last Taken Unknown] losartan 100 mg tablet 100 mg PO DAILY #30 tab 04/21/21 [Rx Last Taken Unknown] levothyroxine 100 mcg tablet 100 mcg PO .COMPLEX #90 tab 08/03/21 [Rx Last Taken Unknown] ascorbic acid (vitamin C) 500 mg tablet 500 mg PO DAILY 09/22/21 [History Last Taken Unknown] hydrochlorothiazide 12.5 mg tablet 12.5 mg PO DAILY tab 09/22/21 [History Last Taken Unknown] omeprazole 20 mg capsule,delayed release 20 mg PO DAILY cap 09/22/21 [History Last Taken Unknown] omega 1-kcw-ceu-fish oil [Fish Oil] 1 cap PO DAILY 12/17/21 [History Last Taken Unknown] Allergy/AdvReac Type Severity Reaction Status Date / Time adhesive tape Allergy Mild Rash Verified 12/17/21 09:44 lisinopril AdvReac Mild Other Verified 12/17/21 09:44 Family History Mother CAD (coronary artery disease), Onset Age: 60 CHF CAD Stent Diabetes Arthritis Alcoholism Heart disease Hypertension Hyperlipidemia Thyroid disorder Sister Diabetes Thyroid disorder Fibromyalgia Non-Hodgkin lymphoma Father Respiratory disease Grandmother Alcoholism Liver disease Grandfather Stomach ulcer Aunt Breast cancer Cervical cancer Ovarian cancer Respiratory disease Parkinsons disease Uncle Respiratory disease Unknown Breast cancer Surgical History H/O tubal ligation History of bilateral carpal tunnel release history of epidural steroid injections History of thyroidectomy Hx of cholecystectomy Status post trigger finger release Social History Smoking Status: Current every day smoker tobacco type: cigarettes alcohol intake: never substance use type: does not use caffeine: Yes Type: carbonated beverages Number of servings: 5 what type of physical activity do you participate in: none seatbelt use: always do you feel safe at home: Yes ROS ROS Narrative Constitutional: Left shoulder pain, neck pain chest discomfort yesterday. Rest as mentioned in HPI HEENT: Reports systems reviewed and no addt'l complaints, except as documented Respiratory/Chest: Denies shortness of breath or dyspnea. Rest admission HPI Gastrointestinal: No nausea. Denies coffee ground emesis, hematemesis or vomiting Genitourinary: Denies burning urination or new urinary tract symptoms Musculoskeletal: Reports joint pain and limited range of motion Neurologic: Denies seizure-like activity skin: No ulcer. No rash Endocrinology: Postoperative hypothyroidism. Reports systems reviewed and no addt'l complaints, except as documented Hematologic/Lymphatic: Reports systems reviewed and no addt'l complaints, except as documented Rest 14 ROS are negative except as mentioned in HPI Vital Signs Vital Signs Vital Signs: 12/17/21 09:42 12/17/21 10:08 12/17/21 10:29 Temperature 97.3 F L Temperature Source Temporal Pulse Rate 149 H 155 H 119 H Respiratory Rate 16 18 18 Respiratory Effort Normal Non-Labored Blood Pressure 149/88 H 121/84 H 119/75 Blood Pressure Mean 108 96 89 Pulse Ox 99 99 98 Oxygen Delivery Method Room Air Room Air Room Air 12/17/21 10:35 12/17/21 11:02 Temperature Temperature Source Pulse Rate 113 H 126 H Respiratory Rate 18 17 Respiratory Effort Blood Pressure 105/85 H 117/86 H Blood Pressure Mean 91 96 Pulse Ox 98 96 Oxygen Delivery Method Room Air Room Air Weight Weight: 146 lb Body Mass Index (BMI) 24.3 Physical Exam Narrative General: Alert, Oriented x3, Cooperative HEENT: Atraumatic, PERRLA, EOMI, Normocephalic Oral: No Gingival or Mucosal Lesions/ Ulcerations Neck: Supple, No JVD, Negative Carotid Bruits Lungs: Air entry equal in bilateral lung bases. No crepitation/rhonchi Cardiovascular: Sinus rhythm, Normal S1, Normal S2, diastolic murmur over right second ICS, grade 2-3/6 Abdomen: Bowel Sounds Present, Soft, Non Tender, Non-Distended : No renal angle tenderness. No suprapubic tenderness. Extremities: No edema, Capillary Refill Less than 3 Seconds Skin: No rashes, No breakdown Musculoskeletal: No Tenderness to Palpation of Joints or Extremities Neurological: Cranial nerves II-XII grossly intact, DTR 2+/4 and Symmetrical, Neuro grossly intact Psych/Mental Status: Normal Affect, Appropriate. Results Lab / Micro Data Result Diagrams: 12/17/21 10:07 12/17/21 10:07 Labs: Laboratory Results - last 24 hr 12/17/21 10:07: WBC 11.5 H, RBC 4.19 L, Hgb 13.3, Hct 38.5, MCV 91.9, MCH 31.7, MCHC 34.5, RDW Std Deviation 41.4, RDW Coeff of Ana Paula 12.2, Plt Count 333, MPV 10.8, Immature Gran % (Auto) 0.300, Neut % (Auto) 80.3 H, Lymph % (Auto) 14.4 L, Nelson % (Auto) 3.6, Eos % (Auto) 1.0, Baso % (Auto) 0.4, Absolute Neuts (auto) 9.2 H, Absolute Lymphs (auto) 1.66, Nucleated RBC % 0 12/17/21 10:07: Sodium 137, Potassium 3.2 L, Chloride 104, Carbon Dioxide 26.0, Anion Gap 7, BUN 11, Creatinine 0.88, Estim Creat Clear Calc 61.17, Est GFR (MDRD) Af Amer 84, Est GFR (MDRD) Non-Af 70, BUN/Creatinine Ratio 12.5, Glucose 120 H, Calcium 9.8, Magnesium 1.8, Troponin I High Sens 46, Free T4 1.54 H Radiology Impression Chest X-Ray 12/17/21 10:07 IMPRESSION: Hyperinflation. The lungs are clear. Assessment & Plan Assessment/Plan (1) Atrial flutter with rapid ventricular response: (2) Acute hypokalemia: PLAN: 1. Atrial flutter with RVR, variable rate, new onset with chronic AI: Patient had palpitation for 2 to 3 years but never diagnosed atrial or ventricular dysrhythmia. Discussed with the radio electrician Dr. Arreola. Patient heart rate is controlled on sinus 68 bpm, blood pressure in upper 90s. Continue metoprolol tartrate 50 mg p.o. twice daily, Eliquis 5 mg twice daily. 2D echo ordered. Serial troponin, lipid profile, TSH ordered. Patient free T4 is elevated 1.54. Patient had exercise nuclear perfusion stress test was negative in October 2021, EF 60%. Patient had echo in July 2017 reported as EF 60% with mild eccentric AI. 2. Difference in blood pressure into arms: At home patient blood pressure noted left arm in 90s and right arm 133. In ED, BP right 122, left [address] angiogram chest ordered to rule out aortic dissection or aortic atheroma or major aortic/arterial abnormalities. 3. Postoperative hypothyroidism: Since patient had malignant neoplasm of thyroid and hypothyroidism. Free T4 elevated. Continue home dose for now and follow TSH for tomorrow a.m. on levothyroxine 100 mcg daily. 4. Hypertension: Patient is on losartan 100 mg and HCTZ 12.5 mg daily. Hold antihypertensive medications. 5. Mild hypokalemia: Potassium was replaced. Serum magnesium and phosphorus normal. Other comorbidities include current smoker cigarettes, GERD, spinal stenosis, IBS: Home medication reconciliation done. Chest x-ray shows hyperinflation but clear. VTE prophylaxis: Eliquis 5 mg twice daily for atrial flutter. Living will/advanced directive/end of life care: Patient does not have living will or advanced directive. After discussion of benefits/risks procedures involved with full code, DNR CC arrest and DNR CC, the patient opted for full code. Patient does want artificial life support including intubation, tube feed, ventilator and/chest compression, central venous catheter, vasopressor and DC s hock if needed Total time spent in [id number] encounter in discussion of advanced directive 16 minutes. Charges/Coding Visit Charges OBSV E&M: 23379 Initial observation care L3 Procedures Hospitalists Procedures: 93073 Advncd Care Plan 30 Min
--- NOTE | 2021-12-17 11:58 | NURSING ---
DR JAMES WALLER
--- NOTE | 2021-12-17 12:04 | NURSING ---
PCU JAMES NEW ONSET AFIB, HYPOKALEMIA
--- NOTE | 2021-12-17 12:20 | EKG12_ITS ---
Test Reason : REPEAT-RHYTHM CHANGE Blood Pressure : / mmHG Vent. Rate : 068 BPM Atrial Rate : 068 BPM P-R Int : 170 ms QRS Dur : 088 ms QT Int : 386 ms P-R-T Axes : 075 030 036 degrees QTc Int : 410 ms Sinus rhythm with Premature atrial complexes Otherwise normal ECG Confirmed by SARAH FITCH, FRANCESCA ([id number]), editorial assistant ELIZABETH DING ([id number]) on 12/21/2021 12:49:03 PM Referred By: CHRISTIN Confirmed By:FRANCESCA SMITH MD
--- NOTE | 2021-12-17 12:33 | CT_ITS ---
STUDY: CTA CHEST REASON FOR EXAM: Female, 61 years old. Palpitations -- r/o dissection, discrepancy of blood pressure arms RADIATION DOSAGE (If Supplied By Facility): CTDIvol = ( 10.08 ) mGy, DLP = ( 187.54 ) mGycm TECHNIQUE: The examination was performed with the intravenous administration of IV 100mL Isovue-370. Post-processing of the angiographic images was performed, with multiplanar reformation and 3D reconstruction. Individualized dose optimization techniques were used for this CT. COMPARISON: Comparison is made with prior CT scan of the thorax dated 07/17/2017. Comparison is also made with prior chest radiograph done earlier in the day. FINDINGS: Normal enhancement of the main pulmonary artery and right and left pulmonary arteries. Normal enhancement of the bilateral peripheral pulmonary arteries. There is no demonstrated pulmonary embolism. Normal thoracic aorta and visualized great vessels. There is no demonstrated aortic dissection. Normal heart and pericardium. Normal mediastinum. Normal hilar regions. Normal visualized trachea and bronchi. Hyperinflation. Emphysematous changes with centrilobular emphysema more prominent in the upper lobes. Normal pulmonary parenchyma. Normal pleura. Normal chest wall structures. There are degenerative changes of thoracic spine. Hyperplasia of the adrenal glands. CT/CTA Chest W/WO Contrast IMPRESSION: Hyperinflation and emphysematous changes. No evidence of pulmonary embolism or aortic dissection. Electronically Signed: Geoffrey Richardson MD at 13:46 EDT ,
[2021-12-17] MEDS: Metoprolol Tartrate 25 MG Tablet 50 MG PO (12:34)
--- NOTE | 2021-12-17 14:04 | ECHOD_ITS ---
Reason For Study: ATRIAL FIB-FLUTTER Procedure This was a 2D Doppler, Color Flow transthoracic echocardiogram. Exam performed portable in patient room. Left Ventricle The estimated ejection fraction is 65 %. No evidence for diastolic dysfunction. No regional wall motion abnormalities noted. Right Ventricle Normal RV size. Normal systolic function. Atria Normal left atrium. Normal right atrium. No doppler evidence for ASD. Mitral Valve There is no mitral valve stenosis. Trivial mitral valve insufficiency. Tricuspid Valve There is no tricuspid stenosis. Mild tricuspid valve insufficiency. Pulmonary artery systolic pressure is 40 mmHg. Aortic Valve Trisinus/trileaflet aortic valve. There is no aortic stenosis. Mild (1+) aortic valve insufficiency. Pulmonic Valve There is no pulmonic valvular stenosis. No pulmonic valve insufficiency. Great Vessels Normal aortic root. Pericardium/Pleural No pericardial effusion. MMode/2D Measurements & Calculations LVIDd: 3.9 cm IVSd: 1.2 cm Ao root diam: 2.7 cm LVIDs: 2.7 cm LVPWd: 1.1 cm RVDd: 3.7 cm FS: 30.5 % LAV(MOD-sp4): 23.0 ml LVAd ap4: 24.1 cm2 LVAd ap2: 26.2 cm2 LVLd ap4: 7.9 cm LVLd ap2: 7.5 cm EDV(MOD-sp4): 60.4 ml EDV(MOD-sp2): 74.0 ml EDV(sp4-el): 62.5 ml EDV(sp2-el): 77.6 ml LVAs ap4: 11.7 cm2 LVAs ap2: 15.3 cm2 LVLs ap4: 5.5 cm LVLs ap2: 6.8 cm ESV(MOD-sp4): 21.2 ml ESV(MOD-sp2): 31.4 ml ESV(sp4-el): 21.2 ml ESV(sp2-el): 29.3 ml EF(MOD-sp4): 64.8 % EF(MOD-sp2): 57.6 % EF(sp4-el): 66.1 % SV(MOD-sp4): 39.1 ml SV(MOD-sp2): 42.6 ml SV(sp4-el): 41.3 ml LA A4 area: 11.8 cm2 RA A4 area: 14.0 cm2 Doppler Measurements & Calculations MV E max lloyd: 86.8 cm/sec Lat Peak E' Lloyd: 10.4 cm/sec Med Peak E' Lloyd: 8.0 cm/sec MV A max lloyd: 55.0 cm/sec E/E' lat: 8.4 E/E' med: 10.8 MV E/A: 1.6 Ao V2 max: 131.9 cm/sec AI max lloyd: 379.4 cm/sec LV V1 max: 134.4 cm/sec Ao max P.0 mmHg AI max P.6 mmHg LV V1 max P.2 mmHg AI dec slope: 209.3 cm/sec2 AI P1/2t: 530.9 msec PA V2 max: 78.0 cm/sec TR max lloyd: 294.9 cm/sec TR max P.8 mmHg ECHO/Echo Complete Interpretation Summary The estimated ejection fraction is 65 %. No evidence for diastolic dysfunction. Trivial mitral valve insufficiency. Mild (1+) aortic valve insufficiency. Ordering Physician: Zheng Pichardo Performed By: Iveth Smallwood RCS
[2021-12-17] MEDS: APIXABAN 5 MG TABLET PO ×2 (15:00→22:10)
[2021-12-17] MEDS: Lactated Ringers 1,000 ML 100 ML IV (15:00)
[2021-12-17 15:33] LABS: Troponin-I HS 37 pg/mL (3.0-54.0)
[2021-12-17 17:37] LABS: Troponin-I HS 34 pg/mL (3.0-54.0)
[2021-12-17] MEDS: Metoprolol Tartrate 50 MG Tablet PO (22:10)
[2021-12-18 02:59] VITALS: PULSE 66
[2021-12-18 03:49] VITALS: BP 104/54; PULSE 68; RESP 18; TEMP 37; O2SAT 97
[2021-12-18 05:26] LABS: Absolute Lymphocyte Count 1.75 X10^3/uL (0.83-4.51); Absolute Neutrophil Count 4.3 X10^3/uL (2.0-7.7); Basophil# 0.05 X10^3/uL; Basophil% 0.7 % (0-1); Eosinophil# 0.26 X10^3/uL; Eosinophils% 3.8 % (0-5); Hematocrit 33.8 % (37-47); Hemoglobin 11.4 g/dL (12.0-15.0); Lymphocyte # 1.75 X10^3/ul (0.83-4.51); Lymphocyte % 25.9 % (19-41); Mean Corp Hgb Conc 33.7 g/dL (32-36); Mean Corpuscular Hgb 31.8 pg (27.0-32.0); Mean Corpuscular Volume 94.2 fL (81-99); Mean Platelet Vol. 11.6 fl (6.2-12.0); Monocyte% 5.9 % (0-10); NRBC Flagged by Analyzer 0 % (0-5); Neutrophil # 4.28 X10^3/uL (2.7-7.7); Neutrophil % 63.4 % (47-70); Platelet Count 277 K/mm3 (150-450); RBC Distribution Width CV 12.5 % (11.6-14.6); RBC Distribution Width SD 43.5 fl (35.1-43.9); Red Blood Count 3.59 M/mm3 (4.2-5.4); White Blood Count 6.8 K/mm3 (4.4-11.0)
[2021-12-18] MEDS: Levothyroxine 100 MCG Tablet PO (05:28)
[2021-12-18 06:03] LABS: Anion Gap 5 (5-15); BUN 14 mg/dL (7-18); Calcium,Total 9.1 mg/dL (8.5-10.1); Chloride 109 mmol/L (98-107); Cholesterol 180 mg/dL (200); EST Glomerular Filtration Rate 91 mL/min (>60); Est Glom Filt Rate - Afr Amer 110 mL/min (>60); Glucose 87 mg/dL (74-106); High Density Lipoprotein 45 mg/dL; Potassium 3.5 mmol/L (3.5-5.1); Sodium Level 140 mmol/L (136-145); Thyroid Stim Hormone (TSH) 0.74 uIU/mL (0.358-3.74); Triglycerides 134 mg/dL; Very Low Density Lipoprotein 27 mg/dL (5-40)
[2021-12-18 06:59] VITALS: PULSE 68
--- NOTE | 2021-12-18 07:40 | PCM.DC ---
Discharge Instructions Diet Discharge Diet: 2000 mg Sodium Diet Activity Discharge Activity: Return to Normal Activity Dressing / Incision Call your doctor if you observe: Fever of 101 or Higher, Coldness, Increased Pain, Numbness or Tingling, Change in Color, Inability to urinate, Inability to have a bowel movement, Using more than 1 pad per hour, Shortness of breath, Dizziness, Fainting spells, Swelling in the ankles, Chest pain, Prolonged hiccupping, Increased palpitations (irregular heartbeat), Calf discomfort and Uncontrolled pain Follow Up Care Test Results: Test results from this visit will be discussed in further detail at your follow-up appointment, if applicable. Discharge Plan Admission Admit Date/Time: 12/17/21 12:01 Primary Reason for Your Visit: New onset atrial flutter/A. fib Attending Provider: Zheng Pichardo Primary Care Provider: Allie Marcos Instructions Additional Instructions / Restrictions: BMP in 1 week to check for hypokalemia and follow with PCP Discharge Orders/Prescriptions Prescriptions: New potassium chloride [Klor-Con M20] 20 mEq Tablet,Er Particles/Crystals 20 meq PO DAILYCM Qty: 7 RF: 0 metoprolol tartrate 25 mg Tablet 25 mg PO BID Qty: 60 RF: 2 Eliquis 5 mg Tablet 5 mg PO BID Qty: 60 RF: 1 Continued [id number] serr [Osteo Bi-Flex (5-Loxin)] 1,500-400-100 mg-unit-mg tablet 1 tab PO QAM RF: 0 lactobacillus combination no.4 [Probiotic] 3 billion cell capsule 3,000 mmu cells PO QDAY RF: 0 multivitamin,ua-awsp-ddzgiunp tablet tablet 1 tab PO QDAY RF: 0 simethicone [Gas Relief (simethicone)] 125 mg tablet,chewable 125 mg PO BID-QID PRN (Reason: abdominal distention) Qty: 30 RF: 0 omeprazole 20 mg capsule,delayed release(DR/EC) 20 mg PO DAILY RF: 0 ascorbic acid (vitamin C) 500 mg tablet 500 mg PO DAILY RF: 0 omega 7-spd-uge-fish oil [Fish Oil] 300-1,000 mg Capsule 1 cap PO DAILY RF: 0 losartan 100 mg tablet 100 mg PO DAILY Qty: 30 RF: 11 hydrochlorothiazide 12.5 mg tablet 12.5 mg PO DAILY Qty: 0 RF: 0 levothyroxine 100 mcg tablet 100 mcg PO .COMPLEX Qty: 90 RF: 3 Discontinued aspirin [Adult Aspirin Regimen] 81 mg tablet,delayed release (DR/EC) 81 mg PO QDAY RF: 0 Referrals / Follow Up: Santiago Hernandez MD [STAFF PHYSICIAN] - Within 1 Month (In 2 to 4 weeks for new onset A. fib) Allie Marcos MD [Primary Care Provider] - Within 2 Weeks Disposition Disposition (needs filled in before D/C Order can be placed): Home, Self Care
[2021-12-18 07:54] VITALS: O2SAT 98
[2021-12-18] MEDS: Potassium Chloride Oral Tablet 20 MEQ 40 MEQ PO (08:03)
[2021-12-18 08:07] LABS: T4 Free Direct 1.23 ng/dL (0.76-1.46)
[2021-12-18 09:03] VITALS: BP 122/75; PULSE 74; RESP 16; TEMP 37; O2SAT 100
[2021-12-18 09:13] VITALS: BP 122/75; PULSE 74
[2021-12-18] MEDS: Aspirin E.C. 81 MG Tablet PO (09:13)
[2021-12-18] MEDS: Metoprolol Tartrate 50 MG Tablet PO (09:13)
[2021-12-18] MEDS: hydroCHLOROthiazide 12.5mg 12.5 MG PO (09:13)
[2021-12-18] MEDS: APIXABAN 5 MG TABLET PO (09:13)
[2021-12-18] MEDS: Pantoprazole Sodium 20 MG Tablet PO (09:13)
[2021-12-18] MEDS: Ascorbic Acid 500 MG Tablet PO (09:13)
--- NOTE | 2021-12-18 10:57 | PCM.DC.SUM ---
Providers Date of Admission: 12/17/21 Date of Discharge: 12/18/21 Primary Care Physician: Dr. Allie Marcos MD Reason For Visit: NEW ONSET AFIB Diagnosis Discharge Diagnosis (1) Atrial flutter with rapid ventricular response: Status: Acute Code(s): I48.92 - Unspecified atrial flutter (2) Acute hypokalemia: Status: Acute Code(s): E87.6 - Hypokalemia Medications at Discharge Home Medications glucosamine HJi-J1-Mbdbhtndv merceedz 1,500 mg-400 unit-100 mg tablet 1 tab PO QAM 07/27/17 lactobacillus combination no.4 3 billion cell capsule 3,000 mmu cells PO QDAY 07/27/17 multivitamin,kl-gphl-eemgioku 1 tab PO QDAY 07/27/17 simethicone 125 mg chewable tablet 125 mg PO BID-QID PRN #30 tablet 10/04/20 levothyroxine 100 mcg tablet 100 mcg PO .COMPLEX #90 tab 08/03/21 ascorbic acid (vitamin C) 500 mg tablet 500 mg PO DAILY 09/22/21 omeprazole 20 mg capsule,delayed release 20 mg PO DAILY cap 09/22/21 omega 8-sew-fwg-fish oil [Fish Oil] 1 cap PO DAILY 12/17/21 apixaban [Eliquis] 5 mg PO BID #60 tab 12/18/21 hydrochlorothiazide 12.5 mg PO DAILY #0 tab 12/18/21 losartan 100 mg PO DAILY #30 tab 12/18/21 metoprolol tartrate 25 mg PO BID #60 tab 12/18/21 potassium chloride [Klor-Con M20] 20 meq PO DAILYCM #7 tab 12/18/21 Hospital Course Summary of Care Provided Hospital Course: This is a 61-year-old female with history of hypertension and atypical chest pain was admitted with palpitation and left shoulder left neck and left sided chest pressure. She had palpitation on and off for 2 to 3 years but first time diagnosed with atrial flutter/A. fib. She got converted into sinus rhythm in the ER after third dose of IV metoprolol 5 mg. Further hospital course as follows. 1. Atrial flutter with RVR, variable rate, new onset with atypical left shoulder/neck and chest pain with history of chronic AI: Discussed with the classroom technology technician Dr. Arreola. Patient heart rate is controlled on sinus 68 bpm, blood pressure in upper 90s. Continue metoprolol tartrate 50 mg p.o. twice daily, Eliquis 5 mg twice daily. 2D echo ordered. . Patient had exercise nuclear perfusion stress test was negative in October 2021, EF 60%. Patient had echo in July 2017 reported as EF 60% with mild eccentric AI. Serum magnesium 1.8. Serum phosphorus 4.0. Serial troponins normal therefore ACS ruled out. Patient also discussed with Dr. Hernandez and she qualifies for atrial fibrillation yesterday. She will follow-up with Dr. Hernandez in 3 to 4 weeks. Echo was done and reported EF 65% no evidence of diastolic dysfunction. Trivial MR. Mild AI 2. Difference in blood pressure into arms: At home patient blood pressure noted left arm in 90s and right arm 133. In ED, BP right 122, left [address] angiogram chest was done was negative for pulmonary embolism with normal thoracic aorta admitted last great vessels. No demonstrated aortic dissection 3. Postoperative hypothyroidism: Since patient had malignant neoplasm of thyroid and hypothyroidism. In ED, patient free T4 is elevated 1.54 Repeat TSH and free T4 normal. Fasting profile shows LDL 108, TC 180 within normal limit. Patient has history of hypothyroidism and she is on levothyroxine 100 mcg daily 4. Hypertension: Patient is on losartan 100 mg and HCTZ 12.5 mg daily. antihypertensive medications continued with holding parameters 5. Mild hypokalemia: Potassium was replaced. Repeat potassium 3.5. Serum magnesium and phosphorus normal. Other comorbidities include current smoker cigarettes, GERD, spinal stenosis, IBS: Home medication reconciliation done. Chest x-ray shows hyperinflation but clear. Discharge medication reconciliation done. Discharge follow-up instructions completed. Discharge process discussed with the patient and all questions were answered to patient's satisfaction. Prescription given for metoprolol, Eliquis and potassium supplement. Advised BMP in 1 week for hypokalemia and follow with PCP. Total time spent, exact 35 minutes on discharge meds reconciliation, examination, coordination of care with nurses and ancillary staff, review of imaging and blood test and discussion with the patient on follow-up instructions. Physical Exam Narrative Seen and examined. Patient did not had any symptoms of palpitation or shortness of breath or chest pain. All questions regarding atrial fibrillation, oral anticoagulants, DOAC's and metoprolol answered General: Alert, Oriented x3, Cooperative HEENT: Atraumatic, PERRLA, EOMI, Normocephalic Oral: No Gingival or Mucosal Lesions/ Ulcerations Neck: Supple, No JVD, Negative Carotid Bruits Lungs: Air entry equal in bilateral lung bases. No crepitation/rhonchi Cardiovascular: Sinus rhythm, Normal S1, Normal S2, diastolic murmur over right second ICS, grade 2-3/6 Abdomen: Bowel Sounds Present, Soft, Non Tender, Non-Distended : No renal angle tenderness. No suprapubic tenderness. Extremities: No edema, Capillary Refill Less than 3 Seconds Skin: No rashes, No breakdown Musculoskeletal: No Tenderness to Palpation of Joints or Extremities Neurological: Cranial nerves II-XII grossly intact, DTR 2+/4 and Symmetrical, Neuro grossly intact Psych/Mental Status: Normal Affect, Appropriate. Weight / BMI Weight Weight: 146 lb 9.718 oz Body Mass Index (BMI) 24.3 ABG / Lab / Microbiology Data Result Diagrams: 12/18/21 03:33 12/18/21 03:33 Laboratory: Laboratory Results - last 24 hr 12/17/21 10:07: PT 14.0, INR 1.1, APTT 96.8 H* 12/17/21 10:07: Phosphorus 4.0 12/17/21 14:30: Troponin I High Sens 37 12/17/21 16:19: Troponin I High Sens 34 12/18/21 03:33: Sodium 140, Potassium 3.5, Chloride 109 H, Carbon Dioxide 26.0, Anion Gap 5, BUN 14, Creatinine 0.70, Estim Creat Clear Calc 76.90, Est GFR (MDRD) Af Amer 110, Est GFR (MDRD) Non-Af 91, BUN/Creatinine Ratio 20.0, Glucose 87, Calcium 9.1, Triglycerides 134, Cholesterol 180, LDL Cholesterol 108, VLDL Cholesterol 27, HDL Cholesterol 45, TSH 0.74 12/18/21 03:33: WBC 6.8, RBC 3.59 L, Hgb 11.4 L, Hct 33.8 L, MCV 94.2, MCH 31.8, MCHC 33.7, RDW Std Deviation 43.5, RDW Coeff of [place] 12.5, Plt Count 277, MPV 11.6, Immature Gran % (Auto) 0.300, Neut % (Auto) 63.4, Lymph % (Auto) 25.9, [place] % (Auto) 5.9, Eos % (Auto) 3.8, Baso % (Auto) 0.7, Absolute Neuts (auto) 4.3, Absolute Lymphs (auto) 1.75, Nucleated RBC % 0 12/18/21 03:33: Free T4 1.23 Radiography Diagnostic Testing: Radiology Impression Chest CTA 12/17/21 12:33 IMPRESSION: Hyperinflation and emphysematous changes. No evidence of pulmonary embolism or aortic dissection. Electronically Signed: Geoffrey Richardson MD at 13:46 EDT , D/C Instructions Discharge Diet: 2000 mg Sodium Diet Call your doctor if you observe: Fever of 101 or Higher, Coldness, Increased Pain, Numbness or Tingling, Change in Color, Inability to urinate, Inability to have a bowel movement, Using more than 1 pad per hour, Shortness of breath, Dizziness, Fainting spells, Swelling in the ankles, Chest pain, Prolonged hiccupping, Increased palpitations (irregular heartbeat), Calf discomfort and Uncontrolled pain Meaningful Use Info Meaningful Use Diagnoses (Choose all that apply): None applicable Discharge Plan Admission Admit Date/Time: 12/17/21 12:01 Primary Reason for Your Visit: New onset atrial flutter/A. fib Attending Provider: Zheng Pichardo Primary Care Provider: Allie Marcos Instructions Additional Instructions / Restrictions: BMP in 1 week to check for hypokalemia and follow with PCP Discharge Orders/Prescriptions Prescriptions: New potassium chloride [Klor-Con M20] 20 mEq Tablet,Er Particles/Crystals 20 meq PO DAILYCM Qty: 7 RF: 0 metoprolol tartrate 25 mg Tablet 25 mg PO BID Qty: 60 RF: 2 Eliquis 5 mg Tablet 5 mg PO BID Qty: 60 RF: 1 Continued rndemkwdezo-J2-Kqrrlbfnr serr [Osteo Bi-Flex (5-Loxin)] 1,500-400-100 mg-unit-mg tablet 1 tab PO QAM RF: 0 lactobacillus combination no.4 [Probiotic] 3 billion cell capsule 3,000 mmu cells PO QDAY RF: 0 multivitamin,bo-xjxq-mscptlhg tablet tablet 1 tab PO QDAY RF: 0 simethicone [Gas Relief (simethicone)] 125 mg tablet,chewable 125 mg PO BID-QID PRN (Reason: abdominal distention) Qty: 30 RF: 0 omeprazole 20 mg capsule,delayed release(DR/EC) 20 mg PO DAILY RF: 0 ascorbic acid (vitamin C) 500 mg tablet 500 mg PO DAILY RF: 0 omega 3-hyv-wac-fish oil [Fish Oil] 300-1,000 mg Capsule 1 cap PO DAILY RF: 0 losartan 100 mg tablet 100 mg PO DAILY Qty: 30 RF: 11 hydrochlorothiazide 12.5 mg tablet 12.5 mg PO DAILY Qty: 0 RF: 0 levothyroxine 100 mcg tablet 100 mcg PO .COMPLEX Qty: 90 RF: 3 Discontinued aspirin [Adult Aspirin Regimen] 81 mg tablet,delayed release (DR/EC) 81 mg PO QDAY RF: 0 Referrals / Follow Up: Santiago Hernandez MD [STAFF PHYSICIAN] - Within 1 Month (In 2 to 4 weeks for new onset A. fib) Allie Marcos MD [Primary Care Provider] - Within 2 Weeks Disposition Disposition (needs filled in before D/C Order can be placed): Home, Self Care Charges/Coding Visit Charges OBSV E&M: 71198 Observation care discharge
--- NOTE | 2021-12-18 11:37 | CASEMGMT ---
LULU LAM NOTE: Pt being discharged home on Eliquis. LULU LAM to room. Eliquis card provided and instructed on use. Pt activated card. LULU LAM called [facility] and card applied. Co-pay is $10/month. Total cost of all 3 rx's sent to [facility] today is $17. Pt made aware. Pt denies having any other discharge planning needs or concerns. Nereyda BLANCA RN CM
[2021-12-18] MEDS: Acetaminophen 325 MG Tablet 650 MG PO (12:38)
--- NOTE | 2021-12-18 12:41 | NURSING ---
Patient approached about [facility] Patient Link program. Patient agreeable to program, consent obtained.
== END 2021-12-18 10:57 | disposition home or self-care (01) ==
LOC: ED 12:07 → PCU 12:10
PROVIDERS: Admitting Provider Internal Medicine; Emergency Provider Emergency Medicine; PCP Family Medicine; Visit Provider Internal Medicine
DX: I48.92 Unspecified atrial flutter (principal); I48.91 Unspecified atrial fibrillation; I47.1 Supraventricular tachycardia; M25.512 Pain in left shoulder; M48.00 Spinal stenosis, site unspecified; I34.0 Nonrheumatic mitral (valve) insufficiency; K21.9 Gastro-esophageal reflux disease without esophagitis; K58.9 Irritable bowel syndrome, unspecified; E87.6 Hypokalemia; F17.210 Nicotine dependence, cigarettes, uncomplicated; E89.0 Postprocedural hypothyroidism; I10 Essential (primary) hypertension; M54.2 Cervicalgia; I95.9 Hypotension, unspecified; R07.89 Other chest pain; Z79.899 Other long term (current) drug therapy; Z79.82 Long term (current) use of aspirin; Z79.890 Hormone replacement therapy
CPT/HCPCS: 36415; 71045; 71275; 80048; 80061; 83735; 84100; 84439; 84443; 84484; 85025; 85610; 85730; 93005; 93306; 96361; 96374; 99218; 99251; 99285; 99406; J7030; J7120; Q9967; A4216; G0378; G0463

== ENCOUNTER → 2021-12-28 | Outpatient (CLI) | payer OTHER, SELFPAY ==
[2021-12-28 16:43] LABS: AST(SGOT) 13 U/L (15-37); Alanine Aminotransfer ALT/SGPT 20 U/L (13-56); Albumin, Serum 3.5 g/dL (3.2-5.0); Alkaline Phosphatase 92 U/L (45-117); Bilirubin, Direct 0.09 mg/dL (0.00-0.30); Cholesterol 209 mg/dL (200); Globulin 3.8 g/dL (2.2-4.2); High Density Lipoprotein 43 mg/dL; Protein, Total 7.3 g/dL (6.4-8.2); Triglycerides 264 mg/dL; Very Low Density Lipoprotein 53 mg/dL (5-40)
== END | disposition home or self-care (01) ==
LOC: LAB 14:51
PROVIDERS: PCP Family Medicine; Visit Provider Nurse Practitioner Family
DX: E78.5 Hyperlipidemia, unspecified (principal)
CPT/HCPCS: 36415; 80061; 80076

== ENCOUNTER → 2022-01-26 | Outpatient (CLI) | payer OTHER, SELFPAY ==
--- NOTE | 2022-01-26 08:27 | US_ITS ---
STUDY: THYROID ULTRASOUND REASON FOR EXAM: Female, 61 years old. Hx of follicular carcinoma -- S/P RT THYROIDECTOMY TECHNIQUE: Ultrasound evaluation of the thyroid was performed with real-time and static bass-scale imaging. COMPARISON: Comparison is made with prior examination dated 07/25/2020. FINDINGS: RIGHT LOBE: The patient is status post right thyroidectomy. LEFT LOBE: The left lobe of the thyroid gland measures 4.2 cm x 1.4 cm x 1 cm. There is a homogeneous echotexture. There is a 6 mm x 4 mm x 4 mm hypoechoic solid nodule in the midportion of the left lobe of the thyroid. This is essentially unchanged. A 2 mm x 2 mm x 1 mm cyst is seen in the upper pole. ISTHMUS: The isthmus measures 2 mm. The regional lymph nodes are normal. US/Thyroid IMPRESSION: Stable examination. Electronically Signed: Geoffrey Richardson MD at 10:04 EDT ,
--- NOTE | 2022-01-26 08:55 | BD_ITS ---
STUDY: DUAL ENERGY X-RAY ABSORPTIOMETRY / DXA REASON FOR EXAM: Female, 61 years old. M8.89. The patient is postmenopausal. TECHNIQUE: Bone Mineral Density (BMD) measurements of lumbar spine and bilateral hips were obtained. COMPARISON: None. FINDINGS: Lumbar Spine (L1-L4): g/cm2 (1.070) / T-score (0.2) / Z-score (1.6) Findings are suggestive of normal bone density with a low fracture risk. Left Femur Total: g/cm2 (0.850) / T-score (-0.8) / Z-score (0.2) Left Femoral Neck: g/cm2 (0.735) / T-score (-1.0) / Z-score (0.3) Right Femur Total: g/cm2 (0.867) / T-score (-0.6) / Z-score (0.4) Right Femoral Neck: g/cm2 (0.800) / T-score (-0.4) / Z-score (0.9) BD/Dexa Bone Density Study IMPRESSION: The patient is considered normal as outlined below according to World Sang Organization (WHO) criteria with a low fracture risk. Reference Information: The T-score is the number of standard deviations above or below the standard which is normal for young adults at their peak bone mineral density. The World Health Organization (WHO) interprets the T-scores as follows: Above -1 Normal bone density Between -1 and -2.5 Osteopenia Equal to / or below -2.5 Osteoporosis As a practical clinical guideline, osteopenia may be graded as follows: Mild -1 through -1.5 Moderate -1.6 through -2.0 Severe -2.1 through -2.4 The Z-score is the number of standard deviations above or below age-matched controls. A Z-score of less than -1.5 would be considered abnormal. References: 1. NIH Osteoporosis and Related Bone Diseases www osteo.org 2. International Society for Clinical Densitometry www iscd.org 3. National Osteoporosis Foundation www nof.org Electronically Signed: Geoffrey Richardson MD at 9:34 EDT ,
== END | disposition home or self-care (01) ==
PROVIDERS: PCP Family Medicine; Referring Provider Family Medicine; Visit Provider Nurse Practitioner Family
DX: M85.80 Other specified disorders of bone density and structure, unspecified site (principal); E89.0 Postprocedural hypothyroidism
CPT/HCPCS: 76536; 77080

== ENCOUNTER → 2022-03-08 | Outpatient (CLI) | payer OTHER, SELFPAY ==
--- NOTE | 2022-03-08 13:50 | CT_ITS ---
STUDY: CT MAXILLOFACIAL SINUSES REASON FOR EXAM: Female, 61 years old. SINUS RADIATION DOSAGE (If Supplied By Facility): CTDIvol = ( 28.14 ) mGy, DLP = ( 763.78 ) mGycm TECHNIQUE: The patient was scanned in a multi detector CT scanner. High resolution axial imaging was performed without the administration of intravenous contrast material. Sagittal and coronal images were reconstructed. Individualized dose optimization techniques were used for this CT. COMPARISON: 07/28/2017 CT paranasal sinuses. FINDINGS: The frontal sinuses are clear. The frontoethmoidal recesses are clear. The ethmoid sinuses are clear. The bilateral lateral lamella are normal in position with Keros class II. The anterior ethmoid arteries are normal. The maxillary sinuses are clear. The uncinate processes are normal. The maxillary infundibulum are patent. The osteomeatal units are patent. The sphenoethmoidal recesses are patent. The sphenoid sinuses are clear. Sinus variants: Prominent aeration of the sphenoid bone, with large patent lateral recess cc of both sphenoid sinuses, and aeration of the bilateral anterior clinoid processes. There is no osteoneogenesis. The nasal septum is mildly deviated to the right distally. Mild partial opacification left mastoid air cells. Right mastoid air cells and bilateral middle ears patent. The non-enhanced nasopharyngeal mucosal surfaces are normal. The temporal mandibular articulations are normal. The maxillary dentition demonstrates no abnormal periapical lucencies extending into the floor of the maxillary sinus. Several fillings and root canals. CT/Sinus/Facial Bone IMPRESSION: No evidence of sinusitis. Electronically Signed: Kain Escobar MD at 3:52 EDT Reading Location ID and State: [facility] / [place] Tel , Service support ,
== END | disposition home or self-care (01) ==
LOC: CT 13:49
PROVIDERS: PCP Family Medicine; Referring Provider Otolaryngology; Visit Provider Otolaryngology
DX: J32.9 Chronic sinusitis, unspecified (principal)
CPT/HCPCS: 70486

== ENCOUNTER → 2022-04-21 | Outpatient (CLI) | payer OTHER, SELFPAY ==
--- NOTE | 2022-04-21 12:51 | ART_ITS ---
Reason For Study: PVD Procedure A bilateral lower extremity continuous wave Doppler with analog waveform analysis,segmental pressures,and ankle brachial indexes without exercise. Left Segmental Pressures Left brachial= 120mmHg. Left thigh = 133mmHg. Left calf = 122mmHg. Left posterior tibial artery = 123mmHg. Left dorsalis pedis artery = 113mmHg. Left digit = 80 mmHg. The left dorsalis pedis waveforms are triphasic. The left posterior tibial artery waveforms are triphasic. Right Segmental Pressures Right brachial= 127mmHg. Right thigh = 83mmHg. Right calf = 52mmHg. Right posterior tibial artery = 52mmHg. Right dorsalis pedis artery = 42mmHg. Right digit = 20 mmHg. The right dorsalis pedis waveforms are monophasic. The right posterior tibial artery waveforms are monophasic. Indices The right ankle brachial index by the dorsalis pedis is 0.33. The right ankle brachial index by the posterior tibial artery is 0.41. The right digital-brachial index is 0.16. The left ankle brachial index by the dorsalis pedis is 0.89. The left ankle brachial index by the posterior tibial artery is 0.97. The left digital-brachial index is 0.63. . Preliminary report given to Vicky at Donnell's office and Lula LAWSON at Sandra's office. VL/Lower Ext Art Exam w/o Exercis Interpretation Summary Right LELIA 0.41, severe arterial insufficiency. Doppler/PVR waveforms and segmen jose e pressures reveal aorto-iliac/proximal femoral disease. Left LELIA 0.97, normal. Doppler/PVR waveforms of the left leg normal at rest. Ordering Physician: Simi Jacobo Referring Physician: Josie Marcos Performed By: Patricia Jones RVT
== END | disposition home or self-care (01) ==
LOC: CVS 12:48
PROVIDERS: PCP Family Medicine; Referring Provider Podiatrist; Visit Provider Podiatrist
DX: I73.9 Peripheral vascular disease, unspecified (principal); I73.00 Raynaud's syndrome without gangrene; M79.674 Pain in right toe(s)
CPT/HCPCS: 93923

== ENCOUNTER → 2022-05-13 | Outpatient (CLI) | payer OTHER, SELFPAY ==
--- NOTE | 2022-05-13 09:47 | CDU_ITS ---
Reason For Study: Carotid stenosis Rt. Velocities/BP Lt. Velocities/BP Prox CCA 70.2/13.5 cm/sec. Prox CCA 169.7/40.2 cm/sec. Mid CCA 94.9/16.8 cm/sec. Mid CCA 156.5/33.6 cm/sec. Dist CCA 89.4/17.9 cm/sec. Dist CCA 128/29.2 cm/sec. Prox ICA 101/17 cm/sec. Prox ICA 104.7/22.5 cm/sec. Mid ICA 117/33.5 cm/sec. Mid ICA 79/26.2 cm/sec. Dist ICA 87.6/32.3 cm/sec. Dist ICA 126.6/42.6 cm/sec. Rt. ICA/CCA = 1.31. Lt. ICA/CCA = 0.81. Prox ECA 124.7/13.3 cm/sec. Prox ECA 119.2/22.6 cm/sec. Rt. Vert. 53.1/16.8 cm/sec. Right Extracranial There is homogeneous, smooth atherosclerotic plaque noted in the right common carotid artery. There is homogeneous, smooth atherosclerotic plaque noted in the right internal carotid artery. There is intimal thickening but no significant atherosclerotic plaque noted in the right external carotid artery. Antegrade flow is noted in the right vertebral artery. Left Extracranial There is heterogeneous, smooth atherosclerotic plaque noted in the left common carotid artery. There is homogeneous, smooth atherosclerotic plaque noted in the left internal carotid artery. There is intimal thickening but no significant atherosclerotic plaque noted in the left external carotid artery. Retrograde flow is noted in the left vertebral artery, known vertebral artery origin occlusion per CTA 2018. Procedure Carotid Duplex 53093. This is a Carotid Duplex examination using B-mode, color flow and specral Doppler. Exam performed in department. VL/Carotid Duplex Ultrasound Interpretation Summary Mild (<50%) stenosis right extracranial internal carotid. Moderate (50-69%) stenosis left extracranial internal carotid. The Right vertebral is patent and antegrade. The Left vertebral flow is retrograde. The left common carotid artery has elevated velocites and visualized plaque Ordering Physician: Christiano Flores Referring Physician: Allie Marcos Performed By: Patricia Jones Gita
== END | disposition home or self-care (01) ==
LOC: CVS 09:47
PROVIDERS: PCP Family Medicine; Referring Provider Surgery Trauma Surgery; Visit Provider Surgery Trauma Surgery
DX: I73.9 Peripheral vascular disease, unspecified (principal); I65.23 Occlusion and stenosis of bilateral carotid arteries
CPT/HCPCS: 93880

== ENCOUNTER → 2022-05-27 | Outpatient (CLI) | payer OTHER, SELFPAY ==
--- NOTE | 2022-05-27 16:01 | CT_ITS ---
STUDY: CTA HEAD AND NECK WITH CONTRAST REASON FOR EXAM: Female, 61 years old. transient vision loss, carotid stenosis RADIATION DOSAGE (If Supplied By Facility): CTDIvol = ( 26.01 ) mGy, DLP = ( 1500.43 ) mGycm TECHNIQUE: CT angiography was performed with a multi-detector CT scanner. Data acquisition was obtained from the skull base through the vertex following intravenous administration of IV 100mL [id number]-[id number]. MIP images were reconstructed from the axial data set. Post-processing of the angiographic images was performed, with multiplanar reformation and 3D reconstruction. Individualized dose optimization techniques were used for this CT. COMPARISON: No relevant priors. FINDINGS: Normal bilateral petrous carotid arteries. Normal right cavernous carotid artery with a normal supraclinoid bifurcation. Normal left cavernous carotid artery with a normal supraclinoid bifurcation. There is hypoplastic development of the right A1 segment of the anterior cerebral arteries with an atretic but intact artery. Normal left A1 segments of the anterior cerebral artery. Normal intact anterior communicating artery (ACOM). Normal bilateral A2 segments of the anterior cerebral arteries. Normal right M1 and M2 segments of the middle cerebral arteries, with a normal M1 bifurcation. Normal left M1 and M2 segments of the middle cerebral arteries, with a normal M1 bifurcation. There is a persistent origin of the right posterior cerebral artery with absence of the posterior communicating artery (PCOM). Normal left posterior communicating artery (PCOM). There is a small atretic left vertebral artery with a dominant right vertebral artery. Normal basilar artery with a normal basilar bifurcation. The visualized bilateral superior cerebellar (SCA) arteries are normal. Normal bilateral P1, P2 and visualized P3 segments of the posterior cerebral arteries. There is no demonstrated aneurysm of the [place]. There is no demonstrated abnormality of the visualized brain. AORTIC ARCH: Normal visualized aortic arch. Normal origins of the brachiocephalic, left common carotid, and left subclavian arteries. RIGHT CAROTID ARTERIES: Normal right common carotid artery (CCA). There is mild atherosclerotic plaque formation with minimal narrowing of the right carotid bulb. There is mild atherosclerotic plaque formation of the origin of the right internal carotid artery with less than 50% cross sectional diameter stenosis. Normal visualized cervical portion of the right internal carotid artery. Normal origin of the right external carotid artery (ECA). LEFT CAROTID ARTERIES: Normal left common carotid artery (CCA). Normal left common carotid bulb. Normal origin of the left internal carotid (ICA) artery without a hemodynamically significant stenosis. Normal visualized cervical portion of the left internal carotid artery. Normal origin of the left external carotid artery (ECA). VERTEBRAL ARTERIES: There is enhancement within the bilateral vertebral arteries with a small left vertebral artery, and a dominant right vertebral artery. The proximal left vertebral artery is occluded. CT/CTA Head AND Neck W/ Contrast IMPRESSION: Normal CTA Head with contrast. Mild (20%) stenosis right carotid stenosis. No left carotid stenosis. Dominant right vertebral artery which is widely patent. 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 Electronically Signed: Yosvany Blankenship MD at 17:28 EST ,
== END | disposition home or self-care (01) ==
LOC: CT 16:00
PROVIDERS: PCP Family Medicine; Referring Provider Surgery Trauma Surgery; Visit Provider Surgery Trauma Surgery
DX: G45.3 Amaurosis fugax (principal); I65.29 Occlusion and stenosis of unspecified carotid artery
CPT/HCPCS: 70496; 70498; Q9967

== ENCOUNTER → 2022-05-27 | Outpatient (CLI) | payer OTHER, SELFPAY ==
[2022-05-27 10:57] LABS: Creatinine, Serum 0.78 mg/dL (0.55-1.02); EST Glomerular Filtration Rate 80 mL/min (>60); Est Glom Filt Rate - Afr Amer 97 mL/min (>60)
== END | disposition home or self-care (01) ==
LOC: LAB 10:00
PROVIDERS: PCP Family Medicine; Visit Provider Surgery Trauma Surgery
DX: I70.221 Atherosclerosis of native arteries of extremities with rest pain, right leg (principal); I65.29 Occlusion and stenosis of unspecified carotid artery
CPT/HCPCS: 36415; 82565

== ENCOUNTER → 2022-06-01 | Outpatient (CLI) | payer OTHER, SELFPAY ==
--- NOTE | 2022-06-01 16:38 | CT_ITS ---
STUDY: CTA OF THE ABDOMINAL AORTA AND BILATERAL LOWER EXTREMITIES REASON FOR EXAM: Female, 61 years old. Atherosclerosis with rest pain in the right lower extremity. Propofol right second toe. History of thyroid cancer, tubal ligation and cholecystectomy. RADIATION DOSAGE (If Supplied By Facility): CTDIvol = ( 6.99 ) mGy, DLP = ( 944.56 ) mGycm TECHNIQUE: Axial CT angiography multi-detector data acquisition was obtained from the diaphragm to the feet following intravenous administration of IV 100mL Isovue-370. Axial images and MIP images were reconstructed from the axial data set. Post-processing of the angiographic images was performed, with multiplanar reformation and 3D reconstruction. Individualized dose optimization techniques were used for this CT. TECHNICAL QUALITY: Good COMPARISON: None. Descriptors of Narrowing: None (0%) Mild (< 50%) Moderate (50-70%) Severe (70-90%) Subtotal/Total Occlusion (90-100%) Non-Evaluable (technically non-diagnostic FINDINGS: Abdominal aorta: Mild atherosclerotic changes of the upper abdominal aorta without aneurysm. There is increasing noncalcified plaque in the infrarenal aorta with mild luminal narrowing. No dissection or aneurysm. Celiac and superior mesenteric arteries: No demonstrated narrowing. Inferior mesenteric artery: No demonstrated narrowing. Right renal artery(arteries): No demonstrated narrowing. Left renal artery(arteries): No demonstrated narrowing. Right common iliac artery: Minimal atherosclerotic changes most marked distally. Right external iliac artery: Significant narrowing at the origin of the external iliac artery with scattered atherosclerotic changes distally. Right internal iliac artery: Mild atherosclerotic changes without stenosis. Left common iliac artery: Mild atherosclerotic changes without stenosis. Left external iliac artery: No demonstrated narrowing. Left internal iliac artery: Atherosclerotic changes without significant stenosis. RIGHT LOWER EXTREMITY Right common femoral artery: No demonstrated narrowing. Right profundus femoris: No demonstrated narrowing. Right superficial femoral: No demonstrated narrowing. Right popliteal artery: No demonstrated narrowing. Right tibioperoneal trunk: No demonstrated narrowing. Right anterior tibial artery: No demonstrated narrowing. Right posterior tibial artery: No demonstrated narrowing. Right peroneal artery: Not well seen below the right ankle. LEFT LOWER EXTREMITY Left common femoral artery: No demonstrated narrowing. Left profundus femoris: No demonstrated narrowing. Left superficial femoral: No demonstrated narrowing. Left popliteal artery: No demonstrated narrowing. Left tibioperoneal trunk: No demonstrated narrowing. Left anterior tibial artery: No demonstrated narrowing. Left posterior tibial artery: No demonstrated narrowing. Left peroneal artery: No demonstrated narrowing. Lung bases are clear. The heart is normal in size. Normal liver. Status post cholecystectomy. Normal spleen. Normal pancreas. Bilateral adrenal hyperplasia. The kidneys appear grossly normal. Normal visualized ureters. Normal IVC and retroperitoneum. Normal stomach. Normal small bowel. Scattered colonic diverticuli without acute inflammatory change. The colon is otherwise unremarkable. The appendix is not visualized. Normal urinary bladder. Normal uterus. There is evidence of bilateral tubal ligation. No adnexal mass or pelvic lymphadenopathy. No free air or free fluid is seen within the peritoneal cavity. Normal abdominal wall. Degenerative changes of the lumbar spine CT/CTA Abd w/Runoff W/WO Contrast IMPRESSION: 1. Mild atherosclerotic changes of the distal aorta. 2. Significant stenosis at the origin of the right external iliac artery. The remainder of the right lower extremity arterial system appears normal. 3. Normal left lower extremity arterial system. 4. No evidence of acute intra-abdominal or pelvic process. Electronically Signed: Bernardo Najera DO at 17:45 EST Reading Location ID and State: [address] [place] [address] Tel [phone], Service support ,
== END | disposition home or self-care (01) ==
LOC: CT 16:38
PROVIDERS: PCP Family Medicine; Referring Provider Surgery Trauma Surgery; Visit Provider Surgery Trauma Surgery
DX: I70.221 Atherosclerosis of native arteries of extremities with rest pain, right leg (principal)
CPT/HCPCS: 75635; Q9967

== ENCOUNTER 2022-06-23 06:49 | Day surgery (SDC) | payer OTHER, SELFPAY ==
[2022-06-22 09:18] VITALS: BMI 22.9
[2022-06-23 07:04] LABS: Hematocrit 39.4 % (37-47); Mean Corpuscular Hgb 31.6 pg (27.0-32.0); Mean Corpuscular Volume 95.6 fL (81-99); Mean Platelet Vol. 10.6 fl (6.2-12.0); Platelet Count 345 K/mm3 (150-450); RBC Distribution Width CV 12.6 % (11.6-14.6); Red Blood Count 4.12 M/mm3 (4.2-5.4); White Blood Count 12.8 K/mm3 (4.4-11.0)
[2022-06-23 07:21] LABS: Anion Gap 5 (5-15); BUN 12 mg/dL (7-18); BUN/Creat Ratio 16.3 RATIO (10-20); Calcium,Total 9.4 mg/dL (8.5-10.1); Chloride 111 mmol/L (98-107); Creatinine, Serum 0.74 mg/dL (0.55-1.02); EST Glomerular Filtration Rate 85 mL/min (>60); Est Glom Filt Rate - Afr Amer 103 mL/min (>60); Estimated Creatinine Clearance 72.75 ml/min; Glucose 108 mg/dL (74-106); Potassium 3.9 mmol/L (3.5-5.1); Sodium Level 142 mmol/L (136-145)
--- NOTE | 2022-06-23 13:09 | PCM.OPRPT ---
Report of Operation Date of Procedure: 06/23/22 Pre-Operative Diagnosis: Atherosclerosis with rest pain, right lower extremity Post-Operative Diagnosis: Same Surgery/Procedure Performed:: Right common iliac artery stent Right external iliac artery drug coated balloon angioplasty Description of Surgical Findings:: High grade stenosis of iliac artery bifurcation; second high grade stenosis distal external iliac artery Resolved after intervention; right internal iliac artery initially high grade stenosis, origin occluded at completion Surgeon: Christiano Flores Type of Anesthesia: Local and Sedation,Conscious Estimated Blood Loss (mL): 5 Description of Procedure: HPI: Patient is a 61-year-old female who developed discoloration and pain of the right lower extremity digits and short distance claudication which arose abruptly. She had noninvasive vascular studies which revealed significant arterial insufficiency, and CT angiography revealed high-grade stenosis of the right iliac bifurcation and a secondary lesion in the distal external iliac artery. She is taken now for angiogram with possible invention. Description of procedure: Upon obtaining form consent and verification correct patient procedure site patient was taken to the [facility] where she was positioned prepped and draped in usual sterile fashion and a timeout was performed. Conscious sedation was administered with intermittent doses of Versed and fentanyl. Skin overlying the right common femoral artery was anesthetized with 1% lidocaine and ultrasound was utilized to access in retrograde fashion using micropuncture needle and wire. This was exchanged out for micropuncture sheath through which hand-injection femoral angiogram was performed revealing satisfactory placement with no extravasation or dissection. Through the micropuncture sheath the Bentson wire was advanced under fluoroscopic guidance and the micropuncture sheath exchanged for a 6 Vietnamese marker tip sheath. Next using a KMP catheter and Bentson wire we are able to traverse the stenosis and hand-injection angiogram within the aorta revealed placed within the true lumen. Patient was then heparinized, and a marker catheter advanced over the Bentson wire. Repeat angiogram confirmed the location of the stenosis, and a 7 mm x 60 [place] Mavis paclitaxel eluding stent was brought in the field and prep for director pharmacology instructions. This advanced in the position and deployed in the distal common iliac artery proximal external leg artery. This was then postdilated with a 5 mm angioplasty balloon, followed by 7 mm angioplasty of the proximal portion that was within the common iliac. Repeat angiogram confirmed satisfactory resolution of the stenosis with no extravasation or dissection, but the internal iliac which had a high-grade stenosis now no longer felt antegrade. We then withdrew our 6 Vietnamese sheath into the distal external iliac artery and performed pressure measurement across the more distal lesion which confirmed a greater than 20 mmhg gradient indicative of significant stenosis. This was then angioplastied with a [employer] [place] drug-coated balloon 6 mm x 60 inflated to nominal for 3 minutes and then deflated withdrawn. Repeat angiography revealed resolution of the stenosis with no extravasation or dissection. See no further lesions required intervention the long 6 Vietnamese sheath was exchanged out for a short 6 Vietnamese sheath and a minx closure device deployed followed by 2 minutes of manual pressure. The occlusion of the case patient was taken to recovery room anticipated discharge home. Grafts/Implants Used: [employer] Mavis 7x60
== END 2022-06-23 13:30 | disposition home or self-care (01) ==
PROVIDERS: PCP Family Medicine; Referring Provider Surgery Trauma Surgery; Visit Provider Surgery Trauma Surgery
DX: I70.221 Atherosclerosis of native arteries of extremities with rest pain, right leg (principal); I10 Essential (primary) hypertension; E89.0 Postprocedural hypothyroidism; K21.9 Gastro-esophageal reflux disease without esophagitis; F17.210 Nicotine dependence, cigarettes, uncomplicated; Z79.01 Long term (current) use of anticoagulants; Z79.82 Long term (current) use of aspirin; Z79.890 Hormone replacement therapy; Z79.899 Other long term (current) drug therapy
CPT/HCPCS: 36200; 36415; 37221; 37222; 75625; 76937; 80048; 85027; 99152; 99153; C1760; C1769; C1894; C2623; J7040; Q9967; C1725; C1874

== ENCOUNTER → 2022-06-29 | Outpatient (CLI) | payer OTHER, SELFPAY ==
[2022-06-29 11:55] LABS: Erythrocyte Sedimentation Rate 43 mm/hr (0-30)
[2022-06-29 12:57] LABS: Vitamin B12 684 pg/mL (211-911); Vitamin D,25 Hydroxy 49.1 ng/mL
[2022-06-29 15:24] LABS: CRP 7.72 mg/L (0.0-3.0); Free T3 1.9 pg/mL (2.18-3.98); LDH 156 U/L (84-246); T4 Free Direct 1.18 ng/dL (0.76-1.46); Thyroid Stim Hormone (TSH) 1.75 uIU/mL (0.358-3.74)
[2022-06-30 17:07] LABS: Endomysial Antibody IgA Negative (Negative)
[2022-06-30 22:09] LABS: Immunoglobulin A 262 mg/dL (87-352); t-Transglutaminase IgA <2 U/mL (0-3)
[2022-07-01 13:07] LABS: Anti-Centromere B Ab <0.2 AI (0.0-0.9); Anti-Chromatin 6.8 AI (0.0-0.9); Anti-Jo <0.2 AI (0.0-0.9); Anti-Scleroderma-70 AB <0.2 AI (0.0-0.9); RNP Ab <0.2 AI (0.0-0.9); SJOGREN'S Anti-SS-A test < 0.2 AI (0.0-0.9); SJOGREN'S Anti-SS-B test < 0.2 AI (0.0-0.9); Smith Ab <0.2 AI (0.0-0.9)
[2022-07-02 10:22] LABS: Anti-dsDNA Ab 11 IU/mL (0-9); Vitamin D 1,25-Dihydroxy 59.8 pg/mL (24.8-81.5)
[2022-07-02 13:07] LABS: Albumin 3.6 g/dL (2.9-4.4); Alpha-1-Globulins 0.4 g/dL (0.0-0.4); Cytoplasmic Ab (C-ANCA) <1:20 titer (Neg:<1:20); Gamma Globulin 0.8 g/dL (0.4-1.8); Immunoglobulin A 254 mg/dL (87-352); Immunoglobulin G 1019 mg/dL (586-1602); Immunoglobulin M 52 mg/dL (26-217); PROEL- TOTAL PROTEIN 6.9 g/dL (6.0-8.5)
[2022-07-02 15:51] LABS: Immunoglobulin E 40 IU/mL (6-495); Perinuclear Ab (P-ANCA) <1:20 titer (Neg:<1:20)
== END | disposition home or self-care (01) ==
LOC: LAB 11:23
PROVIDERS: PCP Family Medicine; Referring Provider Internal Medicine Gastroenterology; Visit Provider Internal Medicine Gastroenterology
DX: I70.221 Atherosclerosis of native arteries of extremities with rest pain, right leg (principal)
CPT/HCPCS: 82306; 82607; 82652; 82784; 82785; 83516; 83615; 84165; 84439; 84443; 84481; 85652; 86140; 86225; 86235; 86255; 86256; 86334

== ENCOUNTER → 2022-07-02 | Outpatient (CLI) | payer OTHER, SELFPAY ==
[2022-07-06 12:45] LABS: Calprotectin, Stool 78 ug/g (0-120)
== END | disposition home or self-care (01) ==
LOC: LAB 14:11 → LABSPEC 14:12
PROVIDERS: PCP Family Medicine; Visit Provider Internal Medicine Gastroenterology
DX: I70.221 Atherosclerosis of native arteries of extremities with rest pain, right leg (principal); K58.9 Irritable bowel syndrome, unspecified
CPT/HCPCS: 83630; 83993

== ENCOUNTER → 2022-07-22 | Outpatient (CLI) | payer OTHER, SELFPAY ==
--- NOTE | 2022-07-22 09:01 | ADUL_ITS ---
Reason For Study: S/P RLE angioplasty Right Velocities Ext. Iliac Artery, dist = 210.3 cm./sec. Common Femoral Artery, mid = 141.5 cm./sec. Supf Femoral Artery, prox = 130.8 cm./sec. Supf Femoral Artery, mid = 117.7 cm./sec. Supf Femoral Artery, dist. = 97.9 cm./sec. Profunda Femoral Artery = 104.5 cm./sec. Popliteal Artery, mid = 62.2 cm./sec. Post. Tibial Artery, prox = 87.5 cm./sec. Post. Tibial Artery, mid = 72.1 cm./sec. Post. Tibial Artery, dist = 85.3 cm./sec. Peroneal Artery, prox = 36.9 cm./sec. Peroneal Artery, mid = 32.5 cm./sec. Peroneal Artery,dist = 17.1 cm./sec. Ant. Tibial Artery, prox = 63.3 cm./sec. Ant. Tibial Artery, mid = 56.3 cm./sec. Ant. Tibial Artery, dist = 45.9 cm./sec. Procedure Exam performed in department. VL/US Art Duplex Unilat Lower Ext Interpretation Summary Patent right lower extremity arterial system with normal velocities and wavefor ms throughout. No evidence of focal stenosis. Ordering Physician: Lisa Dyer Referring Physician: Allie Marcos Performed By: Patricia Jones RVT
--- NOTE | 2022-07-22 09:01 | ART_ITS ---
Reason For Study: S/P RLE angioplasty Procedure A bilateral lower extremity continuous wave Doppler with analog waveform analysis and ankle brachial indexes. Left Segmental Pressures Left brachial= 129mmHg. Left posterior tibial artery = 129mmHg. Left dorsalis pedis artery = 119mmHg. The left dorsalis pedis waveforms are triphasic. The left posterior tibial artery waveforms are triphasic. Right Segmental Pressures Right brachial= 134mmHg. Right posterior tibial artery = 141mmHg. Right dorsalis pedis artery = 135mmHg. The right dorsalis pedis waveforms are triphasic. The right posterior tibial artery waveforms are triphasic. Indices The right ankle brachial index by the dorsalis pedis is 1.01. The right ankle brachial index by the posterior tibial artery is 1.05. The left ankle brachial index by the dorsalis pedis is 0.89. The left ankle brachial index by the posterior tibial artery is 0.96. VL/Ankle Brachial Index Interpretation Summary Right LELIA 1.05, normal. Doppler/PVR waveforms of the right ankle normal at rest . Digit waveforms diminished, pedal/digit disease vs spasm. Left LELIA 0.96, mild arterial insufficiency. Doppler/PVR waveforms of the left a nkle normal at rest. Digit waveforms diminished, pedal/digit disease vs spasm Ordering Physician: Lisa Dyer Referring Physician: Allie Marcos Performed By: Patricia Jones RVGita
== END | disposition home or self-care (01) ==
LOC: CVS 08:50
PROVIDERS: PCP Family Medicine; Referring Provider Physician Assistant; Visit Provider Physician Assistant
DX: I70.221 Atherosclerosis of native arteries of extremities with rest pain, right leg (principal); Z48.812 Encounter for surgical aftercare following surgery on the circulatory system
CPT/HCPCS: 93922; 93926

== ENCOUNTER → 2022-08-16 | Outpatient (CLI) | payer OTHER, SELFPAY ==
[2022-08-16 12:19] LABS: Erythrocyte Sedimentation Rate 16 mm/hr (0-30)
[2022-08-16 12:56] LABS: ALB/GLOB Ratio 0.9 RATIO (0.9-2.4); AST(SGOT) 19 U/L (15-37); Alanine Aminotransfer ALT/SGPT 20 U/L (13-56); Albumin, Serum 3.7 g/dL (3.2-5.0); Alkaline Phosphatase 116 U/L (45-117); Anion Gap 8 (5-15); BUN 14 mg/dL (7-18); BUN/Creat Ratio 15.9 RATIO (10-20); Calcium,Total 9.6 mg/dL (8.5-10.1); Chloride 107 mmol/L (98-107); Cholesterol 147 mg/dL (200); Creatinine, Serum 0.88 mg/dL (0.55-1.02); EST Glomerular Filtration Rate 69 mL/min (>60); Est Glom Filt Rate - Afr Amer 84 mL/min (>60); Globulin 4.3 g/dL (2.2-4.2); Glucose 98 mg/dL (74-106); High Density Lipoprotein 54 mg/dL; Potassium 3.8 mmol/L (3.5-5.1); Sodium Level 139 mmol/L (136-145); Triglycerides 141 mg/dL; Very Low Density Lipoprotein 28 mg/dL (5-40)
[2022-08-16 13:05] LABS: T4 Free Direct 1.31 ng/dL (0.76-1.46); Thyroid Stim Hormone (TSH) 2.35 uIU/mL (0.358-3.74)
[2022-08-17 16:09] LABS: ANTINUCLEAR ANTIBODIES DIRECT Positive (Negative); Anti-Centromere B Ab <0.2 AI (0.0-0.9); Anti-Chromatin >8.0 AI (0.0-0.9); Anti-Jo <0.2 AI (0.0-0.9); Anti-Scleroderma-70 AB <0.2 AI (0.0-0.9); RNP Ab <0.2 AI (0.0-0.9); SJOGREN'S Anti-SS-A test < 0.2 AI (0.0-0.9); SJOGREN'S Anti-SS-B test < 0.2 AI (0.0-0.9); Smith Ab <0.2 AI (0.0-0.9)
[2022-08-17 20:10] LABS: Anti-Thyroglobulin AB < 1.0 IU/mL (0.0-0.9); Thyroglobulin, Serum Qt. 5.8 ng/mL (1.5-38.5)
[2022-08-17 20:10] LABS: Anti-dsDNA Ab 11 IU/mL (0-9)
[2022-08-23 17:08] LABS: Complement C3 163 mg/dL (82-167); Dilute Prothrombin Time (dPT) 156.4 sec (0.0-47.6); Dilute Russell Viper Venom 162.1 sec (0.0-47.0); Hexagonal Phase Phospholipid 2 96 sec (0-11); Protein C Antigen 121 % (60-150); Protein S, Free 126 % (61-136); Thrombin Time 15.8 sec (0.0-23.0)
[2022-08-23 19:52] LABS: Anti-Cardiolipin Ab, IgA, Qn < 9 APL U/mL (0-11); Anti-Cardiolipin Ab, IgG, Qn 44 GPL U/mL (0-14); Anti-Cardiolipin Ab, IgM, Qn < 9 MPL U/mL (0-12); Anti-Thrombin 3 AG, Immunol 113 % (72-124); Antithrombin 3 Function 165 % (75-135); Complement CH50 > 60 U/mL (>41); Interpretation Comment: (.); PTT-LA > 160.0 sec (0.0-51.9); Protein C, Functional 167 % (73-180); Protein S, Funtional 69 % (63-140); Protein S, Total 119 % (60-150)
== END | disposition home or self-care (01) ==
LOC: MTLAB 10:12
PROVIDERS: Internal Medicine Endocrinology, Diabetes & Metabolism; PCP Family Medicine; Referring Provider Psychiatry & Neurology Neurology; Visit Provider Psychiatry & Neurology Neurology
DX: G45.3 Amaurosis fugax (principal); C73 Malignant neoplasm of thyroid gland; E89.0 Postprocedural hypothyroidism
CPT/HCPCS: 36415; 80053; 80061; 81240; 81241; 84432; 84439; 84443; 85300; 85301; 85302; 85303; 85305; 85306; 85652; 86038; 86147; 86160; 86162; 86225; 86235; 86800

== ENCOUNTER → 2022-09-07 | Outpatient (CLI) | payer OTHER, SELFPAY ==
--- NOTE | 2022-09-07 07:16 | MRI_ITS ---
EXAM: MR HEAD WITHOUT AND WITH INTRAVENOUS CONTRAST CLINICAL INDICATION: Tension headaches; left eye amaurosis fugax TECHNIQUE: Multiplanar and multisequence MR images of the brain were obtained without and with intravenous contrast. This report was created using [employer] report [employer] technology. CONTRAST: IV 13ml Clariscan COMPARISON: MRI brain without contrast 01/31/2019. FINDINGS: BRAIN AND EXTRA-AXIAL SPACES: Following IV contrast administration, there are no abnormally enhancing lesions intra-axially and extra-axially. No intra- or extra-axial hemorrhage. No evidence of acute infarct. No intracranial mass or mass effect. There is preservation of the bass/white matter interface. Posterior fossa structures are unremarkable. Ventricles are appropriate for age. No hydrocephalus. Basal cisterns are patent. No focal signal abnormalities throughout the brain parenchyma in all pulse sequences. SELLA: Unremarkable. Normal sella turcica, pituitary gland, infundibular stalk, optic chiasm and hypothalamus. AUDITORY SYSTEM: Unremarkable. The internal auditory canals are patent. BONES/JOINTS: Unremarkable. No discrete lytic or blastic abnormalities. SINUSES: Unremarkable as visualized. Clear. MASTOID AIR CELLS: Unremarkable as visualized. Clear. ORBITS: Unremarkable as visualized. Both globes, extraocular muscles, optic nerves and retrobulbar fat appear unremarkable. VASCULATURE: Unremarkable as visualized. Normal flow voids in the major intracranial circulation. MRI/Brain W/WO Contrast IMPRESSION: Normal MRI brain with and without contrast and unchanged when compared to 01/31/2019. Electronically Signed: Flaco Griffin MD at 9:10 EST ,
== END | disposition home or self-care (01) ==
LOC: MRI 07:16
PROVIDERS: PCP Family Medicine; Referring Provider Psychiatry & Neurology Neurology; Visit Provider Psychiatry & Neurology Neurology
DX: G44.209 Tension-type headache, unspecified, not intractable (principal); G45.3 Amaurosis fugax
CPT/HCPCS: 70553; A9575

== ENCOUNTER → 2022-10-19 | Outpatient (CLI) | payer OTHER, SELFPAY | END | disposition home or self-care (01) | LOC: LABSPEC 15:15 | PROVIDERS: PCP Family Medicine; Referring Provider Physician Assistant; Visit Provider Physician Assistant | DX: L72.3 Sebaceous cyst (principal); L08.9 Local infection of the skin and subcutaneous tissue, unspecified | CPT/HCPCS: 87070; 87205 ==

== ENCOUNTER → 2022-10-28 | Outpatient (CLI) | payer OTHER, SELFPAY ==
--- NOTE | 2022-10-28 13:02 | BI_ITS ---
MAMMOGRAPHY - BILATERAL SCREENING 3-D TOMOSYNTHESIS REASON FOR EXAM: Female, 62 years old. Screening for breast cancer. PERTINENT HISTORY: History of breast cancer in aunts. TECHNIQUE: 2-D mammograms and 3-D Tomosynthesis of the breast (s) were performed. CAD was performed. COMPARISON: October 06, 2021, September 29, 2020. FINDINGS: The breast composition is composed of scattered fibroglandular density. Normal axillary lymph nodes and benign calcifications bilaterally. No dominant masses, suspicious microcalcifications, asymmetries, skin thickening or nipple retraction. BI/SCRN MAMM (CAD)W/VILMA BILAT IMPRESSION: No interval change and no mammographic signs of malignancy. Routine yearly mammograms recommended. ASSESSMENT CATEGORY: BIRADS Category 2: Benign. A letter regarding these results will be sent to the patient by the facility within 30 days. FOLLOW UP RECOMMENDATION: Yearly follow up mammogram recommended. (A) Approximately 10% of breast cancers are not detected by mammography. A normal mammogram should not delay biopsy of a clinically suspicious abnormality. Electronically Signed: Dmitriy Adair, at 15:49 EDT ,
== END | disposition home or self-care (01) ==
LOC: OPBI 13:01
PROVIDERS: PCP Family Medicine; Referring Provider Obstetrics & Gynecology; Visit Provider Obstetrics & Gynecology
DX: Z12.31 Encounter for screening mammogram for malignant neoplasm of breast (principal)
CPT/HCPCS: 77063; 77067

== ENCOUNTER → 2022-11-01 | Outpatient (CLI) | payer OTHER, SELFPAY ==
--- NOTE | 2022-11-01 14:46 | CT_ITS ---
STUDY: LOW DOSE CT LUNG CANCER SCREENING REASON FOR EXAM: Female, 62 years old. Long history of smoking. Screening for lung cancer. RADIATION DOSAGE (If Supplied By Facility): CTDIvol = ( 1.59 ) mGy, DLP = ( 49.43 ) mGycm TECHNIQUE: No contrast was administered. Low dose technique was utilized (average mAS-38 and kVp 120). 1.25 mm axial source images with a slice interval of 1.25-mm were reconstructed in lung windows. 2.5 mm axial source images with a slice interval of 2.5-mm were reconstructed in lung windows. 5.0 mm axial source images with a slice interval of 5.0-mm were reconstructed in soft tissue windows. Nodule measured using lung windows on PACS and/or independent workstation with automated measurement of minimum and maximum diameter. Nodule measurement reported as average diameter rounded to the nearest whole number. Growth is defined as an increase ins size of greater than 1.5 mm. COMPARISON: None. NODULES: The lungs are hyperexpanded. There is diffuse centrilobular emphysema. Multiple calcified granulomas in both lungs. There are no suspicious lung nodules There are no endobronchial lesions. There is no demonstrated pleural abnormality. Normal heart and pericardium. Normal mediastinum. Normal hilar regions. Normal unenhanced pulmonary arteries. Normal aorta arch and descending thoracic aorta. Normal osseous structures. There is no demonstrated abnormality of the visualized upper abdomen. CT/Low Dose CT Lung Screening IMPRESSION: Lung-RADS category 2. Benign findings. COPD and emphysema. There is no evidence of malignancy. Recommendation: Routine screening CT scan in one year. IMPORTANT NOTES FOR USE: ACR Lung-RADS Version 1.0 Assessment Categories Release Date: November 12, 2013 Category: Coded 0-4 bases on nodule(s) with highest degree of suspicion. Negative screen is defined as categories 1 and 2; a positive screen is defined as categories 3 and 4. Category 3 and 4A nodules that are unchanged on interval CT should be coded as category 2, and individuals returned to screening in 12 months. Category 4X: Category 3 or 4 nodules with additional imaging findings that increase the suspicion of lung cancer, such as spiculation, GGN that doubles in size in 1 year, enlarged lymph notes, etc. Category Modifiers: S (significant finding unrelated to lung cancer) and C (prior history of treated lung cancer) may be added to the 0-4 Lung-RADS Electronically Signed: Sunil Conklin MD at 8:08 EDT ,
== END | disposition home or self-care (01) ==
LOC: CT 14:45
PROVIDERS: PCP Family Medicine; Referring Provider Family Medicine; Visit Provider Family Medicine
DX: Z12.2 Encounter for screening for malignant neoplasm of respiratory organs (principal); Z87.891 Personal history of nicotine dependence
CPT/HCPCS: 71271

== ENCOUNTER → 2022-11-11 | Outpatient (CLI) | payer OTHER, SELFPAY ==
--- NOTE | 2022-11-11 | CYST_PTH ---
PATIENT: CHAPIN RODGERS LOC: [facility] U#:[id number] AGE/SX: 62/F ROOM: RE11/11/[address]: Dr. Naty Carrillo MD : 1960 BED: DIS: 11/11/2022 SPEC #: [id number] RECD: 11/11/22 12:33 STATUS: FISH REClay #: [id number] SIM: 11/11/22 00:[address]: Naty Carrillo DEPT: SURGICAL PATHOLOGY RECD BY: Venkat Radford ENTERED: 11/11/22 12:33 SP TYPE: Cyst OTHR DR: Dr. Allie Marcos MD Tissues: CYST Procedures: Surgery Specimen Level III HEADER OPERATION: Excision of cyst in left axilla PRE-OP DIAGNOSIS: Excision of cyst left axilla TISSUE SUBMITTED: Cyst tissue left axilla MICROSCOPIC DIAGNOSIS Cyst of left axilla, biopsy: Epidermal inclusion cyst with rupture and associated reparative and reactive change and mild chronic inflammation. AM:mac 11/12/2022 COMMENT Case has been reviewed in consultation with Dr. Cunningham who concurs with the above diagnosis. IDC:RK MICROSCOPIC DESCRIPTION Slides are reviewed. GROSS DESCRIPTION Received in fixative is one container labeled with the patient's name and designated left axilla cyst. The specimen consists of a piece of savage-white skin ellipse measuring 2.0 x 0.7 cm and up to 0.2 cm in thickness. The specimen is inked, serially sectioned and submitted entirely in one cassette. / SJ:mac 11/11/2022 TC:5 CPT:
== END | disposition home or self-care (01) ==
LOC: LABSPEC 10:57
PROVIDERS: PCP Family Medicine; Referring Provider Surgery; Visit Provider Surgery
DX: L72.9 Follicular cyst of the skin and subcutaneous tissue, unspecified (principal)
CPT/HCPCS: 88304

== ENCOUNTER → 2022-12-09 | Outpatient (CLI) | payer OTHER, SELFPAY ==
[2022-12-11 14:15] LABS: Anti-Cardiolipin Ab, IgA, Qn < 9 APL U/mL (0-11); Anti-Cardiolipin Ab, IgG, Qn 31 GPL U/mL (0-14); Anti-Cardiolipin Ab, IgM, Qn < 9 MPL U/mL (0-12)
[2022-12-14 14:09] LABS: ANTINUCLEAR ANTIBODIES DIRECT Positive (Negative); Anti-Centromere B Ab <0.2 AI (0.0-0.9); Anti-Chromatin >8.0 AI (0.0-0.9); Anti-Jo <0.2 AI (0.0-0.9); Anti-Scleroderma-70 AB <0.2 AI (0.0-0.9); Anti-dsDNA Ab 7 IU/mL (0-9); RNP Ab <0.2 AI (0.0-0.9); SJOGREN'S Anti-SS-A test < 0.2 AI (0.0-0.9); SJOGREN'S Anti-SS-B test < 0.2 AI (0.0-0.9); Smith Ab <0.2 AI (0.0-0.9)
== END | disposition home or self-care (01) ==
LOC: MTLAB 15:04
PROVIDERS: PCP Family Medicine; Referring Provider Psychiatry & Neurology Neurology; Visit Provider Psychiatry & Neurology Neurology
DX: G45.3 Amaurosis fugax (principal)
CPT/HCPCS: 36415; 86038; 86147; 86160; 86225; 86235

== ENCOUNTER 2023-04-04 16:00 | Outpatient (RCR) | payer OTHER, SELFPAY ==
--- NOTE | 2023-03-09 16:04 | HP.PTEVAL_ITS ---
Patient's Visit Information Visit Information Visit Information: CHAPIN RODGERS is a 62 year old F referred to Physical Therapy by Dr. Alex York MD with a diagnosis of CERVICALALGIA ,LOW BACK PAIN. Date of Evaluation: 03/09/23 Physical Therapist: Jose Antonio Adan, PT, Cert MDT, OCS Visit Plan Frequency: 2x /Week Duration: 4 Weeks Plan: PT INTERVTIONS POSTURAL EX'S ,DLS , LE FLEXABLITY ,CERVICAL ROM/STRENGTHENING ,ANGELICA EX'S AND MODALTIES Subjective Subjective: This 62 y/o female presents to physical therapy with cervical and lumbar pain. Patient seen Neurologist due to CALLAWAY . Patient c/o CALLAWAY and recommended PT. Patient has neck and back many years . Patient had no recent diagnostics. Patient located cervical UT. Aggravating factors working demands with flexion and lifting OH. Patient alleviating factor Over counter teylonal . Patient denies paresthesia/tingling. Patient has global CALLAWAY . Did have MRI -. Patient denies tinnitus/nausea. Patient pain affects sleeping. Patient lumbar pain right side no radicular symptoms. Aggravating factors bending ,lifting extended standing and walking . Alleviating factors rest. Coughing/sneezing-. Bowel/bladder- . No abnormal night pain. Patient pain affects QOL and function. Patient goal is to decrease back pain. 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 50# Pain Bilateral Neck: Pain Intensity (Out of 10): 2 Pain Intensity Range: 10 Comment: left Bilateral Back: Pain Intensity (Out of 10): 0 Pain Intensity Range: 10 Comment: right Left Hip: Pain Intensity (Out of 10): 6 Pain Intensity Range: 10 Objective Objective: POSTURE: mild forward posture forward posture right side scoliosis ,right thoracic rotation right shoulder depressed with asymmetries GAIT: reciprocal pattern mild forward posture scoliosis PALAPTION: unremarkable NEURO: denies paresthesia/tingling ,reflexes L3-4 ,L4-5 ,L5-S1 1/3 MMT BUE: 4/5 grossly MMT BLE: quads/hamstrings 5/5 , ( peak force ) hip flexion 13.4 right ,left 12.3 ,hip right 27.8 ,left ,ankle 5/5 CERVICAL ROM: flexion min loss ,extension mod loss ,rotation /lateral flexion mod loss LUMBAR ROM: flexion min loss ,extension mod loss ,side glides mod/severe loss left ,right min/mod loss HIP IR PROM: 10 degrees Special Tests C/S Radiculapathy - Left Upper limb tension test: Negative C/S Radiculapathy - Right Upper limb tension test: Negative C/S Radiculapathy - Left Spurlings: Negative C/S Radiculapathy - Right Spurlings: Negative C/S Radiculapathy - Left Cervical distraction: Negative C/S Radiculapathy - Right Cervical distraction: Negative C/S Radiculapathy - Left Relief test: Negative C/S Radiculapathy - Right Relief test: Negative Sharp Tim: Negative Vertebral Artery Test: Negative Alar Ligament Test: Negative Cervical Sitting: Protrusion - Mechanical Response: No effect Cervical Sitting: Protrusion - Symptoms During Testing: No effect Cervical Sitting: Protrusion - Symptoms After Testing: No effect Cervical Sitting: Retraction - Mechanical Response: No effect Cervical Sitting: Retraction - Symptoms During Testing: No effect Cervical Sitting: Retraction - Symptoms After Testing: No effect Cervical Sitting: Retraction-Extension - Mechanical Response: No effect Cerv Sitting: Retraction-Extension - Symptoms During Testing: No effect Cerv Sitting: Retraction-Extension - Symptoms After Testing: No effect Cervical Sitting: Sidebend Right - Mechanical Response: No effect Cervical Sitting: Sidebend Right - Symptoms During Testing: No effect Cervical Sitting: Sidebend Right - Symptoms After Testing: No effect Cervical Sitting: Sidebend Left - Mechanical Response: No effect Cervical Sitting: Sidebend Left - Symptoms During Testing: No effect Cervical Sitting: Sidebend Left - Symptoms After Testing: No effect Cervical Sitting: Rotation Right - Mechanical Response: No effect Cervical Sitting: Rotation Right - Symptoms During Testing: No effect Cervical Sitting: Rotation Right - Symptoms After Testing: No effect Cervical Sitting: Rotation Left - Mechanical Response: No effect Cervical Sitting: Rotation Left - Symptoms During Testing: No effect Cervical Sitting: Rotation Left - Symptoms After Testing: No effect Cervical Sitting: Flexion - Mechanical Response: No effect Cervical Sitting: Flexion - Symptoms During Testing: No effect Cervical Sitting: Flexion - Symptoms After Testing: No effect L/S Slump test left side: Positive L/S Slump test right side: Positive L/S Left Straight Leg Raise: Negative L/S Right Straight Leg Raise: Negative Lumbar Standing: Flexion - Mechanical Response: No effect Lumbar Standing: Flexion - Symptoms During Testing: No effect Lumbar Standing: Flexion - Symptoms After Testing: No effect Lumbar Standing: Extension - Symptoms During Testing: Decreases Lumbar Standing: Extension - Symptoms After Testing: Better Lumbar Standing: Right Side Glides - Mechanical Response: No effect Lumbar Standing: Right Side Chester - Symptoms During Testing: No effect Lumbar Standing: Right Side Chester - Symptoms After Testing: No effect Lumbar Standing: Left Side Chester - Mechanical Response: No effect Lumbar Standing: Left Side Chester - Symptoms During Testing: Increases Lumbar Standing: Left Side Chester - Symptoms After Testing: No worse Lumbar Lying: Flexion - Mechanical Response: No effect Lumbar Lying: Flexion - Symptoms During Testing: Increases Lumbar Lying: Flexion - Symptoms After Testing: No worse Comments:: hip may due to capsular restriction in hip Lumbar Lying: Extension - Mechanical Response: No effect Lumbar Lying: Extension - Symptoms During Testing: Decreases Lumbar Lying: Extension - Symptoms After Testing: Better L Hip Scour: Positive L Hip PJ - Intraarticular Pathology: Positive L Hip Impingement Provocation - Labrum: Negative L Hip Trendelenberg - Glut Medius: Negative Balance/Special Test Scores Oswestry Low Back Score: 19 Goals Goal 1:: Patient to be I with HEP for neck and back Goal Time Frame: 4-6 Weeks Goal 2:: Patient to demonstrate 50% improvement with less pain and improved Goal Time Frame: 4-6 Weeks Goal 3:: Patient improve cervical ROM and lumbar ROM for function of recovery for ADL's and job demands Goal Time Frame: 4-6 Weeks Goal 4:: Patient to improve strength peak force of hips by 5-10 points to improve QOL and gait Goal Time Frame: 4-6 Weeks Goal 5:: Patient to improve back oswestry score by 5 points to improve function and QOL Goal Time Frame: 4-6 Weeks Rehabilitation Potential Physical Therapy Diagnosis: This patient has postural deficits with scoliosis with weakness in hips , decrease ROM with pain worse with bending and lifting due to job demands thus benefit from skilled PT Rehabilitation Potential: Good Anticipated Interventions Patient/Client Instruction: Educate patient on: Condition and Plan of Care For the Purpose of:: To decrease pain, To increase ROM, To improve muscle performance and motor function, To improve ability to perform ADL's, To increase tolerance to activity/condition/position, To improve performance and independence with ADL's, To improve ability of physical actions for home/community/work/leisure, To improve health of tissue, To decrease soft tissue restriction, To increase flexibility/ROM, To assume or resume ADL's and To improve tolerance to ADL's Therapeutic Exercise to Include: Strength training, Postural training, Flexibilty training, Dynamic Lumbar Stabilization and Angelica Exercises For the Purpose of:: To decrease pain, To increase ROM, To improve muscle performance and motor function, To improve ability to perform ADL's, To increase tolerance to activity/condition/position, To improve ability of physical actions for home/community/work/leisure, To improve health of tissue, To decrease soft tissue restriction and To increase flexibility/ROM TENS: Yes IF ES: Yes Cryotherapy (ice pack, ice massage): Yes Thermo therapy (hot pack): Yes Ultrasound (thermal/non thermal): Yes For the Purpose of:: To decrease pain, To improve nutrient delivery to tissue and To increase oxygenation perfusion Text: Thank you for the opportunity to evaluate your patient. For Medicare and Medicare HMO plans, please review the plan of care and approve it. It will need to be FAXED BACK to us at [phone] for Medicare purposes. For Medicare only, by signing this I certify the plan of care. Please let me know if there are questions or concerns regarding this plan of care. Physician Signature: Date:
== END 2023-04-04 19:00 | disposition home or self-care (01) ==
LOC: PT 16:00
PROVIDERS: PCP Family Medicine; Referring Provider Psychiatry & Neurology Neurology; Visit Provider Psychiatry & Neurology Neurology
DX: M54.2 Cervicalgia (principal); M54.50 Low back pain, unspecified
CPT/HCPCS: 97110; 97162

== ENCOUNTER → 2023-04-28 | Outpatient (CLI) | payer OTHER, SELFPAY ==
--- NOTE | 2023-04-28 15:16 | STRESSREP ---
Stress Test Report exercise myocardial perfusion stress test. 62-year-old lady with a history of chest pain Stress protocol: Resting EKG demonstrates normal sinus rhythm with a rate of 66 bpm resting blood pressure is 130/64 mmHg. The patient exercised according to the regular protocol for a total duration of 7 minutes and 15 seconds attaining a maximum heart rate of 136 bpm which was 85% of maximum predicted heart rate; the maximum workload was 10.1 metabolic equivalents. At rest there were no ST or T wave changes noted to suggest ischemia and at peak exercise upsloping ST changes only were noted which did not meet the criteria for ischemia. No clinical angina was noted the test was terminated due to the target heart rate being achieved/fatigue. The peak blood pressure was 172/70 mmHg. Rate-pressure product was 19,600. Myocardial perfusion protocol. 11.1 mCi of technetium 99m sestamibi was injected at rest. The patient exercised according to regular Joshua protocol for total duration of 7 minutes and 15 seconds and at peak exercise 33.8 mCi of technetium 99m sestamibi was injected stress images were obtained stress and rest images were reconstructed in comparing the short axis vertical long and horizontal long axis. Gated images were also obtained. Perfusion SPECT analysis: Review of the stress images demonstrate normal uptake of tracer noted in all areas of the myocardium. The resting images similarly demonstrate normal uptake of tracer noted in all areas of the myocardium. No areas of reversibility are noted to suggest ischemia no previous infarct was noted. Gated SPECT analysis: The gated ejection fraction is 72%. Conclusion: Normal exercise myocardial perfusion stress test at a high workload Preserved ejection fraction.
== END | disposition home or self-care (01) ==
LOC: CVS 06:54
PROVIDERS: PCP Family Medicine; Referring Provider Nurse Practitioner Gerontology; Visit Provider Nurse Practitioner Gerontology
DX: R07.89 Other chest pain (principal)
CPT/HCPCS: 78452; 93017; A9500; A4216

== ENCOUNTER → 2023-05-03 | Outpatient (CLI) | payer OTHER, SELFPAY ==
[2023-05-03 13:25] LABS: AST(SGOT) 14 U/L (15-37); Alanine Aminotransfer ALT/SGPT 20 U/L (13-56); Albumin, Serum 3.2 g/dL (3.2-5.0); Alkaline Phosphatase 88 U/L (45-117); Bilirubin, Direct 0.14 mg/dL (0.00-0.30); Cholesterol 115 mg/dL (200); Globulin 3.4 g/dL (2.2-4.2); High Density Lipoprotein 60 mg/dL; Protein, Total 6.6 g/dL (6.4-8.2); Triglycerides 101 mg/dL; Very Low Density Lipoprotein 20 mg/dL (5-40)
== END | disposition home or self-care (01) ==
LOC: MTLAB 09:46
PROVIDERS: PCP Family Medicine; Referring Provider Nurse Practitioner Family; Visit Provider Nurse Practitioner Family
DX: E78.00 Pure hypercholesterolemia, unspecified (principal)
CPT/HCPCS: 36415; 80061; 80076

== ENCOUNTER → 2023-05-17 | Outpatient (CLI) | payer OTHER, SELFPAY ==
--- NOTE | 2023-05-17 07:22 | CDU_ITS ---
Reason For Study: carotid stenosis Rt. Velocities/BP Lt. Velocities/BP Prox CCA 57.0/10.7 cm/sec. Prox CCA 75.1/17.9 cm/sec. Mid CCA 91.0/16.3 cm/sec. Mid CCA 143.0/37.1 cm/sec. Dist CCA 85.3/17.3 cm/sec. Dist CCA 128.4//35.3 cm/sec. Prox ICA 92.7/16.8 cm/sec. Prox ICA 124.7/26.1 cm/sec. Mid ICA 107.2/28.6 cm/sec. Mid ICA 80.2/26.2 cm/sec. Dist ICA 102.3/37.2 cm/sec. Dist ICA 124.7/33.4 cm/sec. Rt. ICA/CCA = 1.2. Lt. ICA/CCA = .9. Prox ECA 94.9/11.3 cm/sec. Prox ECA 124.7/11.5 cm/sec. Rt. Vert. 60.5/12.6 cm/sec. Right Extracranial There is homogeneous, smooth atherosclerotic plaque noted in the right common carotid artery. There is homogeneous, smooth atherosclerotic plaque noted in the right internal carotid artery. There is intimal thickening but no significant atherosclerotic plaque noted in the right external carotid artery. Antegrade flow is noted in the right vertebral artery. Left Extracranial There is homogeneous, smooth atherosclerotic plaque noted in the left common carotid artery. There is homogeneous, smooth atherosclerotic plaque noted in the left internal carotid artery. There is intimal thickening but no significant atherosclerotic plaque noted in the left external carotid artery. Retrograde flow is noted inthe left vertebral artery. Procedure Carotid Duplex [id number]. This is a Carotid Duplex examination using B-mode, color flow and specral Doppler. The exam was diagnostic. Exam performed in department. VL/Carotid Duplex Ultrasound Interpretation Summary Mild (<50%) stenosis right extracranial internal carotid. Mild (<50%) stenosis left extracranial internal carotid. The Right vertebral is patent and antegrade. The Left vertebral flow is retrograde. Ordering Physician: Christiano Flores Performed By: Heri Manzanares RVT
== END | disposition home or self-care (01) ==
LOC: CVS 07:21
PROVIDERS: PCP Family Medicine; Referring Provider Surgery Trauma Surgery; Visit Provider Surgery Trauma Surgery
DX: I65.29 Occlusion and stenosis of unspecified carotid artery (principal)
CPT/HCPCS: 93880

== ENCOUNTER → 2023-07-01 | Outpatient (CLI) | payer OTHER, SELFPAY ==
--- NOTE | 2023-07-01 09:53 | ADUL_ITS ---
Reason For Study: HX Rt ILA Angioplasty Right Velocities Ext. Iliac Artery, dist = 174.5 cm./sec. Common Femoral Artery, mid = 180.1 cm./sec. Supf Femoral Artery, prox = 111.2 cm./sec. Supf Femoral Artery, mid = 89.3 cm./sec. Supf Femoral Artery, dist. = 85.7 cm./sec. Profunda Femoral Artery = 113.4 cm./sec. Popliteal Artery, mid = 76.3 cm./sec. Post. Tibial Artery, prox = 91.1 cm./sec. Post. Tibial Artery, mid = 74.7 cm./sec. Post. Tibial Artery, dist = 53.7 cm./sec. Peroneal Artery, prox = 56.4 cm./sec. Peroneal Artery, mid = 38.3 cm./sec. Peroneal Artery,dist = 21.7 cm./sec. Ant. Tibial Artery, prox = 71.4 cm./sec. Ant. Tibial Artery, mid = 75.2 cm./sec. Ant. Tibial Artery, dist = 55.4 cm./sec. /US Art Duplex Unilat Lower Ext Interpretation Summary Right lower extremity arteries patent with normal velocities and waveforms thro ughout with no evidence of stenosis Ordering Physician: Lisa King Referring Physician: Lisa King Performed By: Orion Barrientos, RVT
--- NOTE | 2023-07-01 09:53 | ART_ITS ---
Reason For Study: HX Rt ILA Angioplasty Procedure A bilateral lower extremity continuous wave Doppler with analog waveform analysis and ankle brachial indexes. Left Segmental Pressures Left brachial= 142mmHg. Left posterior tibial artery = 139mmHg. Left dorsalis pedis artery = 122mmHg. Left digit = 58 mmHg. The left posterior tibial artery waveforms are triphasic. The left dorsalis pedis waveforms are biphasic. Right Segmental Pressures Right brachial= 142mmHg. Right posterior tibial artery = 154mmHg. Right dorsalis pedis artery = 143mmHg. Right digit = 45 mmHg. The right posterior tibial artery waveforms are triphasic. The right dorsalis pedis waveforms are triphasic. Indices The right ankle brachial index by the posterior tibial artery is 1.08. The right ankle brachial index by the dorsalis pedis is 1.01. The right digital-brachial index is 0.32. The left ankle brachial index by the posterior tibial artery is 0.98. The left ankle brachial index by the dorsalis pedis is 0.86. The left digital-brachial index is 0.41. VL/Ankle Brachial Index Interpretation Summary Right LELIA 1.08, normal. Doppler/PVR waveforms of the right leg normal at rest. TBI diminished, pedal/digit disease vs spasm. Left LELIA 0.98, mild arterial insufficiency. Doppler/PVR waveforms of the left l eg normal at rest. TBI diminished. Ordering Physician: Lisa King Referring Physician: Allie Marcos Performed By: Orion Barrientos, RVT
== END | disposition home or self-care (01) ==
LOC: CVS 09:50
PROVIDERS: PCP Family Medicine; Referring Provider Physician Assistant; Visit Provider Physician Assistant
DX: Z48.812 Encounter for surgical aftercare following surgery on the circulatory system (principal); I73.9 Peripheral vascular disease, unspecified; Z98.890 Other specified postprocedural states
CPT/HCPCS: 93922; 93926

== ENCOUNTER → 2023-07-08 | Outpatient (CLI) | payer OTHER, SELFPAY ==
--- NOTE | 2023-07-08 11:47 | US_ITS ---
STUDY: THYROID ULTRASOUND REASON FOR EXAM: Female, 62 years old. History of right thyroidectomy for cancer. TECHNIQUE: Ultrasound evaluation of the thyroid was performed with real-time and static bass-scale imaging. COMPARISON: Comparison is made with prior study dated January 26, 2022. FINDINGS: RIGHT LOBE: The right lobe has been surgically removed. LEFT LOBE: The left lobe of the thyroid gland measures 3.4 cm x 1.2 cm x 1.1 cm. There is a heterogeneous echotexture. Stable 6 mm x 5 mm x 4 mm hypoechoic solid nodule in the midportion of the left lobe of the thyroid gland. This is unchanged. ISTHMUS: The isthmus measures 1 mm. The regional lymph nodes are normal. US/Thyroid IMPRESSION: Stable examination. Electronically Signed: Geoffrey Richardson MD at 16:06 EST ,
[2023-07-08 14:00] LABS: T4 Free Direct 1.23 ng/dL (0.76-1.46); Thyroid Stim Hormone (TSH) 1.73 uIU/mL (0.358-3.74)
[2023-07-12 17:07] LABS: Anti-Thyroglobulin AB < 1.0 IU/mL (0.0-0.9); Thyroglobulin, Serum Qt. 4.5 ng/mL (1.5-38.5)
== END | disposition home or self-care (01) ==
PROVIDERS: PCP Family Medicine; Referring Provider Internal Medicine Endocrinology, Diabetes & Metabolism; Visit Provider Internal Medicine Endocrinology, Diabetes & Metabolism
DX: C73 Malignant neoplasm of thyroid gland (principal); E89.0 Postprocedural hypothyroidism
CPT/HCPCS: 36415; 76536; 84432; 84439; 84443; 86800

== ENCOUNTER → 2023-10-03 | Outpatient (CLI) | payer OTHER, SELFPAY | END | disposition home or self-care (01) | PROVIDERS: PCP Family Medicine; Visit Provider Nurse Practitioner Family | DX: N39.0 Urinary tract infection, site not specified (principal) | CPT/HCPCS: 87077; 87086; 87088; 87186 ==

== ENCOUNTER → 2024-01-03 | Outpatient (CLI) | payer OTHER, SELFPAY ==
[2024-01-03 15:49] LABS: Absolute Lymphocyte Count 2.29 X10^3/uL (0.83-4.51); Absolute Neutrophil Count 5.2 X10^3/uL (2.0-7.7); Basophil# 0.08 X10^3/uL; Eosinophil# 0.18 X10^3/uL; Eosinophils% 2.2 % (0-5); Hematocrit 40.6 % (37-47); Hemoglobin 13.1 g/dL (12.0-15.0); Lymphocyte # 2.29 X10^3/ul (0.83-4.51); Lymphocyte % 28.2 % (19-41); Mean Corp Hgb Conc 32.3 g/dL (32-36); Mean Corpuscular Hgb 31.3 pg (27.0-32.0); Mean Corpuscular Volume 97.1 fL (81-99); Mean Platelet Vol. 11.9 fl (6.2-12.0); Monocyte# 0.38 X10^3/uL; Monocyte% 4.7 % (0-10); NRBC Flagged by Analyzer 0 % (0-5); Neutrophil # 5.18 X10^3/uL (2.7-7.7); Neutrophil % 63.7 % (47-70); Platelet Count 285 K/mm3 (150-450); RBC Distribution Width CV 12.2 % (11.6-14.6); RBC Distribution Width SD 43.6 fl (35.1-43.9); Red Blood Count 4.18 M/mm3 (4.2-5.4); White Blood Count 8.1 K/mm3 (4.4-11.0)
[2024-01-03 17:02] LABS: ALB/GLOB Ratio 0.9 RATIO (0.9-2.4); AST(SGOT) 17 U/L (15-37); Alanine Aminotransfer ALT/SGPT 22 U/L (13-56); Albumin, Serum 3.4 g/dL (3.2-5.0); Alkaline Phosphatase 103 U/L (45-117); Anion Gap 2 (5-15); BUN 9 mg/dL (7-18); BUN/Creat Ratio 11.6 RATIO (10-20); Calcium,Total 9.3 mg/dL (8.5-10.1); Chloride 108 mmol/L (98-107); Creatinine, Serum 0.77 mg/dL (0.55-1.02); EST Glomerular Filtration Rate 80 mL/min (>60); Est Glom Filt Rate - Afr Amer 97 mL/min (>60); Free T4 1.28 ng/dL (0.76-1.46); Globulin 3.7 g/dL (2.2-4.2); Glucose 91 mg/dL (74-106); Magnesium 2.1 mg/dL (1.6-2.6); Potassium 4.1 mmol/L (3.5-5.1); Protein, Total 7.1 g/dL (6.4-8.2); Sodium Level 138 mmol/L (136-145); Thyroid Stim Hormone (TSH) 2.55 uIU/mL (0.358-3.74)
== END | disposition home or self-care (01) ==
LOC: LAB 14:43
PROVIDERS: PCP Family Medicine; Referring Provider Nurse Practitioner Family; Visit Provider Nurse Practitioner Family
DX: I48.0 Paroxysmal atrial fibrillation (principal); E78.5 Hyperlipidemia, unspecified; I10 Essential (primary) hypertension; R06.09 Other forms of dyspnea
CPT/HCPCS: 36415; 80053; 83735; 83880; 84439; 84443; 85025

== ENCOUNTER → 2024-02-21 | Outpatient (CLI) | payer OTHER, SELFPAY ==
--- NOTE | 2024-02-21 13:53 | BI_ITS ---
MAMMOGRAPHY - BILATERAL SCREENING REASON FOR EXAM: Female, 63 years old. Routine annual screening examination. PERTINENT HISTORY: Aunts with breast cancer. TECHNIQUE: Digital bilateral breast vilma (3D mammographic acquisition) in the CC and MLO projections. 2-D mediolateral oblique (MLO) and craniocaudad (CC) views of both breasts were obtained. CAD: Full Field Digital Mammography with Computer Added Detection was performed. COMPARISON: Comparison is made with prior study dated October 28, 2022 and October 06, 2021. FINDINGS: Breast Composition: There are scattered areas of fibroglandular density. There are no dominant masses or suspicious calcifications. No other significant abnormalities are identified. There has been no significant change since the prior study. BI/SCRN MAMM (CAD)W/VILMA BILAT IMPRESSION: Stable bilateral screening mammogram. Yearly follow-up mammogram recommended. (A) ASSESSMENT CATEGORY: BIRADS Category 1: Negative. A letter regarding these results will be sent to the patient by the facility within 30 days. Approximately 10% of breast cancers are not detected by mammography. A normal mammogram should not delay biopsy of a clinically suspicious abnormality. [id number] Electronically Signed: Geoffrey Richardson MD at 14:27 EDT ,
== END | disposition home or self-care (01) ==
LOC: OPBI 13:50
PROVIDERS: PCP Family Medicine; Referring Provider Obstetrics & Gynecology; Visit Provider Obstetrics & Gynecology
DX: Z12.31 Encounter for screening mammogram for malignant neoplasm of breast (principal)
CPT/HCPCS: 77063; 77067

== ENCOUNTER → 2024-07-02 | Outpatient (CLI) | payer OTHER, SELFPAY ==
--- NOTE | 2024-07-02 07:50 | ADUL_ITS ---
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 Iliac Artery, dist = 133 cm./sec. Common Femoral Artery, mid = 167 cm./sec. Supf Femoral Artery, prox = 108 cm./sec. Supf Femoral Artery, mid = 120 cm./sec. Supf Femoral Artery, dist. = 90 cm./sec. Profunda Femoral Artery = 118 cm./sec. Popliteal Artery, mid = 75 cm./sec. Ant. Tibial Artery, prox = 85 cm./sec. Ant. Tibial Artery, mid = 70 cm./sec. Ant. Tibial Artery, dist = 66 cm./sec. Post. Tibial Artery, prox = 101 cm./sec. Post. Tibial Artery, mid = 101 cm./sec. Post. Tibial Artery, dist = 94 cm./sec. Peroneal Artery, prox = 69 cm./sec. Peroneal Artery, mid = 61 cm./sec. Peroneal Artery,dist = 29 cm./sec. Procedure Exam performed in department. /US Art Duplex Unilat Lower Ext Interpretation Summary Patent right lower extremity arteries with normal velocities and no evidence of stenosis Ordering Physician: Lisa King Referring Physician: Allie Marcos Performed By: Brea Conte, TAL, RVT
--- NOTE | 2024-07-02 07:50 | ART_ITS ---
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 Left Segmental Pressures Left brachial= 126mmHg. Left posterior tibial artery = 136mmHg. Left dorsalis pedis artery = 122mmHg. Left digit = 58 mmHg. Right Segmental Pressures Right brachial= 128mmHg. Right posterior tibial artery = 140mmHg. Right dorsalis pedis artery = 139mmHg. Right digit = 104 mmHg. Indices The right ankle brachial index by the posterior tibial artery is 1.09. The right ankle brachial index by the dorsalis pedis is 1.09. The right digital-brachial index is 0.81. The left ankle brachial index by the posterior tibial artery is 1.06. The left ankle brachial index by the dorsalis pedis is 0.95. The left digital-brachial index is 0.45. VL/Ankle Brachial Index Interpretation Summary Right LELIA 1.09, normal. TBI and Doppler/PVR waveforms of the right ankle normal at rest. Left LELIA 1.06, normal. Doppler/PVR waveforms of the left leg normal at rest. TB I diminished, pedal/digit disease vs spasm Ordering Physician: Lisa King Referring Physician: Allie Marcos Performed By: Brea Conte RDCS/RVT
== END | disposition home or self-care (01) ==
LOC: CVS 07:50
PROVIDERS: PCP Family Medicine; Referring Provider Physician Assistant; Visit Provider Physician Assistant
DX: I73.9 Peripheral vascular disease, unspecified (principal); Z48.812 Encounter for surgical aftercare following surgery on the circulatory system; Z98.890 Other specified postprocedural states
CPT/HCPCS: 93922; 93926

== ENCOUNTER → 2024-08-10 | Outpatient (CLI) | payer OTHER, SELFPAY ==
--- NOTE | 2024-08-10 12:48 | CDU_ITS ---
Reason For Study: Transient Scotoma of Lt eye Rt. Velocities/BP Lt. Velocities/BP Prox CCA 75.4/11.7 cm/sec. Prox CCA 89.3/19.9 cm/sec. Mid CCA 64.4/12.7 cm/sec. Mid CCA 85.1/24.8 cm/sec. Dist CCA 72.1/16.0 cm/sec. Dist CCA 103.4/32.1 cm/sec. Prox ICA 121.6/26.7 cm/sec. Prox ICA 77.6/27.0 cm/sec. Mid ICA 114.3/35.8 cm/sec. Mid ICA 107.0/39.5 cm/sec. Dist ICA 105.2/24.8 cm/sec. Dist ICA 97.3/26.1 cm/sec. Rt. ICA/CCA = 1.9. Lt. ICA/CCA = 1.3. Prox ECA 87.5/6.2 cm/sec. Prox ECA 110.7/15.7 cm/sec. Rt. Vert. 61.1/17.1 cm/sec. Retrograde flow noted in Lt Vert A. Right Extracranial There is homogeneous, smooth atherosclerotic plaque noted in the right common carotid artery. There is heterogeneous, smooth atherosclerotic plaque noted in the right internal carotid artery. There is intimal thickening but no significant atherosclerotic plaque noted in the right external carotid artery. Antegrade flow is noted in the right vertebral artery. Left Extracranial There is heterogeneous, smooth atherosclerotic plaque noted in the left common carotid artery. There is heterogeneous, smooth atherosclerotic plaque noted in the left internal carotid artery. There is intimal thickening but no significant atherosclerotic plaque noted in the left external carotid artery. Retrograde flow noted in Lt Vert A. Procedure Carotid Duplex [id number]. This is a Carotid Duplex examination using B-mode, color flow and specral Doppler. The exam was diagnostic. Exam performed in department. VL/Carotid Duplex Ultrasound Interpretation Summary Mild (<50%) stenosis right extracranial internal carotid. Mild (<50%) stenosis left extracranial internal carotid. The Right vertebral is patent and antegrade. The Left vertebral flow is retrograde. Ordering Physician: Alex York Referring Physician: Alex York Performed By: Orion Barrientos RVT
== END | disposition home or self-care (01) ==
LOC: CVS 12:48
PROVIDERS: PCP Family Medicine; Referring Provider Psychiatry & Neurology Neurology; Visit Provider Psychiatry & Neurology Neurology
DX: I65.29 Occlusion and stenosis of unspecified carotid artery (principal)
CPT/HCPCS: 93880

== ENCOUNTER → 2024-10-13 | Outpatient (CLI) | payer OTHER, SELFPAY ==
[2024-10-13 09:11] LABS: Hematocrit 41.8 % (37-47); Hemoglobin 14.3 g/dL (12.0-15.0); Mean Corp Hgb Conc 34.2 g/dL (32-36); Mean Corpuscular Hgb 32.4 pg (27.0-32.0); Mean Corpuscular Volume 94.8 fL (81-99); Platelet Count 241 K/mm3 (150-450); RBC Distribution Width CV 11.9 % (11.6-14.6); RBC Distribution Width SD 41.2 fl (35.1-43.9); Red Blood Count 4.41 M/mm3 (4.2-5.4)
[2024-10-13 10:05] LABS: Bilirubin, Direct 0.19 mg/dL (0.00-0.30); Cholesterol 128 mg/dL (<=200); High Density Lipoprotein 47 mg/dL; Low Density Lipoprotein Calc. 54 mg/dL; Triglycerides 136 mg/dL; Very Low Density Lipoprotein 27 mg/dL (5-40); cholesterol:hdl ratio screen 2.74
[2024-10-13 10:05] LABS: Cholesterol 125 mg/dL (<=200); High Density Lipoprotein 47 mg/dL; Low Density Lipoprotein Calc. 50 mg/dL; Triglycerides 138 mg/dL; Very Low Density Lipoprotein 28 mg/dL (5-40); cholesterol:hdl ratio screen 2.64
[2024-10-13 10:54] LABS: ALB/GLOB Ratio 1.3 RATIO (0.9-2.4); AST(SGOT) 20 U/L (<=31); Alanine Aminotransfer ALT/SGPT 10 U/L (<=34); Albumin, Serum 3.9 g/dL (3.4-4.8); Alkaline Phosphatase 105 U/L (35-104); Anion Gap 10 (5-15); BUN 12 mg/dL (4-19); BUN/Creat Ratio 14.2 RATIO (10-20); Calcium,Total 9.8 mg/dL (7.6-11.0); Carbon Dioxide 24.1 mmol/L (21.0-32.0); Chloride 105 mmol/L (98-108); Creatinine, Serum 0.84 mg/dL (0.70-1.20); EST Glomerular Filtration Rate 78 (>60); Globulin 3.1 g/dL (2.2-4.2); Glucose 94 mg/dL (70-99); Potassium 4.7 mmol/L (3.3-5.1); Protein, Total 7.1 g/dL (5.9-8.4); Sodium Level 139 mmol/L (133-145); Total Bilirubin 0.49 mg/dL (0.00-1.30)
[2024-10-16 09:08] LABS: Anti-Thyroglobulin AB < 1.0 IU/mL (0.0-0.9); Thyroglobulin, Serum Qt. 3.6 ng/mL (1.5-38.5)
== END | disposition home or self-care (01) ==
LOC: LAB 08:36
PROVIDERS: Internal Medicine Endocrinology, Diabetes & Metabolism; Nurse Practitioner Family; PCP Family Medicine; Referring Provider Psychiatry & Neurology Neurology; Visit Provider Psychiatry & Neurology Neurology
DX: E78.5 Hyperlipidemia, unspecified (principal); C73 Malignant neoplasm of thyroid gland; E89.0 Postprocedural hypothyroidism
CPT/HCPCS: 36415; 80053; 80061; 82248; 84432; 84439; 84443; 85027; 86800

== ENCOUNTER → 2024-11-21 | Outpatient (CLI) | payer OTHER, SELFPAY ==
--- NOTE | 2024-11-21 07:15 | CT_ITS ---
PROCEDURE: STROKE CTA HEAD AND NECK W/CON 11/21/2024 REASON FOR EXAM: VERTEBTROBASILAR INSUFFICIENCY TECHNIQUE: CTA imaging of the head and neck from the aortic arch to the skull vertex with out contrast and with intravenous contrast. Multiplanar and multisequence images were obtained. CONTRAST: Isovue 370 VOLUME: 100 mL. One or more dose reduction techniques were used (e.g., Automated exposure control, adjustment of the mA and/or kV according to patient size, use of iterative reconstruction technique). RADIATION DOSE SUMMARY: CTDlvol: 23.06 mGy DLP: 1342 mGycm COMPARISON: None. FINDINGS: CT OF THE HEAD WITHOUT/WITH CONTRAST. Normal size of the ventricles and extra-axial spaces for the patient's age. Normal white matter tracts of the supratentorial brain. Normal basal ganglia and thalami. Normal brainstem. Normal cerebellum. There is no demonstrated extra-axial, intraparenchymal, or intraventricular hemorrhage. There are no findings of an acute ischemic infarction. Normal calvarium. There is no demonstrated fracture. Normal soft tissue structures. Normal visualized paranasal sinuses. CT ANGIOGRAPHY OF THE HEAD. Technique: Axial CT angiographic images of the head. Reformatted coronal and sagittal images. 3D, MIP images. Reconstructed images were reviewed on a different workstation by radiologist. Findings: origin of the right posterior cerebral artery, normal variant. Normal bilateral petrous carotid arteries. Atheromatous plaques with mild multifocal stenosis of the right cavernous carotid artery with a normal supraclinoid bifurcation. Atheromatous plaques with mild multifocal stenosis of the Dragon CTA neck left cavernous carotid artery with a normal supraclinoid bifurcation. Normal right A1 segments of the anterior cerebral artery. Normal left A1 segments of the anterior cerebral artery. Normal intact anterior communicating artery (ACOM). Normal bilateral A2 segments of the anterior cerebral arteries. Normal right M1 and M2 segments of the middle cerebral arteries, with a normal M1 bifurcation. Normal left M1 and M2 segments of the middle cerebral arteries, with a normal M1 bifurcation. Normal right posterior communicating artery (PCOM). Normal left posterior communicating artery (PCOM). Normal bilateral vertebral arteries. Normal basilar artery with a normal basilar bifurcation. The visualized bilateral superior cerebellar (SCA) arteries are normal. Normal bilateral P1, P2 and visualized P3 segments of the posterior cerebral arteries. There is no demonstrated aneurysm of the [place]. There is no major vessel occlusion or hemodynamically significant stenosis. There is no demonstrated abnormality of the visualized brain. CT ANGIOGRAPHY OF THE NECK. Technique: Axial CT angiographic images of the neck. Reformatted coronal and sagittal images. 3D, MIP images. Reconstructed images were reviewed on a different workstation by radiologist. RIGHT CAROTID ARTERIES: Normal right common carotid artery (CCA). Normal right common carotid bulb. 20% stenosis of the origin of the right internal carotid (ICA) artery without a hemodynamically significant stenosis. Normal visualized cervical portion of the right internal carotid artery. Normal origin of the right external carotid artery (ECA). LEFT CAROTID ARTERIES: Normal left common carotid artery (CCA). Normal left common carotid bulb. 20% stenosis of the origin of the left internal carotid (ICA) artery without a hemodynamically significant stenosis. Normal visualized cervical portion of the left internal carotid artery. Normal origin of the left external carotid artery (ECA). VERTEBRAL ARTERIES: Normal bilateral vertebral artery without a hemodynamically significant stenosis. Diminutive left vertebral artery, probably a normal variant. CT/STROKE CTA Head AND Neck W/Con IMPRESSION: No CT evidence of high-grade stenosis. Reading Location: [place] [id number]
--- NOTE | 2024-11-21 07:37 | CT_ITS ---
PROCEDURE: LOW DOSE CT LUNG SCREENING 11/21/2024 REASON FOR EXAM: NICOTINE DEPENDENCE TECHNIQUE: Low Dose CT Lung screening without contrast. Coronal and Sagittal reconstruction series were provided. One or more dose reduction techniques were used (e.g., Automated exposure control, adjustment of the mA and/or kV according to patient size, use of iterative reconstruction technique). REFERENCE LINK: [facility] Lung-RADS RADIATION DOSE SUMMARY: CTDlvol: 13.2 mGy DLP: 165 mGycm COMPARISON: 11/01/2022. FINDINGS: PULMONARY NODULES: (Only nodules >3mm are reported) Unchanged bilateral scattered calcified pulmonary granulomas with the largest measuring 5 mm. Unchanged emphysema. Unchanged mild diffuse spondylosis. Normal unenhanced main pulmonary artery and right and left pulmonary arteries. Normal bilateral peripheral pulmonary arteries. Normal thoracic aorta and visualized great vessels. There is no demonstrated aortic aneurysm. Normal heart and pericardium. Normal mediastinum. Normal hilar regions. Normal visualized trachea and thickened bronchi. Normal pleura. Normal visualized upper abdomen. CT/Low Dose CT Lung Screening IMPRESSION: Coronary artery calcification (CAC) is is present Lung-RADS Category: 2 BENIGN (BASED ON IMAGING FEATURES OR INDOLENT BEHAVIOR). RECOMMEND 12-MONTH SCREENING LDCT. Other Significant Findings: None. Reading Location: [facility]
== END | disposition home or self-care (01) ==
LOC: CT 07:14
PROVIDERS: PCP Family Medicine; Referring Provider Psychiatry & Neurology Neurology; Visit Provider Psychiatry & Neurology Neurology
DX: Z12.2 Encounter for screening for malignant neoplasm of respiratory organs (principal); G45.0 Vertebro-basilar artery syndrome; F17.200 Nicotine dependence, unspecified, uncomplicated
CPT/HCPCS: 70496; 70498; 71271; Q9967

== ENCOUNTER → 2025-04-29 | Outpatient (CLI) | payer OTHER, SELFPAY ==
[2025-04-29 12:40] LABS: Hematocrit 40.5 % (37-47); Hemoglobin 13.8 g/dL (12.0-15.0); Immature Granulocytes Count 0.030 X10^3/uL (0.0-0.0); Mean Corp Hgb Conc 34.1 g/dL (32-36); Mean Corpuscular Volume 96.9 fL (81-99); Mean Platelet Vol. 12.8 fl (6.2-12.0); NRBC Flagged by Analyzer 0 % (0-5); Platelet Count 233 K/mm3 (150-450); RBC Distribution Width CV 12.6 % (11.6-14.6); RBC Distribution Width SD 44.5 fl (35.1-43.9); Red Blood Count 4.18 M/mm3 (4.2-5.4); White Blood Count 9.9 K/mm3 (4.4-11.0)
[2025-04-29 13:09] LABS: CRP < 3.00 mg/L (0.0-3.0)
== END | disposition home or self-care (01) ==
LOC: MTLAB 09:46
PROVIDERS: PCP Family Medicine; Referring Provider Ophthalmology; Visit Provider Ophthalmology
DX: H53.2 Diplopia (principal)
CPT/HCPCS: 36415; 85025; 85652; 86140

== ENCOUNTER → 2025-06-07 | Outpatient (CLI) | payer OTHER, SELFPAY ==
--- NOTE | 2025-06-07 08:50 | ADUL_ITS ---
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 Iliac Artery, dist = 152.7 cm./sec. Common Femoral Artery, mid = 100.3 cm./sec. Supf Femoral Artery, prox = 105.1 cm./sec. Supf Femoral Artery, mid = 85.4 cm./sec. Supf Femoral Artery, dist. = 105.1 cm./sec. Profunda Femoral Artery = 63.7 cm./sec. Popliteal Artery, mid = 100.8 cm./sec. Post. Tibial Artery, prox = 81.0 cm./sec. Post. Tibial Artery, mid = 96.4 cm./sec. Post. Tibial Artery, dist = 67.8 cm./sec. Peroneal Artery, prox = 46.1 cm./sec. Peroneal Artery, mid = 31.2 cm./sec. Peroneal Artery,dist = 72.1 cm./sec. Ant. Tibial Artery, prox = 71.3 cm./sec. Ant. Tibial Artery, mid = 71.3 cm./sec. Ant. Tibial Artery, dist = 50.4 cm./sec. Procedure The exam was diagnostic. Exam performed in department. VL/US Art Duplex Unilat Lower Ext Interpretation Summary Right lower extremity arteries patent with normal velocities throughout and no evidence of stenosis Ordering Physician: Lisa King Referring Physician: Allie Marcos Performed By: Orion Barrientos, RVT
--- NOTE | 2025-06-07 08:50 | ART_ITS ---
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 Left Segmental Pressures Left brachial= 113mmHg. Left posterior tibial artery = 137mmHg. Left dorsalis pedis artery = 109mmHg. Left digit = 42 mmHg. The left posterior tibial artery waveforms are triphasic. The left dorsalis pedis waveforms are triphasic. Right Segmental Pressures Right brachial= 115mmHg. Right posterior tibial artery = 143mmHg. Right dorsalis pedis artery = 119mmHg. Right digit = 67 mmHg. The right posterior tibial artery waveforms are triphasic. The right dorsalis pedis waveforms are triphasic. Indices The right ankle brachial index by the posterior tibial artery is 1.24. The right ankle brachial index by the dorsalis pedis is 1.03. The right digital-brachial index is 0.58. The left ankle brachial index by the posterior tibial artery is 1.19. The left ankle brachial index by the dorsalis pedis is 0.95. The left digital-brachial index is 0.37. VL/Ankle Brachial Index Interpretation Summary Right LELIA 1.24, normal. Doppler/PVR waveforms of the right ankle normal at rest . 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 Left LELIA 1.19, normal. Doppler/PVR waveforms of the left ankle normal at rest. 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 Ordering Physician: Lisa King Referring Physician: Allie Marcos Performed By: Orion Barrientos RVT
== END | disposition home or self-care (01) ==
LOC: CVS 08:50
PROVIDERS: PCP Family Medicine; Referring Provider Physician Assistant; Visit Provider Physician Assistant
DX: Z48.812 Encounter for surgical aftercare following surgery on the circulatory system (principal); I73.9 Peripheral vascular disease, unspecified; Z98.890 Other specified postprocedural states
CPT/HCPCS: 93922; 93926